=== PATIENT | female | born 1980 | race Caucasian/White ===

== ENCOUNTER 2016-08-24 23:37 | Emergency (ER) | payer MEDICAID ==
[~2016-08-24] VITALS: Ht 157.5 cm; Wt 86.2 kg
[~2016-08-24 23:37] MED LIST: BENZ-13 PO; CODE118S2 PO; DOXY-227 PO; DOXY100T2 PO; FENO54TA4 PO; FLUC150T2 PO; GABA-488 PO; HYDR-3730 PO; HYDR-3812 PO; HYDR-3820 PO; HYDR-3874 PO; HYDR-757 PO; METF500T4 PO; METR500T PO; METR500T21 PO; NAPR-832 PO; SULF1TAB35 PO; TRAM50TA2 PO
--- OUTSIDE RECORDS SUMMARY | 2016-08-24 23:44 | XMS REPORT | Continuity of Care Document ---
Author Author [facility] Organization [facility] Address Unknown Phone Unavailable Care Team Providers Care Programmer Or Analyst Name Role Phone Heron Weeks PCP [phone] Source Comments Some departments are not documenting in the electronic medical record. If you do not see the information that you expected, contact Release of Information in the Health Information Management department at [phone] for further assistance in locating additional records.[facility] Active Allergies and Adverse Reactions Allergen Noted Date Severity Reactions Comments Oxycodone-Acetaminophen 03/23/2016 Low ITCHING tolerates hydrocodone Pcn 12/29/2015 High SHORTNESS OF BREATH, EDEMA Prednisone 05/25/2016 Medium EDEMA Tramadol 03/23/2016 Low PALPITATIONS Current Medications Prescription Sig. Disp. Refills Start End Date Status Date senna/docusate Take 1 Tab by mouth twice 30 Tab 1 01/07/20 Active (SENOKOT-S) 8.6/50 mg daily as needed. Please 16 tablet take while taking pain medications. Hold for loose stools. solifenacin(+) (VESICARE) Take 5 mg by mouth daily. Active 5 mg tablet metFORMIN (GLUCOPHAGE) Take 500 mg by mouth Active 500 mg tablet twice daily with meals. fenofibrate (LIPOFEN) 50 Take by mouth daily. Active mg capsule Take with food. HYDROcodone/acetaminophen Take 1-2 Tabs by mouth 60 Tab 0 05/25/20 Active (NORCO) 5-325 mg tablet every 4 hours as needed 16 for Pain imiquimod(+) (ALDARA) 5 % Apply topically to 12 Packet 3 07/01/20 Active topical cream affected area three times 16 weekly. 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 Most Recent Encounters Date Type Specialty Providers Description 08/12/2016 Office Visit General Surgery Elvin Hauser MD AIN ( anal intraepithelial neoplasia) anal canal (Primary Dx) 08/12/2016 Telephone Oncology Elvin Hauser MD Appointment 08/05/2016 Telephone General Surgery Angie Tapia Appointment 07/29/2016 Orders Only General Surgery Elvin Hauser MD Post- operative pain (Primary Dx) 07/11/2016 Orders Only Oncology Elvin Hauser MD Post- operative pain (Primary Dx) 07/01/2016 Office Visit General Surgery Elvin Hauser MD Post- operative pain (Primary Dx) 06/16/2016 Ancillary Radiology Outpatient, Radiologist Unknown cause of injury, Orders initial encounter (Primary Dx) 06/14/2016 Orders Only Elvin Alvarenga MD Post- operative pain (Primary Dx) 06/03/2016 Hospital Radiology Encounter 06/03/2016 Office Visit General Surgery Elvin Hauser MD Expiratory wheezing (Primary Dx) 05/27/2016 Orders Only General Surgery Elvin Hauser MD Post- operative pain (Primary Dx) 05/25/2016 Anesthesia Aaron Hernandez MD Event 05/25/2016 Surgery Elvin Hauser MD ANOSCOPY, Exam under anesthesia, high resolution anoscopy, targeted destruction of anal condyloma Additional details Social History Tobacco Use Types Packs/Day Years Used Date Current Every Day Smoker Cigarettes 1 21 Smokeless Tobacco: Never Used Tobacco Cessation: Ready to Quit: No Comments: Alcohol Use Drinks/Week oz/Week Comments No 0 Standard 0.0 drinks or equivalent Last Filed Vital Signs Vital Sign Reading Time Taken Blood Pressure 145/85 08/12/2016 1:39 PM CIGAR BRANDER Pulse 95 08/12/2016 1:39 PM CIGAR BRANDER Temperature 36.7 C (98 F) 08/12/2016 1:39 PM CIGAR BRANDER Respiratory Rate 22 08/12/2016 1:39 PM CIGAR BRANDER Height 1.575 m (5' 2") 08/12/2016 1:39 PM CIGAR BRANDER Weight 88.451 kg (195 lb) 08/12/2016 1:39 PM CIGAR BRANDER Body Mass Index 35.66 08/12/2016 1:39 PM CIGAR BRANDER Oxygen Saturation 98% 08/12/2016 1:39 PM CIGAR BRANDER Plan of Care Date Type Specialty Providers Description 09/03/2016 Appointment Radiology Elvin Hauser MD [address] [facility] [address] [place] [address] [phone] (Fax) Health Maintenance Due Date Last Done Comments Physical (Comprehensive) 12/11/1986 Exam Pertussis Vaccine 12/11/1990 Tetanus Vaccine 12/11/1996 Cervical Cancer Screening 12/11/2000 Influenza Vaccine 04/21/2016 Procedures from Last 3 Months Procedure Name Priority Date/Time Associated Diagnosis Comments PROCEDURES-SCAN 05/27/2016 Results for this 10:35 AM CDT procedure are in the results section. ANOSCOPY, Exam under 05/25/2016 AIN (anal intraepithelial anesthesia, high 10:10 AM CDT neoplasia) anal canal resolution anoscopy, targeted destruction of anal condyloma Additional details Special Needs Results from Last 3 Months GENERAL RAD CHEST EXTERNAL IMAGING (06/03/2016 11:10 PM) Narrative This order has been auto finalized and does not contain a result. PROCEDURES-SCAN (05/27/2016 10:35 AM) Narrative Ordered by an unspecified provider. SURGICAL PATHOLOGY (05/25/2016 1:01 PM) Component Value Range PATHOLOGY REPORT [facility] [email or web address] Della Espinosa MD, PhD, Director of Anatomic Pathology Department of Pathology and Laboratory Medicine [address] [facility], [place] [address] Surgical Pathology Office: [phone] SURGICAL PATHOLOGY REPORT NAME: EBONY FERNANDES SURG PATH #: [id number] MR #: [id number] SPECIMEN CLASS: SR BILLING #: [id number] ALT ID #: LOCATION: [facility] DATE OF PROCEDURE: 05/25/2016 AGE: 35 SEX: F DATE RECEIVED: 05/25/2016 : 1980 TIME RECEIVED: 13:01 PHYSICIAN: ELVIN HAUSER MD DATE OF REPORT: 05/26/2016 COPY TO: DATE OF PRINTIN05/26/2016 ################################################## ###################### Final Diagnosis: A. Squamous and colonic mucosa, "anal canal biopsy proximal to dentate line", biopsy: High-grade squamous intraepithelial lesion (HGSIL, AIN-2) B. Colonic mucosa, "anterior distal rectum", biopsy: No diagnostic abnormalities. C. Squamous mucosa, "anterior perianal skin", biopsy: High-grade squamous intraepithelial lesion (HGSIL, AIN 2-3) D. Colonic mucosa, "right lateral anal canal biopsy proximal to dentate line", biopsy: No diagnostic abnormalities. E. Squamous mucosa, "right lateral anal canal biopsy proximal to dentate line", biopsy: Low-grade squamous intraepithelial lesion (HGSIL, AIN-1) F. Squamous mucosa, "right lateral perianal skin", biopsy: Low-grade squamous intraepithelial lesion (LGSIL, AIN-1) G. Squamous mucosa, "posterior anal canal biopsy- proximal to dentate line", biopsy: Low-grade squamous intraepithelial lesion (HGSIL, AIN-1) H. Squamous mucosa, "posterior perianal skin", biopsy: High-grade squamous intraepithelial lesion (HGSIL, AIN-3) I. Squamous mucosa, "left posterior perianal skin", biopsy: High-grade squamous intraepithelial lesion (HGSIL, AIN 2-3) J. Squamous mucosa, "left posterior lateral proximal to dentate line", biopsy: High-grade squamous intraepithelial lesion (HGSIL, AIN-2) K. Squamous and colonic mucosa, "left lateral proximal to dentate line", biopsy: Low-grade squamous intraepithelial lesion (LGSIL, AIN-1) L. Colonic mucosa, "left lateral perianal skin", biopsy: High-grade squamous intraepithelial lesion (HGSIL, AIN-2) M. Colonic mucosa, "left lateral anterior lateral at dentate line", biopsy: High-grade squamous intraepithelial lesion (HGSIL, AIN 2-3) Attestation: By this signature, I attest that I have personally formulated the final interpretation expressed in this report and that the above diagnosis is based upon my examination of the slides and/or other material indicated in this report. +++Electronically Signed Out By+++ ksw/05/25/2016 Interpreted by: Nirmala Dukes M.D. Resident 05/26/2016 ################################################## ###################### Material Received: A: anal canal biopsy proximal to dentate line B: anterior distal rectum biopsy C: anterior jarad-anal skin D: right lateral anal canal biopsy proximal to dentate line E: right lateral anal canal biopsy proximal to dentate line F: right lateral jarad-anal skin G: posterior anal canal biopsy- proximal to dentate line H: posterior jarad-anal skin I: left posterior jarad-anal skin J: left posterior lateral proximal to dentate line biopsy K: left lateral proximal to dentate line biopsy L: left lateral jarad-anal skin biopsy M: left lateral anterior lateral at dentate line History: 35-year-old female with a history of anal intraepithelial neoplasm, anal canal. Gross Description: A. Received in formalin labeled "anal canal biopsy proximal dentate line" is a 0.4 x 0.2 x 0.2 cm aggregate of brunner-brown soft tissue fragments. The specimen is entirely submitted in cassette A1. (ads) B. Received in formalin labeled "anterior distal rectum biopsy" is a 0.8 x 0.2 x 0.2 cm aggregate of brunner-brown soft tissue fragments. The specimen is entirely submitted in cassette B1. (ads) C. Received in formalin labeled "anterior perianal skin" is a 0.9 x 0.3 x 0.3 cm brunner-white portion of pigmented skin and underlying soft tissue. The soft tissue is inked black. The specimen is bisected and entirely submitted in cassette C1. (ads) D. Received in formalin labeled "right lateral anal canal biopsy proximal dentate line" is a 0.2 x 0.2 x 0.2 cm aggregate of brunner-brown soft tissue fragments. The specimen is entirely submitted in cassette D1. (ads) E. Received in formalin labeled "right lateral anal canal biopsy at dentate line" is a 0.6 x 0.2 x 0.2 cm aggregate of brunner-brown soft tissue fragments. The specimen is entirely submitted in cassette E1. (ads) F. Received in formalin labeled "right lateral perianal skin" is a 0.4 x 0.3 x 0.2 cm aggregate of brunner-brown soft tissue fragments. The specimen is entirely submitted in cassette F1. (ads) G. Received in formalin labeled "posterior anal canal biopsy-proximal dentate line" is a 0.6 x 0.3 x 0.2 cm aggregate of brunner-brown soft tissue fragments. The specimen is entirely submitted in cassette G1. (ads) H. Received in formalin labeled "posterior perianal skin" is a 0.7 x 0.4 x 0.2 cm brunner-white portion of pigmented skin and underlying soft tissue. The soft tissue is inked black. The specimen is bisected and entirely submitted in cassette H1. (ads) I. Received in formalin labeled "left posterior perianal skin" is a 0.4 x 0.4 x 0.2 cm brunner-brown soft tissue fragment. The specimen is entirely submitted in cassette I1. (ads) J. Received in formalin labeled "left posterior lateral proximal to the dentate line biopsy" is a 0.3 x 0.1 x 0.1 cm aggregate of brunner-brown soft tissue fragments. The specimen is entirely submitted in cassette J1. (ads) K. Received in formalin labeled "left lateral proximal dentate line biopsy" is a 0.4 x 0.2 x 0.2 cm aggregate of brunner-brown soft tissue fragments. The specimen is entirely submitted in cassette K1. (ads) L. Received in formalin labeled "left lateral perianal skin biopsy" is a 0.2 x 0.1 x 0.1 cm aggregate of brunner-brown soft tissue fragments. The specimen is entirely submitted in cassette L1. (ads) M. Received in formalin labeled "left anterior lateral at dentate line" is a 0.6 x 0.4 x 0.2 cm aggregate of brunner-brown soft tissue fragments. The specimen is entirely submitted in cassette M1. (ads) as/05/25/2016 Parker Mark M.D. Resident POC GLUCOSE (05/25/2016 9:51 AM)Only the most recent of 2 results within the time period is included. Component Value Range Glucose, POC 107 (H) 70-100 MG/DL
[2016-08-24] MEDS ORDERED: HYDR-3820 PO (23:51)
[2016-08-24] MEDS ORDERED: IMIQ1CRE TOP (23:51)
[2016-08-25] MEDS ORDERED: fentaNYL INJECTION 100 MCG/2 ML AMP IVP ONE
[2016-08-25] MEDS ORDERED: KETOROLAC 30 MG/ML VIAL IVP ONE
[2016-08-25 00:15] LABS: BASOPHILS # (AUTO) 0.1 10^3/uL (0.0-0.1); BASOPHILS % (AUTO) 1 % (0-10); EOSINOPHILS # (AUTO) 0.2 10^3/uL (0.0-0.3); EOSINOPHILS % (AUTO) 2 % (0-10); LYMPHOCYTES # (AUTO) 5.3 X 10^3 (1.0-4.0); LYMPHOCYTES % (AUTO) 45 % (12-44); MEAN CORPUSCULAR HEMOGLOBIN 31 PG (25-34); MEAN CORPUSCULAR HGB CONC 34 G/DL (32-36); MEAN CORPUSCULAR VOLUME 89 FL (80-99); MEAN PLATELET VOLUME 9.5 FL (7.4-10.4); MONOCYTES # (AUTO) 1.2 X 10^3 (0.0-1.0); MONOCYTES % (AUTO) 10 % (0-12); NEUTROPHILS # (AUTO) 5.2 X 10^3 (1.8-7.8); NEUTROPHILS % (AUTO) 44 % (42-75); PLATELET COUNT 329 10^3/uL (130-400); RED BLOOD COUNT 4.58 10^6/uL (4.35-5.85); RED CELL DISTRIBUTION WIDTH 14.1 % (10.0-14.5); WHITE BLOOD COUNT 11.9 10^3/uL (4.3-11.0)
[2016-08-25] MEDS ORDERED: LIDOCAINE/EPI 1%-1:100,000 (XYLOCAINE) 20ML INJ ONE (00:30)
[2016-08-25] MEDS ORDERED: LIDOCAINE 2% VISCOUS 15 ML UDC MM ONE (00:30)
[2016-08-25] MEDS ORDERED: HYDROcodone/APAP 5 MG/325 MG (LORTAB) TAB PO ONE (01:30)
[2016-08-25] MEDS ORDERED: TRIM/SULFAMETH 160/800 (SEPTRA DS) TAB PO ONE (01:30)
[2016-08-25] MEDS ORDERED: metroNIDAZOLE 500 MG (FLAGYL) TAB PO ONE (01:30)
[2016-08-25] MEDS ORDERED: METR500T PO (01:33)
[2016-08-25] MEDS ORDERED: SULF1TAB35 PO (01:33)
--- NOTE | 2016-08-25 01:34 | ED General ---
General Chief Complaint: Skin/Wound Problems Stated Complaint: ABSCESS NEEDS LANCED Nursing Triage Note: PT REPORTS ABSCESS TO ANAL AREA THAT HAS BEEN LANCED BEFORE HAS RETURNED. Nursing Sepsis Screen: Possible Sepsis Risk Source of Information: Patient, Old Records Exam Limitations: No Limitations History of Present Illness Time Seen by Provider: 23:43 Initial Comments Patient presents with a recurrent perianal abscess. She has had an abscess in this area in the past requiring incision and drainage. She has been treated in the past for rectal dysplasia. She reports fever at home of 101.3 but she is afebrile at present. Allergies and Home Medications Allergies Coded Allergies: oxycodone (Verified Allergy, Mild, 06/08/16) Penicillins (Verified Allergy, Unknown, 06/08/16) prednisone (Verified Allergy, Unknown, 06/08/16) tramadol (Verified Allergy, Unknown, itching, 06/08/16) Home Medications Fenofibrate 54 Mg Tablet 54 MG PO DAILY (Reported) Hydrocodone/Acetaminophen 1 Each Tablet #60 1 TAB PO Q6H PRN PRN PAIN (Reported ) Hydrocodone/Acetaminophen 1 Each Tablet #10 1 EACH PO Q4H PRN PRN PAIN Prescribed by: TESSA HERNANDEZ on 08/25/16136 Imiquimod 1 Each Cream.pack #12 1 APPFUL TOP 3 TIMES/WEEK (Reported) Metronidazole 500 Mg Tablet #20 500 MG PO BID Prescribed by: TESSA HERNANDEZ on 08/25/16132 Sulfamethoxazole/Trimethoprim 1 Each Tablet #20 1 EACH PO BID Prescribed by: TESSA HERNANDEZ on 08/25/16132 Constitutional: see HPI EENTM: no symptoms reported Respiratory: no symptoms reported Cardiovascular: no symptoms reported Gastrointestinal: see HPI Genitourinary: no symptoms reported Musculoskeletal: no symptoms reported Skin: no symptoms reported Psychiatric/Neurological: No Symptoms Reported Hematologic/Lymphatic: No Symptoms Reported Past Jqbwcpy-Eyidqa-Jferzl Hx Patient Social History Alcohol Use: Denies Use Recreational Drug Use: No Smoking Status: Current Everyday Smoker Type Used: Cigarettes Recent Foreign Travel: No Contact w/Someone Who Travel: No Recent Infectious Disease Expo: No Recent Hopitalizations: Yes (May 5- rectal surgery) Physical Abuse Screen: No Sexual Abuse: No Immunizations Up To Date Tetanus Booster (TDap): More than 5yrs Surgeries HX Surgeries: Yes (brain aneurysm/rectal surgery/colon ca, carpal tunnel) Surgeries: Bowel Surgery, Rectal, Tubal Ligation Respiratory Hx Respiratory Disorders: Yes Respiratory Disorders: Asthma Cardiovascular Hx Cardiac Disorders: Yes Cardiac Disorders: High Cholesterol Neurological Hx Neurological Disorders: Yes (brain surgery for avm) Neurological Disorders: Headaches /Migraines 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 System Hx 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 Disorders: No Sexually Transmitted Disease: No HIV/AIDS: No (3 leaps on pap smears) [employer]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 Genitourinary Hx Genitourinary Disorders: No Gastrointestinal Hx Gastrointestinal Disorders: Yes (pre cancerous cells in the rectum) Musculoskeletal Hx Musculoskeletal Disorders: No Endocrine Hx Endocrine Disorders: Yes Endocrine Disorders: Diabetes, Non-Insulin dep HEENT HX ENT Disorders: No Loss of Vision: Denies Hearing Impairment: Denies Cancer Hx Cancer: Yes Cancer: Colon (Rectal dysplasia) Psychosocial Hx Psychiatric Problems: No Integumentary HX Skin/Integumentary Disorder: No Blood Transfusions Hx Blood Disorders: No Family Medical History Significant Family History: No Pertinent Family Hx Family Medial History: Arthritis 19 FATHER 19 MOTHER Asthma 19 FATHER G8 BROTHER Cataracts 19 MOTHER Diabetes mellitus 19 FATHER Headache disorder 19 MOTHER Hypercholesterolemia 19 MOTHER Seizure disorder 19 FATHER G8 BROTHER Physical Exam Vital Signs Capillary Refill : Less Than 3 Seconds General Appearance: WD/WN Mild Distress HEENT: PERRL/EOMI Normal ENT Inspection Respiratory: Lungs Clear Normal Breath Sounds No Accessory Muscle Use No Respiratory Distress Cardiovascular: Regular Rate, Rhythm No Edema No Murmur Gastrointestinal: Normal Bowel Sounds Non Tender Soft Genital/Rectal: Other (Fluctuant abscess at the 11 o'clock position near the anus) Extremity: Normal Inspection Neurologic/Psychiatric: Alert Oriented x3 No Motor/Sensory Deficits Normal Mood/Affect paranormal investigator II-XII Norm as Tested Skin: Normal Color Warm/Dry I&D : Blade Size: 11 I & D Procedure: betadine prep Progress Skin was cleansed with alcohol and anesthetized with lidocaine with epinephrine. Betadine prep was used. Small incision was made directly over the area of greatest fluctuance. A small amount of purulent pus was expressed. Cultures were collected. Progress/Results/Core Measures Results/Orders Lab Results My Orders Medications Given in ED Vital Signs/I&O Blood Pressure Mean: 110 Progress Note : Progress Note Because of report of fever, labs were obtained. Patient was treated with fentanyl and Toradol prior to incision and drainage. Incision and drainage was performed with collection of cultures. Patient was treated with Bactrim and Flagyl. Departure Impression Impression: Primary Impression: Perianal abscess Additional Impression: Encounter for incision and drainage procedure Disposition: HOME, SELF-CARE Condition: Improved Departure-Patient Inst. Decision time for Depature: 01:15 Referrals: [facility] (PCP/Family) Primary Care Physician Patient Instructions: Abscess Incision and Drainage, Skin Abscess Add. Discharge Instructions: Complete your antibiotics as prescribed. Follow-up with your primary care provider and/or your surgeon in about 48 hours to review the wound cultures. This will ensure you are on an antibiotic regimen appropriate for the bacteria that grows in the culture. Return to the emergency room if symptoms worsen. You may take ibuprofen up to 800 mg every 8 hours as needed for pain. Use hydrocodone for pain not controlled by ibuprofen. Do sitz baths for 15-30 minutes 3 times a day until wound stops draining. All discharge instructions reviewed with patient and/or family. Voiced understanding. Scripts Hydrocodone/Acetaminophen (Hydrocodon -Acetaminophen 5-325)1 Each Tablet1 Each PO Q4H PRN PAIN #10 TAB Prov:TESSA WALTON MD 08/25/16 Metronidazole (Flagyl)500 Mg [id number] Mg PO BID #20 TAB Prov:TESSA WALTON MD 08/25/16 Sulfamethoxazole/Trimethoprim (Bactrim Ds Tablet)1 Each Tablet1 Each PO BID #20 TAB Prov:TESSA WALTON MD 08/25/16 TESSA WALTON MD Aug 25, 2016 01:34 Fentanyl Injection (Sublimaze Injection (08/25/16 00:00) Wound Culture (08/24/16 23:54) Lidocaine 2% Viscous 15 Ml (Xylocaine Vi (08/25/16 00:30) Lidocaine/Epi 1% 1:100,000 (Xylocaine /E (08/25/16 00:30) Hydrocodone/Apap 5/325 Tablet (Lortab 5 (08/25/16 01:30) Sulfamethoxazole/Trimet Ds Tab (Bactrim (08/25/16 01:30) Metronidazole Tablet (Flagyl Tablet) (08/25/16 01:30) Medications Given in ED Current Medications Medications Dose Ordered Sig/Maryse Route Start Time Stop Time Status Last Admin Dose Admin Fentanyl Citrate 75 mcg ONCE ONCE IVP 08/25/16 00:00 08/25/16 00:01 DC 08/25/16 00:04 75 MCG Ketorolac Tromethamine 30 mg ONCE ONCE IVP 08/25/16 00:00 08/25/16 00:01 DC 08/25/16 00:04 30 MG Lidocaine HCl 5 ml ONCE ONCE MM 08/25/16 00:30 08/25/16 00:31 DC 08/25/16 00:50 5 ML Vital Signs/I&O Vital Sign - Last 12Hours 08/24/16 23:44 Temp 98.6 Pulse 98 Resp 18 B/P 147/92 Pulse Ox 98 O2 Delivery Room Air Blood Pressure Mean: 110 Departure Impression Impression: Primary Impression: Perianal abscess Additional Impression: Encounter for incision and drainage procedure Disposition: HOME, SELF-CARE Condition: Improved Departure-Patient Inst. Decision time for Depature: 01:15 Referrals: [facility] (PCP/Family) Primary Care Physician Patient Instructions: Abscess Incision and Drainage, Skin Abscess Add. Discharge Instructions: Complete your antibiotics as prescribed. Follow-up with your primary care provider and/or your surgeon in about 48 hours to review the wound cultures. This will ensure you are on an antibiotic regimen appropriate for the bacteria that grows in the culture. Return to the emergency room if symptoms worsen. You may take ibuprofen up to 800 mg every 8 hours as needed for pain. Use hydrocodone for pain not controlled by ibuprofen. Do sitz baths for 15-30 minutes 3 times a day until wound stops draining. All discharge instructions reviewed with patient and/or family. Voiced understanding. Scripts Hydrocodone/Acetaminophen (Hydrocodon -Acetaminophen 5-325)1 Each Tablet1 Each PO Q4H PRN PAIN #10 TAB Prov:TESSA WALTON MD 08/25/16 Metronidazole (Flagyl)500 Mg [id number] Mg PO BID #20 TAB Prov:TESSA WALTON MD 08/25/16 Sulfamethoxazole/Trimethoprim (Bactrim Ds Tablet)1 Each Tablet1 Each PO BID #20 TAB Prov:TESSA WALTON MD 08/25/16 TESSA WALTON MD Aug 25, 2016 01:34
[2016-08-25] MEDS ORDERED: HYDR-3812 PO (01:37)
[2016-08-25 01:45] VITALS: BP 138/84
== END 2016-08-25 01:45 | disposition home or self-care (01) ==
LOC: EDUNIT# 23:37 → ER 23:40
DX: K61.0 Anal abscess (principal)
CPT/HCPCS: 36415; 85025; 86141; 87070; 87186; 87205; 96374; 96375

== ENCOUNTER 2016-09-17 20:12 | Emergency (ER) | payer MEDICAID ==
[~2016-09-17] VITALS: Ht 157.5 cm; Wt 88.5 kg
[~2016-09-17 20:12] MED LIST changes: +IMIQ1CRE TOP
--- OUTSIDE RECORDS SUMMARY | 2016-09-17 20:18 | XMS REPORT | Continuity of Care Document ---
Author Author [facility] Organization [facility] Address Unknown Phone Unavailable Care Team Providers Care Sales Activity Manager Name Role Phone Heron Weeks PCP [phone] Source Comments Some departments are not documenting in the electronic medical record. If you do not see the information that you expected, contact Release of Information in the Health Information Management department at [phone] for further assistance in locating additional records.[facility] Active Allergies and Adverse Reactions Allergen Noted [...] daily. Active mg capsule Take with food. imiquimod(+) (ALDARA) 5 % Apply topically to 12 Packet 3 07/01/20 Active topical cream affected area three times 16 weekly. nifedipine 0.3%/lidocaine Apply cream 4 times a day 1 Container 2 07/10 Active 1.5%/white petrolatum(#) 16 albuterol (VENTOLIN HFA, Inhale 2 Puffs by mouth Active PROAIR HFA, PROVENTIL into the lungs every 6 HFA) 90 mcg/actuation hours as needed for inhaler Wheezing or Shortness of Breath. Shake well before use. 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 Most Recent Encounters Date Type Specialty Providers Description 09/28/2016 [facility] Elvin Hauser MD AIN (anal intraepithelial Encounter neoplasia) anal canal 09/02/2016 Orders Only General Surgery Elvin Hauser MD Post- operative pain (Primary Dx) 09/02/2016 Telephone Oncology Elvin Hauser MD Appointment - reschedule MRI 09/01/2016 Screening Form 08/26/2016 Prep for Case General Surgery Elvin Hauser MD 08/12/2016 Office Visit General Surgery Elvin Hauser [...] Hauser MD Post- operative pain (Primary Dx) Social History Tobacco Use Types Packs/Day Years Used Date Current Every Day Smoker Cigarettes 1 21 Smokeless Tobacco: Never Used Tobacco Cessation: Ready to Quit: No Comments: Alcohol Use Drinks/Week oz/Week Comments No 0 Standard 0.0 drinks or equivalent Last Filed Vital Signs Vital Sign Reading Time Taken Blood Pressure 145/85 08/12/2016 1:39 PM VERIFICATION ENGINEER Pulse 95 08/12/2016 1:39 PM VERIFICATION ENGINEER Temperature 36.7 C (98 F) 08/12/2016 1:39 PM VERIFICATION ENGINEER Respiratory Rate 22 08/12/2016 1:39 PM VERIFICATION ENGINEER Height 1.575 m (5' 2") 08/31/2016 8:58 AM VERIFICATION ENGINEER Weight 90.719 kg (200 lb) 08/31/2016 8:58 AM VERIFICATION ENGINEER Body Mass Index 36.57 08/31/2016 8:58 AM VERIFICATION ENGINEER Oxygen Saturation 98% 08/12/2016 1:39 PM VERIFICATION ENGINEER Plan of Care Date Type Specialty Providers Description 09/21/2016 Appointment Radiology Elvin Hauser MD [address] [place] [address] [phone] (Fax) 09/28/2016 Surgery Elvin Hauser MD POSSIBLE INCISION AND [address] DRAINAGE OF ABSC[address], [address], [place] [address] POSSIBLE BOTOX INJECTION [phone] (Fax) Health Maintenance Due Date Last Done Comments Physical (Comprehensive) 12/11/1986 Exam Pertussis Vaccine 12/11/1990 Tetanus Vaccine 12/11/1996 Cervical Cancer Screening 12/11/2000 Influenza Vaccine 04/21/2016 Results from Last 3 Months Not on file
[2016-09-17] MEDS ORDERED: LIDOCAINE/EPI 1%-1:100,000 (XYLOCAINE) 20ML INJ ONE (20:45)
[2016-09-17] MEDS ORDERED: HYDROcodone/APAP 5 MG/325 MG (LORTAB) TAB PO ONE (20:45)
[2016-09-17] MEDS ORDERED: DOCU-143 PO (20:49)
[2016-09-17] MEDS ORDERED: HYDR-757 PO (20:49)
--- NOTE | 2016-09-17 20:49 | ED Integumentary General ---
General Chief Complaint: Skin/Wound Problems Stated Complaint: ANAL ABCESS Nursing Triage Note: patient reports a recurring rectal abscess, states was here recently to have it drained and needs it done again Source: patient Exam Limitations: no limitations History of Present Illness Time seen by provider: 20:46 Initial Comments To ER with an anal abscess. She states she was here earlier this month to have it drained. This with the fourth or fifth time that she's had it drained. She does follow with a colorectal surgeon at the [facility] and is scheduled to have surgery for this on September 28. Severity: mild Location: scalp Associated Symptoms: denies symptoms Allergies and Home Medications Allergies Coded Allergies: oxycodone (Verified Allergy, Mild, 06/08/16) Penicillins (Verified Allergy, Unknown, 06/08/16) prednisone (Verified Allergy, Unknown, 06/08/16) tramadol (Verified Allergy, Unknown, itching, 06/08/16) Home Medications Fenofibrate 54 Mg Tablet 54 MG PO DAILY (Reported) Hydrocodone/Acetaminophen 1 Each Tablet #60 1 TAB PO Q6H PRN PRN PAIN (Reported ) Hydrocodone/Acetaminophen 1 Each Tablet #10 1 EACH PO Q4H PRN PRN PAIN Prescribed by: TESSA HERNANDEZ on 08/25/16136 Imiquimod 1 Each Cream.pack #12 1 APPFUL TOP 3 TIMES/WEEK (Reported) Metronidazole 500 Mg Tablet #20 500 MG PO BID Prescribed by: TESSA HERNANDEZ on 08/25/16132 Sulfamethoxazole/Trimethoprim 1 Each Tablet #20 1 EACH PO BID Prescribed by: TESSA HERNANDEZ on 08/25/16132 Constitutional: see HPI EENTM: see HPI Respiratory: no symptoms reported Cardiovascular: no symptoms reported Genitourinary: no symptoms reported Musculoskeletal: no symptoms reported Skin: no symptoms reported Past Nrbuhpf-Skulla-Zsjoij Hx Patient Social History Alcohol Use: Denies Use Recreational Drug Use: No Smoking Status: Current Everyday Smoker Type Used: Cigarettes Recent Foreign Travel: No Contact w/Someone Who Travel: No Recent Infectious Disease Expo: No Recent Hopitalizations: Yes (May 5- rectal surgery) Physical Abuse Screen: No Sexual Abuse: No Immunizations Up To Date Tetanus Booster (TDap): More than 5yrs Surgeries HX Surgeries: Yes (brain aneurysm/rectal surgery/colon ca, carpal tunnel) Surgeries: Bowel Surgery, Rectal, Tubal Ligation Respiratory Hx Respiratory Disorders: Yes Respiratory Disorders: Asthma Cardiovascular Hx Cardiac Disorders: Yes Cardiac Disorders: High Cholesterol Neurological Hx Neurological Disorders: Yes (brain surgery for avm) Neurological Disorders: Headaches /Migraines 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 System Hx 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 Disorders: No Sexually Transmitted Disease: No HIV/AIDS: No (3 leaps on pap smears) 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 Genitourinary Hx Genitourinary Disorders: No Gastrointestinal Hx Gastrointestinal Disorders: Yes (pre cancerous cells in the rectum) Musculoskeletal Hx Musculoskeletal Disorders: No Endocrine Hx Endocrine Disorders: Yes Endocrine Disorders: Diabetes, Non-Insulin dep HEENT HX ENT Disorders: No Loss of Vision: Denies Hearing Impairment: Denies Cancer Hx Cancer: Yes Cancer: Colon Psychosocial Hx Psychiatric Problems: No Integumentary HX Skin/Integumentary Disorder: No Blood Transfusions Hx Blood Disorders: No Family Medical History Significant Family History: No Pertinent Family Hx Family Medial History: Arthritis 19 FATHER 19 MOTHER Asthma 19 FATHER G8 BROTHER Cataracts 19 MOTHER Diabetes mellitus 19 FATHER Headache disorder 19 MOTHER Hypercholesterolemia 19 MOTHER Seizure disorder 19 FATHER G8 BROTHER Physical Exam Vital Signs Vital Sign - Last 12Hours 09/17/16 20:22 Temp 99.1 Pulse 106 Resp 18 B/P 120/69 Pulse Ox 98 Capillary Refill : Less Than 3 Seconds General Appearance: WD/WN no apparent distress HEENT: PERRL/EOMI normal ENT inspection Neck: non-tender full range of motion Respiratory: no respiratory distress no accessory muscle use Neurologic/Psychiatric: alert normal mood/affect oriented x 3 Skin: normal color warm/dry Skin Problem Character: other (there is a small fluctuant abscess approximately 4 mm in width and 10 mm in length to the left posterior side of the anus. This was anesthetized with lidocaine with epinephrine totaling 0.5 mL and then a small incision was made with an 11 blade scalpel being careful not to go toO deep and costs injury to the sphincter. Small amount of bloody material was expressed.) Progress/Results/Core Measures Results/Orders My Orders Orders-EDGARDO ROBBINS APRN Cbc With Automated Diff (09/17/16 20:32) Lidocaine/Epi 1% 1:100,000 (Xylocaine /E (09/17/16 20:45) Hydrocodone/Apap 5/325 Tablet (Lortab 5 (09/17/16 20:45) Medications Given in ED Current Medications Medications Dose Ordered Sig/Maryse Route Start Time Stop Time Status Last Admin Dose Admin Acetaminophen/ Hydrocodone Bitart 1 tab ONCE ONCE PO 09/17/16 20:45 09/17/16 20:46 09/17/16 20:40 1 TAB Lidocaine/ Epinephrine 2 ml ONCE ONCE INJ 09/17/16 20:45 09/17/16 20:46 09/17/16 20:40 2 ML Vital Signs/I&O Vital Sign - Last 12Hours 09/17/16 20:22 Temp 99.1 Pulse 106 Resp 18 B/P 120/69 Pulse Ox 98 Blood Pressure Mean: 86 Departure Communication Progress Notes Patient states that she has Bactrim and Flagyl left over at home Impression Impression: Primary Impression: Perianal abscess Disposition: HOME, SELF-CARE Condition: Stable Departure-Patient Inst. Decision time for Depature: 20:48 Referrals: [facility] (PCP/Family) Primary Care Physician Patient Instructions: Skin Abscess Add. Discharge Instructions: 1. Medication as directed 2. Return to ER for any concerns 3. Restart the Bactrim and Flagyl All discharge instructions reviewed with patient and/or family. Voiced understanding. Scripts Docusate Sodium (Colace)100 Mg [id number] Mg PO DAILY #14 CAP Prov:EDGARDO ROBBINS FACILITIES SUPERVISOR 09/17/16 Hydrocodone/Acetaminophen ([place] 5-325 Tablet)1 Each Tablet1 Each PO Q4H PRN PAIN #10 TAB Prov:EDGARDO ROBBINS FACILITIES SUPERVISOR 09/17/16 EDGARDO ROBBINS FACILITIES SUPERVISOR Sep 17, 2016 20:49
[2016-09-17 20:59] LABS: BASOPHILS # (AUTO) 0.1 10^3/uL (0.0-0.1); BASOPHILS % (AUTO) 1 % (0-10); EOSINOPHILS # (AUTO) 0.3 10^3/uL (0.0-0.3); EOSINOPHILS % (AUTO) 2 % (0-10); LYMPHOCYTES # (AUTO) 5.2 X 10^3 (1.0-4.0); LYMPHOCYTES % (AUTO) 46 % (12-44); MEAN CORPUSCULAR HEMOGLOBIN 31 PG (25-34); MEAN CORPUSCULAR HGB CONC 35 G/DL (32-36); MEAN CORPUSCULAR VOLUME 89 FL (80-99); MEAN PLATELET VOLUME 9.8 FL (7.4-10.4); MONOCYTES % (AUTO) 9 % (0-12); NEUTROPHILS # (AUTO) 4.8 X 10^3 (1.8-7.8); NEUTROPHILS % (AUTO) 42 % (42-75); PLATELET COUNT 321 10^3/uL (130-400); RED CELL DISTRIBUTION WIDTH 13.8 % (10.0-14.5); WHITE BLOOD COUNT 11.3 10^3/uL (4.3-11.0)
[2016-09-17 21:12] VITALS: BP 114/62
== END 2016-09-17 21:11 | disposition home or self-care (01) ==
LOC: EDUNIT# 20:12 → ER 20:13
DX: K61.0 Anal abscess (principal); E11.9 Type 2 diabetes mellitus without complications; F17.210 Nicotine dependence, cigarettes, uncomplicated
CPT/HCPCS: 36415; 45020; 85025

== ENCOUNTER 2016-09-26 22:21 | Emergency (ER) | payer MEDICAID ==
[~2016-09-26] VITALS: Ht 160 cm; Wt 88.5 kg
[~2016-09-26 22:21] MED LIST changes: +DOCU-143 PO
--- OUTSIDE RECORDS SUMMARY | 2016-09-26 22:27 | XMS REPORT | Continuity of Care Document ---
Author Author [facility] Organization [facility] Address Unknown Phone Unavailable Care Team Providers Care Clinical Training Coordinator Name Role Phone Heron Weeks PCP [phone] Source Comments Some departments are not documenting in the electronic medical record. If you do not see the information that you expected, contact Release of Information in the Health Information Management department at [phone] for further assistance in locating additional records.[facility] Active Allergies and Adverse Reactions Allergen Noted [...] 1-2 Tabs by mouth 60 Tab 0 09/21/19 Active (+) (NORCO) 10/325 mg every 6 [...] 17 ued tablet for Pain Indications: PAIN HYDROcodone/acetaminophen Take 1-2 Tabs by mouth 60 Tab 0 09/02/19 09/21/19 Discontin (+) (NORCO) 10/325 mg every 6 hours as needed 17 17 ued tablet for Pain Indications: PAIN Active Problems Problem Noted Date 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 Elvin Hauser MD AIN (anal intraepithelial Encounter neoplasia) anal canal 09/21/2016 Hospital Radiology Elvin Hauser MD Arrived Encounter 09/21/2016 Orders Only Oncology Elvin Hauser MD Post- operative pain (Primary Dx) 09/02/2016 Orders Only General Surgery Elvin Hauser MD Post- operative pain (Primary Dx) 09/02/2016 Telephone Elvin Alvarenga MD Appointment - reschedule MRI 09/01/2016 Screening Form 08/26/2016 Prep for Case General Surgery Elvin Hauser MD 08/12/2016 Office Visit General Surgery Elvin Hauser MD AIN ( anal intraepithelial neoplasia) anal canal (Primary Dx) 08/12/2016 Telephone Elvin Alvarenga MD Appointment 08/05/2016 Telephone General Surgery Angie [...] Taken Blood Pressure 145/85 08/12/2016 1:39 PM INJURY/SAFETY HAZARD ASSESSMENT Pulse 95 08/12/2016 1:39 PM INJURY/SAFETY HAZARD ASSESSMENT Temperature 36.7 C (98 F) 08/12/2016 1:39 PM INJURY/SAFETY HAZARD ASSESSMENT Respiratory Rate 22 08/12/2016 1:39 PM INJURY/SAFETY HAZARD ASSESSMENT Height 1.575 m (5' 2") 08/31/2016 8:58 AM INJURY/SAFETY HAZARD ASSESSMENT Weight 90.719 kg (200 lb) 08/31/2016 8:58 AM INJURY/SAFETY HAZARD ASSESSMENT Body Mass Index 36.57 08/31/2016 8:58 AM INJURY/SAFETY HAZARD ASSESSMENT Oxygen Saturation 98% 08/12/2016 1:39 PM INJURY/SAFETY HAZARD ASSESSMENT Plan of Care Date Type Specialty Providers Description 10/05/2016 Surgery Elvin Hauser MD POSSIBLE INCISION AND [address] [place]AGE OF [place] [place] [address], [place] [address] POSSIBLE BOTOX INJECTION [phone] (Fax) Health Maintenance Due Date Last Done Comments Physical (Comprehensive) 12/11/1986 Exam Pertussis Vaccine 12/11/1990 Tetanus Vaccine 12/11/1996 Cervical Cancer Screening 12/11/2000 Influenza Vaccine 04/21/2016 Results from Last 3 Months MRI PELVIS WO/W CONTRAST (09/21/2016 4:20 PM) Impressions Thin linear, enhancing soft tissue tract extending posterior from the anus to the left gluteal cleft. This likely represents postoperative granulation tissue versus healing or healed fistulous tract. No abnormal T2 signal abnormality is seen to suggest a patent fistula or perianal abscess. Approved by Enrique Isbell M.D. on 09/22/2016 10:48 AM By my electronic signature, I attest that I have personally reviewed the images for this examination and formulated the interpretations and opinions expressed in this report Finalized by Sybil Laurent M.D. on 09/22/2016 3:14 PM. Dictated by Enrique Isbell M.D. on 09/22/2016 9:26 AM. Narrative MRI PELVIS Clinical Indication:Female, 35 years old. 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 Technique: Multisequence and multiplanar MR imaging was obtained through the pelvis without IV contrast material. IV Contrast: None. Bowel contrast: None Magnet:3 Cindy Siemens Comparison: CT abdomen and pelvis May 18, 2016 FINDINGS: Small bone island in the right femoral head. No suspicious geographic marrow lesion is identified. Mild lower lumbar spondylosis. Minute fat-containing right inguinal hernia. Mild distal colonic diverticulosis. Urinary bladder incompletely distended and otherwise unremarkable. Ovaries appear normal for age and contains several small follicular type cysts. Trace physiologic normal volume ascites is seen in the rectouterine pouch. Uterus is normal in size. No pelvic adenopathy. The internal and external anal sphincters appear intact. There is a linear enhancing soft tissue extending from the left posterior lateral aspect of the anus (5:00 position; series 10 image 23) to the skin surface in the left gluteal cleft. No associated T2 signal abnormality is seen to suggest a patent fistula. No adjacent fluid collection is seen to suggest abscess. No skin thickening is also demonstrated in the perianal region bilaterally. Procedure Note Interface, Radiant Results - Saranya Sep 22, 2016 3:17 PM INJURY/SAFETY HAZARD ASSESSMENT MRI PELVIS Clinical Indication: Female, 35 years old. Rectal fistula protocol. Anal intraepithelial neoplasm, renal canal. Anal condyloma status post resection. Technique: Multisequence and multiplanar MR imaging was obtained through the pelvis without IV contrast material. IV Contrast: None. Bowel contrast: None Magnet:3 Cindy Siemens Comparison: CT abdomen and pelvis May 18, 2016 FINDINGS: Small bone island in the right femoral head. No suspicious geographic marrow lesion is identified. Mild lower lumbar spondylosis. Minute fat-containing right inguinal hernia. Mild distal colonic diverticulosis. Urinary bladder incompletely distended and otherwise unremarkable. Ovaries appear normal for age and contains several small follicular type cysts. Trace physiologic normal volume ascites is seen in the rectouterine pouch. Uterus is normal in size. No pelvic adenopathy. The internal and external anal sphincters appear intact. There is a linear enhancing soft tissue extending from the left posterior lateral aspect of the anus (5:00 position; series 10 image 23) to the skin surface in the left gluteal cleft. No associated T2 signal abnormality is seen to suggest a patent fistula. No adjacent fluid collection is seen to suggest abscess. No skin thickening is also demonstrated in the perianal region bilaterally. IMPRESSION Thin linear, enhancing soft tissue tract extending posterior from the anus to the left gluteal cleft. This likely represents postoperative granulation tissue versus healing or healed fistulous tract. No abnormal T2 signal abnormality is seen to suggest a patent fistula or perianal abscess. Approved by Enrique Isbell M.D. on 09/22/2016 10:48 AM By my electronic signature, I attest that I have personally reviewed the images for this examination and formulated the interpretations and opinions expressed in this report Finalized by Sybil Laurent M.D. on 09/22/2016 3:14 PM. Dictated by Enrique Isbell M.D. on 09/22/2016 9:26 AM.
[2016-09-26] MEDS ORDERED: LACTATED RINGERS 1,000 ML IV ONE (23:02)
[2016-09-26 23:11] LABS: BASOPHILS # (AUTO) 0.1 10^3/uL (0.0-0.1); BASOPHILS % (AUTO) 1 % (0-10); EOSINOPHILS # (AUTO) 0.2 10^3/uL (0.0-0.3); EOSINOPHILS % (AUTO) 2 % (0-10); LYMPHOCYTES # (AUTO) 3.8 X 10^3 (1.0-4.0); LYMPHOCYTES % (AUTO) 42 % (12-44); MEAN CORPUSCULAR HEMOGLOBIN 31 PG (25-34); MEAN CORPUSCULAR HGB CONC 35 G/DL (32-36); MEAN CORPUSCULAR VOLUME 89 FL (80-99); MEAN PLATELET VOLUME 9.6 FL (7.4-10.4); MONOCYTES # (AUTO) 0.8 X 10^3 (0.0-1.0); MONOCYTES % (AUTO) 9 % (0-12); NEUTROPHILS # (AUTO) 4.1 X 10^3 (1.8-7.8); NEUTROPHILS % (AUTO) 45 % (42-75); PLATELET COUNT 290 10^3/uL (130-400); RED BLOOD COUNT 4.53 10^6/uL (4.35-5.85); RED CELL DISTRIBUTION WIDTH 13.8 % (10.0-14.5)
[2016-09-26] MEDS ORDERED: ONDANSETRON 4 MG/2 ML (SDV) Z0FRAN IVP ONE (23:15)
[2016-09-26 23:23] LABS: ALANINE AMINOTRANSFERASE 23 U/L (0-55); ALBUMIN 3.9 G/DL (3.2-4.5); AMYLASE 45 U/L (25-125); ANION GAP 9 MMOL/L (5-14); ASPARTATE AMINO TRANSFERASE 19 U/L (5-34); BILIRUBIN,TOTAL 0.2 MG/DL (0.1-1.0); BLOOD UREA NITROGEN 8 MG/DL (7-18); BUN/CREATININE RATIO 9; CALCIUM 8.3 MG/DL (8.5-10.1); CARBON DIOXIDE 21 MMOL/L (21-32); CHLORIDE 108 MMOL/L (98-107); CREATININE SERUM 0.91 MG/DL (0.60-1.30); GFR ESTIMATED > 60; GLUCOSE 122 MG/DL (70-105); LIPASE 48 U/L (8-78); POTASSIUM 3.8 MMOL/L (3.6-5.0); SODIUM 138 MMOL/L (135-145); TOTAL PROTEIN 6.4 G/DL (6.4-8.2)
[2016-09-26 23:47] LABS: BILIRUBIN,URINE NEGATIVE (NEGATIVE); KETONES,URINE NEGATIVE (NEGATIVE); LEUKOCYTE ESTERASE ,URINE NEGATIVE (NEGATIVE); NITRITE,URINE NEGATIVE (NEGATIVE); PH,URINE 8 (5-9); PROTEIN,URINE NEGATIVE (NEGATIVE); UROBILINOGEN,URINE NORMAL (NORMAL)
--- NOTE | 2016-09-27 00:14 | ED General ---
General Chief Complaint: Cough/Cold/Flu Symptoms Stated Complaint: HEADACHE/VOMITING Nursing Triage Note: PT TO ED 6 W/ C/O COUGH, CONGESTION ET MANCERA ONSET THIS AM. PT REPORTS HER HUSBANDS KIDS WERE AROUND HER THIS WEEKEND ET THEY WERE ALL DX W/ "RHINOVIRUS". ALSO C/O N/V Nursing Sepsis Screen: No Definite Risk Source of Information: Patient History of Present Illness Time Seen by Provider: 22:50 Initial Comments PT ARRIVES VIA POV C/O FEELING ILL SINCE THIS AM C/O NON-PRODUCTIVE COUGH C/O NASAL CONGESTION, CLEAR DRAINAGE C/O HEADACHE--TOP OF HEAD. HAS CHRONIC HEADACHES C/O BODY ACHES C/O NAUSEA AND VOMITED X 2 TODAY. NO DIARRHEA. NO ABDOMINAL PAIN C/O GENERALIZED WEAKNESS NO VISION CHANGES NO DIZZINESS NO CHEST PAIN NO SHORTNESS OF BREATH NO URINARY SYMPTOMS PT DID GO TO CLASS ALL DAY, AND GOT OUT AT 1900 TONIGHT TOOK HYDROCODONE AT 1500 TODAY ( TAKES DAILY FOR CHRONIC RECTAL PAIN) TOOK TYLENOL AT 1900 TONIGHT OTHERWISE HAS NOT TAKEN ANYTHING FOR SYMPTOMS 'S CHILDREN ILL WITH "RHINOVIRUS" SINCE YESTERDAY AND WERE TAKEN TO DR. FELDMAN Allergies and Home Medications Allergies Coded Allergies: oxycodone (Verified Allergy, Mild, 06/08/16) Penicillins (Verified Allergy, Unknown, 06/08/16) prednisone (Verified Allergy, Unknown, 06/08/16) tramadol (Verified Allergy, Unknown, itching, 06/08/16) Home Medications Butalb/Acetaminophen/Caffeine 1 Each Capsule #10 1-2 EACH PO Q6H PRN PRN HEADACHE Prescribed by: SAVANNAH TY on 09/27/16 0015 Docusate Sodium 100 Mg Capsule #14 100 MG PO DAILY Prescribed by: EDGARDO ROBBINS on 09/17/162048 Fenofibrate 54 Mg Tablet 54 MG PO DAILY (Reported) Hydrocodone/Acetaminophen 1 Each Tablet #60 1 TAB PO Q6H PRN PRN PAIN (Reported ) Hydrocodone/Acetaminophen 1 Each Tablet #10 1 EACH PO Q4H PRN PRN PAIN Prescribed by: TESSA HERNANDEZ on 08/25/16 0137 Hydrocodone/Acetaminophen 1 Each Tablet #10 1 EACH PO Q4H PRN PRN PAIN Prescribed by: EDGARDO ROBBINS on 09/17/162048 Imiquimod 1 Each Cream.pack #12 1 APPFUL TOP 3 TIMES/WEEK (Reported) Ketorolac Tromethamine 10 Mg Tablet #15 10 MG PO Q6H Prescribed by: SAVANNAH TY on 09/27/1614 Metronidazole 500 Mg Tablet #20 500 MG PO BID Prescribed by: TESSA HERNANDEZ on 08/25/16132 Ondansetron 4 Mg Tab.rapdis #10 4 MG PO Q4H Prescribed by: SAVANNAH TY on 09/27/1614 Sulfamethoxazole/Trimethoprim 1 Each Tablet #20 1 EACH PO BID Prescribed by: TESSA HERNANDEZ on 08/25/16132 Constitutional: see HPINo chills, No diaphoresis, No dizziness, No fever, malaise weakness EENTM: nose congestion see HPINo blurred vision, No double vision, No ear pain , No eye pain, No throat pain Respiratory: see HPI coughNo dyspnea on exertion, No hemoptysis, No phlegm, No short of breath, No wheezing Cardiovascular: no symptoms reportedNo chest pain, No edema, No palpitations, No syncope, No vascular heart diseas Gastrointestinal: see HPINo abdominal pain, No diarrhea, loss of appetite nausea vomiting other (STATES 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[employer] SPECIALIST 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 TO HAVE "PRECANCEROUS TUMORS" REMOVED FROM ANUS/RECTUM--HAS ANAL CONDYLOMA) Genitourinary: no symptoms reported : No LMP: Sep 13, 2016 Musculoskeletal: see HPI (BODY ACHES) Skin: no symptoms reported Psychiatric/Neurological: See HPI HeadacheDenies Numbness, Denies Paresthesia , Denies Seizure, Denies Tingling, Denies Tremors, Denies Weakness Hematologic/Lymphatic: No Symptoms Reported Past Vilmofs-Ziaigm-Lndoaz Hx Patient Social History Alcohol Use: Denies Use Recreational Drug Use: No Smoking Status: Current Everyday Smoker (1/2 PPD) Type Used: Cigarettes Recent Foreign Travel: No Contact w/Someone Who Travel: No Recent Infectious Disease Expo: No Recent Hopitalizations: No Immunizations Up To Date Tetanus Booster (TDap): More than 5yrs Surgeries HX Surgeries: Yes (REPAIR OF BRAIN AV MALFORMATION; BILATERAL CARPAL TUNNEL; MULTIPLE RECTAL SURGERIES TO REMOVE " PRECANCEROUS TUMORS" FROM RECTUM AND ANUS- -LARGE ANAL CONDYLOMA ; HAS ALSO HAD PERIRECTAL ABSCESSES) Surgeries: Bowel Surgery, Rectal, Tubal Ligation Respiratory Hx Respiratory Disorders: Yes Respiratory Disorders: Asthma Cardiovascular Hx Cardiac Disorders: Yes Cardiac Disorders: High Cholesterol Neurological Hx Neurological Disorders: Yes (SURGICAL REPAIR OF BRAIN AV MALFORMATION) Neurological Disorders: Headaches /Migraines 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 System Hx 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 (CERVICAL DYSPLASIA--S/P LEEP X 3) Sexually Transmitted Disease: Yes (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) 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 Genitourinary Hx Genitourinary Disorders: No Gastrointestinal Hx Gastrointestinal Disorders: Yes (ANAL CONDYLOMA--"PRECANCEROUS TUMORS" ; PERIRECTAL ABSCESSES) Musculoskeletal Hx Musculoskeletal Disorders: No Endocrine Hx Endocrine Disorders: Yes (STATES SHE TAKES ORAL MEDICATIONS,BUT DOES NOT KNOW NAMES AND NO MEDS NOTED ON MED RECONCILIATION) Endocrine Disorders: Diabetes, Non-Insulin dep HEENT HX ENT Disorders: No Loss of Vision: Denies Hearing Impairment: Denies Cancer Hx Cancer: No Psychosocial Hx Psychiatric Problems: No Integumentary HX Skin/Integumentary Disorder: Yes (CONDYLOMA--ANO/GENITAL) Blood Transfusions Hx Blood Disorders: No Family Medical History Family Medial History: Arthritis 19 FATHER 19 MOTHER Asthma 19 FATHER G8 BROTHER Cataracts 19 MOTHER Diabetes mellitus 19 FATHER Headache disorder 19 MOTHER Hypercholesterolemia 19 MOTHER Seizure disorder 19 FATHER G8 BROTHER Physical Exam Vital Signs Vital Sign - Last 12Hours Capillary Refill : Less Than 3 Seconds General Appearance: No Apparent Distress WD/WN HEENT: PERRL/EOMI TMs Normal Pharynx Normal Other (NASAL CONGESTION, CLEAR RHINORRHEA. NO SINUS TENDERNESS) Neck: Full Range of Motion Normal Inspection Non Tender SuppleNo Lymphadenopathy (L), No Lymphadenopathy (R) Respiratory: Normal Breath Sounds No Accessory Muscle Use No Respiratory Distress Cardiovascular: Regular Rate, Rhythm No Edema No JVD No Murmur Normal Peripheral Pulses Gastrointestinal: Normal Bowel Sounds No Organomegaly No Pulsatile Mass Non Tender Soft Back: Normal Inspection No CVA Tenderness No Vertebral Tenderness Extremity: Normal Capillary Refill Normal Inspection Normal Range of Motion Non Tender No Calf Tenderness Neurologic/Psychiatric: Alert Oriented x3 No Motor/Sensory Deficits Normal 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/Affect utility specialist II-XII Norm as Tested Skin: Normal Color Warm/DryNo Rash Progress/Results/Core Measures Results/Orders Lab Results Laboratory Tests Test 09/26/16 22:51 09/26/16 23:40 Range/Units Alanine Aminotransferase (ALT/SGPT) 23 0-55 U/L Albumin 3.9 3.2-4.5 G/DL Alkaline Phosphatase 54 40-136 U/L Amylase Level 45 25-125 U/L Anion Gap 9 5-14 MMOL/L Aspartate Amino Transf (AST/SGOT) 19 5-34 U/L BUN/Creatinine Ratio 9 Basophils # (Auto) 0.1 0.0-0.1 10^3/uL Basophils (%) (Auto) 1 0-10 % Blood Urea Nitrogen 8 7-18 MG/DL Calcium Level 8.3 L 8.5-10.1 MG/DL Carbon Dioxide Level 21 21-32 MMOL/L Chloride Level 108 H 98-107 MMOL/L Creatinine 0.91 0.60-1.30 MG/DL Eosinophils # (Auto) 0.2 0.0-0.3 10^3/uL Eosinophils (%) (Auto) 2 0-10 % Estimat Glomerular Filtration Rate > 60 Glucose Level 122 H 70-105 MG/DL Hematocrit 40 35-52 % Hemoglobin 13.9 11.5-16.0 G/DL Lipase 48 8-78 U/L Lymphocytes # (Auto) 3.8 1.0-4.0 X 10^3 Lymphocytes (%) (Auto) 42 12-44 % Mean Corpuscular Hemoglobin 31 25-34 PG Mean Corpuscular Hemoglobin Concent 35 32-36 G/DL Mean Corpuscular Volume 89 80-99 FL Mean Platelet Volume 9.6 7.4-10.4 FL Monocytes # (Auto) 0.8 0.0-1.0 X 10^3 Monocytes (%) (Auto) 9 0-12 % Neutrophils # (Auto) 4.1 1.8-7.8 X 10^3 Neutrophils (%) (Auto) 45 42-75 % Platelet Count 290 130-400 10^3/uL Potassium Level 3.8 3.6-5.0 MMOL/L Red Blood Count 4.53 4.35-5.85 10^6/uL Red Cell Distribution Width 13.8 10.0-14.5 % Serum Test, Qualitative NEGATIVE NEGATIVE Sodium Level 138 135-145 MMOL/L Total Bilirubin 0.2 0.1-1.0 MG/DL Total Protein 6.4 6.4-8.2 G/DL White Blood Count 9.0 4.3-11.0 10^3/uL Urine Bacteria TRACE /HPF Urine Bilirubin NEGATIVE NEGATIVE Urine Casts NONE /LPF Urine Clarity CLEAR Urine Color YELLOW Urine Crystals NONE /LPF Urine Culture Indicated NO Urine Glucose (UA) NEGATIVE NEGATIVE Urine Ketones NEGATIVE NEGATIVE Urine Leukocyte Esterase NEGATIVE NEGATIVE Urine Mucus NEGATIVE /LPF Urine Nitrite NEGATIVE NEGATIVE Urine Protein NEGATIVE NEGATIVE Urine RBC NONE /HPF Urine RBC (Auto) NEGATIVE NEGATIVE Urine Specific [place] 1.010 L 1.016-1.022 Urine Squamous Epithelial Cells 2-5 /HPF Urine Urobilinogen NORMAL NORMAL MG/DL Urine WBC NONE /HPF Urine pH 8 5-9 Micro Results Microbiology 09/26/16 Influenza Types A,B Antigen ([facility]) - Final, Complete My Orders Orders-SAVANNAH TY DO Influenza A And B Antigens (09/26/16 22:51) Saline Lock/Iv-Start (09/26/16 23:02) Amylase (09/26/16 23:02) Cbc With Automated Diff (09/26/16 23:02) Comprehensive Metabolic Panel (09/26/16 23:02) Hcg,Qualitative Serum (09/26/16 23:02) Lipase (09/26/16 23:02) Ua Culture If Indicated (09/26/16 23:02) Saline Lock/Iv-Start (09/26/16 23:02) Lactated Ringers (Lr 1000 Ml Iv Solution (09/26/16 23:02) Ondansetron Injection (Zofran Injectio (09/26/16 23:15) Ct Head Wo (09/26/16 23:39) Oseltamivir 75 Mg (10's) Caps (Tamiflu 7 (09/27/16 09:00) Rx-Oseltamivir Caps (Rx-Tamiflu Caps) (09/27/16 00:21) Medications Given in ED Current Medications Medications Dose Ordered Sig/Maryse Route Start Time Stop Time Status Last Admin Dose Admin Lactated Ringer's 1,000 ml @ 0 mls/hr Q0M ONCE IV 09/26/16 23:02 09/26/16 23:07 DC 09/26/16 23:21 1,000 MLS/HR Ondansetron HCl 4 mg ONCE ONCE IVP 09/26/16 23:15 09/26/16 23:16 DC 09/26/16 23:21 4 MG Vital Signs/I&O Vital Sign - Last 12Hours 09/26/16 09/26/16 09/27/16 22:35 22:35 00:28 Temp 98.8 98.9 Pulse 92 88 Resp 20 20 B/P 124/79 Pulse Ox 99 97 O2 Delivery Room Air Room Air Blood Pressure Mean: 94 Progress Note : Progress Note SYMPTOMS EASING AT DISMISSAL Departure Impression Impression: Primary Impression: Influenza-like symptoms Additional Impression: Chronic headaches Disposition: HOME, SELF-CARE Condition: Improved Departure-Patient Inst. Referrals: [facility] (PCP/Family) Primary Care Physician Patient Instructions: Flu, Adult (DC), Headache, Adult (DC), Viral Upper Respiratory Infection, Adult (DC) Add. Discharge Instructions: LOTS OF CLEAR LIQUIDS--WATER, BROTH, JELLO, GATORADE TAKE YOUR HYDROCODONE NEEDED FOR PAIN OVER THE COUNTER MEDICATIONS FOR COUGH AND CONGESTION FOLLOW UP WITH YOUR DR IN 3 DAYS IF NO BETTER All discharge instructions reviewed with patient and/or family. Voiced understanding. Scripts Butalb/Acetaminophen/Caffeine (Esgic Capsule)1 Each Capsule1-2 Each PO Q6H PRN HEADACHE #10 CAP Prov:SAVANNAH TY DO 09/27/16 Ondansetron (Zofran Odt)4 Mg Tab.rapdis4 Mg PO Q4H Nausea/Vomiting #10 TAB Prov:SAVANNAH TY DO 09/27/16 Ketorolac Tromethamine 10 Mg [id number] Mg PO Q6H Pain #15 TAB Prov:SAVANNAH TY DO 09/27/16 SAVANNAH TY DO Sep 27, 2016 00:14
[2016-09-27] MEDS ORDERED: BUTA1CAP45 PO (00:15)
[2016-09-27] MEDS ORDERED: KETO10TA PO (00:15)
[2016-09-27] MEDS ORDERED: ONDA4TAB8 PO (00:15)
[2016-09-27] MEDS ORDERED: RX-OSELTAMIVIR 75 MG (TAMIFLU) BOX OF 10 PO ONE (00:21)
[2016-09-27 00:28] VITALS: BP 106/52
--- NOTE | 2016-09-27 07:35 | Diagnostic Imaging Report ---
PROCEDURE: CT head without contrast. TECHNIQUE: Multiple contiguous axial images were obtained through the brain without the use of intravenous contrast. INDICATION: Headache. COMPARISON: CT head without contrast 05/17/2015. FINDINGS: Right suboccipital craniotomy and stable underlying encephalomalacia in the right cerebellar hemisphere. No intracranial hemorrhage, mass effect, extra-axial fluid collection or hydrocephalus. No CT evidence of acute infarction. The orbits and visualized paranasal sinuses are unremarkable. IMPRESSION: No acute intracranial CT findings. Dictated by: Dictated on workstation # [id number]
[2016-09-27] MEDS ORDERED: OSELTAMIVIR 75 MG (TAMIFLU) BOX OF 10 PO SCH (09:00)
== END 2016-09-27 00:28 | disposition home or self-care (01) ==
LOC: EDUNIT# 22:21 → ER 22:22
DX: J11.1 Influenza due to unidentified influenza virus with other respiratory manifestations (principal); E11.9 Type 2 diabetes mellitus without complications; F17.210 Nicotine dependence, cigarettes, uncomplicated
CPT/HCPCS: 36415; 70450; 80053; 81000; 82150; 83690; 84703; 85025; 87804; 96361; 96374

== ENCOUNTER 2016-11-01 17:10 | Emergency (ER) | payer MEDICAID ==
[~2016-11-01] VITALS: Ht 160 cm; Wt 79.4 kg
[~2016-11-01 17:10] MED LIST changes: +BUTA1CAP45 PO; +KETO10TA PO; +ONDA4TAB8 PO
--- OUTSIDE RECORDS SUMMARY | 2016-11-01 17:14 | XMS REPORT | Continuity of Care Document ---
Author Author [facility] Organization [facility] Address Unknown Phone Unavailable Care Team Providers Care Preventive Medicine Officer Name Role Phone Heron Weeks PCP [phone] Source Comments Some departments are not documenting in the electronic medical record. If you do not see the information that you expected, contact Release of Information in the Health Information Management department at [phone] for further assistance in locating additional records.[facility] Active Allergies and Adverse Reactions Allergen [...] daily with meals. fenofibrate (LIPOFEN) 50 Take 50 mg by mouth Active mg capsule daily. Take with food. nifedipine 0.3%/lidocaine Apply cream 4 times a day 1 Container 2 07/10 Active 1.5%/white petrolatum(#) 16 albuterol (VENTOLIN HFA, Inhale 2 Puffs by mouth Active PROAIR HFA, PROVENTIL into the lungs every 6 HFA) 90 mcg/actuation hours as needed for inhaler Wheezing or Shortness of Breath. Shake well before use. Indications: ACUTE ASTHMA ATTACK HYDROcodone/acetaminophen Take 1-2 Tabs by mouth 60 Tab 0 10/05/19 Active (+) (NORCO) 10/325 mg every 6 hours as needed 17 tablet for Pain Indications: PAIN HYDROcodone/acetaminophen Take 1 Tab by mouth every 60 Tab 0 10/26/19 Active (NORCO) 5/325 mg tablet 4 hours as needed for 17 Pain imiquimod(+) (ALDARA) 5 % Apply topically to 12 Packet 3 07/01/20 10/05/19 Discontin topical cream affected area three times 16 17 ued weekly. 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 Most Recent Encounters Date Type Specialty Providers Description 10/25/2016 Orders Only Oncology Elvin Hauser MD 10/05/2016 [facility] Elvin Hauser MD AIN (anal intraepithelial Encounter neoplasia) anal canal 10/05/2016 Anesthesia Howard Coyne CRNA Event 10/05/2016 Surgery Elvin Hauser MD EXAM UNDER ANESTHESIA 09/21/2016 Hospital Radiology Elvin Hauser MD Encounter 09/21/2016 Orders Only Oncology Elvin Hauser [...] 08/05/2016 Telephone General Surgery Angie Tapia Appointment Social History Tobacco Use Types Packs/Day Years Used Date Current Every Day Smoker Cigarettes 1 21 Smokeless Tobacco: Never Used Tobacco Cessation: Ready to Quit: No Comments: Alcohol Use Drinks/Week oz/Week Comments No 0 Standard 0.0 drinks or equivalent Last Filed Vital Signs Vital Sign Reading Time Taken Blood Pressure 115/78 10/05/2016 12:45 PM [employer]ING WE[employer] GAU[employer] Pulse 84 10/05/2016 12:45 PM [employer] Temperature 37.1 C (98.8 F) 10/05/2016 12:45 PM [employer]ING WE[employer] Respiratory Rate 22 08/12/2016 1:39 PM [employer]ING WE[employer] G[employer] Height 1.575 m (5' 2") 10/05/2016 10:18 AM [employer]ING WE[employer] GAU[employer] Weight 91.6 kg (201 lb 15.1 oz) 10/05/2016 10:18 AM [employer] Body Mass Index 36.93 10/05/2016 10:18 AM [employer] WE[employer] Oxygen Saturation 96% 10/05/2016 12:45 PM [employer]ING WE[employer] G[employer] Plan of Care Date Type Specialty Providers Description 11/25/2016 Appointment General Surgery Elvin Hauser MD [address] [facility] [address] [place] [address] [phone] (Fax) Health Maintenance Due Date Last Done Comments Physical (Comprehensive) 12/11/1986 Exam Pertussis Vaccine 12/11/1990 Tetanus Vaccine 12/11/1996 Cervical Cancer Screening 12/11/2000 Influenza Vaccine 04/21/2017 Procedures from Last 3 Months Procedure Name Priority Date/Time Associated Diagnosis Comments ECG-SCAN 10/06/2016 Results for this 12:06 PM [employer] procedure are in the results section. EXAM UNDER ANESTHESIA 10/05/2016 AIN (anal intraepithelial 11:30 AM [employer]OVING WE[employer] GAUGER neoplasia) anal canal Special Needs PER CHANGE FORM, RESCHEDULE D FROM 09-28-16 TO 10-05-16 AND NEEDS TO BE THE LAST CASE OF THE DAY. 2--17 1335 Results from Last 3 Months ECG-SCAN (10/06/2016 12:06 PM) Narrative Ordered by an unspecified provider. POC GLUCOSE (10/05/2016 12:36 PM)Only the most recent of 2 results within the time period is included. Component Value Range Glucose, POC 99 70-100 MG/DL MRI PELVIS WO/W CONTRAST (09/21/2016 4:20 PM) [...] bilaterally. Procedure Note Interface, Radiant Results - [facility] Sep 22, 2016 3:17 PM [employer]OVING WE[employer] GAUGER MRI PELVIS Clinical Indication: Female, 35 years [...]
[2016-11-01 17:56] LABS: BASOPHILS # (AUTO) 0.1 10^3/uL (0.0-0.1); BASOPHILS % (AUTO) 1 % (0-10); BILIRUBIN,URINE NEGATIVE (NEGATIVE); EOSINOPHILS # (AUTO) 0.3 10^3/uL (0.0-0.3); EOSINOPHILS % (AUTO) 3 % (0-10); KETONES,URINE NEGATIVE (NEGATIVE); LEUKOCYTE ESTERASE ,URINE 1+ (NEGATIVE); LYMPHOCYTES % (AUTO) 40 % (12-44); MEAN CORPUSCULAR HEMOGLOBIN 31 PG (25-34); MEAN CORPUSCULAR HGB CONC 35 G/DL (32-36); MEAN CORPUSCULAR VOLUME 89 FL (80-99); MEAN PLATELET VOLUME 9.5 FL (7.4-10.4); MONOCYTES # (AUTO) 0.8 X 10^3 (0.0-1.0); MONOCYTES % (AUTO) 8 % (0-12); NEUTROPHILS # (AUTO) 4.7 X 10^3 (1.8-7.8); NEUTROPHILS % (AUTO) 48 % (42-75); NITRITE,URINE NEGATIVE (NEGATIVE); PH,URINE 7 (5-9); PLATELET COUNT 334 10^3/uL (130-400); PROTEIN,URINE NEGATIVE (NEGATIVE); RED BLOOD COUNT 4.88 10^6/uL (4.35-5.85); RED CELL DISTRIBUTION WIDTH 13.7 % (10.0-14.5); UROBILINOGEN,URINE NORMAL (NORMAL); WHITE BLOOD COUNT 9.8 10^3/uL (4.3-11.0)
--- NOTE | 2016-11-01 17:57 | ED GI ---
General Chief Complaint: Abdominal/GI Problems Stated Complaint: ABD PAIN Nursing Triage Note: AMBULATED TO BATHROOM THEN ROOM WITH COMPLAINTS OF LOWER ABD PAIN WITH RECTAL BLEEDING WITH BMS. PT HAD A RECTAL SURGERY IN SEP REMOVING A CYST ET HAS AN SCHEDULED APPT ON THE . Sepsis Screen: No Definite Risk Source of Information: Patient Exam Limitations: No Limitations History of Present Illness Time Seen By Provider: 17:55 Initial Comments To ER with reports of rectal bleeding and rectal pain as well as lower abdominal cramping and pain. She has a history of perianal abscesses that have been drained here in the emergency room on multiple occasions. She has also seen a colorectal surgeon in [place] in the month of September for this who also lanced one of the abscesses. She has been on several rounds of antibiotics over the preceding few months for this as well. She has not had a colonoscopy for the past 7 years but at that time she was told she had a multitude of polyps in the colon she states. She does not have fevers but she does have chills. No nausea or vomiting. Stools are loose he states she would not qualify them as diarrhea. Timing/Duration: Intermittent Severity/Quality: Cramping Radiation: No Radiation Activities at Onset: None (A) Allergies and Home Medications Allergies Coded Allergies: oxycodone (Verified Allergy, Mild, 06/08/16) Penicillins (Verified Allergy, Unknown, 06/08/16) prednisone (Verified Allergy, Unknown, 06/08/16) tramadol (Verified Allergy, Unknown, itching, 06/08/16) Home Medications Butalb/Acetaminophen/Caffeine 1 Each Capsule #10 1-2 EACH PO Q6H PRN PRN HEADACHE Prescribed by: SAVANNAH TY on 09/27/16 0015 Docusate Sodium 100 Mg Capsule #14 100 MG PO DAILY Prescribed by: EDGARDO ROBBINS on 09/17/162048 Fenofibrate 54 Mg Tablet 54 MG PO DAILY (Reported) Hydrocodone/Acetaminophen 1 Each Tablet #60 1 TAB PO Q6H PRN PRN PAIN (Reported ) Hydrocodone/Acetaminophen 1 Each Tablet #10 1 EACH PO Q4H PRN PRN PAIN Prescribed by: TESSA HERNANDEZ on 08/25/16 0137 Hydrocodone/Acetaminophen 1 Each Tablet #10 1 EACH PO Q4H PRN PRN PAIN Prescribed by: EDGARDO ROBBINS on 09/17/162048 Imiquimod 1 Each Cream.pack #12 1 APPFUL TOP 3 TIMES/WEEK (Reported) Ketorolac Tromethamine 10 Mg Tablet #15 10 MG PO Q6H Prescribed by: SAVANNAH TY on 09/27/1614 Metronidazole 500 Mg Tablet #20 500 MG PO BID Prescribed by: TESSA HERNANDEZ on 08/25/16132 Ondansetron 4 Mg Tab.rapdis #10 4 MG PO Q4H Prescribed by: SAVANNAH TY on 09/27/1614 Sulfamethoxazole/Trimethoprim 1 Each Tablet #20 1 EACH PO BID Prescribed by: TESSA HERNADNEZ on 08/25/16132 Review of Systems Constitutional: see HPI chillsNo fever EENTM: No Symptoms Reported Respiratory: No Symptoms Reported Gastrointestinal: See HPI Rectal Bleeding Genitourinary: No Symptoms Reported Musculoskeletal: no symptoms reported Skin: no symptoms reported Psychiatric/Neurological: No Symptoms Reported Past Tlotzos-Ecsqen-Kmfzyw Hx Patient Social History Type Used: Cigarettes Recent Foreign Travel: No Contact w/Someone Who Travel: No Recent Infectious Disease Expo: No Recent Hopitalizations: No Immunizations Up To Date Tetanus Booster (TDap): More than 5yrs Surgeries HX Surgeries: Yes (RECTAL) Surgeries: Bowel Surgery, Rectal, Tubal Ligation Respiratory Hx Respiratory Disorders: Yes Respiratory Disorders: Asthma Cardiovascular Hx Cardiac Disorders: Yes Cardiac Disorders: High Cholesterol Neurological Hx Neurological Disorders: Yes (SURGICAL REPAIR OF BRAIN AV MALFORMATION) Neurological Disorders: Headaches /Migraines 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 System Hx 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 (CERVICAL DYSPLASIA--S/P LEEP X 3) Sexually Transmitted Disease: Yes (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) HIV/AIDS: No PHYSICAL MEDICINE PHYSICIAN History: Tubal Ligation Genitourinary Hx Genitourinary Disorders: No Gastrointestinal Hx Gastrointestinal Disorders: Yes (ANAL CONDYLOMA--"PRECANCEROUS TUMORS" ; PERIRECTAL ABSCESSES) Musculoskeletal Hx Musculoskeletal Disorders: No Endocrine Hx Endocrine Disorders: Yes Endocrine Disorders: Diabetes, Non-Insulin dep HEENT HX ENT Disorders: No Loss of Vision: Denies Hearing Impairment: Denies Cancer Hx Cancer: No Cancer: Colon Psychosocial Hx Psychiatric Problems: No Integumentary HX Skin/Integumentary Disorder: Yes (CONDYLOMA--ANO/GENITAL) Blood Transfusions Hx Blood Disorders: No Family Medical History Family Medial History: Arthritis 19 FATHER 19 MOTHER Asthma 19 FATHER G8 BROTHER Cataracts 19 MOTHER Diabetes mellitus 19 FATHER Headache disorder 19 MOTHER Hypercholesterolemia 19 MOTHER Seizure disorder 19 FATHER G8 BROTHER Physical Exam Vital Signs VS - Last 72 Hours, by Label 11/01/16 17:44 B/P Capillary Refill : Less Than 3 Seconds General Appearance: WD/WN no apparent distress HEENT: PERRL/EOMI normal ENT inspection Neck: non-tender full range of motion Respiratory: lungs clear normal breath sounds no respiratory distress no accessory muscle use Gastrointestinal: normal bowel sounds non tender soft Skin: normal color warm/dry Exam Comments Rectal exam done with Janessa NAVARRETE at the bedside. No active bleeding, no obvious anal fissure, no fluctuant abscess. Focused Exam Lactic Acid Level Laboratory Tests Test 11/01/16 17:46 Alanine Aminotransferase (ALT/SGPT) 18U/L (0-55) Albumin 4.1G/DL (3.2-4.5) Alkaline Phosphatase 81U/L (40-136) Anion Gap 9MMOL/L (5-14) Aspartate Amino Transf (AST/SGOT) 17U/L (5-34) BUN/Creatinine Ratio 8 Blood Urea Nitrogen 6MG/DL (7-18) L Calcium Level 8.7MG/DL (8.5-10.1) Carbon Dioxide Level 22MMOL/L (21-32) Chloride Level 107MMOL/L (98-107) Creatinine 0.79MG/DL (0.60-1.30) Estimat Glomerular Filtration Rate > 60 Glucose Level 113MG/DL (70-105) H Potassium Level 3.9MMOL/L (3.6-5.0) Sodium Level 138MMOL/L (135-145) Total Bilirubin 0.4MG/DL (0.1-1.0) Total Protein 7.0G/DL (6.4-8.2) Progress/Results/Core Measures Results/Orders Lab Results Laboratory Tests Test 11/01/16 17:46 Range/Units Alanine Aminotransferase (ALT/SGPT) 18 0-55 U/L Albumin 4.1 3.2-4.5 G/DL Alkaline Phosphatase 81 40-136 U/L Anion Gap 9 5-14 MMOL/L Aspartate Amino Transf (AST/SGOT) 17 5-34 U/L BUN/Creatinine Ratio 8 Basophils # (Auto) 0.1 0.0-0.1 10^3/uL Basophils (%) (Auto) 1 0-10 % Blood Urea Nitrogen 6 L 7-18 MG/DL Calcium Level 8.7 8.5-10.1 MG/DL Carbon Dioxide Level 22 21-32 MMOL/L Chloride Level 107 98-107 MMOL/L Creatinine 0.79 0.60-1.30 MG/DL Eosinophils # (Auto) 0.3 0.0-0.3 10^3/uL Eosinophils (%) (Auto) 3 0-10 % Erythrocyte Sedimentation Rate 8 0-20 MM/HR Estimat Glomerular Filtration Rate > 60 Glucose Level 113 H 70-105 MG/DL Hematocrit 43 35-52 % Hemoglobin 15.1 11.5-16.0 G/DL Lymphocytes # (Auto) 4.0 1.0-4.0 X 10^3 Lymphocytes (%) (Auto) 40 12-44 % Mean Corpuscular Hemoglobin 31 25-34 PG Mean Corpuscular Hemoglobin Concent 35 32-36 G/DL Mean Corpuscular Volume 89 80-99 FL Mean Platelet Volume 9.5 7.4-10.4 FL Monocytes # (Auto) 0.8 0.0-1.0 X 10^3 Monocytes (%) (Auto) 8 0-12 % Neutrophils # (Auto) 4.7 1.8-7.8 X 10^3 Neutrophils (%) (Auto) 48 42-75 % Platelet Count 334 130-400 10^3/uL Potassium Level 3.9 3.6-5.0 MMOL/L Red Blood Count 4.88 4.35-5.85 10^6/uL Red Cell Distribution Width 13.7 10.0-14.5 % Sodium Level 138 135-145 MMOL/L Total Bilirubin 0.4 0.1-1.0 MG/DL Total Protein 7.0 6.4-8.2 G/DL Urine Bacteria NEGATIVE /HPF Urine Bilirubin NEGATIVE NEGATIVE Urine Casts NONE /LPF Urine Clarity SLIGHTLY CLOUDY Urine Color YELLOW Urine Crystals NONE /LPF Urine Culture Indicated NO Urine Glucose (UA) NEGATIVE NEGATIVE Urine Ketones NEGATIVE NEGATIVE Urine Leukocyte Esterase 1+ H NEGATIVE Urine Mucus NEGATIVE /LPF Urine Nitrite NEGATIVE NEGATIVE Urine Other FEW SPERM H /HPF Urine Test NEGATIVE NEGATIVE Urine Protein NEGATIVE NEGATIVE Urine RBC 5-10 H /HPF Urine RBC (Auto) 5+ H NEGATIVE Urine Specific [place] 1.010 L 1.016-1.022 Urine Squamous Epithelial Cells 5-10 /HPF Urine Urobilinogen NORMAL NORMAL MG/DL Urine WBC RARE /HPF Urine pH 7 5-9 White Blood Count 9.8 4.3-11.0 10^3/uL My Orders Orders-EDGARDO ROBBINS APRN Cbc With Automated Diff (11/01/16 17:51) Erythrocyte Sedimentation Rate (11/01/16 17:51) Comprehensive Metabolic Panel (11/01/16 17:51) Ua Culture If Indicated (11/01/16 17:51) Saline Lock/Iv-Start (11/01/16 17:51) Fentanyl Injection (Sublimaze Injection (11/01/16 18:00) Ct Abdomen/Pelvis W (11/01/16 17:51) Hcg,Qualitative Urine (11/01/16 17:54) Iohexol Injection (Omnipaque 350 Mg/Ml 1 (11/01/16 18:15) Ns (Ivpb) (Sodium Chloride 0.9% Ivpb Bag (11/01/16 18:15) C Difficile Ag + Toxin A/B. (11/01/16 18:38) Medications Given in ED Current Medications Medications Dose Ordered Sig/Maryse Route Start Time Stop Time Status Last Admin Dose Admin Fentanyl Citrate 50 mcg ONCE ONCE IVP 11/01/16 18:00 11/01/16 18:01 DC 11/01/16 18:16 50 MCG Iohexol 100 ml ONCE ONCE IV 11/01/16 18:15 11/01/16 18:16 DC 11/01/16 18:25 100 ML Sodium Chloride 100 ml ONCE ONCE IV 11/01/16 18:15 11/01/16 18:16 DC 11/01/16 18:25 100 ML Vital Signs/I&O Vital Sign - Last 12Hours 11/01/16 17:44 B/P Diagnostic Imaging Diagonstic Imaging: CT Comments NAME: GEORGE FERNANDES Susan MED REC#: [id number] PT STATUS: REG ER : 1980 PHYSICIAN: EDGARDO ROBBINS DIRECTOR CLINICAL INFORMATION SERVICES ADMIT DATE: 11/01/16/ER Draft Date of Exam:11/01/16 CT ABDOMEN/PELVIS W PROCEDURE: CT abdomen and pelvis with contrast. TECHNIQUE: Multiple contiguous axial images were obtained through the abdomen and pelvis after administration of intravenous contrast. INDICATION: Lower abdominal pain and cramping for 1 day, nausea. COMPARISON: 03/07/2016. DISCUSSION: The visualized lung bases are well-aerated. Normal heart size. No pleural or pericardial fluid. The gallbladder, liver, pancreas, stomach, spleen, adrenal glands, kidneys, uterus, and urinary bladder are unremarkable. Follicular activity is noted within the left ovary which is incidental though could account for patient's pain. The appendix is normal. The large and small bowel loops appear within normal limits. No obstruction, pneumatosis or pneumoperitoneum. Trace free fluid within the pelvis is likely physiologic. Abdominal aorta is normal in caliber. No acute osseous abnormality identified. Impression: 1. Follicular activity is incidentally noted within the left ovary which is benign though could account for lower abdominal pain. No other acute abnormality identified. Dictated on workstation # [id number] Dict: 11/01/16 1839 Trans: 11/01/16 1845 [facility] [id number] Interpreted by: JOSSELIN RILEY MD Electronically signed by: Departure Communication Progress Notes [id number] shows 17 opiate prescribers with 9 pharmacies used in the last year. Most recently, a 10 day supply of [place] 5/325 filled on 10/29/16. Impression Impression: Primary Impression: Rectal bleeding Disposition: 01 HOME, SELF-CARE Condition: Stable Departure-Patient Inst. Decision time for Depature: 19:03 Referrals: [facility] (PCP/Family) Primary Care Physician Patient Instructions: Bloody Stools, Adult (DC) Add. Discharge Instructions: 1. Follow-up with your doctor to schedule a colonoscopy 2. Return to ER for any concerns 3. Medication as directed All discharge instructions reviewed with patient and/or family. Voiced understanding. Scripts Hyoscyamine Sulfate (Levsin-Sl)0.125 Mg Tab.subl0.125 Mg SL Q6H PRN PAIN #14 TAB Prov:EDGARDO ROBBINS APRN 11/01/16 EDGARDO ROBBINS APRN Nov 01, 2016 17:57
[2016-11-01] MEDS ORDERED: fentaNYL INJECTION 100 MCG/2 ML AMP IVP ONE (18:00)
[2016-11-01 18:05] LABS: WBC,URINE RARE /HPF
[2016-11-01 18:15] LABS: ALANINE AMINOTRANSFERASE 18 U/L (0-55); ALBUMIN 4.1 G/DL (3.2-4.5); ANION GAP 9 MMOL/L (5-14); ASPARTATE AMINO TRANSFERASE 17 U/L (5-34); BILIRUBIN,TOTAL 0.4 MG/DL (0.1-1.0); BLOOD UREA NITROGEN 6 MG/DL (7-18); BUN/CREATININE RATIO 8; CALCIUM 8.7 MG/DL (8.5-10.1); CARBON DIOXIDE 22 MMOL/L (21-32); CHLORIDE 107 MMOL/L (98-107); CREATININE SERUM 0.79 MG/DL (0.60-1.30); GFR ESTIMATED > 60; GLUCOSE 113 MG/DL (70-105); POTASSIUM 3.9 MMOL/L (3.6-5.0); SODIUM 138 MMOL/L (135-145)
[2016-11-01] MEDS ORDERED: NS 100 ML (IVPB) BAG IV ONE (18:15)
[2016-11-01] MEDS ORDERED: IOHEXOL 350 MG/ML 100 ML (OMNIPAQUE 350) VIAL IV ONE (18:15)
[2016-11-01 18:20] LABS: ERYTHROCYTE SEDIMENTATION RATE 8 MM/HR (0-20)
--- NOTE | 2016-11-01 18:45 | Diagnostic Imaging Report ---
PROCEDURE: CT abdomen and pelvis with contrast. TECHNIQUE: Multiple contiguous axial images were obtained through the abdomen and pelvis after administration of intravenous contrast. INDICATION: Lower abdominal pain and cramping for 1 day, nausea. COMPARISON: 03/07/2016. DISCUSSION: The visualized lung bases are well-aerated. Normal heart size. No pleural or pericardial fluid. The gallbladder, liver, pancreas, stomach, spleen, adrenal glands, kidneys, uterus, and urinary bladder are unremarkable. Follicular activity is noted within the left ovary which is incidental though could account for patient's pain. The appendix is normal. The large and small bowel loops appear within normal limits. No obstruction, pneumatosis or pneumoperitoneum. Trace free fluid within the pelvis is likely physiologic. Abdominal aorta is normal in caliber. No acute osseous abnormality identified. Impression: 1. Follicular activity is incidentally noted within the left ovary which is benign though could account for lower abdominal pain. No other acute abnormality identified. Dictated by: Dictated on workstation # [id number]
[2016-11-01] MEDS ORDERED: HYOS0.1283 SL (19:04)
[2016-11-01 19:11] VITALS: BP 108/61
== END 2016-11-01 19:11 | disposition home or self-care (01) ==
LOC: EDUNIT# 17:10 → ER 17:11
DX: K62.5 Hemorrhage of anus and rectum (principal); M54.5 Low back pain
CPT/HCPCS: 36415; 74177; 80053; 81000; 84703; 85025; 85652; 96374

== ENCOUNTER 2016-12-02 22:31 | Inpatient (IN) | payer MEDICAID ==
[~2016-12-02] VITALS: Ht 157.5 cm; Wt 95.3 kg
[~2016-12-02 22:31] MED LIST changes: +HYOS0.1283 SL
--- NOTE | 2016-12-02 23:05 | ED General ---
General Chief Complaint: Fever-Adult/Adol Stated Complaint: RECTAL SURGURY INFECTION Source of Information: Patient Exam Limitations: No Limitations History of Present Illness Time Seen by Provider: 22:50 Initial Comments Here with report of recent rectal surgery on 11/30/16. Is doing better until today she had markedly increasing pain on the right buttock (surgery was on left buttock near midline). Has history of perirectal abscesses. Complains of significant pain, fever of 104F, body aches and overall not feeling well. She took 2 of her pain pills at 830 p.m. Denies nausea or vomiting. Does complain of some right ear pain. Timing/Duration: 12 Hours Severity: Moderate, Severe Associated Systoms: No Chest Pain, No Cough, Fever/Chills, No Nausea/Vomiting, No Shortness of Air, Weakness Allergies and Home Medications Allergies Coded Allergies: oxycodone (Verified Allergy, Mild, 06/08/16) Penicillins (Verified Allergy, Unknown, 06/08/16) prednisone (Verified Allergy, Unknown, 06/08/16) tramadol (Verified Allergy, Unknown, itching, 06/08/16) Home Medications Butalb/Acetaminophen/Caffeine 1 Each Capsule, 1-2 EACH PO Q6H PRN for HEADACHE, #10 Prescribed by: SAVANNAH TY on 09/27/16 001 Docusate Sodium 100 Mg Capsule, 100 MG PO DAILY, #14 Prescribed by: EDGARDO ROBBINS on 09/17/169 Fenofibrate 54 Mg Tablet, 54 MG PO DAILY, (Reported) Hydrocodone/Acetaminophen 1 Each Tablet, 1 EACH PO Q4H PRN for PAIN, #10 Prescribed by: TESSA HERNANDEZ on 08/25/16 0137 Hyoscyamine Sulfate 0.125 Mg Tab.subl, 0.125 MG SL Q6H PRN for PAIN, #14 Prescribed by: EDGARDO ROBBINS on 11/01/16 1904 Imiquimod 1 Each Cream.pack, 1 APPFUL TOP 3 TIMES/WEEK, #12 (Reported) Ketorolac Tromethamine 10 Mg Tablet, 10 MG PO Q6H, #15 Prescribed by: SAVANNAH TY on 09/27/16 001 Metronidazole 500 Mg Tablet, 500 MG PO BID, #20 Prescribed by: TESSA HERNANDEZ on 08/25/16 0133 Ondansetron 4 Mg Tab.rapdis, 4 MG PO Q4H, #10 Prescribed by: SAVANNAH TY on 09/27/16 0015 Sulfamethoxazole/Trimethoprim 1 Each Tablet, 1 EACH PO BID, #20 Prescribed by: TESSA HERNANDEZ on 08/25/16 0133 Constitutional: see HPI, chills, fever, weakness EENTM: ear pain, nose congestion, No throat pain Respiratory: no symptoms reported Cardiovascular: No chest pain, No edema Gastrointestinal: see HPI, No abdominal pain, No nausea, No vomiting Genitourinary: no symptoms reported : No Musculoskeletal: muscle pain, No muscle weakness Skin: see HPI, lesions, No rash Psychiatric/Neurological: See HPI, Denies Headache, Weakness All Other Systems Reviewed Negative Unless Noted: Yes Past Wncfyxu-Zxacgq-Elmdes Hx Patient Social History Alcohol Use: Denies Use Recreational Drug Use: No Smoking Status: Current Everyday Smoker Type Used: Cigarettes Recent Foreign Travel: No Contact w/Someone Who Travel: No Recent Hopitalizations: No Immunizations Up To Date Tetanus Booster (TDap): More than 5yrs Surgeries HX Surgeries: Yes (RECTAL) Surgeries: Bowel Surgery, Rectal, Tubal Ligation Respiratory Hx Respiratory Disorders: Yes Respiratory Disorders: Asthma Cardiovascular Hx Cardiac Disorders: Yes Cardiac Disorders: High Cholesterol Neurological Hx Neurological Disorders: Yes (SURGICAL REPAIR OF BRAIN AV MALFORMATION) Neurological Disorders: Headaches /Migraines 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 System Hx 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 (CERVICAL DYSPLASIA--S/P LEEP X 3) Sexually Transmitted Disease: Yes (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) 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 Genitourinary Hx Genitourinary Disorders: No Gastrointestinal Hx Gastrointestinal Disorders: Yes (ANAL CONDYLOMA--"PRECANCEROUS TUMORS" ; PERIRECTAL ABSCESSES) Musculoskeletal Hx Musculoskeletal Disorders: No Endocrine Hx Endocrine Disorders: Yes Endocrine Disorders: Diabetes, Non-Insulin dep HEENT HX ENT Disorders: No Loss of Vision: Denies Hearing Impairment: Denies Cancer Hx Cancer: No Cancer: Colon Psychosocial Hx Psychiatric Problems: No Integumentary HX Skin/Integumentary Disorder: Yes (CONDYLOMA--ANO/GENITAL) Blood Transfusions Hx Blood Disorders: No Reviewed Nursing Assessment Reviewed/Agree w Nursing PMH: Yes Family Medical History Significant Family History: No Pertinent Family Hx Family Medial History: Arthritis 19 FATHER 19 MOTHER Asthma 19 FATHER G8 BROTHER Cataracts 19 MOTHER Diabetes mellitus 19 FATHER Headache disorder 19 MOTHER Hypercholesterolemia 19 MOTHER Seizure disorder 19 FATHER G8 BROTHER Physical Exam-Suspected Sepsis Physical Exam Vital Signs Vital Sign - Last 12Hours 12/02/16 22:42 Temp 102.6 Pulse 160 Resp 20 B/P (MAP) 133/77 Pulse Ox 95 O2 Delivery Room Air Capillary Refill : General Appearance: No Apparent Distress, WD/WN HEENT: PERRL/EOMI, Pharynx Normal Neck: Non Tender, Supple Respiratory: Lungs Clear, Normal Breath Sounds Cardiovascular: Regular Rate, Rhythm, No Murmur Gastrointestinal: Non Tender, Soft Back: Normal Inspection, No CVA Tenderness, No Vertebral Tenderness Extremity: Normal Range of Motion, Non Tender Neurologic/Psychiatric: Alert, Oriented x3 Skin: normal color, warm/dry Focused Exam Lactic Acid Level Laboratory Tests Test 12/02/16 23:10 Lactic Acid Level 1.96 MMOL/L (0.50-2.00) Progress/Results/Core Measures Suspected Sepsis SIRS Temperature: Pulse: Respiratory Rate: Laboratory Tests 12/02/16 23:10: White Blood Count 21.1H Blood Pressure / Mean: Laboratory Tests 12/02/16 23:10: Creatinine 0.88, INR Comment 1.1, Platelet Count 311, Total Bilirubin 0.5 Results/Orders Lab Results Laboratory Tests Test 12/02/16 23:10 Range/Units White Blood Count 21.1 H 4.3-11.0 10^3/uL Red Blood Count 4.48 4.35-5.85 10^6/uL Hemoglobin 13.7 11.5-16.0 G/DL Hematocrit 40 35-52 % Mean Corpuscular Volume 89 80-99 FL Mean Corpuscular Hemoglobin 31 25-34 PG Mean Corpuscular Hemoglobin Concent 35 32-36 G/DL Red Cell Distribution Width 13.2 10.0-14.5 % Platelet Count 311 130-400 10^3/uL Mean Platelet Volume 9.5 7.4-10.4 FL Neutrophils (%) (Auto) 80 H 42-75 % Lymphocytes (%) (Auto) 10 L 12-44 % Monocytes (%) (Auto) 10 0-12 % Eosinophils (%) (Auto) 0 0-10 % Basophils (%) (Auto) 0 0-10 % Neutrophils # (Auto) 17.0 H 1.8-7.8 X 10^3 Lymphocytes # (Auto) 2.1 1.0-4.0 X 10^3 Monocytes # (Auto) 2.0 H 0.0-1.0 X 10^3 Eosinophils # (Auto) 0.0 0.0-0.3 10^3/uL Basophils # (Auto) 0.1 0.0-0.1 10^3/uL Neutrophils % (Manual) 70 % Lymphocytes % (Manual) 13 % Monocytes % (Manual) 4 % Eosinophils % (Manual) 0 % Basophils % (Manual) 0 % Band Neutrophils 9 % Reactive Lymphocytes 4 % Toxic Granulation 1+ Prothrombin Time 13.4 12.2-14.7 SEC INR Comment 1.1 0.8-1.4 Activated Partial Thromboplast Time 35 24-35 SEC Urine Color YELLOW Urine Clarity CLEAR Urine pH 6 5-9 Urine Specific [place] 1.010 L 1.016-1.022 Urine Protein 1+ H NEGATIVE Urine Glucose (UA) NEGATIVE NEGATIVE Urine Ketones NEGATIVE NEGATIVE Urine Nitrite NEGATIVE NEGATIVE Urine Bilirubin NEGATIVE NEGATIVE Urine Urobilinogen NORMAL NORMAL MG/DL Urine Leukocyte Esterase 1+ H NEGATIVE Urine RBC (Auto) 3+ H NEGATIVE Urine RBC 0-2 /HPF Urine WBC 0-2 /HPF Urine Squamous Epithelial Cells 10-25 H /HPF Urine Crystals NONE /LPF Urine Bacteria TRACE /HPF Urine Casts NONE /LPF Urine Mucus SMALL H /LPF Urine Culture Indicated NO Sodium Level 134 L 135-145 MMOL/L Potassium Level 3.3 L 3.6-5.0 MMOL/L Chloride Level 103 98-107 MMOL/L Carbon Dioxide Level 18 L 21-32 MMOL/L Anion Gap 13 5-14 MMOL/L Blood Urea Nitrogen 7 7-18 MG/DL Creatinine 0.88 0.60-1.30 MG/DL Estimat Glomerular Filtration Rate > 60 BUN/Creatinine Ratio 8 Glucose Level 154 H 70-105 MG/DL Lactic Acid Level 1.96 0.50-2.00 MMOL/L Calcium Level 8.5 8.5-10.1 MG/DL Total Bilirubin 0.5 0.1-1.0 MG/DL Aspartate Amino Transf (AST/SGOT) 15 5-34 U/L Alanine Aminotransferase (ALT/SGPT) 16 0-55 U/L Alkaline Phosphatase 73 40-136 U/L Total Protein 6.8 6.4-8.2 G/DL Albumin 4.0 3.2-4.5 G/DL Micro Results Microbiology 12/02/16 Influenza Types A,B Antigen ([facility]) - Final, Complete My Orders Orders - LEOPOLDO TORO MD Cbc With Automated Diff (12/02/16 22:55) Comprehensive Metabolic Panel (12/02/16 22:55) Lactic Acid Analyzer (12/02/16 22:55) Blood Culture (12/02/16 22:55) Sputum Culture (12/02/16 22:55) Ua Culture If Indicated (12/02/16 22:55) Protime With Inr (12/02/16 22:55) Partial Thromboplastin Time (12/02/16 22:55) Chest 1 View, Ap/Pa Only (12/02/16 22:55) O2 (12/02/16 22:55) Saline Lock/Iv-Start (12/02/16 22:55) Saline Lock/Iv-Start (12/02/16 22:55) Vital Signs Adult Sepsis Patie Q1HR (12/02/16 22:55) Remove Rings In Anticipation O (12/02/16 22:55) Influenza A And B Antigens (12/02/16 22:55) Ns Iv 1000 Ml (Sodium Chloride 0.9%) (12/02/16 23:06) Fentanyl Injection (Sublimaze Injection (12/02/16 23:06) Ketorolac Injection (Toradol Injection) (12/02/16 23:06) Manual Differential (12/02/16 23:10) Ct Pelvis W (12/03/16 ) Iohexol Injection (Omnipaque 350 Mg/Ml 1 (12/03/16 01:15) Ns (Ivpb) (Sodium Chloride 0.9% Ivpb Bag (12/03/16 01:15) Saline Lock/Iv-Start (12/03/16 01:37) Lactated Ringers (Lr 1000 Ml Iv Solution (12/03/16 01:45) Ceftriaxone Injection (Rocephin Injectio (12/03/16 01:45) Medications Given in ED Current Medications Medications Dose Ordered Sig/Maryse Route Start Time Stop Time Status Last Admin Dose Admin Ceftriaxone Sodium 1000 mg/ Sodium Chloride 50 ml @ 100 mls/hr ONCE ONCE IV 12/03/16 01:45 12/03/16 02:14 12/03/16 01:46 100 MLS/HR Iohexol 100 ml ONCE ONCE IV 12/03/16 01:15 12/03/16 01:16 DC 12/03/16 01:21 100 ML Lactated Ringer's 3,000 ml @ 1,500 mls/hr ONCE ONCE IV 12/03/16 01:45 12/03/16 03:44 12/03/16 01:46 1,500 MLS/HR Sodium Chloride 100 ml ONCE ONCE IV 12/03/16 01:15 12/03/16 01:16 DC 12/03/16 01:21 80 ML Sodium Chloride 1,000 ml @ 0 mls/hr Q0M ONCE IV 12/02/16 23:06 12/02/16 23:07 DC 12/02/16 23:22 999 MLS/HR Vital Signs/I&O Vital Sign - Last 12Hours 12/02/16 12/02/16 22:42 23:22 Temp 102.6 102.6 Pulse 160 Resp 20 B/P (MAP) 133/77 Pulse Ox 95 O2 Delivery Room Air Capillary Refill : Progress Note : Progress Note Seen and evaluated. IV, labs, UA, blood cultures, lactic acid, influenza swab and normal saline 1 L bolus. Toradol 30 mg IV and fentanyl 75 g IV ordered. Monitor patient. CT pelvis ordered as well as x-ray. Patient noted to have lower blood pressure. We will initiate high-volume fluid resuscitation and Rocephin IV. Case discussed with Dr. Norman at 0112. He will see patient in consult. Discussed case with Dr. Melgar at 0135. He accepts patient for admission, inpatient status. We will initiate Rocephin and vancomycin. 0152: Blood pressure 117/62 and patient is responding to fluids well. I attest a focused exam. Currently no requirements for pressors. Patient's heart rate has improved to the 120s to 130s. Admit, inpatient status. Patient to go to cardiac step down unit currently. Diagnostic Imaging Diagonstic Imaging: Xray Plain Films/CT/US/NM/MRI: chest Comments No acute findings Reviewed: Reviewed by Me Diagonstic Imaging: CT Plain Films/CT/US/NM/MRI: pelvis Comments There is subcutaneous gas in the medial bilateral gluteal region with surrounding stranding, extending to the perirectal area, with subcutaneous gas overlying the pubic symphysis. There is suture/surgical change posterior to the areas. Question infection, post procedural change. Per statrad read. Reviewed: Reviewed Night Iam Study, Reviewed by Me Departure Communication Time/Spoke to Admitting Phy: 01:35 Time/Spoke to Consulting Physi: 01:12 Impression Impression: Primary Impression: Septic shock Additional Impression: Perirectal abscess Disposition: ADMITTED INPATIENT Condition: Stable Decision to Admit Reason: Admit from ER (General) Decision to Admit/Date: Dec 03, 2016 Time/Decision to Admit Time: 01:12 Departure-Patient Inst. Referrals: [facility] (PCP/Family) Primary Care Physician LEOPOLDO TORO MD Dec 02, 2016 23:05
[2016-12-02] MEDS ORDERED: KETOROLAC 30 MG/ML VIAL IVP STA (23:06)
[2016-12-02] MEDS ORDERED: NS IV 1000 ML 1,000 ML IV ONE (23:06)
[2016-12-02] MEDS ORDERED: fentaNYL INJECTION 100 MCG/2 ML AMP IVP STA (23:06)
[2016-12-02 23:24] LABS: BASOPHILS # (AUTO) 0.1 10^3/uL (0.0-0.1); BASOPHILS % (AUTO) 0 % (0-10); BILIRUBIN,URINE NEGATIVE (NEGATIVE); EOSINOPHILS % (AUTO) 0 % (0-10); KETONES,URINE NEGATIVE (NEGATIVE); LEUKOCYTE ESTERASE ,URINE 1+ (NEGATIVE); LYMPHOCYTES # (AUTO) 2.1 X 10^3 (1.0-4.0); LYMPHOCYTES % (AUTO) 10 % (12-44); MEAN CORPUSCULAR HEMOGLOBIN 31 PG (25-34); MEAN CORPUSCULAR HGB CONC 35 G/DL (32-36); MEAN CORPUSCULAR VOLUME 89 FL (80-99); MEAN PLATELET VOLUME 9.5 FL (7.4-10.4); MONOCYTES % (AUTO) 10 % (0-12); NEUTROPHILS % (AUTO) 80 % (42-75); NITRITE,URINE NEGATIVE (NEGATIVE); PH,URINE 6 (5-9); PLATELET COUNT 311 10^3/uL (130-400); PROTEIN,URINE 1+ (NEGATIVE); RED BLOOD COUNT 4.48 10^6/uL (4.35-5.85); RED CELL DISTRIBUTION WIDTH 13.2 % (10.0-14.5); UROBILINOGEN,URINE NORMAL (NORMAL); WHITE BLOOD COUNT 21.1 10^3/uL (4.3-11.0)
[2016-12-02 23:35] LABS: WBC,URINE 0-2 /HPF
[2016-12-02 23:36] LABS: INR 1.1 (0.8-1.4); PROTHROMBIN TIME PATIENT 13.4 SEC (12.2-14.7)
[2016-12-02 23:43] LABS: ALANINE AMINOTRANSFERASE 16 U/L (0-55); ANION GAP 13 MMOL/L (5-14); ASPARTATE AMINO TRANSFERASE 15 U/L (5-34); BILIRUBIN,TOTAL 0.5 MG/DL (0.1-1.0); BLOOD UREA NITROGEN 7 MG/DL (7-18); BUN/CREATININE RATIO 8; CALCIUM 8.5 MG/DL (8.5-10.1); CARBON DIOXIDE 18 MMOL/L (21-32); CHLORIDE 103 MMOL/L (98-107); CREATININE SERUM 0.88 MG/DL (0.60-1.30); GFR ESTIMATED > 60; GLUCOSE 154 MG/DL (70-105); POTASSIUM 3.3 MMOL/L (3.6-5.0); SODIUM 134 MMOL/L (135-145); TOTAL PROTEIN 6.8 G/DL (6.4-8.2)
[2016-12-02 23:46] LABS: BAND NEUTROPHILS 9 %; BASOPHILS % (MANUAL) 0 %; EOSINOPHILS % (MANUAL) 0 %; LYMPHOCYTES % (MANUAL) 13 %; NEUTROPHILS % (MANUAL) 70 %; REACTIVE LYMPHOCYTES 4 %
[2016-12-03] VITALS (17 sets, daily range): BP systolic 88–106; BP diastolic 50–75
[2016-12-03] MEDS ORDERED: IOHEXOL 350 MG/ML 100 ML (OMNIPAQUE 350) VIAL IV ONE (01:15)
[2016-12-03] MEDS ORDERED: NS 100 ML (IVPB) BAG IV ONE (01:15)
[2016-12-03] MEDS ORDERED: LACTATED RINGERS 3,000 ML IV ONE (01:45)
[2016-12-03] MEDS ORDERED: cefTRIAXone INJECTION 1,000 MG in NS (IVPB) 50 ML IV ONE (01:45)
[2016-12-03] MEDS ORDERED: metroNIDAZOLE 500MG/100ML IVPB 100 ML ONE (03:24)
[2016-12-03] MEDS ORDERED: NS (IVPB) 250 ML ONE (03:25)
[2016-12-03] MEDS ORDERED: VANCOMYCIN 1000 MG/VIAL ONE (03:25)
[2016-12-03] MEDS ORDERED: ACETAMINOPHEN 500 MG TAB (TYLENOL) ONE (03:31)
[2016-12-03] MEDS ORDERED: fentaNYL INJECTION 100 MCG/2 ML AMP ONE ×3 (03:31→13:36)
[2016-12-03] MEDS ORDERED: ONDANSETRON 4 MG/2 ML (SDV) Z0FRAN ONE (03:31)
[2016-12-03] MEDS: ACETAMINOPHEN 500 MG TAB (TYLENOL) PO PRN ×3 (03:43→23:54)
[2016-12-03] MEDS ORDERED: ONDANSETRON 4 MG/2 ML (SDV) Z0FRAN IVP PRN (03:45)
[2016-12-03] MEDS: fentaNYL INJECTION 100 MCG/2 ML AMP IVP PRN ×5 (03:47→22:27)
[2016-12-03] MEDS ORDERED: VANCOMYCIN INJECTION 1,000 MG in NS (IVPB) 250 ML IV SCH (04:00)
[2016-12-03] MEDS: metroNIDAZOLE 500MG/100ML IVPB 100 ML IV SCH ×4 (04:36→23:06)
[2016-12-03 04:49] LABS: BASOPHILS % (AUTO) 0 % (0-10); EOSINOPHILS % (AUTO) 0 % (0-10); LYMPHOCYTES # (AUTO) 2.2 X 10^3 (1.0-4.0); LYMPHOCYTES % (AUTO) 9 % (12-44); MEAN CORPUSCULAR HEMOGLOBIN 31 PG (25-34); MEAN CORPUSCULAR HGB CONC 34 G/DL (32-36); MEAN CORPUSCULAR VOLUME 90 FL (80-99); MEAN PLATELET VOLUME 9.7 FL (7.4-10.4); MONOCYTES # (AUTO) 2.9 X 10^3 (0.0-1.0); MONOCYTES % (AUTO) 12 % (0-12); NEUTROPHILS # (AUTO) 18.4 X 10^3 (1.8-7.8); NEUTROPHILS % (AUTO) 78 % (42-75); PLATELET COUNT 269 10^3/uL (130-400); RED BLOOD COUNT 4.43 10^6/uL (4.35-5.85); RED CELL DISTRIBUTION WIDTH 13.3 % (10.0-14.5); WHITE BLOOD COUNT 23.5 10^3/uL (4.3-11.0)
[2016-12-03] MEDS: NS IV 1000 ML 1,000 ML IV SCH ×4 (05:02→22:27)
[2016-12-03 05:08] LABS: ANION GAP 12 MMOL/L (5-14); BLOOD UREA NITROGEN 7 MG/DL (7-18); BUN/CREATININE RATIO 8; CARBON DIOXIDE 18 MMOL/L (21-32); CHLORIDE 107 MMOL/L (98-107); CREATININE SERUM 0.85 MG/DL (0.60-1.30); POTASSIUM 3.6 MMOL/L (3.6-5.0); SODIUM 137 MMOL/L (135-145)
[2016-12-03 05:09] LABS: ALANINE AMINOTRANSFERASE 15 U/L (0-55); ALBUMIN 3.6 G/DL (3.2-4.5); ASPARTATE AMINO TRANSFERASE 17 U/L (5-34); BILIRUBIN,TOTAL 0.6 MG/DL (0.1-1.0); CALCIUM 8.2 MG/DL (8.5-10.1); GFR ESTIMATED > 60; GLUCOSE 132 MG/DL (70-105); TOTAL PROTEIN 6.2 G/DL (6.4-8.2)
--- NOTE | 2016-12-03 07:10 | Diagnostic Imaging Report ---
EXAM: CHEST 1 VIEW, AP/PA ONLY INDICATION: Fever. COMPARISON: Chest radiographs 06/03/2016. FINDINGS: Normal heart size and pulmonary vascularity. No focal pulmonary opacity, pleural effusion or pneumothorax. No acute osseous findings. IMPRESSION: No acute cardiopulmonary findings. Dictated by: Dictated on workstation # [id number]
[2016-12-03] MEDS ORDERED: DOCUSATE SODIUM 100 MG (COLACE) CAP PO PRN (08:15)
--- NOTE | 2016-12-03 08:33 | History & Physicial (CHS) ---
HPI History of Present Illness: 35-year-old female presents to emergency room on December 02, 2016 with significant fever of 104 and overall not feeling well. She reports 2 days prior to presenting to the emergency department she had rectal surgery in [place]. Apparently just to the right of her buttocks she had a band placed to keep drainage occurring. Her and patient both report there was not much pus removed on November 30 in [place]. The band was left in place to allow drainage. The procedure was performed at the [facility]. She reports he's had issues with abscesses near the anus in the past due to previous history of polyps and removals. Source: patient, family Exam Limitations: no limitations Date seen by provider: Dec 03, 2016 Attending Physician Bee Velazquez [place] [facility] [place] Consult Date of Admission Dec 03, 2016 at 01:45 Home Medications Home Medications Reviewed patient Home Medication Reconciliation Form Allergies Coded Allergies: oxycodone (Verified Allergy, Mild, 06/08/16) Penicillins (Verified Allergy, Unknown, 06/08/16) prednisone (Verified Allergy, Unknown, 06/08/16) tramadol (Verified Allergy, Unknown, itching, 06/08/16) PBU-Ptyqsx-Vynajr Hx Patient Social History Marrital Status: Alcohol Use: Denies Use Recreational Drug Use: No Smoking Status: Current Everyday Smoker Type Used: Cigarettes 2nd Hand Smoke Exposure: Yes Recent Foreign Travel: No Contact w/other who traveled: No Recent Hopitalizations: No Recent Infectious Disease Expo: No Physical Abuse Screen: No Sexual Abuse: No Immunizations Up To Date Tetanus Booster (TDap): More than 5yrs Family Medical History Significant Family History: No Pertinent Family Hx Family History: Arthritis 19 FATHER 19 MOTHER Asthma 19 FATHER G8 BROTHER Cataracts 19 MOTHER Diabetes mellitus 19 FATHER Headache disorder 19 MOTHER Hypercholesterolemia 19 MOTHER Seizure disorder 19 FATHER G8 BROTHER Review of Systems (CHC) Constitutional: see HPI Reviewed Test Results Reviewed Test Results Lab Laboratory Tests Test 12/02/16 23:10 12/03/16 03:44 Range/Units White Blood Count 21.1 H 23.5 H 4.3-11.0 10^3/uL Red Blood Count 4.48 4.43 4.35-5.85 10^6/uL Hemoglobin 13.7 13.6 11.5-16.0 G/DL Hematocrit 40 40 35-52 % Mean Corpuscular Volume 89 90 80-99 FL Mean Corpuscular Hemoglobin 31 31 25-34 PG Mean Corpuscular Hemoglobin Concent 35 34 32-36 G/DL Red Cell Distribution Width 13.2 13.3 10.0-14.5 % Platelet Count 311 269 130-400 10^3/uL Mean Platelet Volume 9.5 9.7 7.4-10.4 FL Neutrophils (%) (Auto) 80 H 78 H 42-75 % Lymphocytes (%) (Auto) 10 L 9 L 12-44 % Monocytes (%) (Auto) 10 12 0-12 % Eosinophils (%) (Auto) 0 0 0-10 % Basophils (%) (Auto) 0 0 0-10 % Neutrophils # (Auto) 17.0 H 18.4 H 1.8-7.8 X 10^3 Lymphocytes # (Auto) 2.1 2.2 1.0-4.0 X 10^3 Monocytes # (Auto) 2.0 H 2.9 H 0.0-1.0 X 10^3 Eosinophils # (Auto) 0.0 0.0 0.0-0.3 10^3/uL Basophils # (Auto) 0.1 0.0 0.0-0.1 10^3/uL Neutrophils % (Manual) 70 % Lymphocytes % (Manual) 13 % Monocytes % (Manual) 4 % Eosinophils % (Manual) 0 % Basophils % (Manual) 0 % Band Neutrophils 9 % Reactive Lymphocytes 4 % Toxic Granulation 1+ Prothrombin Time 13.4 12.2-14.7 SEC INR Comment 1.1 0.8-1.4 Activated Partial Thromboplast Time 35 24-35 SEC Urine Color YELLOW Urine Clarity CLEAR Urine pH 6 5-9 Urine Specific [place] 1.010 L 1.016-1.022 Urine Protein 1+ H NEGATIVE Urine Glucose (UA) NEGATIVE NEGATIVE Urine Ketones NEGATIVE NEGATIVE Urine Nitrite NEGATIVE NEGATIVE Urine Bilirubin NEGATIVE NEGATIVE Urine Urobilinogen NORMAL NORMAL MG/DL Urine Leukocyte Esterase 1+ H NEGATIVE Urine RBC (Auto) 3+ H NEGATIVE Urine RBC 0-2 /HPF Urine WBC 0-2 /HPF Urine Squamous Epithelial Cells 10-25 H /HPF Urine Crystals NONE /LPF Urine Bacteria TRACE /HPF Urine Casts NONE /LPF Urine Mucus SMALL H /LPF Urine Culture Indicated NO Sodium Level 134 L 137 135-145 MMOL/L Potassium Level 3.3 L 3.6 3.6-5.0 MMOL/L Chloride Level 103 107 98-107 MMOL/L Carbon Dioxide Level 18 L 18 L 21-32 MMOL/L Anion Gap 13 12 5-14 MMOL/L Blood Urea Nitrogen 7 7 7-18 MG/DL Creatinine 0.88 0.85 0.60-1.30 MG/DL Estimat Glomerular Filtration Rate > 60 > 60 BUN/Creatinine Ratio 8 8 Glucose Level 154 H 132 H 70-105 MG/DL Lactic Acid Level 1.96 1.49 0.50-2.00 MMOL/L Calcium Level 8.5 8.2 L 8.5-10.1 MG/DL Total Bilirubin 0.5 0.6 0.1-1.0 MG/DL Aspartate Amino Transf (AST/SGOT) 15 17 5-34 U/L Alanine Aminotransferase (ALT/SGPT) 16 15 0-55 U/L Alkaline Phosphatase 73 65 40-136 U/L Total Protein 6.8 6.2 L 6.4-8.2 G/DL Albumin 4.0 3.6 3.2-4.5 G/DL Physical Exam-(CHC) Physical Exam Vital Signs VS - Last 72 Hours, by Label 12/02/16 12/02/16 12/02/16 12/03/16 22:42 22:42 23:22 00:15 Temp 102.6 102.6 102.6 102.6 Pulse 160 160 113 Resp 20 20 30 B/P (MAP) 133/77 133/77 88/43 Pulse Ox 95 95 95 O2 Delivery Room Air Room Air Room Air 12/03/16 12/03/16 12/03/16 12/03/16 00:45 01:15 01:45 02:15 Temp 102.6 102.6 102.6 102.6 Pulse 114 120 127 130 Resp 16 25 24 30 B/P (MAP) 83/38 104/56 117/62 116/59 Pulse Ox 97 96 95 97 O2 Delivery Room Air Room Air Room Air 12/03/16 12/03/16 12/03/16 12/03/16 02:45 03:09 03:43 04:00 Temp 102.7 102.7 102.3 Pulse 131 131 Resp 19 19 B/P (MAP) 103/46 Pulse Ox 97 97 95 O2 Delivery Room Air 12/03/16 12/03/16 12/03/16 12/03/16 04:00 04:00 04:36 04:52 Temp 102.0 102.0 99.0 Pulse 124 Resp 20 B/P (MAP) 91/55 Pulse Ox 94 95 O2 Delivery Room Air 12/03/16 12/03/16 12/03/16 12/03/16 05:00 06:30 07:00 07:57 Temp 100.9 Pulse 121 122 116 115 Resp 39 22 B/P (MAP) 97/51 93/50 96/55 Pulse Ox 95 93 93 O2 Delivery Room Air Room Air Room Air Capillary Refill : Less Than 3 Seconds General Appearance: mild distress HEENT: pharynx normal Neck: full range of motion Respiratory: lungs clear Cardiovascular: regular rate, rhythm Gastrointestinal: soft Rectal: other (Evaluation does reveal swelling of the right buttocks cheek with evidence for opening and a band present within the opening. She is exquisitely tender to touch and there is heat apparent.) Assessment/Plan Assessment/Plan Admission Dx 1. Perianal abscess 2. Septic shock as evident by the hypotension, tachycardia and elevated white blood cell count. Plan 1. Perianal abscess -The band will be kept in place. -Surgery has been notified of patient from the emergency department Dr. Norman. 2. Septic shock as evident by the hypotension, tachycardia and elevated white blood cell count. -At this time she is placed on Rocephin 1 g every 24 hours as well as vancomycin 500 mg every 8 hours. -She will have fluid rehydration and her status of lactic acid as well as CBC and chemistries followed. Diagnosis/Problems: Clinical Quality Measures DVT/VTE Risk/Contraindication: RFS Level Per Nursing on Admit: 0=No Risk/No VTE PPX BEE VELAZQUEZ MD Dec 03, 2016 08:33
--- NOTE | 2016-12-03 08:59 | Diagnostic Imaging Report ---
PROCEDURE: CT pelvis with contrast. TECHNIQUE: Oral and intravenous contrast were administered with pelvic CT performed. INDICATION: Rectal pain status post recent surgery. COMPARISON: CT abdomen and pelvis from 11/01/2016. FINDINGS: There is small amount of subcutaneous gas in the pararectal soft tissues. There is a hyperdense suture line along the posterior aspect of the anus in the gluteal crease. No peripheral enhancing fluid collection to indicate abscess. No intraperitoneal free fluid or fluid collections. No regional lymphadenopathy. No abnormal stranding or soft tissue lesions within the mesorectal fat. No bowel obstruction. Urinary bladder is distended without wall thickening. The uterus and ovaries are normal in appearance for patient's age. No concerning focal osseous lesions. There is a small amount of soft tissue gas in the pre-pubic region as well. IMPRESSION: 1. Small volume of soft tissue gas in the perianal soft tissues, which is within the expected volume for recent surgery. There is also a surgical staple line or suture posterior to the anus in the gluteal fold. No evidence of drainable fluid collection. 2. There are a few additional foci of soft tissue gas in the pre-pubic subcutaneous fat, which is also likely postoperative in nature. 3. No intraperitoneal fluid collection or free fluid. Dictated by: Dictated on workstation # [id number]
--- NOTE | 2016-12-03 12:25 | Progress Note-Pre Operative ---
Pre-Operative Progress Note H&P Reviewed The H&P was reviewed, patient examined and no changes noted. Date H&P Reviewed: Dec 03, 2016 Time H&P Reviewed: 12:25 Pre-Operative Diagnosis: right gluteal abscess MARILEE CALDERON MD Dec 03, 2016 12:25
--- NOTE | 2016-12-03 12:25 | History & Physicial ---
History of Present Illness History of Present Illness Reason for visit/HPI PAIN OVER THE RIGHT GLUTEAL REGION FOR 2 DAYS AND INCREASING FEVER. Patient underwent seton placement 3 days ago at a facility in [place], for what sounds to be an anal fistula Date of Admission Dec 03, 2016 at 01:45 I consulted on this patient on 12/03/16 12:20 Attending Physician Vincent Melgar MD Admitting Physician Ashlee,[facility] Consult Allergies and Home Medications Allergies Coded Allergies: oxycodone (Verified Allergy, Mild, 06/08/16) Penicillins (Verified Allergy, Unknown, 06/08/16) prednisone (Verified Allergy, Unknown, 06/08/16) tramadol (Verified Allergy, Unknown, itching, 06/08/16) Home Medications Butalb/Acetaminophen/Caffeine 1 Each Capsule, 1-2 EACH PO Q6H PRN for HEADACHE, #10 Prescribed by: SAVANNAH TY on 09/27/16 001 Docusate Sodium 100 Mg Capsule, 100 MG PO DAILY, #14 Prescribed by: EDGARDO ROBBINS on 09/17/169 Fenofibrate 54 Mg Tablet, 54 MG PO DAILY, (Reported) Hydrocodone/Acetaminophen 1 Each Tablet, 1 EACH PO Q4H PRN for PAIN, #10 Prescribed by: TESSA HERNANDEZ on 08/25/16 013 Hyoscyamine Sulfate 0.125 Mg Tab.subl, 0.125 MG SL Q6H PRN for PAIN, #14 Prescribed by: EDGARDO ROBBINS on 11/01/16 1904 Imiquimod 1 Each Cream.pack, 1 APPFUL TOP 3 TIMES/WEEK, #12 (Reported) Ketorolac Tromethamine 10 Mg Tablet, 10 MG PO Q6H, #15 Prescribed by: SAVANNAH TY on 09/27/16 001 Metronidazole 500 Mg Tablet, 500 MG PO BID, #20 Prescribed by: TESSA HERNANDEZ on 08/25/16 013 Ondansetron 4 Mg Tab.rapdis, 4 MG PO Q4H, #10 Prescribed by: SAVANNAH TY on 09/27/16 001 Sulfamethoxazole/Trimethoprim 1 Each Tablet, 1 EACH PO BID, #20 Prescribed by: TESSA HERNANDEZ on 08/25/16 013 Past Afrkohj-Wpqwga-Iyfpxy Hx Patient Social History Marrital Status: Alcohol Use: Denies Use Recreational Drug Use: No Smoking Status: Current Everyday Smoker Type Used: Cigarettes 2nd Hand Smoke Exposure: Yes Physical Abuse Screen: No Sexual Abuse: No Recent Foreign Travel: No Contact w/other who traveled: No Recent Hopitalizations: No Recent Infectious Disease Expo: No Immunizations Up To Date Tetanus Booster (TDap): More than 5yrs Seasonal Allergies Seasonal Allergies: No Surgeries HX Surgeries: Yes (RECTAL PROCEDURE FOR FISTULA) Surgeries: Bowel Surgery, Rectal, Tubal Ligation Respiratory Hx Respiratory Disorders: Yes Cardiovascular Hx Cardiovascular Disorders: Yes Cardiac Disorders: High Cholesterol Neurological Hx Neurological Disorders: Yes (SURGICAL REPAIR OF BRAIN AV MALFORMATION) Neurological Disorders: Headaches /Migraines 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 System : No Hx 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 (CERVICAL DYSPLASIA--S/P LEEP X 3) Sexually Transmitted Disease: Yes (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) HIV/AIDS: No Genitourinary Hx Genitourinary Disorders: No Gastrointestinal Hx Gastrointestinal Disorders: Yes (ANAL CONDYLOMA--"PRECANCEROUS TUMORS" ; PERIRECTAL ABSCESSES) Musculoskeletal Hx Musculoskeletal Disorders: No Endocrine Hx Endocrine Disorders: Yes Endocrine Disorders: Diabetes, Non-Insulin dep HEENT HX ENT Disorders: No Loss of Vision: Denies Hearing Impairment: Denies Cancer Hx Cancer: No Cancer: Colon Psychosocial Hx Psychiatric Problems: No Integumentary HX Skin/Integumentary Disorder: Yes (CONDYLOMA--ANO/GENITAL) Blood Transfusions Hx Blood Disorders: No Reviewed Nursing Assessment Reviewed/Agree w Nursing PMH: Yes Family Medical History Significant Family History: No Pertinent Family Hx Family Hx: Arthritis 19 FATHER 19 MOTHER Asthma 19 FATHER G8 BROTHER Cataracts 19 MOTHER Diabetes mellitus 19 FATHER Headache disorder 19 MOTHER Hypercholesterolemia 19 MOTHER Seizure disorder 19 FATHER G8 BROTHER Constitutional: chills, fever, malaise EENTM: see HPI Respiratory: no symptoms reported Cardiovascular: no symptoms reported Gastrointestinal: constipation, other Genitourinary: no symptoms reported Musculoskeletal: no symptoms reported Skin: no symptoms reported Psychiatric/Neurological: Anxiety Physical Exam Vital Signs Vital Sign - Last 12Hours Capillary Refill : Less Than 3 Seconds General Appearance: Severe Distress HEENT: TMs Normal Neck: Normal Inspection Respiratory: Lungs Clear Cardiovascular: Regular Rate, Rhythm Gastrointestinal: Non Tender, Soft Rectal: Tenderness Back: Normal Inspection Extremity: Normal Capillary Refill Neurologic/Psychiatric: Alert, Oriented x3 Skin: Warm/Dry Comments right gluteal region erythematous with pitting edema and severe tenderness, suspicious for a deep-seated abscess. Seton suture over the left perianal region Assessment/Plan Assessment and Plan lady with a possible right gluteal abscess. Recent seton suture placement for enteral fistula. Essential to achieve adequate drainage and therefore procedure under general anesthetic will be performed emergently Problems: Admission Diagnosis right gluteal abscess Clinical Quality Measures DVT/VTE Risk/Contraindication: RFS Level Per Nursing on Admit: 0=No Risk/No VTE PPX MARILEE CALDERON MD Dec 03, 2016 12:25
[2016-12-03] MEDS: VANCOMYCIN INJECTION 1,000 MG in NS (IVPB) 250 ML IV SCH ×2 (12:58→20:06)
[2016-12-03] MEDS ORDERED: LIDOCAINE PF 2% 10 ML (XYLOCAINE) AMP ONE (13:03)
[2016-12-03] MEDS ORDERED: proPOfol 200 MG/20 ML (DIPRIVAN) VIAL IV ONE (13:03)
[2016-12-03] MEDS ORDERED: SEVOFLURANE (ULTANE) 15 ML INHAL SOLN ONE ×2 (13:03→14:00)
[2016-12-03] MEDS ORDERED: ROCURONIUM 50 MG/5 ML (ZEMURON) VIAL IV ONE (13:03)
[2016-12-03] MEDS ORDERED: LACTATED RINGERS 1,000 ML IV ONE ×2 (13:03→13:49)
[2016-12-03] MEDS ORDERED: MIDAZOLAM 2 MG/2 ML (VERSED) VIAL ONE (13:04)
[2016-12-03] MEDS ORDERED: morphine INJ 10 MG/ML 1ML (SYR OR VIAL) ONE (13:30)
[2016-12-03] MEDS ORDERED: PHENYLEPHRINE 100 MCG/ML 10 ML (ANESTHESIA) SYR ONE (13:35)
--- NOTE | 2016-12-03 13:37 | Progress Note-Post Operative ---
Post-Operative Progess Note Surgeon (s)/Dress Draper (s) Surgeon MARILEE CALDERON MD Dress Draper: Edith Tabares Pre-Operative Diagnosis right gluteal abscess Post-Operative Diagnosis Same Post-Op Procedure Note Date of Procedure: Dec 03, 2016 Name of Procedure Performed: Incision and drainage Description of the Procedure: See operative report Findings of the Procedure Right gluteal abscess Anesthesia Type Gen. Estimated blood loss (mL): Minimal Specimen(s) collected/removed Pus for culture MARILEE CALDERON MD Dec 03, 2016 1:37 pm
[2016-12-03] MEDS ORDERED: HYDROmorphone (DILAUDID) 2 MG/ML VIAL IVP PRN (14:15)
[2016-12-03] MEDS ORDERED: morphine INJ 10 MG/ML 1ML (SYR OR VIAL) IVP PRN (14:15)
[2016-12-04] VITALS (12 sets, daily range): BP systolic 93–128; BP diastolic 55–80
[2016-12-04] MEDS: IBUPROFEN 600 MG (MOTRIN) TAB PO PRN ×3 (00:44→21:18)
[2016-12-04] MEDS: cefTRIAXone 1 GM/NS 50 ML IVPB IV SCH ×2 (01:37)
[2016-12-04] MEDS: fentaNYL INJECTION 100 MCG/2 ML AMP IVP PRN ×4 (02:21→10:23)
[2016-12-04] MEDS: VANCOMYCIN INJECTION 1,000 MG in NS (IVPB) 250 ML IV SCH (03:25)
[2016-12-04 04:38] LABS: BASOPHILS % (AUTO) 0 % (0-10); EOSINOPHILS # (AUTO) 0.1 10^3/uL (0.0-0.3); EOSINOPHILS % (AUTO) 1 % (0-10); LYMPHOCYTES # (AUTO) 3.2 X 10^3 (1.0-4.0); LYMPHOCYTES % (AUTO) 20 % (12-44); MEAN CORPUSCULAR HEMOGLOBIN 30 PG (25-34); MEAN CORPUSCULAR HGB CONC 33 G/DL (32-36); MEAN CORPUSCULAR VOLUME 92 FL (80-99); MEAN PLATELET VOLUME 9.8 FL (7.4-10.4); MONOCYTES # (AUTO) 1.5 X 10^3 (0.0-1.0); MONOCYTES % (AUTO) 10 % (0-12); NEUTROPHILS # (AUTO) 10.9 X 10^3 (1.8-7.8); NEUTROPHILS % (AUTO) 69 % (42-75); PLATELET COUNT 244 10^3/uL (130-400); RED BLOOD COUNT 3.52 10^6/uL (4.35-5.85); RED CELL DISTRIBUTION WIDTH 13.8 % (10.0-14.5); WHITE BLOOD COUNT 15.9 10^3/uL (4.3-11.0)
[2016-12-04 05:20] LABS: ALANINE AMINOTRANSFERASE 11 U/L (0-55); ALBUMIN 2.8 G/DL (3.2-4.5); ANION GAP 9 MMOL/L (5-14); ASPARTATE AMINO TRANSFERASE 20 U/L (5-34); BILIRUBIN,TOTAL 0.3 MG/DL (0.1-1.0); BLOOD UREA NITROGEN 6 MG/DL (7-18); BUN/CREATININE RATIO 8; CALCIUM 7.4 MG/DL (8.5-10.1); CARBON DIOXIDE 19 MMOL/L (21-32); CHLORIDE 112 MMOL/L (98-107); CREATININE SERUM 0.71 MG/DL (0.60-1.30); GFR ESTIMATED > 60; GLUCOSE 89 MG/DL (70-105); POTASSIUM 3.2 MMOL/L (3.6-5.0); SODIUM 140 MMOL/L (135-145)
[2016-12-04] MEDS: metroNIDAZOLE 500MG/100ML IVPB 100 ML IV SCH ×4 (05:39→23:26)
[2016-12-04] MEDS: NS IV 1000 ML 1,000 ML IV SCH (10:30)
[2016-12-04] MEDS ORDERED: TROUGH ORDER-PHARMACY XX NR (11:00)
--- NOTE | 2016-12-04 11:26 | Progress Note-Standard ---
Standard Progress Note Progress Notes/Assess & Plan Progress/Assessment & Plan 12/04/16:afebrile. White cell count decreased to 15,000. Erythema and induration around the right gluteal region much improved. Encouraged to shower. Simple wound care measures. Continue IV antibiotics for 24 more hours and discharged tomorrow. Final Diagnosis right ischiorectal abscess MARILEE CALDERON MD Dec 04, 2016 11:26 am
--- NOTE | 2016-12-04 11:29 | Discharge Inst-Simple/Standard ---
Discharge Inst-Standard Discharge Medications New, Converted or Re-Newed RX: Other Patient Instructions/Follow Up Plan of Care/Instructions/FU: May shower. Change dressing with an ABD pad once a day. Follow-up with me in a week Activity as Tolerated: Yes Discharge Diet: No Restrictions MARILEE CALDERON MD Dec 04, 2016 11:29 am
[2016-12-04] MEDS ORDERED: KCL 20 MEQ TAB (K-DUR) PO ONE (11:30)
[2016-12-04] MEDS: HYDROcodone/APAP 5 MG/325 MG (LORTAB) TAB PO PRN ×3 (12:02→20:28)
[2016-12-05] VITALS: BP 103/55
[2016-12-05 00:20] VITALS: BP 103/55
[2016-12-05] MEDS: HYDROcodone/APAP 5 MG/325 MG (LORTAB) TAB PO PRN ×2 (00:27→05:27)
[2016-12-05] MEDS: cefTRIAXone 1 GM/NS 50 ML IVPB IV SCH ×2 (02:35)
[2016-12-05 04:00] VITALS: BP 134/68
[2016-12-05 04:14] VITALS: BP 134/68
[2016-12-05] MEDS: metroNIDAZOLE 500MG/100ML IVPB 100 ML IV SCH ×2 (05:22→12:37)
--- NOTE | 2016-12-05 06:51 | Discharge Inst-Simple/Standard ---
Discharge Inst-Standard Discharge Medications New, Converted or Re-Newed RX: Call to Patients Pharmacy Patient Instructions/Follow Up Plan of Care/Instructions/FU: flagyl 500 mg tid for 7 days with no refill to he rpharmacy Activity as Tolerated: Yes Discharge Diet: No Restrictions MARILEE CALDERON MD Dec 05, 2016 06:51
[2016-12-05 07:30] VITALS: BP 119/64
--- NOTE | 2016-12-05 08:05 | OPERATIVE REPORT ---
PROCEDURE PHYSICIAN: MARILEE CALDERON DATE OF PROCEDURE: 12/03/2016 PREOPERATIVE DIAGNOSIS: Right gluteal abscess. POSTOPERATIVE DIAGNOSIS: Rectal ischiorectal abscess. OPERATION: Incision and drainage. SURGEON: Dr. Calderon. ANESTHESIA: General anesthesia. BLOOD LOSS: Minimal. FLUIDS: 1 liter of crystalloids. TYPE OF WOUND: Type 4 (dirty wound) INDICATION FOR THE PROCEDURE: This lady had undergone surgical management of an anal fistula with Seton suture placement 2 days ago, at an outside facility, [facility]. She presented with high fever, swelling and erythema over the right gluteal region, concerning for an abscess. Therefore, formal drainage under general anesthetic was offered. Informed consent was obtained after reviewing the procedure and complications of postoperative bleeding and recurrence of the abscess. DESCRIPTION OF PROCEDURE: She was initially placed supine on the operative table and general anesthesia induced using an endotracheal tube. She had received intravenous antibiotics prior to her arrival in the operating room. Subsequently, she was placed in right lateral decubitus position, to achieve optimal exposure of the involved region. After adequate antiseptic preparation, a 3 cm incision was made and a large abscess extending into the ischiorectal fossa was encountered. It was drained and pus sent for culture and sensitivity. Hemostasis was achieved using cautery. Job ID: [id number] Dictated Date: 12/03/2016 13:50:24 Certified Nursing Assistant Date: 12/05/2016 08:02:03 / miguelito BRISCOE
--- NOTE | 2016-12-05 08:19 | OPERATIVE REPORT ---
PROCEDURE PHYSICIAN: MARILEE CALDERON DATE OF PROCEDURE: 12/03/2016 PREOPERATIVE DIAGNOSIS: Right gluteal abscess. POSTOPERATIVE DIAGNOSIS: Right ischiorectal abscess. OPERATION: Incision and drainage. SURGEON: Dr. Calderon. ANESTHESIA: General anesthesia. BLOOD LOSS: Minimal. FLUIDS: 1 liter of crystalloids. TYPE OF WOUND: Type IV (dirty wound) INDICATION FOR THE PROCEDURE: This lady had undergone surgical management of an anal fistula with a Seton procedure placement at an outside facility outside [place] 2 days prior to her presentation at our emergency room. She developed erythema and swelling and severe pain over the right gluteal region, along with fever and chills. Examination concerning for abscess requiring formal drainage. Informed consent was obtained after reviewing the procedure in detail and highlighting the possibility of further recurrence and postoperative bleeding. DESCRIPTION OF PROCEDURE: She was initially placed supine on the operating table and general anesthesia induced using an endotracheal tube. He had received intravenous antibiotics prior to her arrival in the operating room. Subsequently, she was placed and placed in right lateral decubitus position to achieve reasonable exposure of the involved region. After adequate antiseptic preparation, a 3 cm elliptical incision was made and a large abscess extending into the ischiorectal fossa encountered. It was drained adequately and hemostasis achieved using cautery. The abscess cavity was irrigated with saline and a Sima drain left to promote postoperative drainage. It was secured using a 2-0 Prolene suture. A nonadherent dressing was then applied. She tolerated the procedure well, was turned supine before being extubated and taken to the recovery room in a stable condition. Job ID: [id number] Dictated Date: 12/03/2016 13:52:55 Coding File Clerk Date: 12/05/2016 08:15:44 / miguelito
[2016-12-05 12:00] VITALS: BP 99/55
[2016-12-05] MEDS ORDERED: METR500T PO (13:59)
--- NOTE | 2016-12-06 15:20 | Anesthesia-General Post-Op ---
General Patient Condition Mental Status/LOC: Same as Preop Cardiovascular: Satisfactory Nausea/Vomiting: Absent Respiratory: Satisfactory Pain: Controlled Complications: Absent Post Op Complications Complications None Follow Up Care/Instructions Patient Instructions None needed. Anesthesia/Patient Condition Patient Condition Patient is doing well, no complaints, stable vital signs, no apparent adverse anesthesia problems. No complications reported per nursing. D/C home per [facility] Criteria: Yes FABIO BRADY CRNA Dec 06, 2016 15:20
== END 2016-12-05 12:30 | disposition home or self-care (01) | DRG 853 ==
LOC: EDUNIT# 22:31 → ER 22:32 → ICU 12-03 01:45 → 4TH 12-04 12:15 → ENPENDDIS 12-05 10:00
PROVIDERS: ADMIT Family Medicine; ATTEND Family Medicine
PROC: 0D9P00Z Drainage of Rectum with Drainage Device, Open Approach (ICD-10-PCS; principal; 2016-12-03 13:17)
DX: A41.9 Sepsis, unspecified organism (principal); R65.21 Severe sepsis with septic shock; K61.3 Ischiorectal abscess; F17.210 Nicotine dependence, cigarettes, uncomplicated; E78.00 Pure hypercholesterolemia, unspecified; E11.9 Type 2 diabetes mellitus without complications
CPT/HCPCS: 36415; 71010; 72193; 80053; 81000; 83605; 84703; 85007; 85025; 85027; 85610; 85730; 87040; 87070; 87075; 87205; 87804; 94664; 96361; 96365; 96375

== ENCOUNTER → 2017-03-29 | Outpatient (CLI) | payer MEDICAID | LOC: PREOP 05:40 | PROVIDERS: ATTEND Surgery | DX: Z01.818 Encounter for other preprocedural examination (principal); R13.10 Dysphagia, unspecified ==

== ENCOUNTER → 2017-04-06 | Outpatient (CLI) | payer MEDICAID | LOC: PREOP 05:42 | PROVIDERS: ATTEND Surgery | DX: Z01.818 Encounter for other preprocedural examination (principal); R13.10 Dysphagia, unspecified ==

== ENCOUNTER 2017-04-10 12:31 | Day surgery (SDC) | payer MEDICAID ==
[~2017-04-10] VITALS: Ht 157.5 cm; Wt 85.4 kg
[2017-04-10] MEDS ORDERED: NS IV 500 ML 500 ML IV ONE (12:45)
[2017-04-10 13:00] VITALS: BP 112/68
[2017-04-10] MEDS ORDERED: NS IV 500 ML 500 ML ONE (13:41)
[2017-04-10] MEDS ORDERED: HYDR-3812 PO (14:00)
[2017-04-10] MEDS ORDERED: HURRICAINE EXT TUBE (BENZOCAINE) ONE (16:06)
[2017-04-10] MEDS ORDERED: fentaNYL INJECTION 100 MCG/2 ML AMP ONE (16:06)
[2017-04-10] MEDS ORDERED: MIDAZOLAM 2 MG/2 ML (VERSED) VIAL ONE ×4 (16:06)
[2017-04-10] MEDS: MIDAZOLAM 2 MG/2 ML (VERSED) VIAL IVP PRN ×4 (16:10→16:19)
[2017-04-10] MEDS: fentaNYL INJECTION 100 MCG/2 ML AMP IVP PRN ×2 (16:11→16:15)
[2017-04-10] MEDS ORDERED: HURRICAINE EXT TUBE (BENZOCAINE) XX ONE (16:45)
[2017-04-10 16:50] VITALS: BP 102/65
[2017-04-10 17:15] VITALS: BP 102/65
--- NOTE | 2017-04-10 20:05 | Conscious Sedation/ASA ---
Conscious Sedation Pre-Proced Time Reviewed: 13:05 ASA Class: 2 Airway Mallampati Classification: (sen[place] appropriate class) I. II. III, IV Lungs Heart ASA score ASA 1: a normal healthy patient ASA 2: a patient with a mild systemic disease (mid diabetes, controlled hypertension, obesity ASA 3: a patient with a severe systemic disease that limits activity (angina , COPD, prior Myocardial infarction) ASA 4: a patient with an incapacitating disease that is a constant threat to life (CHF, renal failure) ASA 5: a moribund patient not expected to survive 24 hrs. (ruptured aneurysm) ASA 6: a declared brain patient whose organs are being harvested. For emergent operations, add the letter E after the classification Grade 2 Sedation Plan: Discussed options with patient/fam Note The patient is an appropriate candidate to undergo the planned procedure, sedation, and anesthesia. The patient immediately re-assessed prior to indication. MARILEE CALDERON MD Apr 10, 2017 8:05 pm
--- NOTE | 2017-04-10 20:05 | History & Physicial ---
History of Present Illness History of Present Illness Reason for visit/HPI To undergo an upper endoscopy with possible balloon dilatation regarding dysphagia. Date of Admission Date Seen by Provider: Apr 10, 2017 Time Seen by Provider: 12:40 I consulted on this patient on 04/10/17 20:02 Attending Physician Marilee Calderon MD Admitting Physician Ashlee,[facility] Consult Allergies and Home Medications Allergies Coded Allergies: oxycodone (Verified Allergy, Mild, 06/08/16) Penicillins (Verified Allergy, Unknown, 06/08/16) prednisone (Verified Allergy, Unknown, 06/08/16) tramadol (Verified Allergy, Unknown, itching, 06/08/16) Home Medications No Active Prescriptions or Reported Meds Past Bgkjaim-Gfihpr-Quvslu Hx Patient Social History Marrital Status: Employed/Student: employed Alcohol Use: Occasionally Uses Recreational Drug Use: No Smoking Status: Current Everyday Smoker Type Used: Cigarettes 2nd Hand Smoke Exposure: Yes Recent Foreign Travel: No Contact w/other who traveled: No Recent Hopitalizations: No Recent Infectious Disease Expo: No Immunizations Up To Date Tetanus Booster (TDap): More than 5yrs Seasonal Allergies Seasonal Allergies: No Surgeries Yes (RECTAL PROCEDURE FOR FISTULA) Bowel Surgery, Rectal, Tubal Ligation Respiratory Yes Currently Using CPAP: No Currently Using BIPAP: No Cardiovascular Yes High Cholesterol Neurological Yes (SURGICAL REPAIR OF BRAIN AV MALFORMATION) Headaches /Migraines 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 System Hx 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 (CERVICAL DYSPLASIA--S/P LEEP X 3) Sexually Transmitted Disease: Yes (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) HIV/AIDS: No 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 Gastrointestinal Yes (ANAL CONDYLOMA--"PRECANCEROUS TUMORS" ; PERIRECTAL ABSCESSES) Gastroesophageal Reflux Musculoskeletal No Endocrine History of Endocrine Disorders: Yes Endocrine Disorders: Diabetes, Non-Insulin dep HEENT Loss of Vision: Denies Hearing Impairment: Denies Cancer No Colon Psychosocial History of Psychiatric Problem: No Integumentary History of Skin or Integumenta: Yes (CONDYLOMA--ANO/GENITAL) Blood Transfusions History of Blood Disorders: No Family Medical History Significant Family History: No Pertinent Family Hx Family Hx: Arthritis 19 FATHER 19 MOTHER Asthma 19 FATHER G8 BROTHER Cataracts 19 MOTHER Diabetes mellitus 19 FATHER Headache disorder 19 MOTHER Hypercholesterolemia 19 MOTHER Seizure disorder 19 FATHER G8 BROTHER Constitutional: no symptoms reported EENTM: no symptoms reported Respiratory: no symptoms reported Cardiovascular: no symptoms reported Gastrointestinal: dysphagia Genitourinary: no symptoms reported Musculoskeletal: no symptoms reported Skin: no symptoms reported Psychiatric/Neurological: No Symptoms Reported Physical Exam Vital Signs Vital Sign - Last 12Hours 04/10/17 13:00 Temp 98.1 Pulse 80 Resp 18 B/P (MAP) 112/68 Pulse Ox 95 O2 Delivery Room Air Capillary Refill : General Appearance: No Apparent Distress HEENT: Normal ENT Inspection Neck: Normal Inspection Respiratory: Lungs Clear Cardiovascular: Regular Rate, Rhythm Gastrointestinal: Non Tender, Soft Neurologic/Psychiatric: Alert, Oriented x3 Skin: Warm/Dry Assessment/Plan Assessment and Plan Lady with dysphagia. For upper endoscopy with possible balloon dilatation. Problems: MARILEE CALDERON MD Apr 10, 2017 8:05 pm
--- NOTE | 2017-04-10 20:27 | Endo Procedure Record ---
Endo Procedure Report Date of Procedure Apr 10, 2017 Surgeon (s) MARILEE CALDERON MD Post Procedure/Op Diagnosis Esophageal stricture Procedure Performed EGD with balloon dilatation Description of Procedure Anesthesia Type: Conscious Sedation Specimen(s) collected/removed None Description of the Procedure Indication for procedure: This lady came in for an upper endoscopy with possible balloon dilatation to manage dysphagia. Informed consent was obtained after reviewing the procedure in detail. Description of procedure: She was placed in left lateral position and her vital signs were monitored. Conscious sedation was achieved using Versed and fentanyl. The flexible gastroscope was introduced down the esophagus, past the stomach, into the proximal duodenum. Findings: Esophagus: Smooth, concentric stricture at the distal end with an associated hiatal hernia. The stricture was dilated to 20 mm with the balloon Stomach and duodenum were normal She tolerated the procedure well and was taken back to the nursing area in a stable condition. Impression: Dysphagia due to distal esophageal stricture, possibly peptic in nature. Balloon dilatation completed. MARILEE CALDERON MD Apr 10, 2017 8:27 pm
== END 2017-04-10 17:10 | disposition home or self-care (01) ==
LOC: ENDO 12:31
PROVIDERS: ATTEND Surgery
DX: K22.2 Esophageal obstruction (principal); K44.9 Diaphragmatic hernia without obstruction or gangrene; F17.210 Nicotine dependence, cigarettes, uncomplicated; E11.9 Type 2 diabetes mellitus without complications
CPT/HCPCS: 84703

== ENCOUNTER 2017-04-26 20:25 | Emergency (ER) | payer MEDICAID ==
[~2017-04-26] VITALS: Ht 157.5 cm; Wt 85.4 kg
[2017-04-26 21:13] LABS: BILIRUBIN,URINE NEGATIVE (NEGATIVE); KETONES,URINE NEGATIVE (NEGATIVE); LEUKOCYTE ESTERASE ,URINE 2+ (NEGATIVE); NITRITE,URINE NEGATIVE (NEGATIVE); PH,URINE 6.5 (5-9); PROTEIN,URINE NEGATIVE (NEGATIVE); UROBILINOGEN,URINE NORMAL (NORMAL)
[2017-04-26 21:25] LABS: WBC,URINE 25-50 /HPF
[2017-04-26 21:26] LABS: SQUAMOUS EPITHELIAL CELL,UR 0-2 /HPF
[2017-04-26] MEDS ORDERED: PHENAZOPYRIDINE 100 MG (PYRIDIUM) TABLET PO STA (22:26)
[2017-04-26] MEDS ORDERED: RX-NITROFURANTOIN 100 MG (MACROBID) CAP PPK#2 PO STA (22:26)
[2017-04-26] MEDS ORDERED: morphine INJ 10 MG/ML 1ML (SYR OR VIAL) IVP STA (22:26)
[2017-04-26] MEDS ORDERED: PHEN-640 PO (22:34)
[2017-04-26] MEDS ORDERED: NITR-65 PO (22:34)
[2017-04-26] MEDS ORDERED: ONDA8TAB13 PO (22:34)
--- NOTE | 2017-04-26 22:35 | ED GU-Female ---
General Chief Complaint: Abdominal/GI Problems Stated Complaint: ABDOMINAL PAIN,BURNING WHILE URINATING Nursing Triage Note: PT AMBULATED TO ROOM. PT STATES "IT FEELS LIKE RAZOR BLADES EVERYTIME I PEE". PT COMPLAINS OF THIS ISSUE FOR A COUPLE DAYS BUT PAIN GOT WORSE THIS MORNING. PT COMPLAINS OF NAUSEA AND RIGHT LOWER ABD PAIN. Nursing Sepsis Screen: No Definite Risk Source: patient Exam Limitations: no limitations History of Present Illness Time seen by provider: 22:12 Allergies and Home Medications Allergies Coded Allergies: oxycodone (Verified Allergy, Mild, 06/08/16) Penicillins (Verified Allergy, Unknown, 06/08/16) prednisone (Verified Allergy, Unknown, 06/08/16) tramadol (Verified Allergy, Unknown, itching, 06/08/16) Home Medications No Active Prescriptions or Reported Meds Past Htjhria-Mxtgsi-Otznod Hx Patient Social History Alcohol Use: Denies Use Recreational Drug Use: No Smoking Status: Current Everyday Smoker Type Used: Cigarettes 2nd Hand Smoke Exposure: Yes Recent Foreign Travel: No Contact w/Someone Who Travel: No Recent Infectious Disease Expo: No Recent Hopitalizations: No Physical Abuse: No Sexual Abuse: No Immunizations Up To Date Tetanus Booster (TDap): More than 5yrs Seasonal Allergies Seasonal Allergies: No Surgeries History of Surgeries: No (RECTAL PROCEDURE FOR FISTULA, AVM in brain sx) Surgeries: Bowel Surgery, Rectal, Tubal Ligation Respiratory History of Respiratory Disorde: Yes Respiratory Disorders: Asthma Currently Using CPAP: No Currently Using BIPAP: No Cardiovascular History of Cardiac Disorders: Yes Cardiac Disorders: High Cholesterol Neurological History of Neurological Disord: Yes (SURGICAL REPAIR OF BRAIN AV MALFORMATION) Neurological Disorders: Headaches /Migraines 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 System Hx 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 (CERVICAL DYSPLASIA--S/P LEEP X 3) Sexually Transmitted Disease: Yes (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) HIV/AIDS: No 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 Genitourinary History of Genitourinary Disor: No Gastrointestinal History of Gastrointestinal Di: Yes (ANAL CONDYLOMA--"PRECANCEROUS TUMORS" ; PERIRECTAL ABSCESSES) Gastrointestinal Disorders: Gastroesophageal Reflux Musculoskeletal History of Musculoskeletal Dis: No Endocrine History of Endocrine Disorders: Yes Endocrine Disorders: Diabetes, Non-Insulin dep HEENT History of HEENT Disorders: No Loss of Vision: Denies Hearing Impairment: Denies Cancer History of Cancer: Yes Cancer: Colon Psychosocial History of Psychiatric Problem: No Suicide Risk Score: 0 Integumentary History of Skin or Integumenta: Yes (CONDYLOMA--ANO/GENITAL) Blood Transfusions History of Blood Disorders: No Family Medical History Significant Family History: No Pertinent Family Hx Family Medial History: Arthritis 19 FATHER 19 MOTHER Asthma 19 FATHER G8 BROTHER Cataracts 19 MOTHER Diabetes mellitus 19 FATHER Headache disorder 19 MOTHER Hypercholesterolemia 19 MOTHER Seizure disorder 19 FATHER G8 BROTHER Physical Exam Vital Signs Vital Sign - Last 12Hours 04/26/17 20:42 Temp 98.1 Pulse 84 Resp 20 B/P (MAP) 137/71 Pulse Ox 96 O2 Delivery Room Air Capillary Refill : Less Than 3 Seconds Progress/Results/Core Measures Results/Orders Lab Results Laboratory Tests Test 04/26/17 20:40 Range/Units Urine Color YELLOW Urine Clarity CLEAR Urine pH 6.5 5-9 Urine Specific Percival 1.005 L 1.016-1.022 Urine Protein NEGATIVE NEGATIVE Urine Glucose (UA) NEGATIVE NEGATIVE Urine Ketones NEGATIVE NEGATIVE Urine Nitrite NEGATIVE NEGATIVE Urine Bilirubin NEGATIVE NEGATIVE Urine Urobilinogen NORMAL NORMAL MG/DL Urine Leukocyte Esterase 2+ H NEGATIVE Urine RBC (Auto) 2+ H NEGATIVE Urine RBC 0-2 /HPF Urine WBC 25-50 H /HPF Urine Squamous Epithelial Cells 0-2 /HPF Urine Crystals NONE /LPF Urine Bacteria FEW H /HPF Urine Casts NONE /LPF Urine Mucus NEGATIVE /LPF Urine Culture Indicated YES My Orders Orders - FRANCISCO HARRY Morphine Injection (Morphine Injection (04/26/17 22:26) Phenazopyridine Tablet (Pyridium Tablet) (04/26/17 22:26) Rx-Nitrofurantoin [place] (Rx-Macrobid) (04/26/17 22:26) Vital Signs/I&O Vital Sign - Last 12Hours 04/26/17 20:42 Temp 98.1 Pulse 84 Resp 20 B/P (MAP) 137/71 Pulse Ox 96 O2 Delivery Room Air Blood Pressure Mean: 93 Departure Impression Impression: Primary Impression: Urinary tract infection Disposition: 01 HOME, SELF-CARE Condition: Improved Departure-Patient Inst. Decision time for Depature: 22:31 [address]errals: [facility] (PCP/Family) Primary Care Physician Patient Instructions: Urinary Tract Infection, Adult (DC) Add. Discharge Instructions: All discharge instructions reviewed with patient and/or family. Voiced understanding. Medications as instructed. Continue usual home medications. Drink plenty of fluids. Follow-up with a family practitioner for recheck if no improvement in symptoms. Return to the emergency department for worsened pain, fever, inability to urinate, blood in the urine, or any other concerns. Scripts Ondansetron (Ondansetron Odt) 8 Mg Tab.rapdis 8 MG PO Q6H Y for NAUSEA/VOMITING-1ST LINE, #10 TAB 0 Refills Prov: FRANCISCO HARRY 04/26/17 Phenazopyridine HCl (Pyridium) 200 Mg Tablet 1 TAB PO Q8H Y for PAIN-MILD TO MODERATE, #30 TAB 0 Refills Prov: FRANCISCO HARRY 04/26/17 Nitrofurantoin Monohyd/M-Cryst (Macrobid 100 mg Capsule) 100 Mg Capsule 1 TAB PO BID, #14 CAP 0 Refills Prov: FRANCISCO HARRY 04/26/17 FRANCISCO HARRY Apr 26, 2017 22:35
[2017-04-26 22:51] VITALS: BP 137/71
== END 2017-04-26 22:51 | disposition home or self-care (01) ==
LOC: EDUNIT# 20:25 → ER 20:28
DX: Z04.3 Encounter for examination and observation following other accident (principal)
CPT/HCPCS: 81000; 87088; 96374

== ENCOUNTER 2017-05-14 01:18 | Emergency (ER) | payer MEDICAID ==
[~2017-05-14] VITALS: Ht 157.5 cm; Wt 82.6 kg
[~2017-05-14 01:18] MED LIST changes: +NITR-65 PO; +ONDA8TAB13 PO; +PHEN-640 PO
[2017-05-14] MEDS ORDERED: CLINDAMYCIN (01:35)
[2017-05-14] MEDS ORDERED: RX-NAPROXEN (NAPROSYN) 250 MG TAB PPK#4 PO STA (01:43)
[2017-05-14] MEDS ORDERED: LIDOCAINE 2% VISCOUS 15 ML UDC MM ONE (01:45)
[2017-05-14] MEDS ORDERED: HYDROcodone/APAP 5 MG/325 MG (LORTAB) TAB PO ONE (01:45)
[2017-05-14] MEDS ORDERED: LIDO15SO2 MM (01:48)
[2017-05-14] MEDS ORDERED: NAPR500T3 PO (01:48)
--- NOTE | 2017-05-14 01:48 | ED EENT ---
History of Present Illness General Chief Complaint: Dental Problems/Pain Stated Complaint: TOOTH PAIN FACIAL SWELLING Nursing Triage Note: PT STATES SHE HAD 6 TEETH REMOVED LAST MONDAY, CC OF PAIN ON THE LOWER RT SIDE FROM WHERE ONE WAS REMOVED. Source: patient History of Present Illness Time seen by provider: 01:35 Initial Comments STATES SHE HAD 6 TEETH PULLED ON MONDAY BY DR. DING AT [facility] WAS ON CLINDAMYCIN X 1 WEEK PRIOR TO EXTRACTION AND HAS CONTINUED THE CLINDAMYCIN WAS GIVEN RX FOR HYDROCODONE AND THOSE HAVE RUN OUT--STATES SHE WAS ONLY GIVEN 5 PILLS HAD BEEN DOING FINE UNTIL YESTERDAY MORNING AND BEGAN HAVING PAIN TO ONE EXTRACTION SITE TO RIGHT LOWER JAW, PAIN HAS GOTTEN MUCH WORSE NO BLEEDING NO SWELLING NO FEVER HAS TAKEN TYLENOL WITHOUT RELIEF NO FOLLOW UP APPOINTMENT HAS BEEN MADE PCP: MIKE ARTEAGA Allergies and Home Medications Allergies Coded Allergies: oxycodone (Verified Allergy, Mild, 06/08/16) Penicillins (Verified Allergy, Unknown, 06/08/16) prednisone (Verified Allergy, Unknown, 06/08/16) tramadol (Verified Allergy, Unknown, itching, 06/08/16) Home Medications Lidocaine HCl 15 Ml Solution, 1-2 ML MM Q 1-2 HOURS, #100 Prescribed by: SAVANNAH TY on 05/14/17147 Naproxen 500 Mg Tablet, 500 MG PO BID, #20 Prescribed by: SAVANNAH TY on 05/14/17147 [Clindamycin] , (Reported) Review of Systems Constitutional: no symptoms reported Eyes: No Symptoms Reported Ears: No Symptoms Reported Nose: no symptoms reported Mouth: see HPI Throat: no symptoms reported Respiratory: no symptoms reported Cardiovascular: no symptoms reported Musculoskeletal: no symptoms reported Skin: no symptoms reported Neurological: No Symptoms Reported Past Cxrouiz-Xnvtmt-Fipvrs Hx Patient Social History Alcohol Use: Denies Use Recreational Drug Use: No Smoking Status: Current Everyday Smoker Type Used: Cigarettes 2nd Hand Smoke Exposure: Yes Recent Foreign Travel: No Contact w/Someone Who Travel: No Recent Infectious Disease Expo: No Recent Hopitalizations: Yes (11/2016 SEPTIC SHOCK) Immunizations Up To Date Tetanus Booster (TDap): More than 5yrs Seasonal Allergies Seasonal Allergies: No Surgeries History of Surgeries: Yes (RECTAL PROCEDURE FOR FISTULA, AVM in brain sx) Surgeries: Bowel Surgery, Neurological, Rectal, Tubal Ligation Respiratory History of Respiratory Disorde: Yes Respiratory Disorders: Asthma Currently Using CPAP: No Currently Using BIPAP: No Cardiovascular History of Cardiac Disorders: Yes Cardiac Disorders: High Cholesterol Neurological History of Neurological Disord: Yes (SURGICAL REPAIR OF BRAIN AV MALFORMATION) Neurological Disorders: Headaches /Migraines 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 System : No Hx 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 (CERVICAL DYSPLASIA--S/P LEEP X 3) Sexually Transmitted Disease: Yes (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) HIV/AIDS: No 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 History: Tubal Ligation Genitourinary History of Genitourinary Disor: No Gastrointestinal History of Gastrointestinal Di: Yes (ANAL CONDYLOMA--"PRECANCEROUS TUMORS" ; PERIRECTAL ABSCESSES) Gastrointestinal Disorders: Gastroesophageal Reflux Musculoskeletal History of Musculoskeletal Dis: No Endocrine History of Endocrine Disorders: Yes (WAS ON METFORMIN BUT TAKEN OFF OF IT; OBESITY) Endocrine Disorders: Diabetes, Non-Insulin dep HEENT History of HEENT Disorders: No Loss of Vision: Denies Hearing Impairment: Denies Cancer History of Cancer: Yes Cancer: Colon, Ovarian Did You Recieve Any Treatments: Yes Type of Tx Receive: Chemotherapy Cancer Comment: "CHEMO CREAM" Psychosocial History of Psychiatric Problem: No Integumentary History of Skin or Integumenta: Yes (CONDYLOMA--ANO/GENITAL) Blood Transfusions History of Blood Disorders: No Family Medical History Significant Family History: No Pertinent Family Hx Family Medial History: Arthritis 19 FATHER 19 MOTHER Asthma 19 FATHER G8 BROTHER Cataracts 19 MOTHER Diabetes mellitus 19 FATHER Headache disorder 19 MOTHER Hypercholesterolemia 19 MOTHER Seizure disorder 19 FATHER G8 BROTHER Physical Exam Vital Signs Vital Sign - Last 12Hours 05/14/17 01:27 Temp 97.6 Pulse 97 Resp 22 B/P (MAP) 123/83 Pulse Ox 97 O2 Delivery Room Air General Appearance: obese (SOBBING, NO TEARS), other (REEKS OF CIGARETTES) Eyes: bilateral eye normal inspection, bilateral eye PERRL, bilateral eye EOMI Ears: bilateral ear TM normal Nose: normal inspection Mouth/Throat: No mandibular swelling, No maxillary swelling, other (EXTRACTION SITES X 6--RIGH UPPER X 2 ( SUTURED), RIGHT LOWER X 2, LEFT UPPER X 1, LEFT LOWER X 1--ALL WITH MINIMAL GUM INFLAMMATION, NO OVERT ABSCESS, NO BLEEDING OR PURULENT DRAINAGE. EXTRACTION SITE TO RIGHT LOWER PREMOLAR AREA IS AREA OF PAIN --POSSIBLE DRY SOCKET IN THIS AREA. NO JAW SWELLING OR ERYTHEMA) Neck: non-tender, full range of motion, supple, normal inspection Cardiovascular: regular rate, rhythm Respiratory: normal breath sounds Neurologic/Psychiatric: as400 programmer II-XII nml as tested, no motor/sensory deficits, alert, oriented x 3 Skin: normal color, warm/dry Progress/Results/Core Measures Results/Orders My Orders Orders - SAVANNAH TY DO Lidocaine 2% Viscous 15 Ml (Xylocaine Vi (05/14/17 01:45) Rx-Naproxen (Rx-Naprosyn) (05/14/17 01:43) Hydrocodone/Apap 5/325 Tablet (Lortab 5 (05/14/17 01:45) Ibuprofen Tablet (Motrin Tablet) (05/14/17 02:00) Vital Signs/I&O Vital Sign - Last 12Hours 05/14/17 01:27 Temp 97.6 Pulse 97 Resp 22 B/P (MAP) 123/83 Pulse Ox 97 O2 Delivery Room Air Blood Pressure Mean: 96 Departure Impression Impression: Primary Impression: POST EXRACTION DENTAL PAIN Additional Impression: POSSIBLE DRY SOCKET Disposition: HOME, SELF-CARE Condition: Stable Departure-Patient Inst. Referrals: [facility] (PCP/Family) Primary Care Physician Patient Instructions: Dental Pain (DC) Add. Discharge Instructions: FOLLOW ALL OF YOUR POST-EXTRACTION INSTRUCTIONS FROM YOUR DENTIST FOLLOW UP WITH YOUR DENTIST ON MONDAY CONTINUE YOUR CLINDAMYCIN All discharge instructions reviewed with patient and/or family. Voiced understanding. Scripts Naproxen (Naproxen) 500 Mg Tablet 500 MG PO BID, #20 TAB Prov: SAVANNAH TY DO 05/14/17 Lidocaine HCl (Lidocaine HCl Viscous) 15 Ml Solution 1-2 ML MM Q 1-2 HOURS for Pain, #100 ML Prov: SAVANNAH TY DO 05/14/17 SAVANNAH TY DO May 14, 2017 01:48
[2017-05-14] MEDS ORDERED: IBUPROFEN 800 MG (MOTRIN) TAB PO ONE (02:00)
[2017-05-14 02:21] VITALS: BP 123/83
== END 2017-05-14 02:19 | disposition home or self-care (01) ==
LOC: EDUNIT# 01:18 → ER 01:20
DX: G89.18 Other acute postprocedural pain (principal); K08.89 Other specified disorders of teeth and supporting structures; J45.909 Unspecified asthma, uncomplicated; E78.00 Pure hypercholesterolemia, unspecified; G43.909 Migraine, unspecified, not intractable, without status migrainosus; K21.9 Gastro-esophageal reflux disease without esophagitis; E66.9 Obesity, unspecified; E11.9 Type 2 diabetes mellitus without complications; F17.210 Nicotine dependence, cigarettes, uncomplicated; Z98.51 Tubal ligation status; Z85.038 Personal history of other malignant neoplasm of large intestine; Z85.43 Personal history of malignant neoplasm of ovary; Z98.890 Other specified postprocedural states
CPT/HCPCS: 99283

== ENCOUNTER 2017-07-07 21:41 | Emergency (ER) | payer MEDICAID ==
[~2017-07-07] VITALS: Ht 160 cm; Wt 79.4 kg
[~2017-07-07 21:41] MED LIST changes: +CIPR500T4 PO; +CLINDAMYCIN; +LIDO15CR6 TP; +LIDO15SO2 MM; +NAPR500T4 PO
[2017-07-07] MEDS ORDERED: HYDR-3812 (21:53)
[2017-07-07 22:20] LABS: BASOPHILS # (AUTO) 0.1 10^3/uL (0.0-0.1); BASOPHILS % (AUTO) 1 % (0-10); EOSINOPHILS # (AUTO) 0.4 10^3/uL (0.0-0.3); EOSINOPHILS % (AUTO) 4 % (0-10); LYMPHOCYTES # (AUTO) 4.9 X 10^3 (1.0-4.0); LYMPHOCYTES % (AUTO) 45 % (12-44); MEAN CORPUSCULAR HEMOGLOBIN 32 PG (25-34); MEAN CORPUSCULAR HGB CONC 35 G/DL (32-36); MEAN CORPUSCULAR VOLUME 90 FL (80-99); MEAN PLATELET VOLUME 9.7 FL (7.4-10.4); MONOCYTES % (AUTO) 9 % (0-12); NEUTROPHILS # (AUTO) 4.6 X 10^3 (1.8-7.8); NEUTROPHILS % (AUTO) 42 % (42-75); PLATELET COUNT 300 10^3/uL (130-400); RED BLOOD COUNT 4.32 10^6/uL (4.35-5.85); RED CELL DISTRIBUTION WIDTH 13.4 % (10.0-14.5); WHITE BLOOD COUNT 10.9 10^3/uL (4.3-11.0)
[2017-07-07 22:38] LABS: ERYTHROCYTE SEDIMENTATION RATE 22 MM/HR (0-20)
[2017-07-07 22:39] LABS: ALANINE AMINOTRANSFERASE 16 U/L (0-55); ALBUMIN 3.8 GM/DL (3.2-4.5); ANION GAP 12 MMOL/L (5-14); ASPARTATE AMINO TRANSFERASE 15 U/L (5-34); BILIRUBIN,TOTAL 0.2 MG/DL (0.1-1.0); BLOOD UREA NITROGEN 10 MG/DL (7-18); BUN/CREATININE RATIO 11; CALCIUM 8.7 MG/DL (8.5-10.1); CARBON DIOXIDE 21 MMOL/L (21-32); CHLORIDE 104 MMOL/L (98-107); CREATININE SERUM 0.91 MG/DL (0.60-1.30); GFR ESTIMATED > 60; GLUCOSE 116 MG/DL (70-105); POTASSIUM 3.4 MMOL/L (3.6-5.0); SODIUM 137 MMOL/L (135-145); TOTAL PROTEIN 6.9 GM/DL (6.4-8.2); hs C REACTIVE PROTEIN 1.01 MG/DL (0.00-0.50)
[2017-07-07] MEDS ORDERED: NS 100 ML (IVPB) BAG IV ONE (22:45)
[2017-07-07] MEDS ORDERED: IOHEXOL 350 MG/ML 100 ML (OMNIPAQUE 350) VIAL IV ONE (22:45)
[2017-07-07] MEDS ORDERED: KETOROLAC 30 MG/ML VIAL IVP ONE (23:30)
[2017-07-07] MEDS ORDERED: CLINDAMYCIN INJECTION 900 MG in NS (IVPB) 50 ML IV ONE (23:30)
--- NOTE | 2017-07-08 00:01 | ED General ---
General Chief Complaint: Rect Problems Stated Complaint: POST OP/FEVER/PAIN Nursing Triage Note: RECTAL PAIN S/P RECTAL SURGERY 07/05/17. 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 ONEAL AT [facility] ON Monday07/05/17, AND HAD A SETON BAND PLACED IN PERIANAL FISTULA--THIS IS THE SECOND TIME SHE HAS HAD THIS PROCEDURE DONE THIS YEAR PT STATES SHE HAD A LOT OF DRAINAGE THE FIRST 24 HOURS, AND NOW IS NO LONGER DRAINING BEGAN RUNNING FEVER TONIGHT OF 100.8 STATES SHE WAS NOT DISMISSED ON ANTIBIOTICS PT WAS SEEN HERE 06/25/17 FOR THIS PROBLEM AND HAD CELLULITIS OF THE AREA AT THAT TIME AND WAS DISMISSED WITH RX'S FOR CIPRO, FLAGYL AND LIDOCAINE RECTAL CREAM PT C/O SEVERE RECTAL PAIN PER [facility], PT HAS RECEIVED A TOTAL OF #130 HYDROCODONE PILLS IN THE LAST 30 DAYS, FROM 3 DIFFERENT PROVIDERS, WITH THE MOST RECENT ONE FILLED 07/05/17 FOR # 30, AND FILLED RX FOR #20 ON 06/30. HAS FILLED 2 PRESCRIPTIONS FOR HYDROCODONE, 1 PRESCRIPTION FOR TYLENOL#3 FILLED IN THE LAST YEAR IN THE STATE OF [place], BY 9 DIFFERENT PROVIDERS AT 4 DIFFERENT PHARMACIES IN 3 DIFFERENT TOWNS. PT HAS BEEN SEEN HERE 9 TIMES IN 2017 PT IS KNOWN TO FREQUENT OTHER LOCAL ER'S WELL. PCP: JENNI Allergies and Home Medications Allergies Coded Allergies: oxycodone (Verified Allergy, Mild, 06/08/16) Penicillins (Verified Allergy, Unknown, 06/08/16) prednisone (Verified Allergy, Unknown, 06/08/16) tramadol (Verified Allergy, Unknown, itching, 06/08/16) Home Medications Ciprofloxacin HCl 500 Mg Tablet, 500 MG PO BID, #20 Prescribed by: SAVANNAH TY on 07/08/17 0013 Hydrocodone/Acetaminophen 1 Each Tablet, (Reported) Ketorolac Tromethamine 10 Mg Tablet, 10 MG PO Q6H, #15 Prescribed by: SAVANNAH TY on 07/08/17 0013 Metronidazole 500 Mg Tablet, 500 MG PO QID, #40 Prescribed by: SAVANNAH TY on 07/08/1712 Constitutional: see HPI, fever Respiratory: no symptoms reported Cardiovascular: no symptoms reported Gastrointestinal: see HPI, constipation, other (RECTAL PAIN ) Genitourinary: no symptoms reported Musculoskeletal: no symptoms reported Skin: see HPI Psychiatric/Neurological: No Symptoms Reported Hematologic/Lymphatic: No Symptoms Reported Past Vvbohcf-Rmrikl-Dccbjq Hx Patient Social History Alcohol Use: Denies Use Recreational Drug Use: No Smoking Status: Current Everyday Smoker Type Used: Cigarettes 2nd Hand Smoke Exposure: Yes Recent Foreign Travel: No Contact w/Someone Who Travel: No Recent Infectious Disease Expo: No Recent Hopitalizations: No Immunizations Up To Date Tetanus Booster (TDap): More than 5yrs Seasonal Allergies Seasonal Allergies: No Surgeries History of Surgeries: Yes (MULTIPLE PERIANAL/PERIRECTAL ABSCESSES AND FISTULAS I&D'S, SETON BANDINGS; MULTIPLE "PRECANCEROUS TUMORS" REMOVED FROM PERIANAL AREA DUE TO LARGE ANAL CONDYLOMA; REPAIR OF BRAIN AV MALFORMATION; BILATERAL CARPAL TUNNEL; LEEP X 3 FOR CERVICAL DYSPLASIA) Surgeries: Bowel Surgery, Neurological, Rectal, Tubal Ligation Respiratory History of Respiratory Disorde: Yes Respiratory Disorders: Asthma Currently Using CPAP: No Currently Using BIPAP: No Cardiovascular History of Cardiac Disorders: Yes Cardiac Disorders: High Cholesterol Neurological History of Neurological Disord: Yes (SURGICAL REPAIR OF BRAIN AV MALFORMATION) Neurological Disorders: Headaches /Migraines 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 System : No Hx 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 (CERVICAL DYSPLASIA--S/P LEEP X 3) Sexually Transmitted Disease: Yes (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) 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 Genitourinary History of Genitourinary Disor: No Gastrointestinal History of Gastrointestinal Di: Yes (ANAL CONDYLOMA--"PRECANCEROUS TUMORS" ; PERIRECTAL ABSCESSES/FISTULAS) Gastrointestinal Disorders: Gastroesophageal Reflux Musculoskeletal History of Musculoskeletal Dis: No Endocrine History of Endocrine Disorders: Yes Endocrine Disorders: Diabetes, Non-Insulin dep HEENT History of HEENT Disorders: No Loss of Vision: Denies Hearing Impairment: Denies Cancer History of Cancer: No (PRECANCEROUS PERIANAL TUMORS-DUE TO CONDYLOMA; CERVICAL DYSPLASIA-TREATED WITH LEEP X 3) Did You Recieve Any Treatments: Yes Type of Tx Receive: Surgical Intervention Psychosocial History of Psychiatric Problem: No Integumentary History of Skin or Integumenta: Yes (ANAL CONDYLOMA; PERIANAL/PERIRECTAL ABSCESSES AND FISTULAS) Blood Transfusions History of Blood Disorders: No Family Medical History Family Medial History: Arthritis 19 FATHER 19 MOTHER Asthma 19 FATHER G8 BROTHER Cataracts 19 MOTHER Diabetes mellitus 19 FATHER Headache disorder 19 MOTHER Hypercholesterolemia 19 MOTHER Seizure disorder 19 FATHER G8 BROTHER Physical Exam Vital Signs Vital Sign - Last 12Hours 07/07/17 21:53 Temp 98.7 Pulse 117 Resp 22 B/P (MAP) 134/74 Pulse Ox 95 O2 Delivery Room Air Capillary Refill : Less Than 3 Seconds General Appearance: No Apparent Distress, Obese Respiratory: Normal Breath Sounds Cardiovascular: Regular Rate, Rhythm Gastrointestinal: Non Tender, Soft Rectal: Other (SETON BAND/SUTURE IN PLACE AT MIDLINE TO POSTERIOR PERIANAL AREA. NO DRAINAGE. MILD BILATERAL ERYTHEMA AND INDURATION TO BOTH BUTTOCKS ADJACENT TO THE BAND/SUTURE. NO AREAS OF FLUCTUANCE. MARKED TENDERNESS TO ENTIRE AREA. ) Extremity: Normal Inspection Neurologic/Psychiatric: Alert, Oriented x3, No Motor/Sensory Deficits Skin: Normal Color, Warm/Dry, Other ( ABOVE) Focused Exam Evaluation Lactate Level Laboratory Tests 07/07/17 21:10: Lactic Acid Level 1.26 Lactic Acid Level Progress/Results/Core Measures Suspected Sepsis Recent Fever Within 48 Hours: No Infection Criteria Present: None New/Unexplained Altered Menta: No Sepsis Screen: No Definite Risk Sepsis Diagnosis: SIRS Temperature:98.7 Pulse: 117 Respiratory Rate: 22 Laboratory Tests 07/07/17 21:10: White Blood Count 10.9 Blood Pressure 134 /74 Mean: 94 Laboratory Tests 07/07/17 21:10: Lactic Acid Level 1.26 Laboratory Tests 07/07/17 21:10: Creatinine 0.91, Platelet Count 300, Total Bilirubin 0.2 Results/Orders Lab Results Laboratory Tests Test 07/07/17 21:10 Range/Units White Blood Count 10.9 4.3-11.0 10^3/uL Red Blood Count 4.32 L 4.35-5.85 10^6/uL Hemoglobin 13.6 11.5-16.0 G/DL Hematocrit 39 35-52 % Mean Corpuscular Volume 90 80-99 FL Mean Corpuscular Hemoglobin 32 25-34 PG Mean Corpuscular Hemoglobin Concent 35 32-36 G/DL Red Cell Distribution Width 13.4 10.0-14.5 % Platelet Count 300 130-400 10^3/uL Mean Platelet Volume 9.7 7.4-10.4 FL Neutrophils (%) (Auto) 42 42-75 % Lymphocytes (%) (Auto) 45 H 12-44 % Monocytes (%) (Auto) 9 0-12 % Eosinophils (%) (Auto) 4 0-10 % Basophils (%) (Auto) 1 0-10 % Neutrophils # (Auto) 4.6 1.8-7.8 X 10^3 Lymphocytes # (Auto) 4.9 H 1.0-4.0 X 10^3 Monocytes # (Auto) 1.0 0.0-1.0 X 10^3 Eosinophils # (Auto) 0.4 H 0.0-0.3 10^3/uL Basophils # (Auto) 0.1 0.0-0.1 10^3/uL Erythrocyte Sedimentation Rate 22 H 0-20 MM/HR Sodium Level 137 135-145 MMOL/L Potassium Level 3.4 L 3.6-5.0 MMOL/L Chloride Level 104 98-107 MMOL/L Carbon Dioxide Level 21 21-32 MMOL/L Anion Gap 12 5-14 MMOL/L Blood Urea Nitrogen 10 7-18 MG/DL Creatinine 0.91 0.60-1.30 MG/DL Estimat Glomerular Filtration Rate > 60 BUN/Creatinine Ratio 11 Glucose Level 116 H 70-105 MG/DL Lactic Acid Level 1.26 0.50-2.00 MMOL/L Calcium Level 8.7 8.5-10.1 MG/DL Total Bilirubin 0.2 0.1-1.0 MG/DL Aspartate Amino Transf (AST/SGOT) 15 5-34 U/L Alanine Aminotransferase (ALT/SGPT) 16 0-55 U/L Alkaline Phosphatase 74 40-136 U/L C-Reactive Protein High Sensitivity 1.01 H 0.00-0.50 MG/DL Total Protein 6.9 6.4-8.2 GM/DL Albumin 3.8 3.2-4.5 GM/DL My Orders Orders - KARSONSAVANNAH K DO Saline Lock/Iv-Start (07/07/17 21:47) Cbc With Automated Diff (07/07/17 21:47) Comprehensive Metabolic Panel (07/07/17 21:47) Hs C Reactive Protein (07/07/17 21:47) Erythrocyte Sedimentation Rate (07/07/17 21:47) Lactic Acid Analyzer (07/07/17 21:47) Blood Culture (07/07/17 21:47) Ct Abdomen/Pelvis W (07/07/17 21:47) Iohexol Injection (Omnipaque 350 Mg/Ml 1 (07/07/17 22:45) Ns (Ivpb) (Sodium Chloride 0.9% Ivpb Bag (07/07/17 22:45) Ketorolac Injection (Toradol Injection) (07/07/17 23:30) Clindamycin Injection (Cleocin Injection (07/07/17 23:30) Medications Given in ED Current Medications Medications Dose Ordered Sig/Maryse Route Start Time Stop Time Status Last Admin Dose Admin Clindamycin Phosphate 900 mg/ Sodium Chloride 56 ml @ 100 mls/hr ONCE ONCE IV 07/07/17 23:30 07/08/17 00:03 DC 07/07/17 23:37 100 MLS/HR Iohexol 100 ml ONCE ONCE IV 07/07/17 22:45 07/07/17 23:31 DC 07/07/17 22:44 100 ML Ketorolac Tromethamine 30 mg ONCE ONCE IVP 07/07/17 23:30 07/07/17 23:31 DC 07/07/17 23:37 30 MG Sodium Chloride 80 ml ONCE ONCE IV 07/07/17 22:45 07/07/17 23:31 DC 07/07/17 22:44 80 ML Vital Signs/I&O Vital Sign - Last 12Hours 07/07/17 07/08/17 21:53 00:23 Temp 98.7 97.1 Pulse 117 78 Resp 22 18 B/P (MAP) 134/74 Pulse Ox 95 100 O2 Delivery Room Air Room Air Capillary Refill : Less Than 3 Seconds Blood Pressure Mean: 94 Progress Note : Progress Note NO DETERIORATION IN PT'S CONDITION DURING ER STAY Diagnostic Imaging Comments CT ABDOMEN/PELVIS--CATHETER/SUTURE IN PLACE IN AREA OF ANUS, SMALL LINEAR GAS IN SUB Q FAT ON POSTERIOR LEFT PERIANAL FAT, NO DRAINABLE FLUID COLLECTION. PER [facility] VIA FAX @ [phone] Reviewed: Reviewed by Me Departure Communication (Admissions) Progress Notes 2078--ATTEMPTING TO CONTACT DR. CALDERON, MESSAGE LEFT ON CELL PHONE [phone]--SPOKE WITH DR. CALDERON. HE ADVISES TO SEND PT HOME ON CIPRO AND FLAGYL AND HE WILL SEE IN OFFICE ON MONDAY Impression Impression: Primary Impression: PERIANAL CELLULITIS, POST OP Additional Impression: S/P SETON BAND/SUTURE PLACEMENT FOR PERIRECTAL FISTULA Disposition: HOME, SELF-CARE Condition: Stable Departure-Patient Inst. Referrals: [facility] (PCP/Family) Primary Care Physician MARILEE CALDERON MD Patient Instructions: Anal Abscess and Fistula (DC), Cellulitis and Erysipelas (Skin Infections) Add. Discharge Instructions: CONTINUE YOUR CURRENT MEDICATIONS PRESCRIBED FOLLOW UP WITH DR. CALDERON IN OFFICE ON MONDAY All discharge instructions reviewed with patient and/or family. Voiced understanding. Scripts Ketorolac Tromethamine (Ketorolac Tromethamine) 10 Mg Tablet 10 MG PO Q6H for Pain, #15 TAB Prov: SAVANNAH TY DO 07/08/17 Metronidazole (Flagyl) 500 Mg Tablet 500 MG PO QID for FOR INFECTION, #40 TAB Prov: HONORIO TYA K DO 07/08/17 Ciprofloxacin HCl (Cipro) 500 Mg Tablet 500 MG PO BID, #20 TAB Prov: HONORIO TYA K DO 07/08/17 SAVANNAH TY DO Jul 08, 2017 00:01
[2017-07-08] MEDS ORDERED: CIPR-225 PO (00:13)
[2017-07-08] MEDS ORDERED: METR500T PO (00:13)
[2017-07-08] MEDS ORDERED: KETO10TA PO (00:13)
[2017-07-08 00:23] VITALS: BP 107/52
--- NOTE | 2017-07-08 06:22 | Diagnostic Imaging Report ---
PROCEDURE: CT abdomen and pelvis with contrast. TECHNIQUE: Multiple contiguous axial images were obtained through the abdomen and pelvis after administration of intravenous contrast. INDICATION: Post rectal surgery with rectal pain. COMPARISON: 06/25/2017. FINDINGS: There has been development of a small amount of subcutaneous air noted in the vulva on the left as well as along the left perivaginal area and posteriorly in the perirectal region. There does appear to be a drainage catheter or tube running along the midline of the gluteal fold. There are no fluid collections present to suggest a drainable abscess. There is no free intraperitoneal air. No fluid collections or free fluid in the peritoneal space. Bowel pattern appears normal. Appendix is visualized and normal. Uterus is normal. No adnexal masses. Bladder normal. Liver appears normal. Gallbladder and bile ducts are normal. Pancreas and spleen are normal. The adrenal glands and kidneys are normal. There is normal enhancement of the abdominal organs and vessels. IMPRESSION: Subcutaneous air noted to the left of midline in the vulva and perivaginal region and perianal region with a catheter present along the gluteal fold. No drainable abscesses are seen. These findings are concordant with the preliminary report. Dictated by: Dictated on workstation # [id number]
== END 2017-07-08 00:23 | disposition home or self-care (01) ==
LOC: EDUNIT# 21:41 → ER 21:42
DX: T81.4XXA Infection following a procedure, initial encounter (principal); K61.0 Anal abscess; E11.9 Type 2 diabetes mellitus without complications; K21.9 Gastro-esophageal reflux disease without esophagitis; E78.00 Pure hypercholesterolemia, unspecified; J45.909 Unspecified asthma, uncomplicated; F17.210 Nicotine dependence, cigarettes, uncomplicated; Z98.51 Tubal ligation status
CPT/HCPCS: 36415; 74177; 80053; 83605; 85025; 85652; 86141; 87040

== ENCOUNTER 2017-09-23 12:21 | Emergency (ER) | payer MEDICAID ==
[~2017-09-23] VITALS: Ht 157.5 cm; Wt 82.6 kg
[~2017-09-23 12:21] MED LIST changes: +ACHD5005; +ACHD5005 PO; +CIPR-225 PO; -HYDR-3812 PO
--- NOTE | 2017-09-23 12:43 | ED General ---
General Stated Complaint: PAIN, FEVER Source of Information: Patient Exam Limitations: No Limitations History of Present Illness Date Seen by Provider: Sep 23, 2017 Time Seen by Provider: 12:37 Initial Comments To ER with reports of diffuse bodyaches, cough, general malaise, nausea, vomiting and anal pain. 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 Hauser, colorectal surgeon at [facility]. This is scheduled to be removed on the of this month. He is on hydrocodone, Cymbalta, viscous lidocaine but she is out of the viscous lidocaine. Timing/Duration: 1-2 Days Severity: Moderate Associated Systoms: Nausea/Vomiting Allergies and Home Medications Allergies Coded Allergies: oxycodone (Verified Allergy, Mild, 06/08/16) Penicillins (Verified Allergy, Unknown, 06/08/16) prednisone (Verified Allergy, Unknown, 06/08/16) tramadol (Verified Allergy, Unknown, itching, 06/08/16) Home Medications Ciprofloxacin HCl 500 Mg Tablet, 500 MG PO BID, #20 Prescribed by: SAVANNAH TY on 07/08/17 0013 Hydrocodone Bit/Acetaminophen 1 Each Tablet, (Reported) Ketorolac Tromethamine 10 Mg Tablet, 10 MG PO Q6H, #15 Prescribed by: SAVANNAH TY on 07/08/17 0013 Lidocaine HCl 35 Gm Oint, 1 GM TP TID PRN for PAIN-SEVERE, #1 . Prescribed by: EDGARDO ROBBINS on 09/23/17 1309 Metronidazole 500 Mg Tablet, 500 MG PO QID, #40 Prescribed by: SAVANNAH TY on 07/08/17 0013 Ondansetron 8 Mg Tab.rapdis, 8 MG PO Q6H PRN for NAUSEA/VOMITING-1ST LINE, #10 . Prescribed by: EDGARDO ROBBINS on 09/23/17 1309 Oseltamivir Phosphate 75 Mg Cap, 75 MG PO BID, #10 . Prescribed by: EDGARDO ROBBINS on 09/23/17 1309 Constitutional: see HPI EENTM: see HPI Respiratory: no symptoms reported Cardiovascular: no symptoms reported Genitourinary: no symptoms reported Musculoskeletal: no symptoms reported Skin: no symptoms reported Psychiatric/Neurological: No Symptoms Reported Hematologic/Lymphatic: No Symptoms Reported Past Cncvwqt-Vbcges-Fcqefs Hx Patient Social History Type Used: Cigarettes 2nd Hand Smoke Exposure: Yes Recent Foreign Travel: No Contact w/Someone Who Travel: No Recent Hopitalizations: No Immunizations Up To Date Tetanus Booster (TDap): More than 5yrs Seasonal Allergies Seasonal Allergies: No Surgeries History of Surgeries: Yes Surgeries: Bowel Surgery, Neurological, Rectal, Tubal Ligation Respiratory History of Respiratory Disorde: Yes Respiratory Disorders: Asthma Currently Using CPAP: No Currently Using BIPAP: No Cardiovascular History of Cardiac Disorders: Yes Cardiac Disorders: High Cholesterol Neurological History of Neurological Disord: Yes (SURGICAL REPAIR OF BRAIN AV MALFORMATION) Neurological Disorders: Headaches /Migraines 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 System Hx 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 (CERVICAL DYSPLASIA--S/P LEEP X 3) Sexually Transmitted Disease: Yes (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) HIV/AIDS: No 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 Genitourinary History of Genitourinary Disor: No Gastrointestinal History of Gastrointestinal Di: Yes (ANAL CONDYLOMA--"PRECANCEROUS TUMORS" ; PERIRECTAL ABSCESSES/FISTULAS) Gastrointestinal Disorders: Gastroesophageal Reflux Musculoskeletal History of Musculoskeletal Dis: No Endocrine History of Endocrine Disorders: Yes Endocrine Disorders: Diabetes, Non-Insulin dep HEENT History of HEENT Disorders: No Loss of Vision: Denies Hearing Impairment: Denies Cancer History of Cancer: No Did You Recieve Any Treatments: Yes Type of Tx Receive: Surgical Intervention Psychosocial History of Psychiatric Problem: No Integumentary History of Skin or Integumenta: Yes (ANAL CONDYLOMA; PERIANAL/PERIRECTAL ABSCESSES AND FISTULAS) Blood Transfusions History of Blood Disorders: No Family Medical History Family Medial History: Arthritis 19 FATHER 19 MOTHER Asthma 19 FATHER G8 BROTHER Cataracts 19 MOTHER Diabetes mellitus 19 FATHER Headache disorder 19 MOTHER Hypercholesterolemia 19 MOTHER Seizure disorder 19 FATHER G8 BROTHER Physical Exam Vital Signs Vital Sign - Last 12Hours 09/23/17 12:39 Temp 97.7 Pulse 90 Resp 18 B/P (MAP) 149/88 (108) Pulse Ox 98 O2 Delivery Room Air Capillary Refill : General Appearance: No Apparent Distress, WD/WN Eyes: Bilateral Eye Normal Inspection, Bilateral Eye PERRL, Bilateral Eye EOMI HEENT: PERRL/EOMI, TMs Normal Neck: Full Range of Motion, Normal Inspection Respiratory: No Accessory Muscle Use, No Respiratory Distress Cardiovascular: Regular Rate, Rhythm, Normal Peripheral Pulses Gastrointestinal: Normal Bowel Sounds, Non Tender, Soft Genital/Rectal: Other (there is a red seton in place the posterior aspect of the anus without erythema to suggest cellulitis or induration/fluctuance to suggest abscess.) Neurologic/Psychiatric: Alert, Oriented x3 Skin: Normal Color, Warm/Dry Progress/Results/Core Measures Suspected Sepsis SIRS Temperature: Pulse: Respiratory Rate: Laboratory Tests 09/23/17 12:44: White Blood Count 7.7 Blood Pressure / Mean: Laboratory Tests 09/23/17 12:44: Creatinine 0.71, Platelet Count 291, Total Bilirubin 0.2 Results/Orders Lab Results Laboratory Tests Test 09/23/17 12:44 Range/Units White Blood Count 7.7 4.3-11.0 10^3/uL Red Blood Count 4.67 4.35-5.85 10^6/uL Hemoglobin 14.8 11.5-16.0 G/DL Hematocrit 41 35-52 % Mean Corpuscular Volume 89 80-99 FL Mean Corpuscular Hemoglobin 32 25-34 PG Mean Corpuscular Hemoglobin Concent 36 32-36 G/DL Red Cell Distribution Width 13.5 10.0-14.5 % Platelet Count 291 130-400 10^3/uL Mean Platelet Volume 9.7 7.4-10.4 FL Neutrophils (%) (Auto) 39 L 42-75 % Lymphocytes (%) (Auto) 47 H 12-44 % Monocytes (%) (Auto) 11 0-12 % Eosinophils (%) (Auto) 3 0-10 % Basophils (%) (Auto) 1 0-10 % Neutrophils # (Auto) 3.0 1.8-7.8 X 10^3 Lymphocytes # (Auto) 3.6 1.0-4.0 X 10^3 Monocytes # (Auto) 0.9 0.0-1.0 X 10^3 Eosinophils # (Auto) 0.2 0.0-0.3 10^3/uL Basophils # (Auto) 0.1 0.0-0.1 10^3/uL Sodium Level 136 135-145 MMOL/L Potassium Level 3.7 3.6-5.0 MMOL/L Chloride Level 104 98-107 MMOL/L Carbon Dioxide Level 20 L 21-32 MMOL/L Anion Gap 12 5-14 MMOL/L Blood Urea Nitrogen 4 L 7-18 MG/DL Creatinine 0.71 0.60-1.30 MG/DL Estimat Glomerular Filtration Rate > 60 BUN/Creatinine Ratio 6 Glucose Level 116 H 70-105 MG/DL Calcium Level 8.6 8.5-10.1 MG/DL Total Bilirubin 0.2 0.1-1.0 MG/DL Aspartate Amino Transf (AST/SGOT) 22 5-34 U/L Alanine Aminotransferase (ALT/SGPT) 23 0-55 U/L Alkaline Phosphatase 68 40-136 U/L C-Reactive Protein High Sensitivity 4.68 H 0.00-0.50 MG/DL Total Protein 7.1 6.4-8.2 GM/DL Albumin 3.9 3.2-4.5 GM/DL Micro Results Microbiology 09/23/17 Influenza Types A,B Antigen ([facility]) - Final, Complete My Orders Orders - EDGARDO ROBBINS APRN Influenza A And B Antigens (09/23/17 12:35) Cbc With Automated Diff (09/23/17 12:35) Hs C Reactive Protein (09/23/17 12:35) Comprehensive Metabolic Panel (09/23/17 12:35) Lidocaine 2% Viscous 15 Ml (Xylocaine Vi (09/23/17 12:45) Vital Signs/I&O Vital Sign - Last 12Hours 09/23/17 12:39 Temp 97.7 Pulse 90 Resp 18 B/P (MAP) 149/88 (108) Pulse Ox 98 O2 Delivery Room Air Capillary Refill : Departure Communication (Admissions) Progress Notes 1241- despite no use of antipyretics at home she is afebrile here. She has had a multitude of hydrocodone prescriptions, 26 prescriptions over the past year from 8 different providers. Most recently, quantity of 60 hydrocodone, a 10 day supply filled 8 days ago Impression Impression: Primary Impression: Anal pain Additional Impressions: Anal fistula Influenza-like illness Disposition: 01 HOME, SELF-CARE Condition: Stable Departure-Patient Inst. Decision time for Depature: 13:03 Referrals: [facility] (PCP/Family) Primary Care Physician Patient Instructions: Flu, Adult (DC) Add. Discharge Instructions: 1. Nausea medication and Tamiflu as directed. The Tamiflu can contribute to nauseous with a mixture nausea worse, then stop taking it. 2. Follow-up with your regular doctor next week and return to ER for any shortness of breath, high measured fever, redness or sign of abscess around the anus or any other concerns. Scripts Lidocaine HCl (Lidocaine) 35 Gm Oint 1 GM TP TID Y for PAIN-SEVERE, #1 TUBE . Prov: EDGARDO ROBBINS APRN 09/23/17 Ondansetron (Zofran Odt) 8 Mg Tab.rapdis 8 MG PO Q6H Y for NAUSEA/VOMITING-1ST LINE, #10 TAB . Prov: EDGARDO ROBBINS APRN 09/23/17 Oseltamivir Phosphate (Tamiflu) 75 Mg Cap 75 MG PO BID, #10 CAP . Prov: EDGARDO ROBBINS APRN 09/23/17 EDGARDO ROBBINS APRN Sep 23, 2017 12:43
[2017-09-23] MEDS ORDERED: LIDOCAINE 2% VISCOUS 15 ML UDC MM ONE (12:45)
[2017-09-23 12:53] LABS: BASOPHILS # (AUTO) 0.1 10^3/uL (0.0-0.1); BASOPHILS % (AUTO) 1 % (0-10); EOSINOPHILS # (AUTO) 0.2 10^3/uL (0.0-0.3); EOSINOPHILS % (AUTO) 3 % (0-10); HEMATOCRIT 41 % (35-52); HEMOGLOBIN 14.8 G/DL (11.5-16.0); LYMPHOCYTES # (AUTO) 3.6 X 10^3 (1.0-4.0); LYMPHOCYTES % (AUTO) 47 % (12-44); MEAN CORPUSCULAR HEMOGLOBIN 32 PG (25-34); MEAN CORPUSCULAR HGB CONC 36 G/DL (32-36); MEAN CORPUSCULAR VOLUME 89 FL (80-99); MEAN PLATELET VOLUME 9.7 FL (7.4-10.4); MONOCYTES # (AUTO) 0.9 X 10^3 (0.0-1.0); MONOCYTES % (AUTO) 11 % (0-12); NEUTROPHILS % (AUTO) 39 % (42-75); PLATELET COUNT 291 10^3/uL (130-400); RED BLOOD COUNT 4.67 10^6/uL (4.35-5.85); RED CELL DISTRIBUTION WIDTH 13.5 % (10.0-14.5); WHITE BLOOD COUNT 7.7 10^3/uL (4.3-11.0)
[2017-09-23] MEDS ORDERED: OSLT75C PO ×2 (13:08→13:09)
[2017-09-23] MEDS ORDERED: ONDA8TAB9 PO ×2 (13:08→13:09)
[2017-09-23] MEDS ORDERED: LD5O35 TP ×2 (13:08→13:09)
[2017-09-23 13:11] LABS: ALANINE AMINOTRANSFERASE 23 U/L (0-55); ALBUMIN 3.9 GM/DL (3.2-4.5); ALKALINE PHOSPHATASE 68 U/L (40-136); BILIRUBIN,TOTAL 0.2 MG/DL (0.1-1.0); BUN/CREATININE RATIO 6; CALCIUM 8.6 MG/DL (8.5-10.1); CARBON DIOXIDE 20 MMOL/L (21-32); CHLORIDE 104 MMOL/L (98-107); CREATININE SERUM 0.71 MG/DL (0.60-1.30); GFR ESTIMATED > 60; GLUCOSE 116 MG/DL (70-105); POTASSIUM 3.7 MMOL/L (3.6-5.0); SODIUM 136 MMOL/L (135-145); TOTAL PROTEIN 7.1 GM/DL (6.4-8.2)
[2017-09-23 13:21] VITALS: BP 142/86
== END 2017-09-23 13:21 | disposition home or self-care (01) ==
LOC: EDUNIT# 12:21 → ER 12:22
DX: K60.3 Anal fistula (principal); J11.1 Influenza due to unidentified influenza virus with other respiratory manifestations; J45.909 Unspecified asthma, uncomplicated; G43.909 Migraine, unspecified, not intractable, without status migrainosus; E78.00 Pure hypercholesterolemia, unspecified; K21.9 Gastro-esophageal reflux disease without esophagitis; E11.9 Type 2 diabetes mellitus without complications; Z88.5 Allergy status to narcotic agent; Z88.0 Allergy status to penicillin; Z88.8 Allergy status to other drugs, medicaments and biological substances; Z77.22 Contact with and (suspected) exposure to environmental tobacco smoke (acute) (chronic); Z98.51 Tubal ligation status; Z87.448 Personal history of other diseases of urinary system
CPT/HCPCS: 36415; 80053; 85025; 86141; 87804; 99283

== ENCOUNTER 2018-04-06 11:36 | Emergency (ER) | payer MEDICAID ==
[~2018-04-06] VITALS: Ht 160 cm; Wt 88.5 kg
[~2018-04-06 11:36] MED LIST changes: -CODE118S2 PO; +CODE118S4 PO; +HYDR-3870 PO; -HYDR-3874 PO; +LD5O35 TP; -METF500T4 PO; +METF500T5 PO; +NAPR-915 PO; -NAPR500T4 PO; +ONDA8TAB9 PO; +OSLT75C PO
--- NOTE | 2018-04-06 12:36 | ED Abdominal Pain ---
General Chief Complaint: Rect Problems Stated Complaint: DIARRHEA, POSS POST OP COMPLICATIONS Nursing Triage Note: PT STATES HX OF COLON CA, HAD SURGERY ABOUT 3 WKS AGO ON COLON, CC OF MANCERA AND RECTUM PAIN AND NVD FOR THE LAST FEW DAYS. BLEEDING WITH THE DIARRHEA. Sepsis Screen: Possible Sepsis Risk Source of Information: Patient Exam Limitations: No Limitations History of Present Illness Date Seen by Provider: Apr 06, 2018 Time Seen by Provider: 12:30 Initial Comments Patient is a 37-year-old female who presents to the emergency room with complaints of headache, nausea, vomiting, diarrhea for the past 3 days. She states that she had a procedure on her colon to remove a polyp that was concern for cancer and has had a surgical rubber band device in place for the past 3 weeks. She states with the increased amount of diarrhea she has had increased rectal pain. Timing/Duration: 3-4 Days Severity/Quality: Mild, Cramping Location: Generalized Abdomen Radiation: No Radiation Associated Symptoms: Nausea/Vomiting Allergies and Home Medications Allergies Coded Allergies: oxycodone (Verified Allergy, Mild, 06/08/16) Penicillins (Verified Allergy, Unknown, 06/08/16) prednisone (Verified Allergy, Unknown, 06/08/16) tramadol (Verified Allergy, Unknown, itching, 06/08/16) Home Medications Diphenoxylate HCl/Atropine 1 Each Tablet, 1 EACH PO Q6H PRN for DIARRHEA Prescribed by: HERNANDEZ MEDLEY on 04/07/182121 Ondansetron 4 Mg Tab.rapdis, 4 MG SL Q4H PRN for NAUSEA/VOMITING-1ST LINE Prescribed by: JEREMIAH FELIZ on 04/06/18 1338 Patient Home Medication List Home Medication List Reviewed: Yes Review of Systems Constitutional: see HPI; No chills, No fever Gastrointestinal: See HPI, Diarrhea, Nausea, Vomiting, Other (rectal pain) Psychiatric/Neurological: See HPI, Headache All Other Systems Reviewed Negative Unless Noted: Yes Past Cqleaxp-Kipcqo-Yriacy Hx Past Med/Social Hx: Reviewed Nursing Past Med/Soc Hx Patient Social History Alcohol Use: Denies Use Recreational Drug Use: No Smoking Status: Current Everyday Smoker Type Used: Cigarettes 2nd Hand Smoke Exposure: Yes Recent Foreign Travel: No Contact w/Someone Who Travel: No Recent Infectious Disease Expo: No Recent Hopitalizations: No Immunizations Up To Date Tetanus Booster (TDap): More than 5yrs Seasonal Allergies Seasonal Allergies: No Past Medical History Surgeries: Yes Bowel Surgery, Neurological, Rectal, Tubal Ligation Respiratory: Yes Asthma Currently Using CPAP: No Currently Using BIPAP: No Cardiac: Yes High Cholesterol Neurological: Yes (SURGICAL REPAIR OF BRAIN AV MALFORMATION) Headaches /Migraines : No 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 (CERVICAL DYSPLASIA--S/P LEEP X 3) [employer]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 Sexually Transmitted Disease: Yes (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) HIV/AIDS: No Genitourinary: No Gastrointestinal: Yes (ANAL CONDYLOMA--"PRECANCEROUS TUMORS" ; PERIRECTAL ABSCESSES/FISTULAS) Gastroesophageal Reflux Musculoskeletal: No Endocrine: Yes Diabetes, Non-Insulin dep HEENT: No Loss of Vision: Denies Hearing Impairment: Denies Cancer: Yes Colon, Ovarian Did You Recieve Any Treatments: Yes What Type of Treatment Did You: Surgical Intervention Psychosocial: No Integumentary: Yes (ANAL CONDYLOMA; PERIANAL/PERIRECTAL ABSCESSES AND FISTULAS) Blood Disorders: No Family Medical History Reviewed Nursing Family Hx Arthritis 19 FATHER 19 MOTHER Asthma 19 FATHER G8 BROTHER Cataracts 19 MOTHER Diabetes mellitus 19 FATHER Headache disorder 19 MOTHER Hypercholesterolemia 19 MOTHER Seizure disorder 19 FATHER G8 BROTHER Physical Exam Vital Signs Vital Signs - First Documented 04/06/18 11:56 Temp 98.5 Pulse 92 Resp 22 B/P (MAP) 129/78 (95) Pulse Ox 96 O2 Delivery Room Air Capillary Refill : Less Than 3 Seconds Height/Weight/BMI Height: 5'3.00" Weight: 195lbs. 0oz. 88.686335ij; 34.4 BMI Method:Stated General Appearance: WD/WN, no apparent distress Respiratory: chest non-tender, lungs clear, normal breath sounds, no respiratory distress, no accessory muscle use Cardiovascular: regular rate, rhythm, no edema, no gallop, no JVD, no murmur Gastrointestinal: normal bowel sounds, non tender, soft, no organomegaly, no pulsatile mass Rectal: normal exam, normal rectal tone, heme negative stool, tenderness ( patient is tender on rectal exam. She does have a rubber band surgically in place around her rectum.) Neurologic/Psychiatric: alert, normal mood/affect, oriented x 3 Skin: normal color, warm/dry Progress/Results/Core Measures Results/Orders Lab Results Laboratory Tests Test 04/06/18 12:40 Range/Units White Blood Count 12.5 H 4.3-11.0 10^3/uL Red Blood Count 4.46 4.35-5.85 10^6/uL Hemoglobin 13.8 11.5-16.0 G/DL Hematocrit 40 35-52 % Mean Corpuscular Volume 89 80-99 FL Mean Corpuscular Hemoglobin 31 25-34 PG Mean Corpuscular Hemoglobin Concent 35 32-36 G/DL Red Cell Distribution Width 14.0 10.0-14.5 % Platelet Count 377 130-400 10^3/uL Mean Platelet Volume 9.7 7.4-10.4 FL Neutrophils (%) (Auto) 58 42-75 % Lymphocytes (%) (Auto) 32 12-44 % Monocytes (%) (Auto) 8 0-12 % Eosinophils (%) (Auto) 2 0-10 % Basophils (%) (Auto) 1 0-10 % Neutrophils # (Auto) 7.3 1.8-7.8 X 10^3 Lymphocytes # (Auto) 4.0 1.0-4.0 X 10^3 Monocytes # (Auto) 1.0 0.0-1.0 X 10^3 Eosinophils # (Auto) 0.2 0.0-0.3 10^3/uL Basophils # (Auto) 0.1 0.0-0.1 10^3/uL Urine Color YELLOW Urine Clarity CLEAR Urine pH 6.5 5-9 Urine Specific [place] 1.010 L 1.016-1.022 Urine Protein NEGATIVE NEGATIVE Urine Glucose (UA) NEGATIVE NEGATIVE Urine Ketones NEGATIVE NEGATIVE Urine Nitrite NEGATIVE NEGATIVE Urine Bilirubin NEGATIVE NEGATIVE Urine Urobilinogen NORMAL NORMAL MG/DL Urine Leukocyte Esterase NEGATIVE NEGATIVE Urine RBC (Auto) NEGATIVE NEGATIVE Urine RBC NONE /HPF Urine WBC NONE /HPF Urine Squamous Epithelial Cells 0-2 /HPF Urine Crystals NONE /LPF Urine Bacteria NEGATIVE /HPF Urine Casts NONE /LPF Urine Mucus NEGATIVE /LPF Urine Culture Indicated NO Sodium Level 138 135-145 MMOL/L Potassium Level 3.5 L 3.6-5.0 MMOL/L Chloride Level 105 98-107 MMOL/L Carbon Dioxide Level 23 21-32 MMOL/L Anion Gap 10 5-14 MMOL/L Blood Urea Nitrogen 5 L 7-18 MG/DL Creatinine 0.74 0.60-1.30 MG/DL Estimat Glomerular Filtration Rate > 60 BUN/Creatinine Ratio 7 Glucose Level 99 70-105 MG/DL Calcium Level 8.7 8.5-10.1 MG/DL Corrected Calcium 8.6 8.5-10.1 MG/DL Total Bilirubin 0.2 0.1-1.0 MG/DL Aspartate Amino Transf (AST/SGOT) 15 5-34 U/L Alanine Aminotransferase (ALT/SGPT) 15 0-55 U/L Alkaline Phosphatase 69 40-136 U/L Total Protein 6.8 6.4-8.2 GM/DL Albumin 4.1 3.2-4.5 GM/DL Amylase Level 49 25-125 U/L Lipase 61 8-78 U/L My Orders Orders - JEREMIAH FELIZ Comprehensive Metabolic Panel (04/06/18 12:31) Lipase (04/06/18 12:31) Amylase (04/06/18 12:31) Ua Culture If Indicated (04/06/18 12:31) Saline Lock/Iv-Start (04/06/18 12:31) Cbc With Automated Diff (04/06/18 12:31) Ns Iv 1000 Ml (Sodium Chloride 0.9%) (04/06/18 12:45) Ondansetron Injection (Zofran Injectio (04/06/18 12:45) Ketorolac Injection (Toradol Injection) (04/06/18 12:45) Medications Given in ED Vital Signs/I&O 04/06/18 04/06/18 04/06/18 11:56 12:48 14:24 Temp 98.5 98.5 98.5 Pulse 92 73 Resp 22 20 B/P (MAP) 129/78 (95) 104/63 (95) Pulse Ox 96 96 O2 Delivery Room Air Room Air Blood Pressure Mean: 95 Progress Progress Note : Time: 13:25 Progress Note I have seen and evaluated the patient. Patient is feeling much better after medication administration. On exam surgical band is still in place, there is no bleeding or swelling to the area. I believe that with the increased diarrhea she has irritated her rectum. I informed patient of her laboratory findings. She agrees with plan of care and discharge, return precautions were given. Departure Impression Primary Impression: Headache Additional Impression: Nausea vomiting and diarrhea Disposition: 01 HOME, SELF-CARE Condition: Stable/Unchanged Departure-Patient Inst. Decision time for Depature: 13:33 Referrals: [facility] (PCP/Family) Primary Care Physician Patient Instructions: Diarrhea in Adolescents and Adults, Headache, Adult (DC) , Nausea and Vomiting, Adult (DC) Add. Discharge Instructions: Drink plenty of clear liquids like water f. You may use Tylenol and ibuprofen as directed for pain. You may use [id number]-[id number] diet antidiarrheals as directed by bottle. Follow-up with your doctor within 1 week for a recheck. Return back to the emergency room for any worsening symptoms or any other concerns as needed. All discharge instructions reviewed with patient and/or family. Voiced understanding. Scripts Ondansetron (Zofran Odt) 4 Mg Tab.rapdis 4 MG SL Q4H PRN for NAUSEA/VOMITING-1ST LINE, #14 TAB Prov: JEREMIAH FELIZ 04/06/18 JEREMIAH FELIZ Apr 06, 2018 12:36
[2018-04-06] MEDS ORDERED: NS IV 1000 ML 1,000 ML IV SCH (12:45)
[2018-04-06] MEDS ORDERED: KETOROLAC 30 MG/ML VIAL IVP ONE (12:45)
[2018-04-06] MEDS ORDERED: ONDANSETRON 4 MG/2 ML (SDV) Z0FRAN IVP ONE (12:45)
[2018-04-06 13:01] LABS: BASOPHILS # (AUTO) 0.1 10^3/uL (0.0-0.1); BASOPHILS % (AUTO) 1 % (0-10); BILIRUBIN,URINE NEGATIVE (NEGATIVE); CLARITY,URINE CLEAR; COLOR,URINE YELLOW; EOSINOPHILS # (AUTO) 0.2 10^3/uL (0.0-0.3); EOSINOPHILS % (AUTO) 2 % (0-10); GLUCOSE, URINE (UA) NEGATIVE (NEGATIVE); HEMATOCRIT 40 % (35-52); HEMOGLOBIN 13.8 G/DL (11.5-16.0); KETONES,URINE NEGATIVE (NEGATIVE); LEUKOCYTE ESTERASE ,URINE NEGATIVE (NEGATIVE); LYMPHOCYTES % (AUTO) 32 % (12-44); MEAN CORPUSCULAR HEMOGLOBIN 31 PG (25-34); MEAN CORPUSCULAR HGB CONC 35 G/DL (32-36); MEAN CORPUSCULAR VOLUME 89 FL (80-99); MEAN PLATELET VOLUME 9.7 FL (7.4-10.4); MONOCYTES % (AUTO) 8 % (0-12); NEUTROPHILS # (AUTO) 7.3 X 10^3 (1.8-7.8); NEUTROPHILS % (AUTO) 58 % (42-75); NITRITE,URINE NEGATIVE (NEGATIVE); PH,URINE 6.5 (5-9); PLATELET COUNT 377 10^3/uL (130-400); PROTEIN,URINE NEGATIVE (NEGATIVE); RED BLOOD COUNT 4.46 10^6/uL (4.35-5.85); UROBILINOGEN,URINE NORMAL (NORMAL); WHITE BLOOD COUNT 12.5 10^3/uL (4.3-11.0)
[2018-04-06 13:18] LABS: BACTERIA,URINE NEGATIVE /HPF; SQUAMOUS EPITHELIAL CELL,UR 0-2 /HPF
[2018-04-06 13:19] LABS: ALANINE AMINOTRANSFERASE 15 U/L (0-55); ALBUMIN 4.1 GM/DL (3.2-4.5); ALKALINE PHOSPHATASE 69 U/L (40-136); AMYLASE 49 U/L (25-125); BILIRUBIN,TOTAL 0.2 MG/DL (0.1-1.0); BUN/CREATININE RATIO 7; CALCIUM 8.7 MG/DL (8.5-10.1); CARBON DIOXIDE 23 MMOL/L (21-32); CHLORIDE 105 MMOL/L (98-107); CREATININE SERUM 0.74 MG/DL (0.60-1.30); GFR ESTIMATED > 60; GLUCOSE 99 MG/DL (70-105); LIPASE 61 U/L (8-78); POTASSIUM 3.5 MMOL/L (3.6-5.0); SODIUM 138 MMOL/L (135-145); TOTAL PROTEIN 6.8 GM/DL (6.4-8.2)
[2018-04-06] MEDS ORDERED: ONDA4TAB8 SL (13:38)
[2018-04-06 14:24] VITALS: BP 104/63
[2018-04-07] MEDS ORDERED: DIPH1TAB PO (21:22)
== END 2018-04-06 14:24 | disposition home or self-care (01) ==
LOC: EDUNIT# 11:36 → ER 11:38
DX: R51 Headache (principal); R11.2 Nausea with vomiting, unspecified; R19.7 Diarrhea, unspecified; J45.909 Unspecified asthma, uncomplicated; G43.909 Migraine, unspecified, not intractable, without status migrainosus; K21.9 Gastro-esophageal reflux disease without esophagitis; E11.9 Type 2 diabetes mellitus without complications; F17.210 Nicotine dependence, cigarettes, uncomplicated; Z85.038 Personal history of other malignant neoplasm of large intestine; Z88.0 Allergy status to penicillin; Z85.43 Personal history of malignant neoplasm of ovary; Z82.49 Family history of ischemic heart disease and other diseases of the circulatory system; Z98.51 Tubal ligation status; Z88.5 Allergy status to narcotic agent; Z88.8 Allergy status to other drugs, medicaments and biological substances; Z88.6 Allergy status to analgesic agent
CPT/HCPCS: 36415; 80053; 81000; 82150; 83690; 85025

== ENCOUNTER 2018-04-07 19:57 | Emergency (ER) | payer MEDICAID ==
[~2018-04-07] VITALS: Ht 160 cm; Wt 88.5 kg
[~2018-04-07 19:57] MED LIST changes: +ONDA4TAB8 SL
[2018-04-07] MEDS ORDERED: DIPHENOXYLATE/ATROPINE 2.5MG/0.025MG (LOMOTIL) TAB PO STA (21:06)
[2018-04-07] MEDS ORDERED: SILVER SULFADIAZINE 50 GM CREAM ONE (21:11)
--- NOTE | 2018-04-07 21:15 | ED GI ---
General Chief Complaint: Rect Problems Stated Complaint: SYMPTOMS NOT IMPROVING FROM YESTERDAY/RECTAL PAIN Nursing Triage Note: Pt reports she was seen in this ED yesterday for MANCERA, vomiting, and diarrhea. Pt now c/o rectal burning. Sepsis Screen: No Definite Risk History of Present Illness Date Seen by Provider: Apr 07, 2018 Time Seen by Provider: 20:55 Initial Comments 37-year-old female returns for reevaluation of rectal pain. She was seen for headache and similar symptoms yesterday. She states the over-the- counter antidiarrheal has helped some she's had approximately 4-5 episodes of diarrhea today. She is continuing to have significant rectal pain despite sitz baths, lidocaine cream, and Tylenol. No longer taking opiates for pain. She denies any nausea or vomiting at this time. Timing/Duration: Intermittent Severity/Quality: Mild Location: Other (rectal) Radiation: No Radiation Associated Symptoms: Denies Symptoms Allergies and Home Medications Allergies Coded Allergies: oxycodone (Verified Allergy, Mild, 06/08/16) Penicillins (Verified Allergy, Unknown, 06/08/16) prednisone (Verified Allergy, Unknown, 06/08/16) tramadol (Verified Allergy, Unknown, itching, 06/08/16) Home Medications Diphenoxylate HCl/Atropine 1 Each Tablet, 1 EACH PO Q6H PRN for DIARRHEA Prescribed by: HERNANDEZ MEDLEY on 04/07/182121 Ondansetron 4 Mg Tab.rapdis, 4 MG SL Q4H PRN for NAUSEA/VOMITING-1ST LINE Prescribed by: JEREMIAH FELIZ on 04/06/18 1338 Patient Home Medication List Home Medication List Reviewed: Yes Review of Systems Constitutional: no symptoms reported, see HPI Gastrointestinal: See HPI, Diarrhea, Other (rectal pain) All Other Systems Reviewed Negative Unless Noted: Yes Past Xexktgd-Ismbhx-Xrknba Hx Past Med/Social Hx: Reviewed Nursing Past Med/Soc Hx Patient Social History Alcohol Use: Denies Use Recreational Drug Use: No Type Used: Cigarettes 2nd Hand Smoke Exposure: Yes Recent Foreign Travel: No Contact w/Someone Who Travel: No Recent Infectious Disease Expo: No Recent Hopitalizations: No Immunizations Up To Date Tetanus Booster (TDap): More than 5yrs Seasonal Allergies Seasonal Allergies: No Past Medical History Surgeries: Yes Bowel Surgery, Neurological, Rectal, Tubal Ligation Respiratory: Yes Asthma Currently Using CPAP: No Currently Using BIPAP: No Cardiac: Yes High Cholesterol Neurological: Yes (SURGICAL REPAIR OF BRAIN AV MALFORMATION) Headaches /Migraines 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 (CERVICAL DYSPLASIA--S/P LEEP X 3) 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 Sexually Transmitted Disease: Yes (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) HIV/AIDS: No Genitourinary: No Gastrointestinal: Yes (ANAL CONDYLOMA--"PRECANCEROUS TUMORS" ; PERIRECTAL ABSCESSES/FISTULAS) Gastroesophageal Reflux Musculoskeletal: No Endocrine: Yes Diabetes, Non-Insulin dep HEENT: No Loss of Vision: Denies Hearing Impairment: Denies Cancer: Yes Colon, Ovarian Did You Recieve Any Treatments: Yes What Type of Treatment Did You: Surgical Intervention Psychosocial: No Integumentary: Yes (ANAL CONDYLOMA; PERIANAL/PERIRECTAL ABSCESSES AND FISTULAS) Blood Disorders: No Family Medical History Arthritis 19 FATHER 19 MOTHER Asthma 19 FATHER G8 BROTHER Cataracts 19 MOTHER Diabetes mellitus 19 FATHER Headache disorder 19 MOTHER Hypercholesterolemia 19 MOTHER Seizure disorder 19 FATHER G8 BROTHER Physical Exam Vital Signs Vital Signs - First Documented 04/07/18 20:24 Temp 99.2 Pulse 84 Resp 18 B/P (MAP) 123/67 (85) Pulse Ox 98 O2 Delivery Room Air Capillary Refill : Less Than 3 Seconds Height/Weight/BMI Height: 5'3.00" Weight: 195lbs. 0oz. 88.548297bm; 34.4 BMI Method:Stated General Appearance: WD/WN, no apparent distress Respiratory: chest non-tender, lungs clear, normal breath sounds Cardiovascular: normal peripheral pulses, regular rate, rhythm Gastrointestinal: normal bowel sounds, non tender, soft Rectal: normal exam; No hemorrhoids, No mass; tenderness, other (rectal band in place, mild excoriation perirectally. Tenderness to palpation. No bleeding noted. No erythema, warmth, induration or fluctuance to think abscess present. ) Neurologic/Psychiatric: no motor/sensory deficits, alert, normal mood/affect, oriented x 3 Progress/Results/Core Measures Results/Orders My Orders Orders - HERNANDEZ MEDLEY Silver Sulfadiazine 50 Gm (Ssd 1% 50 Gm) (04/08/18 09:00) Diphenoxylate/Atropine Tablet (Lomotil T (8/18/18 21:06) Silver Sulfadiazine 50 Gm (Ssd 1% 50 Gm) (04/07/18 21:11) Medications Given in ED Current Medications Medications Dose Ordered Sig/Maryse Route Start Time Stop Time Status Last Admin Dose Admin Silver Sulfadiazine 50 gm STK-MED ONCE .ROUTE 04/07/18 21:11 04/07/18 21:15 DC 04/07/18 21:20 50 GM Vital Signs/I&O 04/07/18 20:24 Temp 99.2 Pulse 84 Resp 18 B/P (MAP) 123/67 (85) Pulse Ox 98 O2 Delivery Room Air Blood Pressure Mean: 85 Progress Progress Note : Time: 20:55 Progress Note Initial evaluation completed, recommended increasing her antidiarrheal to Lomotil. Discussed the risks versus benefits and they don't become constipated or hard stools. She will use this until the diarrhea seems to have improved and then stopped taking it. Encouraged her to continue using the lidocaine locally for pain. There is no indication to believe she has an infection or new fistula formation however I encouraged she follow-up with her surgeon at in the very near future. We will apply Silvadene to the area of excoriation perirectally. She will be sent home for her to continue to apply as needed. Reviewed assessment and treatment plan with Dr. Stuart he concurred with this. 2114 discharge instructions and return precautions reviewed with her. Departure Impression Primary Impression: Rectal pain Additional Impression: Diarrhea Qualified Codes: R19.7 - Diarrhea, unspecified Disposition: 01 HOME, SELF-CARE Condition: Improved Departure-Patient Inst. Decision time for Depature: 21:15 Referrals: [facility] [place] (PCP/Family) Primary Care Physician Patient Instructions: Hemorrhoids (DC) Add. Discharge Instructions: Continue to use sitz bath 2-3 times daily. Alternate between applying the lidocaine and Silvadene, external rectal area. Take the Lomotil to assist with diarrhea, discontinue when diarrhea ceases to prevent constipation. Increase water intake, one bottle every 2 hours while awake. Continue to use Tylenol 650 mg every 6 hours for pain. Call your surgeon on Monday for follow-up appointment. If continued rectal symptoms, it may necessitate evaluation at . Return to emergency department for new, acute health care problems. All discharge instructions reviewed with patient and/or family. Voiced understanding. Scripts Diphenoxylate HCl/Atropine (Lomotil 2.5-0.025 mg Tablet) 1 Each Tablet 1 EACH PO Q6H PRN for DIARRHEA, #8 TAB 0 Refills Prov: HERNANDEZ MEDLEY 04/07/18 HERNANDEZ MEDLEY Apr 07, 2018 21:15
[2018-04-07] MEDS ORDERED: DIPH1TAB PO (21:22)
[2018-04-07 21:48] VITALS: BP 120/65
[2018-04-08] MEDS ORDERED: SILVER SULFADIAZINE 50 GM CREAM TOP SCH (09:00)
== END 2018-04-07 21:48 | disposition home or self-care (01) ==
LOC: EDUNIT# 19:57 → ER 19:59
DX: K62.89 Other specified diseases of anus and rectum (principal); R19.7 Diarrhea, unspecified; J45.909 Unspecified asthma, uncomplicated; E78.00 Pure hypercholesterolemia, unspecified; G43.909 Migraine, unspecified, not intractable, without status migrainosus; K21.9 Gastro-esophageal reflux disease without esophagitis; E11.9 Type 2 diabetes mellitus without complications; Z82.49 Family history of ischemic heart disease and other diseases of the circulatory system; Z85.038 Personal history of other malignant neoplasm of large intestine; Z85.43 Personal history of malignant neoplasm of ovary; Z88.5 Allergy status to narcotic agent; Z88.0 Allergy status to penicillin; Z88.8 Allergy status to other drugs, medicaments and biological substances; Z88.6 Allergy status to analgesic agent; Z77.22 Contact with and (suspected) exposure to environmental tobacco smoke (acute) (chronic); Z98.51 Tubal ligation status
CPT/HCPCS: 99283

== ENCOUNTER 2018-04-24 18:11 | Emergency (ER) | payer MEDICAID ==
[~2018-04-24] VITALS: Ht 157.5 cm; Wt 86.2 kg
[~2018-04-24 18:11] MED LIST changes: -BENZ-13 PO; +BENZ100C18 PO; +DIPH1TAB PO; +HYDR-4226 PO; -HYDR-757 PO; +METF-397 PO; -METF500T5 PO
[2018-04-24] MEDS ORDERED: fentaNYL INJECTION 100 MCG/2 ML AMP IVP ONE (19:30)
--- NOTE | 2018-04-24 19:33 | ED Integumentary General ---
General Stated Complaint: SPIDER BITE L ARM Source: patient Exam Limitations: no limitations History of Present Illness Date Seen by Provider: Apr 24, 2018 Time Seen by Provider: 19:00 Initial Comments Patient is a 37-year-old female who presents to the emergency room with complaints of spider bite/infection to her left arm. She reports being seen at [facility] emergency room today and was given a prescription for clindamycin and they also gave her a shot of Rocephin. She reports that the infection has spread today going up her left arm and has increasing pain. Timing/Duration: this morning Severity: mild Location: extremities Possible Cause: insect bite Allergies and Home Medications Allergies Coded Allergies: oxycodone (Verified Allergy, Mild, 06/08/16) Penicillins (Verified Allergy, Unknown, 06/08/16) prednisone (Verified Allergy, Unknown, 06/08/16) tramadol (Verified Allergy, Unknown, itching, 06/08/16) Home Medications Diphenoxylate HCl/Atropine 1 Each Tablet, 1 EACH PO Q6H PRN for DIARRHEA Prescribed by: HERNANDEZ MEDLEY on 04/07/182121 Hydrocodone Bit/Acetaminophen 1 Tab Tab, 1 EACH PO Q4H PRN for PAIN Prescribed by: JEREMIAH FELIZ on 04/24/182036 Ondansetron 4 Mg Tab.rapdis, 4 MG SL Q4H PRN for NAUSEA/VOMITING-1ST LINE Prescribed by: JEREMIAH FELIZ on 04/06/18 1338 Patient Home Medication List Home Medication List Reviewed: Yes Review of Systems Review of Systems Constitutional: see HPI; No chills, No fever Skin: see HPI, other (spider bite skin infection to the left arm and pain) All Other Systems Reviewed Negative Unless Noted: Yes Past Vfsjpya-Xnefct-Anmsjc Hx Past Med/Social Hx: Reviewed Nursing Past Med/Soc Hx Patient Social History Type Used: Cigarettes 2nd Hand Smoke Exposure: Yes Recent Foreign Travel: No Contact w/Someone Who Travel: No Recent Hopitalizations: No Immunizations Up To Date Tetanus Booster (TDap): More than 5yrs Seasonal Allergies Seasonal Allergies: No Past Medical History Surgeries: Yes Bowel Surgery, Neurological, Rectal, Tubal Ligation Respiratory: Yes Asthma Currently Using CPAP: No Currently Using BIPAP: No Cardiac: Yes High Cholesterol Neurological: Yes (SURGICAL REPAIR OF BRAIN AV MALFORMATION) Headaches /Migraines 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 (CERVICAL DYSPLASIA--S/P LEEP X 3) 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 Sexually Transmitted Disease: Yes (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) HIV/AIDS: No Genitourinary: No Gastrointestinal: Yes (ANAL CONDYLOMA--"PRECANCEROUS TUMORS" ; PERIRECTAL ABSCESSES/FISTULAS) Gastroesophageal Reflux Musculoskeletal: No Endocrine: Yes Diabetes, Non-Insulin dep HEENT: No Loss of Vision: Denies Hearing Impairment: Denies Cancer: Yes Colon, Ovarian Did You Recieve Any Treatments: Yes What Type of Treatment Did You: Surgical Intervention Psychosocial: No Integumentary: Yes (ANAL CONDYLOMA; PERIANAL/PERIRECTAL ABSCESSES AND FISTULAS) Blood Disorders: No Family Medical History Reviewed Nursing Family Hx Arthritis 19 FATHER 19 MOTHER Asthma 19 FATHER G8 BROTHER Cataracts 19 MOTHER Diabetes mellitus 19 FATHER Headache disorder 19 MOTHER Hypercholesterolemia 19 MOTHER Seizure disorder 19 FATHER G8 BROTHER Physical Exam Vital Signs Vital Signs - First Documented 04/24/18 19:02 Temp 97.3 Pulse 86 Resp 17 B/P (MAP) 127/79 (95) Pulse Ox 99 O2 Delivery Room Air Capillary Refill : General Appearance: WD/WN, no apparent distress Respiratory: chest non-tender, lungs clear, normal breath sounds, no respiratory distress, no accessory muscle use Gastrointestinal: normal bowel sounds, non tender, soft, no organomegaly, no pulsatile mass Neurologic/Psychiatric: alert, normal mood/affect, oriented x 3 Skin: normal color, warm/dry Skin Problem Location: upper extremities Skin Problem Character: erythema, tenderness, other (see images. There is no fluctuation. There is a center puncture. To the left inner forearm with erythema that streaks up the left arm.) Progress/Results/Core Measures Results/Orders Lab Results Laboratory Tests Test 04/24/18 19:26 Range/Units White Blood Count 9.4 4.3-11.0 10^3/uL Red Blood Count 4.76 4.35-5.85 10^6/uL Hemoglobin 15.0 11.5-16.0 G/DL Hematocrit 42 35-52 % Mean Corpuscular Volume 88 80-99 FL Mean Corpuscular Hemoglobin 32 25-34 PG Mean Corpuscular Hemoglobin Concent 36 32-36 G/DL Red Cell Distribution Width 14.2 10.0-14.5 % Platelet Count 366 130-400 10^3/uL Mean Platelet Volume 9.5 7.4-10.4 FL Neutrophils (%) (Auto) 42 42-75 % Lymphocytes (%) (Auto) 46 H 12-44 % Monocytes (%) (Auto) 9 0-12 % Eosinophils (%) (Auto) 3 0-10 % Basophils (%) (Auto) 1 0-10 % Neutrophils # (Auto) 3.9 1.8-7.8 X 10^3 Lymphocytes # (Auto) 4.3 H 1.0-4.0 X 10^3 Monocytes # (Auto) 0.8 0.0-1.0 X 10^3 Eosinophils # (Auto) 0.3 0.0-0.3 10^3/uL Basophils # (Auto) 0.1 0.0-0.1 10^3/uL Prothrombin Time 12.6 12.2-14.7 SEC INR Comment 1.0 0.8-1.4 Activated Partial Thromboplast Time 32 24-35 SEC Sodium Level 137 135-145 MMOL/L Potassium Level 3.6 3.6-5.0 MMOL/L Chloride Level 106 98-107 MMOL/L Carbon Dioxide Level 22 21-32 MMOL/L Anion Gap 9 5-14 MMOL/L Blood Urea Nitrogen 6 L 7-18 MG/DL Creatinine 0.76 0.60-1.30 MG/DL Estimat Glomerular Filtration Rate > 60 BUN/Creatinine Ratio 8 Glucose Level 91 70-105 MG/DL Lactic Acid Level 1.23 0.50-2.00 MMOL/L Calcium Level 9.1 8.5-10.1 MG/DL Corrected Calcium 8.9 8.5-10.1 MG/DL Total Bilirubin 0.3 0.1-1.0 MG/DL Aspartate Amino Transf (AST/SGOT) 17 5-34 U/L Alanine Aminotransferase (ALT/SGPT) 16 0-55 U/L Alkaline Phosphatase 84 40-136 U/L Total Protein 7.4 6.4-8.2 GM/DL Albumin 4.3 3.2-4.5 GM/DL Micro Results Microbiology 04/24/18 Blood Culture - Preliminary, Resulted No growth 04/24/18 Blood Culture - Preliminary, Resulted No growth My Orders Orders - JEREMIAH FELIZ Cbc With Automated Diff (04/24/18 19:21) Comprehensive Metabolic Panel (04/24/18 19:21) Blood Culture (04/24/18 19:21) Protime With Inr (04/24/18 19:21) Partial Thromboplastin Time (04/24/18 19:21) Saline Lock/Iv-Start (04/24/18 19:21) Lactic Acid Analyzer (04/24/18 19:21) Fentanyl Injection (Sublimaze Injection (04/24/18 19:30) Rx-Hydrocodone/Apap 5-325 Mg (Rx-Vicodin (04/24/18 21:00) Medications Given in ED Vital Signs/I&O 04/24/18 04/24/18 19:02 21:03 Temp 97.3 97.3 Pulse 86 74 Resp 17 17 B/P (MAP) 127/79 (95) 105/71 (95) Pulse Ox 99 97 O2 Delivery Room Air Room Air Progress Progress Note : Time: 20:30 Progress Note I have seen and evaluated the patient. I have informed her of normal laboratory studies. She has relief of pain with medication. I have referred her to Dr. Jones at [facility]. She is already on clindamycin from [facility]. She agrees with plan of care, plans for discharge, return precautions were given. Departure Impression Primary Impression: Cellulitis Qualified Codes: L03.114 - Cellulitis of left upper limb Disposition: 01 HOME, SELF-CARE Condition: Stable/Unchanged Departure-Patient Inst. Decision time for Depature: 20:33 Referrals: [facility] (PCP/Family) Primary Care Physician Patient Instructions: Cellulitis (Skin Infection), Adult (DC) Add. Discharge Instructions: Take medication as previously prescribed. You may use the hydrocodone for pain unrelieved by Tylenol and Motrin. Do not exceed your daily limit of 4000 mg of Tylenol. Follow-up with wound care within 1 week for recheck. Follow-up through primary care provider for recheck in one week. Return back to the emergency room for any worsening symptoms or concerns as needed. Scripts Hydrocodone Bit/Acetaminophen (Hydrocodone/Acetaminophen 5/325mg Tablet) 1 Tab Tab 1 EACH PO Q4H PRN for PAIN, #20 TAB Prov: JEREMIAH FELIZ 04/24/18 Images Extremities-Upper 1 - Cellulitis, Tenderness 2 - Other-See Progress Note Progress 2: Puncture JEREMIAH FELIZ Apr 24, 2018 19:33
[2018-04-24 19:37] LABS: BASOPHILS # (AUTO) 0.1 10^3/uL (0.0-0.1); BASOPHILS % (AUTO) 1 % (0-10); EOSINOPHILS # (AUTO) 0.3 10^3/uL (0.0-0.3); EOSINOPHILS % (AUTO) 3 % (0-10); HEMATOCRIT 42 % (35-52); LYMPHOCYTES # (AUTO) 4.3 X 10^3 (1.0-4.0); LYMPHOCYTES % (AUTO) 46 % (12-44); MEAN CORPUSCULAR HEMOGLOBIN 32 PG (25-34); MEAN CORPUSCULAR HGB CONC 36 G/DL (32-36); MEAN CORPUSCULAR VOLUME 88 FL (80-99); MEAN PLATELET VOLUME 9.5 FL (7.4-10.4); MONOCYTES # (AUTO) 0.8 X 10^3 (0.0-1.0); MONOCYTES % (AUTO) 9 % (0-12); NEUTROPHILS # (AUTO) 3.9 X 10^3 (1.8-7.8); NEUTROPHILS % (AUTO) 42 % (42-75); PLATELET COUNT 366 10^3/uL (130-400); RED BLOOD COUNT 4.76 10^6/uL (4.35-5.85); RED CELL DISTRIBUTION WIDTH 14.2 % (10.0-14.5); WHITE BLOOD COUNT 9.4 10^3/uL (4.3-11.0)
[2018-04-24 19:51] LABS: PROTHROMBIN TIME PATIENT 12.6 SEC (12.2-14.7)
[2018-04-24 19:59] LABS: ALANINE AMINOTRANSFERASE 16 U/L (0-55); ALBUMIN 4.3 GM/DL (3.2-4.5); ALKALINE PHOSPHATASE 84 U/L (40-136); BILIRUBIN,TOTAL 0.3 MG/DL (0.1-1.0); CALCIUM 9.1 MG/DL (8.5-10.1); CARBON DIOXIDE 22 MMOL/L (21-32); GLUCOSE 91 MG/DL (70-105); TOTAL PROTEIN 7.4 GM/DL (6.4-8.2)
[2018-04-24 20:24] LABS: BUN/CREATININE RATIO 8; CHLORIDE 106 MMOL/L (98-107); CREATININE SERUM 0.76 MG/DL (0.60-1.30); GFR ESTIMATED > 60; POTASSIUM 3.6 MMOL/L (3.6-5.0); SODIUM 137 MMOL/L (135-145)
[2018-04-24] MEDS ORDERED: ACHD5005 PO (20:37)
[2018-04-24] MEDS ORDERED: RX-HYDROCODONE/APAP 5/325 MG #4 TAB PK PO PRN (21:00)
[2018-04-24 21:03] VITALS: BP 105/71
== END 2018-04-24 21:05 | disposition home or self-care (01) ==
LOC: EDUNIT# 18:11 → ER 18:12
DX: L03.114 Cellulitis of left upper limb (principal); S40.862A Insect bite (nonvenomous) of left upper arm, initial encounter; J45.909 Unspecified asthma, uncomplicated; E78.00 Pure hypercholesterolemia, unspecified; G43.909 Migraine, unspecified, not intractable, without status migrainosus; E11.9 Type 2 diabetes mellitus without complications; K21.9 Gastro-esophageal reflux disease without esophagitis; Z85.038 Personal history of other malignant neoplasm of large intestine; Z85.43 Personal history of malignant neoplasm of ovary; Z82.49 Family history of ischemic heart disease and other diseases of the circulatory system; Z88.0 Allergy status to penicillin; Z88.6 Allergy status to analgesic agent; Z88.8 Allergy status to other drugs, medicaments and biological substances; Z98.51 Tubal ligation status; W57.XXXA Bitten or stung by nonvenomous insect and other nonvenomous arthropods, initial encounter
CPT/HCPCS: 36415; 80053; 83605; 85025; 85610; 85730; 87040; 96374

== ENCOUNTER → 2018-07-04 | Emergency (ER) | payer MEDICAID ==
[~2018-07-04] VITALS: Ht 160 cm; Wt 90.5 kg
[~2018-07-04] MED LIST changes: +IOHEXOL 350 MG/ML 100 ML (OMNIPAQUE 350) VIAL IV ONE; +KETOROLAC 30 MG/ML VIAL IVP ONE; +METR-197 PO; -METR500T21 PO; +NS 250 ML (IVPB) BAG IV ONE; +RECEIVED CONTRAST (Hold Metformin) IV SCH; +RX-HYDROCODONE/APAP 5/325 MG #4 TAB PK PO PRN; +RX-ONDANSETRON 4 MG ODT (ZOFRAN) PPK #4 SL STA; +fentaNYL INJECTION 100 MCG/2 ML AMP IVP ONE
[2018-07-04 21:24] LABS: BILIRUBIN,URINE NEGATIVE (NEGATIVE); CLARITY,URINE CLEAR; COLOR,URINE YELLOW; GLUCOSE, URINE (UA) NEGATIVE (NEGATIVE); KETONES,URINE NEGATIVE (NEGATIVE); LEUKOCYTE ESTERASE ,URINE NEGATIVE (NEGATIVE); NITRITE,URINE NEGATIVE (NEGATIVE); PH,URINE 8 (5-9); PROTEIN,URINE NEGATIVE (NEGATIVE); UROBILINOGEN,URINE NORMAL (NORMAL)
[2018-07-04 21:30] LABS: BASOPHILS # (AUTO) 0.1 10^3/uL (0.0-0.1); BASOPHILS % (AUTO) 1 % (0-10); EOSINOPHILS # (AUTO) 0.2 10^3/uL (0.0-0.3); EOSINOPHILS % (AUTO) 2 % (0-10); HEMATOCRIT 39 % (35-52); HEMOGLOBIN 13.5 G/DL (11.5-16.0); LYMPHOCYTES # (AUTO) 3.6 X 10^3 (1.0-4.0); LYMPHOCYTES % (AUTO) 41 % (12-44); MEAN CORPUSCULAR HEMOGLOBIN 31 PG (25-34); MEAN CORPUSCULAR HGB CONC 35 G/DL (32-36); MEAN CORPUSCULAR VOLUME 90 FL (80-99); MEAN PLATELET VOLUME 9.2 FL (7.4-10.4); MONOCYTES # (AUTO) 0.9 X 10^3 (0.0-1.0); MONOCYTES % (AUTO) 10 % (0-12); NEUTROPHILS # (AUTO) 4.2 X 10^3 (1.8-7.8); NEUTROPHILS % (AUTO) 47 % (42-75); PLATELET COUNT 363 10^3/uL (130-400); RED BLOOD COUNT 4.33 10^6/uL (4.35-5.85); RED CELL DISTRIBUTION WIDTH 13.7 % (10.0-14.5); WHITE BLOOD COUNT 8.9 10^3/uL (4.3-11.0)
[2018-07-04 21:33] LABS: BACTERIA,URINE NEGATIVE /HPF; WBC,URINE RARE /HPF
[2018-07-04 21:44] LABS: ALANINE AMINOTRANSFERASE 19 U/L (0-55); ALBUMIN 4.1 GM/DL (3.2-4.5); ALKALINE PHOSPHATASE 80 U/L (40-136); BILIRUBIN,TOTAL 0.4 MG/DL (0.1-1.0); BUN/CREATININE RATIO 9; CALCIUM 8.7 MG/DL (8.5-10.1); CARBON DIOXIDE 22 MMOL/L (21-32); CHLORIDE 107 MMOL/L (98-107); CREATININE SERUM 0.79 MG/DL (0.60-1.30); GFR ESTIMATED > 60; GLUCOSE 104 MG/DL (70-105); SODIUM 139 MMOL/L (135-145)
--- NOTE | 2018-07-04 23:28 | ED Abdominal Pain ---
General Chief Complaint: -Female Stated Complaint: ABD PAIN Nursing Triage Note: PATIENT STATES THAT SHE "THREW UP TWICE LAST NIGHT" AND WOKE UP THIS AM WITH HEAVY VAG BLEEDING AND "A LOT OF PRESSURE DOWN THERE". SHE STATES THAT SHE HAD A TUBAL NINE YEARS AGO. SHE ALSO STATES THAT SHE HAD A FEVER TODAY OF 101.2 AND THEN TOOK TYLENOL. Sepsis Screen: No Definite Risk Source of Information: Patient Exam Limitations: No Limitations History of Present Illness Date Seen by Provider: Jul 05, 2018 Time Seen by Provider: 20:00 Initial Comments This 37-year-old woman presents to the emergency room with symptoms of pelvic pain and vomiting. The vomiting started suddenly last night but stopped today. The pelvic pain has persisted and has worsened. She also developed some abnormal vaginal bleeding last night that worsened today. Her LMP was 2 weeks ago so she was not expecting any vaginal bleeding yet. Patient reports using 3 tampons in the past 2 hours. She denies as she has had a prior tubal ligation. She is sexually active but has been in a monogamous relationship with her for about 7 years. She denies any risk factors for sexually transmitted infections. She reports having numerous abnormal Pap smears in the past which have been treated with LEEP procedures 4. Her last procedure was done about 4 years ago and she has not had any monitoring or screening with Pap smear or vaginal exam since then. She has also had an endometrial biopsy in the past. She denies any other vaginal symptoms prior to the bleeding. 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 She had a fistulectomy in May. Patient reports having a temperature up to 101.2 at work within the last 24 hours. Patient reports her women's health provider is Dr. Narayan and her surgeon in [place] is Dr. Hauser. Allergies and Home Medications Allergies Coded Allergies: oxycodone (Verified Allergy, Mild, 06/08/16) Penicillins (Verified Allergy, Unknown, 06/08/16) prednisone (Verified Allergy, Unknown, 06/08/16) tramadol (Verified Allergy, Unknown, itching, 06/08/16) Home Medications Diphenoxylate HCl/Atropine 1 Each Tablet, 1 EACH PO Q6H PRN for DIARRHEA Prescribed by: HERNANDEZ MEDLEY on 04/07/182121 Hydrocodone Bit/Acetaminophen 1 Tab Tab, 1 EACH PO Q4H PRN for PAIN Prescribed by: JEREMIAH FELIZ on 04/24/182036 Ondansetron 4 Mg Tab.rapdis, 4 MG SL Q4H PRN for NAUSEA/VOMITING-1ST LINE Prescribed by: JEREMIAH FELIZ on 04/06/18 1338 Patient Home Medication List Home Medication List Reviewed: Yes Review of Systems Review of Systems Constitutional: no symptoms reported EENTM: No Symptoms Reported Respiratory: No Symptoms Reported Cardiovascular: No Symptoms Reported Gastrointestinal: See HPI Genitourinary: See HPI Musculoskeletal: no symptoms reported Skin: no symptoms reported Psychiatric/Neurological: No Symptoms Reported Endocrine: No Symptoms Reported Hematologic/Lymphatic: No Symptoms Reported Past Knnrils-Skknwo-Marvuj Hx Past Med/Social Hx: Reviewed and Corrections made Patient Social History Alcohol Use: Denies Use Recreational Drug Use: No Smoking Status: Current Everyday Smoker Type Used: Cigarettes 2nd Hand Smoke Exposure: Yes Recent Foreign Travel: No Contact w/Someone Who Travel: No Recent Infectious Disease Expo: No Recent Hopitalizations: No Immunizations Up To Date Tetanus Booster (TDap): More than 5yrs Date of Pneumonia Vaccine: Jun 21, 2017 Seasonal Allergies Seasonal Allergies: No Past Medical History Surgeries: Yes (LEEP procedure 4 and endometrial biopsy, anal fistulectomy, seton procedure) Bowel Surgery, Neurological, Rectal, Tubal Ligation Respiratory: Yes (CHILDHOOD ASTHMA) Asthma Currently Using CPAP: No Currently Using BIPAP: No Cardiac: Yes High Cholesterol Neurological: Yes (SURGICAL REPAIR OF BRAIN AV MALFORMATION) Headaches /Migraines : No Last Menstrual Period: Jun 21, 2018 Hx : 2 Hx Para: 2 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 (CERVICAL DYSPLASIA--S/P LEEP X 3) 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 Sexually Transmitted Disease: Yes (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) HIV/AIDS: No Genitourinary: No Gastrointestinal: Yes (ANAL CONDYLOMA--"PRECANCEROUS TUMORS" ; PERIRECTAL ABSCESSES/FISTULAS) Gastroesophageal Reflux Musculoskeletal: No Endocrine: No Diabetes, Non-Insulin dep HEENT: No Loss of Vision: Denies Hearing Impairment: Denies Cancer: Yes (cervical dysplasia) Colon, Ovarian Did You Recieve Any Treatments: Yes What Type of Treatment Did You: Surgical Intervention Psychosocial: No Integumentary: Yes (ANAL CONDYLOMA; PERIANAL/PERIRECTAL ABSCESSES AND FISTULAS) Blood Disorders: No Family Medical History Arthritis 19 FATHER 19 MOTHER Asthma 19 FATHER G8 BROTHER Cataracts 19 MOTHER Diabetes mellitus 19 FATHER Headache disorder 19 MOTHER Hypercholesterolemia 19 MOTHER Seizure disorder 19 FATHER G8 BROTHER Physical Exam Vital Signs Vital Signs - First Documented 07/04/18 19:42 Temp 98.0 Pulse 89 Resp 18 B/P (MAP) 116/59 (78) Pulse Ox 97 O2 Delivery Room Air Capillary Refill : Less Than 3 Seconds Height/Weight/BMI Height: 5'3.00" Weight: 199lbs. 9.0oz. [id number]; 34.4 BMI Method:Actual General Appearance: WD/WN, mild distress HEENT: PERRL/EOMI, normal ENT inspection Neck: normal inspection Respiratory: lungs clear, normal breath sounds, no respiratory distress, no accessory muscle use Cardiovascular: regular rate, rhythm, no edema, no murmur Gastrointestinal: normal bowel sounds, soft, tenderness (suprapubic region) Extremities: normal inspection, no pedal edema Neurologic/Psychiatric: retort cooler II-XII nml as tested, no motor/sensory deficits, alert, normal mood/affect, oriented x 3 Skin: normal color, warm/dry Progress/Results/Core Measures Results/Orders Lab Results Laboratory Tests Test 07/04/18 21:15 Range/Units White Blood Count 8.9 4.3-11.0 10^3/uL Red Blood Count 4.33 L 4.35-5.85 10^6/uL Hemoglobin 13.5 11.5-16.0 G/DL Hematocrit 39 35-52 % Mean Corpuscular Volume 90 80-99 FL Mean Corpuscular Hemoglobin 31 25-34 PG Mean Corpuscular Hemoglobin Concent 35 32-36 G/DL Red Cell Distribution Width 13.7 10.0-14.5 % Platelet Count 363 130-400 10^3/uL Mean Platelet Volume 9.2 7.4-10.4 FL Neutrophils (%) (Auto) 47 42-75 % Lymphocytes (%) (Auto) 41 12-44 % Monocytes (%) (Auto) 10 0-12 % Eosinophils (%) (Auto) 2 0-10 % Basophils (%) (Auto) 1 0-10 % Neutrophils # (Auto) 4.2 1.8-7.8 X 10^3 Lymphocytes # (Auto) 3.6 1.0-4.0 X 10^3 Monocytes # (Auto) 0.9 0.0-1.0 X 10^3 Eosinophils # (Auto) 0.2 0.0-0.3 10^3/uL Basophils # (Auto) 0.1 0.0-0.1 10^3/uL Urine Color YELLOW Urine Clarity CLEAR Urine pH 8 5-9 Urine Specific [place] 1.015 L 1.016-1.022 Urine Protein NEGATIVE NEGATIVE Urine Glucose (UA) NEGATIVE NEGATIVE Urine Ketones NEGATIVE NEGATIVE Urine Nitrite NEGATIVE NEGATIVE Urine Bilirubin NEGATIVE NEGATIVE Urine Urobilinogen NORMAL NORMAL MG/DL Urine Leukocyte Esterase NEGATIVE NEGATIVE Urine RBC (Auto) 4+ H NEGATIVE Urine RBC 5-10 H /HPF Urine WBC RARE /HPF Urine Squamous Epithelial Cells 2-5 /HPF Urine Crystals NONE /LPF Urine Bacteria NEGATIVE /HPF Urine Casts NONE /LPF Urine Mucus NEGATIVE /LPF Urine Culture Indicated NO Sodium Level 139 135-145 MMOL/L Potassium Level 4.0 3.6-5.0 MMOL/L Chloride Level 107 98-107 MMOL/L Carbon Dioxide Level 22 21-32 MMOL/L Anion Gap 10 5-14 MMOL/L Blood Urea Nitrogen 7 7-18 MG/DL Creatinine 0.79 0.60-1.30 MG/DL Estimat Glomerular Filtration Rate > 60 BUN/Creatinine Ratio 9 Glucose Level 104 70-105 MG/DL Calcium Level 8.7 8.5-10.1 MG/DL Corrected Calcium 8.6 8.5-10.1 MG/DL Total Bilirubin 0.4 0.1-1.0 MG/DL Aspartate Amino Transf (AST/SGOT) 18 5-34 U/L Alanine Aminotransferase (ALT/SGPT) 19 0-55 U/L Alkaline Phosphatase 80 40-136 U/L Total Protein 7.0 6.4-8.2 GM/DL Albumin 4.1 3.2-4.5 GM/DL Serum Test, Qualitative NEGATIVE NEGATIVE My Orders Orders - TESSA WALTON MD Cbc With Automated Diff (07/04/18 20:00) Comprehensive Metabolic Panel (07/04/18 20:00) Hcg,Qualitative Serum (07/04/18 20:00) Ua Culture If Indicated (07/04/18 20:00) Saline Lock/Iv-Start (07/04/18 20:00) Fentanyl Injection (Sublimaze Injection (07/04/18 21:45) Ct Abdomen/Pelvis W (07/04/18 21:45) Iohexol Injection (Omnipaque 350 Mg/Ml 1 (07/04/18 22:15) Contrast Received (Contrast Received) (07/04/18 22:15) Ns (Ivpb) (Sodium Chloride 0.9%) (07/04/18 22:15) Ketorolac Injection (Toradol Injection) (07/04/18 23:15) Rx-Hydrocodone/Apap 5-325 Mg (Rx-Vicodin (07/04/18 23:30) Rx-Ondansetron Po (Rx-Zofran Po) (07/04/18 23:28) Medications Given in ED Vital Signs/I&O 07/04/18 07/04/18 19:42 23:43 Temp 98.0 98.0 Pulse 89 73 Resp 18 18 B/P (MAP) 116/59 (78) 96/57 (70) Pulse Ox 97 96 O2 Delivery Room Air Room Air Blood Pressure Mean: 78 Progress Progress Note : Progress Note This was afebrile on assessment. Workup was unremarkable. CT showed no pathology that would explain her pelvic pain and abnormal vaginal bleeding. I discussed options with the patient included pelvic exam versus follow-up with a women's health provider in the outpatient setting. Patient elects to treat her pain and follow-up in the outpatient setting since a Pap smear and other pathology cannot be performed from the ER. She is at low risk for STDs as she has been in a monogamous relationship for 7 years. Patient's pain was treated with Toradol and fentanyl. She was dispensed with a take-home pack of hydrocodone and Zofran. Departure Impression Primary Impression: Pelvic pain Additional Impressions: Abnormal vaginal bleeding Nausea and vomiting Qualified Codes: R11.2 - Nausea with vomiting, unspecified Disposition: 01 HOME, SELF-CARE Condition: Improved Departure-Patient Inst. Decision time for Depature: 23:26 Referrals: [facility] [place] (PCP/Family) Primary Care Physician Patient Instructions: Acute Pelvic Pain Add. Discharge Instructions: You may take hydrocodone as prescribed for pain. Follow-up with Dr. Narayan as soon as possible. Call tomorrow morning for an appointment time. Return to care if symptoms worsen or if you develop fever greater than 100, uncontrolled vomiting, or other concerning symptoms. Use Zofran (ondansetron) as directed for nausea and vomiting. All discharge instructions reviewed with patient and/or family. Voiced understanding. Copy Copies To 1: SANDY NARAYAN JOSHUA T MD Jul 04, 2018 23:28
[2018-07-04 23:43] VITALS: BP 96/57
--- NOTE | 2018-07-05 07:08 | Diagnostic Imaging Report ---
PROCEDURE: CT abdomen and pelvis with contrast. TECHNIQUE: Multiple contiguous axial images were obtained through the abdomen and pelvis after administration of intravenous contrast. INDICATION: Vaginal bleeding, nausea, vomiting. Lung bases are clear. Liver appears normal. Gallbladder is decompressed. Pancreas is normal. Spleen is not enlarged. Adrenals are normal. Kidneys are normal. Appendix is normal. Small bowel is not dilated. There is large amount of stool in the colon. Uterus is present. Urinary bladder is normal. Adnexa are unremarkable. There is no intraperitoneal free air or free fluid. There is a tampon in the vaginal canal. IMPRESSION: No acute abnormality seen in the abdomen or pelvis. Dictated by: Dictated on workstation # [id number]
== END | disposition home or self-care (01) ==
LOC: EDUNIT# 18:56 → ER 18:57
DX: N93.9 Abnormal uterine and vaginal bleeding, unspecified (principal); R11.2 Nausea with vomiting, unspecified; J45.909 Unspecified asthma, uncomplicated; K21.9 Gastro-esophageal reflux disease without esophagitis; E11.40 Type 2 diabetes mellitus with diabetic neuropathy, unspecified; E78.00 Pure hypercholesterolemia, unspecified; G43.909 Migraine, unspecified, not intractable, without status migrainosus; F17.210 Nicotine dependence, cigarettes, uncomplicated; Z85.038 Personal history of other malignant neoplasm of large intestine; Z85.43 Personal history of malignant neoplasm of ovary; Z98.51 Tubal ligation status; Z98.890 Other specified postprocedural states; Z82.49 Family history of ischemic heart disease and other diseases of the circulatory system; Z88.5 Allergy status to narcotic agent; Z88.8 Allergy status to other drugs, medicaments and biological substances; Z88.6 Allergy status to analgesic agent
CPT/HCPCS: 36415; 74177; 80053; 81000; 84703; 85025

== ENCOUNTER 2018-07-25 18:01 | Emergency (ER) | payer MEDICAID ==
[~2018-07-25] VITALS: Ht 160 cm; Wt 89.4 kg
[~2018-07-25 18:01] MED LIST changes: -IOHEXOL 350 MG/ML 100 ML (OMNIPAQUE 350) VIAL IV ONE; -KETOROLAC 30 MG/ML VIAL IVP ONE; -NS 250 ML (IVPB) BAG IV ONE; -RECEIVED CONTRAST (Hold Metformin) IV SCH; -RX-HYDROCODONE/APAP 5/325 MG #4 TAB PK PO PRN; -RX-ONDANSETRON 4 MG ODT (ZOFRAN) PPK #4 SL STA; -fentaNYL INJECTION 100 MCG/2 ML AMP IVP ONE
[2018-07-25 20:43] LABS: BILIRUBIN,URINE NEGATIVE (NEGATIVE); CLARITY,URINE VERY CLOUDY; COLOR,URINE YELLOW; GLUCOSE, URINE (UA) NEGATIVE (NEGATIVE); KETONES,URINE NEGATIVE (NEGATIVE); LEUKOCYTE ESTERASE ,URINE 2+ (NEGATIVE); NITRITE,URINE NEGATIVE (NEGATIVE); PH,URINE 7 (5-9); PROTEIN,URINE 2+ (NEGATIVE); UROBILINOGEN,URINE NORMAL (NORMAL)
[2018-07-25 20:56] LABS: BACTERIA,URINE MODERATE /HPF; SQUAMOUS EPITHELIAL CELL,UR >50 /HPF; WBC,URINE 25-50 /HPF
[2018-07-25 21:31] LABS: BASOPHILS # (AUTO) 0.1 10^3/uL (0.0-0.1); BASOPHILS % (AUTO) 1 % (0-10); EOSINOPHILS # (AUTO) 0.2 10^3/uL (0.0-0.3); EOSINOPHILS % (AUTO) 2 % (0-10); HEMATOCRIT 41 % (35-52); LYMPHOCYTES # (AUTO) 4.3 X 10^3 (1.0-4.0); LYMPHOCYTES % (AUTO) 41 % (12-44); MEAN CORPUSCULAR HEMOGLOBIN 31 PG (25-34); MEAN CORPUSCULAR HGB CONC 34 G/DL (32-36); MEAN CORPUSCULAR VOLUME 89 FL (80-99); MEAN PLATELET VOLUME 9.3 FL (7.4-10.4); MONOCYTES # (AUTO) 0.9 X 10^3 (0.0-1.0); MONOCYTES % (AUTO) 9 % (0-12); NEUTROPHILS # (AUTO) 4.9 X 10^3 (1.8-7.8); NEUTROPHILS % (AUTO) 47 % (42-75); PLATELET COUNT 321 10^3/uL (130-400); RED BLOOD COUNT 4.57 10^6/uL (4.35-5.85); RED CELL DISTRIBUTION WIDTH 13.6 % (10.0-14.5); WHITE BLOOD COUNT 10.3 10^3/uL (4.3-11.0)
[2018-07-25 21:51] LABS: ALANINE AMINOTRANSFERASE 14 U/L (0-55); ALBUMIN 4.1 GM/DL (3.2-4.5); ALKALINE PHOSPHATASE 72 U/L (40-136); BILIRUBIN,TOTAL 0.4 MG/DL (0.1-1.0); BUN/CREATININE RATIO 7; CALCIUM 8.9 MG/DL (8.5-10.1); CARBON DIOXIDE 21 MMOL/L (21-32); CHLORIDE 106 MMOL/L (98-107); CREATININE SERUM 0.75 MG/DL (0.60-1.30); GFR ESTIMATED > 60; GLUCOSE 89 MG/DL (70-105); POTASSIUM 3.5 MMOL/L (3.6-5.0); SODIUM 139 MMOL/L (135-145)
[2018-07-25] MEDS ORDERED: SULF1TAB35 PO (22:01)
--- NOTE | 2018-07-25 22:01 | ED GU-Female ---
General Chief Complaint: Abdominal/GI Problems Stated Complaint: PAIN IN ABD Nursing Triage Note: states pap smear yesterday, abdominal pain started yesterday at 1300, states cramping with dark discharge from vagina. n/v since Nursing Sepsis Screen: No Definite Risk Source: patient Exam Limitations: no limitations History of Present Illness Date Seen by Provider: Jul 25, 2018 Time Seen by Provider: 20:22 Allergies and Home Medications Allergies Coded Allergies: oxycodone (Verified Allergy, Mild, 06/08/16) Penicillins (Verified Allergy, Unknown, 06/08/16) prednisone (Verified Allergy, Unknown, 06/08/16) tramadol (Verified Allergy, Unknown, itching, 06/08/16) Home Medications Diphenoxylate HCl/Atropine 1 Each Tablet, 1 EACH PO Q6H PRN for DIARRHEA Prescribed by: HERNANDEZ MEDLEY on 04/07/182121 Hydrocodone Bit/Acetaminophen 1 Tab Tab, 1 EACH PO Q4H PRN for PAIN Prescribed by: JEREMIAH FELIZ on 04/24/182036 Ondansetron 4 Mg Tab.rapdis, 4 MG SL Q4H PRN for NAUSEA/VOMITING-1ST LINE Prescribed by: JEREMIAH FELIZ on 04/06/18 1338 Sulfamethoxazole/Trimethoprim 1 Each Tablet, 1 EACH PO BID Prescribed by: JEREMIAH FELIZ on 07/25/181 Past Azitvzt-Scdnit-Xwbikw Hx Patient Social History Type Used: Cigarettes 2nd Hand Smoke Exposure: Yes Recent Foreign Travel: No Contact w/Someone Who Travel: No Recent Infectious Disease Expo: No Recent Hopitalizations: No Immunizations Up To Date Tetanus Booster (TDap): More than 5yrs Date of Pneumonia Vaccine: Jun 21, 2017 Seasonal Allergies Seasonal Allergies: No Past Medical History Surgeries: Yes Bowel Surgery, Neurological, Rectal, Tubal Ligation Respiratory: Yes (CHILDHOOD ASTHMA) Asthma Currently Using CPAP: No Currently Using BIPAP: No Cardiac: Yes High Cholesterol Neurological: Yes (SURGICAL REPAIR OF BRAIN AV MALFORMATION) Headaches /Migraines 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 (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--S/P LEEP X 3) 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 Sexually Transmitted Disease: Yes (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) HIV/AIDS: No Genitourinary: No Gastrointestinal: Yes (ANAL CONDYLOMA--"PRECANCEROUS TUMORS" ; PERIRECTAL ABSCESSES/FISTULAS) Gastroesophageal Reflux Musculoskeletal: No Endocrine: No Diabetes, Non-Insulin dep HEENT: No Loss of Vision: Denies Hearing Impairment: Denies Cancer: Yes (cervical dysplasia) Colon, Ovarian Did You Recieve Any Treatments: Yes What Type of Treatment Did You: Surgical Intervention Psychosocial: No Integumentary: Yes (ANAL CONDYLOMA; PERIANAL/PERIRECTAL ABSCESSES AND FISTULAS) Blood Disorders: No Family Medical History Arthritis 19 FATHER 19 MOTHER Asthma 19 FATHER G8 BROTHER Cataracts 19 MOTHER Diabetes mellitus 19 FATHER Headache disorder 19 MOTHER Hypercholesterolemia 19 MOTHER Seizure disorder 19 FATHER G8 BROTHER Physical Exam Vital Signs Vital Signs - First Documented 07/25/18 18:15 Temp 98.8 Pulse 108 Resp 18 B/P (MAP) 128/81 (97) Pulse Ox 98 O2 Delivery Room Air Capillary Refill : Less Than 3 Seconds Height, Weight, BMI Height: 5'3.00" Weight: 197lbs. 9.0oz. 89.130815eu; 34.4 BMI Method:Estimated Progress/Results/Core Measures Suspected Sepsis Recent Fever Within 48 Hours: No Infection Criteria Present: None New/Unexplained Altered Menta: No Sepsis Screen: No Definite Risk SIRS Temperature:98.8 Pulse: 108 Respiratory Rate: 18 Laboratory Tests 07/25/18 21:24: White Blood Count 10.3 Blood Pressure 128 /81 Mean: 97 Laboratory Tests 07/25/18 21:24: Creatinine 0.75, Platelet Count 321, Total Bilirubin 0.4 Results/Orders Lab Results Laboratory Tests Test 07/25/18 19:51 07/25/18 21:24 Range/Units Urine Color YELLOW Urine Clarity VERY CLOUDY H Urine pH 7 5-9 Urine Specific [place] 1.010 L 1.016-1.022 Urine Protein 2+ H NEGATIVE Urine Glucose (UA) NEGATIVE NEGATIVE Urine Ketones NEGATIVE NEGATIVE Urine Nitrite NEGATIVE NEGATIVE Urine Bilirubin NEGATIVE NEGATIVE Urine Urobilinogen NORMAL NORMAL MG/DL Urine Leukocyte Esterase 2+ H NEGATIVE Urine RBC (Auto) 5+ H NEGATIVE Urine RBC 5-10 H /HPF Urine WBC 25-50 H /HPF Urine Squamous Epithelial Cells >50 H /HPF Urine Crystals NONE /LPF Urine Bacteria MODERATE H /HPF Urine Casts NONE /LPF Urine Mucus NEGATIVE /LPF Urine Culture Indicated YES White Blood Count 10.3 4.3-11.0 10^3/uL Red Blood Count 4.57 4.35-5.85 10^6/uL Hemoglobin 14.0 11.5-16.0 G/DL Hematocrit 41 35-52 % Mean Corpuscular Volume 89 80-99 FL Mean Corpuscular Hemoglobin 31 25-34 PG Mean Corpuscular Hemoglobin Concent 34 32-36 G/DL Red Cell Distribution Width 13.6 10.0-14.5 % Platelet Count 321 130-400 10^3/uL Mean Platelet Volume 9.3 7.4-10.4 FL Neutrophils (%) (Auto) 47 42-75 % Lymphocytes (%) (Auto) 41 12-44 % Monocytes (%) (Auto) 9 0-12 % Eosinophils (%) (Auto) 2 0-10 % Basophils (%) (Auto) 1 0-10 % Neutrophils # (Auto) 4.9 1.8-7.8 X 10^3 Lymphocytes # (Auto) 4.3 H 1.0-4.0 X 10^3 Monocytes # (Auto) 0.9 0.0-1.0 X 10^3 Eosinophils # (Auto) 0.2 0.0-0.3 10^3/uL Basophils # (Auto) 0.1 0.0-0.1 10^3/uL Sodium Level 139 135-145 MMOL/L Potassium Level 3.5 L 3.6-5.0 MMOL/L Chloride Level 106 98-107 MMOL/L Carbon Dioxide Level 21 21-32 MMOL/L Anion Gap 12 5-14 MMOL/L Blood Urea Nitrogen 5 L 7-18 MG/DL Creatinine 0.75 0.60-1.30 MG/DL Estimat Glomerular Filtration Rate > 60 BUN/Creatinine Ratio 7 Glucose Level 89 70-105 MG/DL Calcium Level 8.9 8.5-10.1 MG/DL Corrected Calcium 8.8 8.5-10.1 MG/DL Total Bilirubin 0.4 0.1-1.0 MG/DL Aspartate Amino Transf (AST/SGOT) 17 5-34 U/L Alanine Aminotransferase (ALT/SGPT) 14 0-55 U/L Alkaline Phosphatase 72 40-136 U/L Total Protein 7.0 6.4-8.2 GM/DL Albumin 4.1 3.2-4.5 GM/DL My Orders Orders - JEREMIAH FELIZ Cbc With Automated Diff (07/25/18 20:22) Comprehensive Metabolic Panel (07/25/18 20:22) Rx-Hydrocodone/Apap 5-325 Mg (Rx-Vicodin (07/25/18 22:15) Vital Signs/I&O 07/25/18 18:15 Temp 98.8 Pulse 108 Resp 18 B/P (MAP) 128/81 (97) Pulse Ox 98 O2 Delivery Room Air Capillary Refill : Less Than 3 Seconds Blood Pressure Mean: 97 Departure Impression Primary Impression: Urinary tract infection Disposition: HOME, SELF-CARE Condition: Stable/Unchanged Departure-Patient Inst. Decision time for Depature: 22:00 Referrals: [facility] (PCP/Family) Primary Care Physician Patient Instructions: Urinary Tract Infection, Adult (DC) Add. Discharge Instructions: Take medication as directed. Follow-up with your primary care provider within 1 week for recheck. Return back to the emergency room for any worsening symptoms or concerns as needed. All discharge instructions reviewed with patient and/or family. Voiced understanding. Scripts Hydrocodone Bit/Acetaminophen (Hydrocodone/Acetaminophen 5/325mg Tablet) 1 Tab Tab 1 EACH PO Q4-6HR PRN for PAIN-MODERATE MDD 10, #14 TAB Prov: JEREMIAH FELIZ 07/25/18 Sulfamethoxazole/Trimethoprim (Bactrim Ds Tablet) 1 Each Tablet 1 EACH PO BID for 7 Days, #14 TAB Prov: JEREMIAH FELIZ 07/25/18 JEREMIAH FELIZ Jul 25, 2018 22:01
[2018-07-25] MEDS ORDERED: ACHD5005 PO (22:14)
[2018-07-25] MEDS ORDERED: RX-HYDROCODONE/APAP 5/325 MG #4 TAB PK PO PRN (22:15)
[2018-07-25] MEDS ORDERED: TRIM/SULFAMETH 160/800 (SEPTRA DS) TAB PO ONE ×2 (22:30→22:31)
[2018-07-25 22:36] VITALS: BP 123/83
== END 2018-07-25 22:36 | disposition home or self-care (01) ==
LOC: EDUNIT# 18:01 → ER 18:02
DX: N39.0 Urinary tract infection, site not specified (principal); E78.00 Pure hypercholesterolemia, unspecified; G43.909 Migraine, unspecified, not intractable, without status migrainosus; K21.9 Gastro-esophageal reflux disease without esophagitis; E11.9 Type 2 diabetes mellitus without complications; J45.909 Unspecified asthma, uncomplicated; Z88.5 Allergy status to narcotic agent; Z88.0 Allergy status to penicillin; Z85.038 Personal history of other malignant neoplasm of large intestine; Z85.43 Personal history of malignant neoplasm of ovary; Z87.19 Personal history of other diseases of the digestive system; Z82.49 Family history of ischemic heart disease and other diseases of the circulatory system; Z88.8 Allergy status to other drugs, medicaments and biological substances; Z88.6 Allergy status to analgesic agent; Z77.22 Contact with and (suspected) exposure to environmental tobacco smoke (acute) (chronic); Z98.51 Tubal ligation status; Z98.890 Other specified postprocedural states
CPT/HCPCS: 36415; 80053; 81000; 85025; 87088; 99283

== ENCOUNTER → 2018-07-30 | Outpatient (CLI) | payer MEDICAID ==
--- NOTE | 2018-07-30 20:24 | Diagnostic Imaging Report ---
EXAMINATION: Pelvic ultrasound. INDICATION: Continuous bleeding for a month. FINDINGS: The pelvic ultrasound exam performed on 12/03/2015 failed to show any sign of an acute abnormality although the left ovary was not visualized. The CT abdomen/pelvis exam of 07/04/2018 was also unremarkable for an acute abnormality of the abdomen or pelvis. On this exam, the uterus is nongravid and not enlarged measuring 6.8 x 4.3 x 3.7 cm. There is no focal mass involving the uterus to suggest a fibroid. The endometrial lining is not thickened measuring 3 mm. The right ovary is identified and is generally unremarkable. There is no sign of torsion. As noted on the prior exam, the left ovary could not be visualized. IMPRESSION: There is no acute pelvic abnormality noted. As on the prior exam, the left ovary could not be identified. Dictated by: Dictated on workstation # [id number]
== END ==
LOC: RAD 15:24
PROVIDERS: ATTEND Obstetrics & Gynecology
DX: N93.8 Other specified abnormal uterine and vaginal bleeding (principal); N94.19 Other specified dyspareunia; A63.0 Anogenital (venereal) warts; N85.2 Hypertrophy of uterus; Z68.36 Body mass index [BMI] 36.0-36.9, adult; Z87.410 Personal history of cervical dysplasia
CPT/HCPCS: 76830; 76856

== ENCOUNTER 2018-08-12 20:02 | Emergency (ER) | payer MEDICAID ==
[~2018-08-12] VITALS: Ht 160 cm; Wt 88.5 kg
--- NOTE | 2018-08-12 20:22 | ED Lower Extremity ---
General Stated Complaint: L FOOT PAIN Source: patient Exam Limitations: no limitations History of Present Illness Date Seen by Provider: Aug 12, 2018 Time Seen by Provider: 20:14 Initial Comments Patient is a 37-year-old female who presents to emergency room with complaints of left great toe and foot pain after dropping a can of dog food on the toe yesterday. She reports that she's had increasing pain over the course of the day. She him related to the room without difficulty. Onset: yesterday Pain/Injury Location: left 1st toe Method of Injury: direct blow Modifying Factors: Worse With Movement Allergies and Home Medications Allergies Coded Allergies: oxycodone (Verified Allergy, Mild, 06/08/16) Penicillins (Verified Allergy, Unknown, 06/08/16) prednisone (Verified Allergy, Unknown, 06/08/16) tramadol (Verified Allergy, Unknown, itching, 06/08/16) Home Medications Diphenoxylate HCl/Atropine 1 Each Tablet, 1 EACH PO Q6H PRN for DIARRHEA Prescribed by: HERNANDEZ MEDLEY on 04/07/182121 Hydrocodone Bit/Acetaminophen 1 Tab Tab, 1 EACH PO Q4H PRN for PAIN Prescribed by: JEREMIAH FELIZ on 04/24/18 203 Hydrocodone Bit/Acetaminophen 1 Tab Tab, 1 EACH PO Q4-6HR PRN for PAIN-MODERATE Prescribed by: JEREMIAH FELIZ on 07/25/18 221 Ondansetron 4 Mg Tab.rapdis, 4 MG SL Q4H PRN for NAUSEA/VOMITING-1ST LINE Prescribed by: JEREMIAH FELIZ on 04/06/18 1338 Sulfamethoxazole/Trimethoprim 1 Each Tablet, 1 EACH PO BID Prescribed by: JEREMIAH FELIZ on 07/25/18 2201 Patient Home Medication List Home Medication List Reviewed: Yes Review of Systems Constitutional: no symptoms reported, see HPI Musculoskeletal: see HPI, joint pain (left toe) All Other Systems Reviewed Negative Unless Noted: Yes Past Taogcbm-Wfrxey-Pzvuqp Hx Past Med/Social Hx: Reviewed Nursing Past Med/Soc Hx Patient Social History Type Used: Cigarettes 2nd Hand Smoke Exposure: Yes Recent Foreign Travel: No Contact w/Someone Who Travel: No Recent Hopitalizations: No Immunizations Up To Date Tetanus Booster (TDap): More than 5yrs Date of Pneumonia Vaccine: Jun 21, 2017 Seasonal Allergies Seasonal Allergies: No Past Medical History Surgeries: Yes Bowel Surgery, Neurological, Rectal, Tubal Ligation Respiratory: Yes (CHILDHOOD ASTHMA) Asthma Currently Using CPAP: No Currently Using BIPAP: No Cardiac: Yes High Cholesterol Neurological: Yes (SURGICAL REPAIR OF BRAIN AV MALFORMATION) Headaches /Migraines 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 (CERVICAL DYSPLASIA--S/P LEEP X 3) [employer]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 Sexually Transmitted Disease: Yes (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) HIV/AIDS: No Genitourinary: No Gastrointestinal: Yes (ANAL CONDYLOMA--"PRECANCEROUS TUMORS" ; PERIRECTAL ABSCESSES/FISTULAS) Gastroesophageal Reflux Musculoskeletal: No Endocrine: No Diabetes, Non-Insulin dep HEENT: No Loss of Vision: Denies Hearing Impairment: Denies Cancer: Yes (cervical dysplasia) Colon, Ovarian Did You Recieve Any Treatments: Yes What Type of Treatment Did You: Surgical Intervention Psychosocial: No Integumentary: Yes (ANAL CONDYLOMA; PERIANAL/PERIRECTAL ABSCESSES AND FISTULAS) Blood Disorders: No Family Medical History Reviewed Nursing Family Hx Arthritis 19 FATHER 19 MOTHER Asthma 19 FATHER G8 BROTHER Cataracts 19 MOTHER Diabetes mellitus 19 FATHER Headache disorder 19 MOTHER Hypercholesterolemia 19 MOTHER Seizure disorder 19 FATHER G8 BROTHER Physical Exam Vital Signs Vital Signs - First Documented 08/12/18 20:10 Temp 97.8 Pulse 105 Resp 12 B/P (MAP) 106/89 (95) Pulse Ox 98 Capillary Refill : Height, Weight, BMI Height: 5'3.00" Weight: 197lbs. 9.0oz. 89.068390vd; 34.4 BMI Method:Estimated General Appearance: WD/WN, no apparent distress Neck: non-tender, full range of motion, supple, normal inspection Cardiovascular: normal peripheral pulses, regular rate, rhythm, no edema, no gallop, no JVD, no murmur Respiratory: chest non-tender, lungs clear, normal breath sounds, no respiratory distress, no accessory muscle use Feet: left foot pain Neurologic/Tendon: normal sensation, normal motor functions, normal tendon functions, responds to pain, no evidence tendon injury Neurologic/Psychiatric: alert, normal mood/affect, oriented x 3 Skin: normal color, warm/dry Progress/Results/Core Measures Results/Orders My Orders Orders - JREEMIAH FELIZ Toe(S) (08/12/18 20:13) Vital Signs/I&O 08/12/18 20:10 Temp 97.8 Pulse 105 Resp 12 B/P (MAP) 106/89 (95) Pulse Ox 98 Diagnostic Imaging Diagonstic Imaging: Xray Plain Films/CT/US/NM/MRI: other (foot) Comments [facility] [place], [place] NAME: [facility] REC#: [id number] PT STATUS: REG ER : 1980 PHYSICIAN: JEREMIAH FELIZ ADMIT DATE: 08/12/18/ER Draft Date of Exam:08/12/18 TOE(S) INDICATION: Pain COMPARISON: None available TECHNIQUE: 3 radiographs of the left forefoot dated 08/12/2018. FINDINGS: No acute fracture or dislocation. No destructive osseous process. No suspicious radiopaque foreign body. IMPRESSION: No acute osseous abnormality. Dictated on workstation # [id number] Dict: 08/12/182029 Trans: 08/12/182032 [facility] [id number] Interpreted by: MALOU VERONICA MD Electronically signed by: Departure Impression Primary Impression: Toe pain Disposition: 01 HOME, SELF-CARE Condition: Stable/Unchanged Departure-Patient Inst. Decision time for Depature: 20:50 Referrals: [facility] (PCP/Family) Primary Care Physician Patient Instructions: Contusion (DC) Add. Discharge Instructions: You may use Tylenol and ibuprofen as directed by the bottle for pain relief. Follow-up with [facility] within 1 week for recheck. Return back to the emergency room for any worsening symptoms or concerns as needed. JEREMIAH FELIZ Aug 12, 2018 20:22
--- NOTE | 2018-08-12 20:33 | Diagnostic Imaging Report ---
INDICATION: Pain COMPARISON: None available TECHNIQUE: 3 radiographs of the left forefoot dated 08/12/2018. FINDINGS: No acute fracture or dislocation. No destructive osseous process. No suspicious radiopaque foreign body. IMPRESSION: No acute osseous abnormality. Dictated by: Dictated on workstation # [id number]
[2018-08-12 21:02] VITALS: BP 106/89
== END 2018-08-12 21:02 | disposition home or self-care (01) ==
LOC: EDUNIT# 20:02 → ER 20:03
DX: M79.675 Pain in left toe(s) (principal); J45.909 Unspecified asthma, uncomplicated; E78.00 Pure hypercholesterolemia, unspecified; G43.909 Migraine, unspecified, not intractable, without status migrainosus; E11.9 Type 2 diabetes mellitus without complications; Z85.038 Personal history of other malignant neoplasm of large intestine; Z85.43 Personal history of malignant neoplasm of ovary; Z82.49 Family history of ischemic heart disease and other diseases of the circulatory system; Z87.19 Personal history of other diseases of the digestive system; Z88.0 Allergy status to penicillin; Z88.8 Allergy status to other drugs, medicaments and biological substances; Z88.5 Allergy status to narcotic agent; Z88.6 Allergy status to analgesic agent; Z77.22 Contact with and (suspected) exposure to environmental tobacco smoke (acute) (chronic); Z98.51 Tubal ligation status; Z98.890 Other specified postprocedural states; W20.8XXA Other cause of strike by thrown, projected or falling object, initial encounter
CPT/HCPCS: 73660

== ENCOUNTER 2018-09-03 05:57 | Outpatient (CLI) | payer MEDICAID ==
[~2018-09-03] VITALS: Ht 160 cm; Wt 88.7 kg
== END 2018-09-03 12:51 | disposition home or self-care (01) ==
LOC: PREOP 05:57
PROVIDERS: ATTEND Obstetrics & Gynecology
DX: Z01.818 Encounter for other preprocedural examination (principal)

== ENCOUNTER 2018-09-06 09:26 | Day surgery (SDC) | payer MEDICAID ==
[~2018-09-06] VITALS: Ht 160 cm; Wt 88.7 kg
[~2018-09-06 09:26] MED LIST changes: +METR-145 PO; -METR-197 PO
[2018-09-06] MEDS ORDERED: VASOPRESSIN INJECTION 20 UNIT/ML VIAL ONE (09:48)
[2018-09-06] MEDS ORDERED: BUPIVACAINE 0.25% 30 ML (SENSORCAINE) VIAL ONE (09:48)
[2018-09-06] MEDS ORDERED: NS (IVPB) 100 ML ONE (09:48)
[2018-09-06 09:52] LABS: BASOPHILS # (AUTO) 0.1 10^3/uL (0.0-0.1); BASOPHILS % (AUTO) 1 % (0-10); EOSINOPHILS # (AUTO) 0.2 10^3/uL (0.0-0.3); EOSINOPHILS % (AUTO) 3 % (0-10); HEMATOCRIT 44 % (35-52); HEMOGLOBIN 14.7 G/DL (11.5-16.0); LYMPHOCYTES # (AUTO) 3.3 X 10^3 (1.0-4.0); LYMPHOCYTES % (AUTO) 34 % (12-44); MEAN CORPUSCULAR HEMOGLOBIN 30 PG (25-34); MEAN CORPUSCULAR HGB CONC 34 G/DL (32-36); MEAN CORPUSCULAR VOLUME 91 FL (80-99); MEAN PLATELET VOLUME 9.6 FL (7.4-10.4); MONOCYTES # (AUTO) 0.8 X 10^3 (0.0-1.0); MONOCYTES % (AUTO) 8 % (0-12); NEUTROPHILS # (AUTO) 5.3 X 10^3 (1.8-7.8); NEUTROPHILS % (AUTO) 55 % (42-75); PLATELET COUNT 360 10^3/uL (130-400); RED BLOOD COUNT 4.83 10^6/uL (4.35-5.85); WHITE BLOOD COUNT 9.7 10^3/uL (4.3-11.0)
[2018-09-06] MEDS ORDERED: LACTATED RINGERS 1,000 ML IV PRN (10:07)
[2018-09-06] MEDS ORDERED: LACTATED RINGERS 1,000 ML IV ONE (10:07)
[2018-09-06] MEDS ORDERED: metroNIDAZOLE 500MG/100ML IVPB 100 ML IV ONE (10:15)
[2018-09-06] MEDS ORDERED: ceFAZolin 2 GM IV Premixed 50 ML IV ONE (10:15)
[2018-09-06 10:30] VITALS: BP 110/69
[2018-09-06] MEDS ORDERED: ROCURONIUM 10 MG/ML 5 ML SYRINGE IV ONE (10:46)
[2018-09-06] MEDS ORDERED: DEXAMETHASONE 10 MG/ML (DECADRON) 1 ML VIAL ONE (10:46)
[2018-09-06] MEDS ORDERED: proPOfol 200 MG/20 ML (DIPRIVAN) VIAL IV ONE (10:46)
[2018-09-06] MEDS ORDERED: ONDANSETRON 4 MG/2 ML (SDV) Z0FRAN ONE (10:46)
[2018-09-06] MEDS ORDERED: LIDOCAINE PF 2% 5 ML (XYLOCAINE) VIAL ONE (10:47)
[2018-09-06] MEDS ORDERED: fentaNYL INJECTION 100 MCG/2 ML AMP ONE ×4 (10:47→13:17)
[2018-09-06] MEDS ORDERED: SEVOFLURANE (ULTANE) 15 ML INHAL SOLN ONE ×6 (10:47→12:56)
[2018-09-06] MEDS ORDERED: MIDAZOLAM 2 MG/2 ML (VERSED) VIAL ONE (10:47)
[2018-09-06] MEDS ORDERED: NEOSTIGMINE 1 MG/ML 5 ML SYRINGE ONE (10:52)
[2018-09-06] MEDS ORDERED: KETOROLAC 30 MG/ML VIAL ONE (10:52)
[2018-09-06] MEDS ORDERED: GLYCOPYRROLATE 0.2 MG/ML (ROBINUL) 2 ML VIAL ONE (10:52)
--- NOTE | 2018-09-06 11:25 | Progress Note-Pre Operative ---
Pre-Operative Progress Note H&P Reviewed The H&P was reviewed, patient examined and no changes noted. Date Seen by Provider: Sep 06, 2018 Time Seen by Provider: 11:25 Date H&P Reviewed: Sep 06, 2018 Time H&P Reviewed: 11:20 Pre-Operative Diagnosis: CPP, JOSE E LOCKE DO Sep 06, 2018 11:25
[2018-09-06] MEDS ORDERED: DOCUSATE SODIUM 100 MG (COLACE) CAP PO PRN (11:30)
[2018-09-06] MEDS ORDERED: ANTACID SUSP 30 ML UDC (MYLANTA) PO PRN (11:30)
[2018-09-06] MEDS ORDERED: CHLORASEPTIC LOZENGE MM PRN (11:30)
[2018-09-06] MEDS ORDERED: ONDANSETRON 4 MG/2 ML (SDV) Z0FRAN IV PRN (11:30)
[2018-09-06] MEDS ORDERED: ZOLPIDEM 5 MG (AMBIEN) TAB PO PRN (11:30)
[2018-09-06] MEDS ORDERED: SIMETHICONE 80 MG (MYLICON) CHEW PO PRN (11:30)
[2018-09-06] MEDS ORDERED: HYDR-34 PO (11:45)
[2018-09-06] MEDS ORDERED: SIME80TA16 PO (11:45)
[2018-09-06] MEDS ORDERED: IBUP-844 PO (11:45)
[2018-09-06] MEDS ORDERED: DOCU100C37 PO (11:45)
--- NOTE | 2018-09-06 11:45 | Discharge Inst-Women's Service ---
Discharge Inst-Women's Serv Depart Medication/Instructions New, Converted or Re-Newed RX: RX on Chart Final Diagnosis PO RATLH Consults/Follow Up Additional Follow Up: Yes Orders/Referrals Dr. Anguiano in 7-10 days and in 8 weeks Activity Activity: Activity as Tolerated Driving Instructions: No Driving for 1 Week NO SMOKING: NO SMOKING Nothing Inside Vagina: No Douching, No [place], No Tampons Diet Discharge Diet: No Restrictions Symptoms to Report to : Bleeding Excessive, Pain Increased, Fever Over 101 Degrees F, Vaginal Bleeding Increase, Questions/Concerns For Any Problems or Questions: Contact Your Physician Skin/Wound Care Infection Signs and Symptoms: Increased Redness, Foul Odor of Wound, Increased Drainage, Skin Itchy or Has a Rash, Increased Swelling, Temperature Above 101 F Stitches/[place]/Dermabond: Dermabond, Care of Stitches Bathing Instructions: JOSE E Kinsey DO Sep 06, 2018 11:45
[2018-09-06] MEDS ORDERED: RT-ALBUTEROL HFA (VENTOLIN) PER PUFF IH ONE ×3 (11:46→12:50)
[2018-09-06] MEDS ORDERED: ONDANSETRON 4 MG/2 ML (SDV) Z0FRAN IVP PRN (13:15)
[2018-09-06] MEDS ORDERED: MEPERIDINE (DEMEROL) INJ 50 MG/ML IVP ONE (13:15)
[2018-09-06] MEDS ORDERED: fentaNYL INJECTION 100 MCG/2 ML AMP IVP ONE (13:15)
[2018-09-06] MEDS ORDERED: MEPERIDINE (DEMEROL) INJ 50 MG/ML ONE (13:16)
[2018-09-06] MEDS: LACTATED RINGERS 1,000 ML IV SCH ×2 (13:45→15:27)
[2018-09-06] MEDS: KETOROLAC 30 MG/ML VIAL IV PRN ×2 (13:50→20:41)
[2018-09-06 14:10] VITALS: BP 118/67
--- NOTE | 2018-09-06 14:10 | NUR ---
Pt transferred to room 302 via bed from PACU. staff @ side. report received from ROSALBA Conde. care assumed of pt.
--- NOTE | 2018-09-06 14:40 | NUR ---
initial assessment completed, see interventions for further. pt resting, awakens when called by name. rawls to DD with clear, yellow urine noted in chamber. lapsites x3 D/I with band-aids intact.
--- NOTE | 2018-09-06 15:36 | NUR ---
THIS RN CALLED DR GILMORE. UPDATE PT REPORT. PT WAKING UP, COMPLAINING OF PAIN 03/30. ONLY ORAL PAIN MEDICATION ORDERED. MAY PT HAVE ANYTHING FOR PAIN VIA IV AT THIS TIME? 1MG DILAUDID ORDERED FOR ONE TIME ONLY UNTIL DR GILMORE CAN SEE PT. ORDER READ BACK. THIS RN WILL PLACE ORDER. REPORT GIVEN TO ROSALBA COOPER WHO IS CARING FOR PT AT THIS TIME.
[2018-09-06] MEDS ORDERED: HYDROmorphone 2 MG/ML VIAL (DILAUDID) ONE (15:43)
[2018-09-06] MEDS ORDERED: HYDROmorphone 2 MG/ML VIAL (DILAUDID) IV ONE (15:45)
--- NOTE | 2018-09-06 15:59 | NUR ---
Pt sleeping with unlabored respirations. awakens when called by name. SpO2 89% RA. 02 @ 2L/NC applied. SpO2 immediately increased to 94%. will cont to monitor.
[2018-09-06 17:37] VITALS: BP 102/60
--- NOTE | 2018-09-06 17:47 | NUR ---
rawls catheter dc'd per Dr's orders. 500cc urine noted. jarad-care offered. v-pad in place. pt moaning, grunting with pain. encouraged slow, deep breaths. pt taking shallow breaths.
--- NOTE | 2018-09-06 17:50 | NUR ---
deep breathing and coughing done. IS treatment completed.
--- NOTE | 2018-09-06 17:53 | NUR ---
was called to verify pain medication order. will offer Lortab 7.5mg p.o.. will call MD if pain not resolved. iglesia perkins given. Addendum: 09/06/18 at 1817 by ALLISON SEYMOUR RN family picking up food to bring to pt.
--- NOTE | 2018-09-06 18:02 | OPERATIVE REPORT ---
DATE OF SERVICE: 09/06/2018 PREOPERATIVE DIAGNOSES: 1. A 37-year-old female with worsening chronic pelvic pain. 2. Abnormal uterine bleeding. POSTOPERATIVE DIAGNOSES: 1. A 37-year-old female with worsening chronic pelvic pain. 2. Abnormal uterine bleeding. PROCEDURE PERFORMED: Robotic-assisted total laparoscopic hysterectomy with bilateral salpingectomy. SURGEON: Oswald Gilmore DO. SUPERVISOR MAIL CARRIERS: MOSES Roth. ANESTHESIA: General endotracheal. ESTIMATED BLOOD LOSS: Minimal. URINE OUTPUT: 150 mL, clear at the end of the procedure. FLUIDS: 1300 mL lactated Ringer's solution. FINDINGS: A hyperemic appearing uterus with multiple serosal adhesions of the fallopian tubes to surrounding pelvic structures, including the ovary, multiple dilations on the fallopian tubes suspicious for hydrosalpinx and chronic scar tissue formation from previous tubal ligation, grossly normal-appearing bilateral ovaries. SPECIMEN SENT: Uterus, bilateral fallopian tubes. INDICATIONS FOR PROCEDURE: This 37-year-old female comes in to my office for ongoing worsening pelvic pain inhibiting from work as well as having intercourse. This is affecting her marital life as well as her work life. She has also noted significant bleeding more recently in the past two to three months that has gotten so bad that she has bled through her clothes at work. Initial testing for infection and anatomic causes for her bleeding were inconclusive; however, due to the significant amount of pain she was having and inability to treat this with a more conservative management, we discussed proceeding with hysterectomy. We did briefly discussed alternatives; however, due to the patient's significant symptoms, she is wanting to proceed with more aggressive measures. Risks of the procedure were discussed with the patient in detail, including risks of bleeding, infection, damage to surrounding structures including but not limited to bowel, bladder, ureter and kidneys, possible postoperative complications, including reoperation, need for blood transfusion and even were discussed. After everything was discussed, the patient's consent was obtained in the preoperative area and the patient was taken to the operating room. OPERATIVE REPORT IN DETAIL: Once in the operating room, general anesthesia was found to be adequate, placed in dorsal lithotomy position, prepped and draped in normal sterile fashion. A timeout was performed. A Martinez catheter was then placed. A weighted speculum was inserted into the patient's vagina. A right angle retractor was used to visualize the cervix, which was grasped at 12 o'clock position using long Allis clamp and #0 Vicryl suture was placed in the anterior lip of the cervix and the Allis clamp was then removed. I then used my suture as my retraction point. I then gently sounded the uterine cavity, depth was found to be 6 cm. I selected a 6 cm Cindy uterine manipulator tip and a 4 cm colpotomy ring. I advanced the manipulator tip into the uterus deploying the balloon and advancing the colpotomy ring around the vaginal fornix. I then removed all of the other instruments from the patient's vagina and performed a change of gloves. I took my attention to the abdomen where infraumbilically I infiltrated this area using 0.25% Marcaine to make an 8 mm incision and directed a Veress needle through the incision until intraperitoneal placement was confirmed using saline drop test. I proceeded with insufflation using CO2 gas, opening pressure of 4 mmHg was noted. I proceeded to maximum pressure of 15 mmHg, at which point we removed the Veress needle and introduced an 8 mm blunt da Germaine camera trocar. Once this was in place, I am able to confirm intraperitoneal placement using the da Germaine laparoscope. A brief scan of the lower abdominal anatomy is in my findings as described above. There is no evidence of damage upon entry. I placed two lateral trocars approximately 8-10 cm lateral to my infraumbilical trocar under direct visualization of the laparoscope. The incisions were made with a knife and the skin was infiltrated using 0.25% Marcaine. Once these trocars were in place, I bring in the da Germaine robot and docked it in appropriate fashion. Placing the da Germaine vessel sealer in the left hand and monopolar judd in the right hand, I then took my place at the operative console and took the following dissection bilaterally. Starting at the uteroovarian ligament, bipolar cauterized and transected using the vessel sealer, I then got down the mesosalpinx starting distally and moving proximally using the vessel sealer amputating the fallopian tube from the surrounding blood supply. I then grasped the round ligament, bipolar cauterized this and transected using the vessel sealer. I then am able to grasp the entire broad ligament, bipolar cauterized and transected using the vessel sealer down to the level of the lower uterine segment, at which point I the anterior and posterior leaflets of the broad ligament. The anterior leaflet was taken around to the anterior vaginal fornix, posterior leaflet was taken around to the posterior vaginal fornix. This allowed me to skeletonize the uterine vessels laterally keeping them clear of the ureters which I am able to identify during my dissection process. I then bipolar cauterized the uterine vessels and transected them using the vessel sealer. I then created a colpotomy at 12 o'clock position using monopolar judd and took this circumferentially around the vaginal fornix amputating the cervix away from the vagina. I then removed the entire specimen through the vagina and proceeded with closing the vaginal cuff. The lateral vaginal apices are closed using 2-0 Vicryl suture in a [id number] fashion colposuspending up to the uterosacral ligaments. I then closed the remainder of the vaginal cuff using 2-0 V-Loc in a running fashion, after which there was no active bleeding noted from any of my dissection planes. I then undocked the da Germaine robot and proceeded with the remainder of the case laparoscopically. After I scrubbed back into the case, I copiously irrigated the pelvis using normal saline and there was no active bleeding noted from any of my dissection planes as I placed FloSeal hemostatic agent over all my planes of dissection and then have the patient taken out of steep Trendelenburg. I removed the lateral trocars under direct visualization of laparoscope. The infraumbilical trocar was left in place to release insufflation and to introduce 10 mL of 0.25% Marcaine. Once this was done, I removed this trocar as well. The skin was reapproximated using 4-0 Monocryl in interrupted subcuticular stitches. Dermabond was applied to the incision and sterile Band-Aids were placed over these. The patient tolerated the procedure well and sent to recovery in stable condition with Martinez catheter still in place. Lap and sponge counts were correct at the end of the procedure. Instrument count was correct as well. Two grams of Ancef, 500 mg of Flagyl were given preoperatively for infection prophylaxis. Job ID: [id number] DocumentID: [id number] Dictated Date: 09/06/2018 13:35:15 Night Stocker Date: 09/06/2018 18:01:44 Dictated By: OSWALD GILMORE DO
[2018-09-06] MEDS: HYDROcodone/APAP 7.5 MG/325 MG (LORTAB, LORCET PLUS) TABLET PO PRN ×2 (18:12→22:02)
--- NOTE | 2018-09-06 19:21 | NUR ---
Report given to Gary Rn
[2018-09-06 20:41] VITALS: BP 103/61
--- NOTE | 2018-09-06 21:25 | NUR ---
Pt. put call light on, up in room, reports voiding, did not use hat. Requesting to go home now, states pain is better. Called Dr. Anguiano, update given & informed pt. would like to go home, new orders rc'd to D/C home if pt. insists, but would like pt. to stay the night. POC discussed w/pt, pt. adamant she wants to go home. Voided again, 150 ml cl yellow urine noted. IV S.L.ed, pt. getting dressed & ready to go home. Again informed Dr. Anguiano @ 0760 that pt. wants to go, will proceed w/D/C orders.
[2018-09-06] MEDS ORDERED: FLU QUADRIvalent (5+ YOA) 2018-2019 (AFLURIA) 0.5 ML IM ONE (21:45)
--- NOTE | 2018-09-06 22:05 | NUR ---
D/C instructions given & explained, RX given, instructed pt. to call office tomorrow for F/U appts, pt. verbalized understanding. Pt. left [facility] via W/C escorted by this RN, to home via private vehicle per SO. Pt's belongings & D/C packet w/pt.
[2018-09-07] MEDS ORDERED: IBUPROFEN 600 MG (MOTRIN) TAB PO PRN (04:15)
--- NOTE | 2018-09-07 07:41 | Anesthesia-General Post-Op ---
General Patient Condition Mental Status/LOC: Same as Preop Cardiovascular: Satisfactory Nausea/Vomiting: Absent Respiratory: Satisfactory Pain: Controlled Complications: Absent Post Op Complications Complications None Follow Up Care/Instructions Patient Instructions None needed. Anesthesia/Patient Condition Patient Condition Patient is doing well, no complaints, stable vital signs, no apparent adverse anesthesia problems. No complications reported per nursing. DONALDO QUINTANA CRNA Sep 07, 2018 07:41
== END 2018-09-06 22:05 | disposition home or self-care (01) ==
LOC: SDC 09:26 → LDRP 14:10 → SDC 22:05
PROVIDERS: ATTEND Obstetrics & Gynecology
DX: N71.1 Chronic inflammatory disease of uterus (principal); N70.11 Chronic salpingitis; N93.9 Abnormal uterine and vaginal bleeding, unspecified; K21.9 Gastro-esophageal reflux disease without esophagitis; F17.210 Nicotine dependence, cigarettes, uncomplicated; E66.9 Obesity, unspecified; Z68.34 Body mass index [BMI] 34.0-34.9, adult
CPT/HCPCS: 36415; 84703; 85025; 86850; 86900; 86901; 87081; 88307; 88312; 94640

== ENCOUNTER 2018-09-24 00:17 | Observation (INO) | payer MEDICAID ==
[~2018-09-24] VITALS: Ht 160 cm; Wt 88.7 kg
[~2018-09-24 00:17] MED LIST changes: +DOCU100C37 PO; +HYDR-34 PO; +IBUP-844 PO; +SIME80TA16 PO
[2018-09-24 01:13] LABS: BILIRUBIN,URINE NEGATIVE (NEGATIVE); CLARITY,URINE CLEAR; COLOR,URINE YELLOW; GLUCOSE, URINE (UA) NEGATIVE (NEGATIVE); KETONES,URINE NEGATIVE (NEGATIVE); LEUKOCYTE ESTERASE ,URINE 1+ (NEGATIVE); NITRITE,URINE NEGATIVE (NEGATIVE); PH,URINE 7 (5-9); PROTEIN,URINE NEGATIVE (NEGATIVE); UROBILINOGEN,URINE NORMAL (NORMAL)
[2018-09-24] MEDS ORDERED: KETOROLAC 30 MG/ML VIAL IVP ONE (01:45)
[2018-09-24 01:50] LABS: BACTERIA,URINE FEW /HPF; SQUAMOUS EPITHELIAL CELL,UR RARE /HPF; WBC,URINE RARE /HPF
--- NOTE | 2018-09-24 01:51 | ED Abdominal Pain ---
General Chief Complaint: General Problems/Pain Stated Complaint: LEFT LOWER SIDE OF ABDOMIN, UPPER ABD PAIN, Source of Information: Patient Exam Limitations: No Limitations History of Present Illness Date Seen by Provider: Sep 24, 2018 Time Seen by Provider: 01:37 Initial Comments Patient presents to ER by private conveyance with chief complaint on September 06 approximate 2 weeks ago she had a hysterectomy done by Dr. GILMORE. About 5 or 6 days later she had a mishap where she was laying in bed in her great Kyler jumped on her abdomen causing some discomfort. She followed up with the surgeon but she was not having any bleeding or any concerns so she was allowed to follow up outpatient. No for the past couple days she's been having some urinary hesitancy and discomfort on urination. She also started having some increasing abdominal pain in her left lower quadrant. She says she's had some cysts on her fallopian tubes. She has also had multiple surgeries on her rectum and colon she's had a tubal ligation in the past. She says that when Dr. GILMORE date or surgery he remarked that there was a lot of scar tissue he had to work through. Tmax home 101. She took some Tylenol around 10:30. Allergies and Home Medications Allergies Coded Allergies: tramadol (Verified Allergy, Severe, TACHYCARDIA, 09/03/18) Penicillins (Verified Allergy, Mild, SWELLING, 09/03/18) oxycodone (Verified Allergy, Mild, ITCHING, 09/03/18) prednisone (Verified Allergy, Mild, REDNESS/SWELLING, 09/03/18) Home Medications Docusate Sodium 100 Mg Capsule, 100 MG PO BID PRN for CONSTIPATION-1ST LINE Prescribed by: JOSE E GILMORE on 09/06/18 1145 Hydrocodone Bit/Acetaminophen 1 Ea Tablet, 2 EA PO Q6H PRN for Pain-See Instructions Prescribed by: JOSE E GILMORE on 09/06/18 1145 Ibuprofen 600 Mg Tablet, 600 MG PO Q6H PRN for PAIN-MODERATE Prescribed by: JOSE E GILMORE on 09/06/18 1145 Simethicone 80 Mg Tab.chew, 40 MG PO TID PRN for INDIGESTION 2ND LINE Prescribed by: JOSE E GILMORE on 09/06/18 1145 Patient Home Medication List Home Medication List Reviewed: Yes Review of Systems Review of Systems Constitutional: chills, fever, malaise EENTM: No Blurred Vision, No Double Vision Respiratory: Denies Cough, Denies Orthopnea Cardiovascular: Denies Chest Pain, Denies Lightheadedness Gastrointestinal: See HPI, Abdominal Pain; Denies Constipated, Denies Diarrhea ; Nausea; Denies Vomiting Genitourinary: Burning; Denies Discharge; Other (urinary hesitancy) Musculoskeletal: No back pain, No gout, No joint pain Skin: No pruritus, No rash Past Qrkvays-Zlcjyt-Pkzdov Hx Patient Social History Alcohol Use: Denies Use Recreational Drug Use: No Type Used: Cigarettes 2nd Hand Smoke Exposure: Yes Recent Foreign Travel: No Contact w/Someone Who Travel: No Recent Hopitalizations: Yes Immunizations Up To Date Tetanus Booster (TDap): More than 5yrs Date of Pneumonia Vaccine: Jun 21, 2017 Date of Influenza Vaccine: May 28, 2018 Seasonal Allergies Seasonal Allergies: No Past Medical History Surgeries: Yes (BILAT CTR, BRAIN SURGERY-AVM) Bowel Surgery, Hysterectomy, Neurological, Rectal, Tubal Ligation Respiratory: Yes (CHILDHOOD ASTHMA) Asthma Currently Using CPAP: No Currently Using BIPAP: No Cardiac: Yes High Cholesterol Neurological: Yes (SURGICAL REPAIR OF BRAIN AV MALFORMATION) Headaches /Migraines 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 (CERVICAL DYSPLASIA--S/P LEEP X 3) Female 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 Disorders: Menstrual Problems E TAILER History: Tubal Ligation Sexually Transmitted Disease: No HIV/AIDS: No Genitourinary: No Gastrointestinal: Yes (ANAL CONDYLOMA--"PRECANCEROUS TUMORS" ; PERIRECTAL ABSCESSES/FISTULAS) Gastroesophageal Reflux Musculoskeletal: No Endocrine: No Diabetes, Non-Insulin dep HEENT: Yes (GLASSES) Loss of Vision: Bilateral Hearing Impairment: Denies Cancer: Yes (cervical dysplasia) Colon, Ovarian Did You Recieve Any Treatments: Yes What Type of Treatment Did You: Surgical Intervention Psychosocial: No Integumentary: No Blood Disorders: No Adverse Reaction/Blood Tranf: No (N/A) Family Medical History Arthritis 19 FATHER 19 MOTHER Asthma 19 FATHER G8 BROTHER Cataracts 19 MOTHER Diabetes mellitus 19 FATHER Headache disorder 19 MOTHER Hypercholesterolemia 19 MOTHER Seizure disorder 19 FATHER G8 BROTHER Physical Exam Vital Signs Vital Signs - First Documented 09/24/18 01:07 Temp 97.1 Pulse 96 Resp 17 B/P (MAP) 128/69 (88) Capillary Refill : Height/Weight/BMI Height: 5'3.00" Weight: 195lbs. 9.0oz. [id number]; 34.6 BMI Method:Stated General Appearance: WD/WN, mild distress HEENT: PERRL/EOMI, normal ENT inspection, pharynx normal Respiratory: no respiratory distress, no accessory muscle use Cardiovascular: normal peripheral pulses, regular rate, rhythm, no edema Gastrointestinal: normal bowel sounds, guarding; No rebound; tenderness (left lower quadrant and periumbilical) Extremities: normal range of motion, normal capillary refill Neurologic/Psychiatric: alert, normal mood/affect, oriented x 3 Focused Exam Lactate Level 09/24/18 03:25: Lactic Acid Level Laboratory Tests Test 09/24/18 03:25 Progress/Results/Core Measures Results/Orders Lab Results Laboratory Tests Test 09/24/18 01:05 09/24/18 01:55 09/24/18 03:25 Range/Units Urine Color YELLOW Urine Clarity CLEAR Urine pH 7 5-9 Urine Specific [place] 1.015 L 1.016-1.022 Urine Protein NEGATIVE NEGATIVE Urine Glucose (UA) NEGATIVE NEGATIVE Urine Ketones NEGATIVE NEGATIVE Urine Nitrite NEGATIVE NEGATIVE Urine Bilirubin NEGATIVE NEGATIVE Urine Urobilinogen NORMAL NORMAL MG/DL Urine Leukocyte Esterase 1+ H NEGATIVE Urine RBC (Auto) NEGATIVE NEGATIVE Urine RBC NONE /HPF Urine WBC RARE /HPF Urine Squamous Epithelial Cells RARE /HPF Urine Crystals NONE /LPF Urine Bacteria FEW H /HPF Urine Casts NONE /LPF Urine Mucus NEGATIVE /LPF Urine Culture Indicated NO White Blood Count 9.9 4.3-11.0 10^3/uL Red Blood Count 4.36 4.35-5.85 10^6/uL Hemoglobin 13.2 11.5-16.0 G/DL Hematocrit 39 35-52 % Mean Corpuscular Volume 89 80-99 FL Mean Corpuscular Hemoglobin 30 25-34 PG Mean Corpuscular Hemoglobin Concent 34 32-36 G/DL Red Cell Distribution Width 13.7 10.0-14.5 % Platelet Count 477 H 130-400 10^3/uL Mean Platelet Volume 9.3 7.4-10.4 FL Neutrophils (%) (Auto) 37 L 42-75 % Lymphocytes (%) (Auto) 48 H 12-44 % Monocytes (%) (Auto) 9 0-12 % Eosinophils (%) (Auto) 6 0-10 % Basophils (%) (Auto) 1 0-10 % Neutrophils # (Auto) 3.6 1.8-7.8 X 10^3 Lymphocytes # (Auto) 4.7 H 1.0-4.0 X 10^3 Monocytes # (Auto) 0.9 0.0-1.0 X 10^3 Eosinophils # (Auto) 0.6 H 0.0-0.3 10^3/uL Basophils # (Auto) 0.1 0.0-0.1 10^3/uL Prothrombin Time 13.2 12.2-14.7 SEC INR Comment 1.0 0.8-1.4 Activated Partial Thromboplast Time 36 H 24-35 SEC Sodium Level 140 135-145 MMOL/L Potassium Level 3.7 3.6-5.0 MMOL/L Chloride Level 104 98-107 MMOL/L Carbon Dioxide Level 24 21-32 MMOL/L Anion Gap 12 5-14 MMOL/L Blood Urea Nitrogen 8 7-18 MG/DL Creatinine 0.74 0.60-1.30 MG/DL Estimat Glomerular Filtration Rate > 60 BUN/Creatinine Ratio 11 Glucose Level 96 70-105 MG/DL Calcium Level 9.1 8.5-10.1 MG/DL Corrected Calcium 9.3 8.5-10.1 MG/DL Total Bilirubin 0.2 0.1-1.0 MG/DL Aspartate Amino Transf (AST/SGOT) 14 5-34 U/L Alanine Aminotransferase (ALT/SGPT) 12 0-55 U/L Alkaline Phosphatase 76 40-136 U/L Total Protein 6.6 6.4-8.2 GM/DL Albumin 3.8 3.2-4.5 GM/DL My Orders Orders - OTILIA CLEMENTS Ua Culture If Indicated (09/24/18 00:24) Cbc With Automated Diff (09/24/18 01:41) Comprehensive Metabolic Panel (09/24/18 01:41) Ct Abdomen/Pelvis W (09/24/18 01:41) Ketorolac Injection (Toradol Injection) (09/24/18 01:45) Iohexol Injection (Omnipaque 350 Mg/Ml 1 (09/24/18 02:00) Contrast Received (Contrast Received) (09/24/18 02:00) Ns (Ivpb) (Sodium Chloride 0.9% Ivpb Bag (09/24/18 02:00) Blood Culture (09/24/18 03:23) Urine Culture (09/24/18 03:23) Protime With Inr (09/24/18 03:23) Partial Thromboplastin Time (09/24/18 03:23) Saline Lock/Iv-Start (09/24/18 03:23) Saline Lock/Iv-Start (09/24/18 03:23) Vital Signs Adult Sepsis Patie Q15M (09/24/18 03:23) O2 (09/24/18 03:23) Remove Rings In Anticipation O (09/24/18 03:23) Lactic Acid Analyzer (09/24/18 03:23) Ns Iv 1000 Ml (Sodium Chloride 0.9%) (09/24/18 03:30) Cefepime Injection (Maxipime Injection) (09/24/18 03:30) Fentanyl Injection (Sublimaze Injection (09/24/18 03:45) Medications Given in ED Current Medications Medications Dose Ordered Sig/Maryse Route Start Time Stop Time Status Last Admin Dose Admin Iohexol 100 ml ONCE ONCE IV 09/24/18 02:00 09/24/18 02:01 DC 09/24/18 03:30 100 ML Ketorolac Tromethamine 30 mg ONCE ONCE IVP 09/24/18 01:45 09/24/18 01:46 DC 09/24/18 02:01 30 MG Sodium Chloride 100 ml ONCE ONCE IV 09/24/18 02:00 09/24/18 02:01 DC 09/24/18 03:30 80 ML Vital Signs/I&O 09/24/18 01:07 Temp 97.1 Pulse 96 Resp 17 B/P (MAP) 128/69 (88) Progress Progress Note : Time: 01:50 Progress Note 2 weeks postop pain. Could be scar formation from adhesions. Her trauma was about 8 or 10 days ago from the dog. She's having quite a high reading of pain so we'll obtain a CT of her abdomen pelvis to look for acute pathology as well as some laboratory and urinalysis. A bladder infection not typically present as periumbilical and left lower quadrant abdomen pain. Toradol for pain. She says she's not having any nausea right now. Diagnostic Imaging Diagonstic Imaging: CT (with contrast) Plain Films/CT/US/NM/MRI: abdomen, pelvis Comments 3.1 x 3.1 x 2.2 cm abscess with inflammatory changes adjacent to the vaginal cuff. Reviewed: Reviewed [place] Study, Reviewed by Me Departure Communication (Admissions) Time/Spoke to Admitting Phy: 03:45 Discussed the case lab imaging findings with Dr. Delacruz and he agrees to admit the patient and agrees with cefepime at this time. Impression Primary Impression: Abscess Additional Impression: Sepsis Qualified Codes: A41.9 - Sepsis, unspecified organism Disposition: ADMITTED INPATIENT Condition: Stable Admissions Decision to Admit Reason: Admit from ER (General) Decision to Admit/Date: Sep 24, 2018 Time/Decision to Admit Time: 03:41 Departure-Patient Inst. Referrals: [facility] (PCP/Family) Primary Care Physician OTILIA CLEMENTS Sep 24, 2018 01:51
[2018-09-24] MEDS ORDERED: RECEIVED CONTRAST (Hold Metformin) IV SCH (02:00)
[2018-09-24] MEDS ORDERED: NS 100 ML (IVPB) BAG IV ONE (02:00)
[2018-09-24] MEDS ORDERED: IOHEXOL 350 MG/ML 100 ML (OMNIPAQUE 350) VIAL IV ONE (02:00)
[2018-09-24 02:01] LABS: BASOPHILS # (AUTO) 0.1 10^3/uL (0.0-0.1); BASOPHILS % (AUTO) 1 % (0-10); EOSINOPHILS # (AUTO) 0.6 10^3/uL (0.0-0.3); EOSINOPHILS % (AUTO) 6 % (0-10); HEMATOCRIT 39 % (35-52); HEMOGLOBIN 13.2 G/DL (11.5-16.0); LYMPHOCYTES # (AUTO) 4.7 X 10^3 (1.0-4.0); LYMPHOCYTES % (AUTO) 48 % (12-44); MEAN CORPUSCULAR HEMOGLOBIN 30 PG (25-34); MEAN CORPUSCULAR HGB CONC 34 G/DL (32-36); MEAN CORPUSCULAR VOLUME 89 FL (80-99); MEAN PLATELET VOLUME 9.3 FL (7.4-10.4); MONOCYTES # (AUTO) 0.9 X 10^3 (0.0-1.0); MONOCYTES % (AUTO) 9 % (0-12); NEUTROPHILS # (AUTO) 3.6 X 10^3 (1.8-7.8); NEUTROPHILS % (AUTO) 37 % (42-75); PLATELET COUNT 477 10^3/uL (130-400); RED CELL DISTRIBUTION WIDTH 13.7 % (10.0-14.5); WHITE BLOOD COUNT 9.9 10^3/uL (4.3-11.0)
[2018-09-24 02:23] LABS: ALANINE AMINOTRANSFERASE 12 U/L (0-55); ALBUMIN 3.8 GM/DL (3.2-4.5); ALKALINE PHOSPHATASE 76 U/L (40-136); BILIRUBIN,TOTAL 0.2 MG/DL (0.1-1.0); BUN/CREATININE RATIO 11; CALCIUM 9.1 MG/DL (8.5-10.1); CARBON DIOXIDE 24 MMOL/L (21-32); CHLORIDE 104 MMOL/L (98-107); CREATININE SERUM 0.74 MG/DL (0.60-1.30); GFR ESTIMATED > 60; GLUCOSE 96 MG/DL (70-105); POTASSIUM 3.7 MMOL/L (3.6-5.0); SODIUM 140 MMOL/L (135-145); TOTAL PROTEIN 6.6 GM/DL (6.4-8.2)
[2018-09-24] MEDS ORDERED: NS IV 1000 ML 2,000 ML IV ONE (03:30)
[2018-09-24] MEDS ORDERED: CEFEPIME INJECTION 2,000 MG in NS (IVPB) 50 ML IV ONE (03:30)
[2018-09-24 03:36] LABS: PROTHROMBIN TIME PATIENT 13.2 SEC (12.2-14.7)
[2018-09-24] MEDS ORDERED: fentaNYL INJECTION 100 MCG/2 ML AMP IVP ONE (03:45)
[2018-09-24 04:45] VITALS: BP 142/73
--- NOTE | 2018-09-24 04:45 | NUR ---
GEORGE FERNANDES presented to unit via from ED,, with c/o PELVIC ABSCESS,SEPSIS. GEORGE FERNANDES weighed, gowned, voided, and to bed. EFHM and TOCO applied, VS taken. GEORGE FERNANDES oriented to bed controls, call light, TV, heat, and A/C controls.
--- NOTE | 2018-09-24 04:50 | NUR ---
Pt orientated to room. assessment completed. pt c/o abdominal pain. states pain has been going on since 10/17 with an increase in pain tonight. denies any nausea/vomiting.
--- NOTE | 2018-09-24 05:00 | NUR ---
called with pt's assessment. new orders received.
[2018-09-24] MEDS ORDERED: HYDROcodone/APAP 5 MG/325 MG (LORTAB) TAB ONE (05:13)
[2018-09-24] MEDS: HYDROcodone/APAP 5 MG/325 MG (LORTAB) TAB PO PRN ×2 (05:36→09:33)
[2018-09-24] MEDS ORDERED: IBUPROFEN 800 MG (MOTRIN) TAB PO SCH (06:00)
--- NOTE | 2018-09-24 07:15 | NUR ---
here. new orders received.
--- NOTE | 2018-09-24 07:36 | Diagnostic Imaging Report ---
PROCEDURE: CT abdomen and pelvis with contrast. TECHNIQUE: Multiple contiguous axial images were obtained through the abdomen and pelvis after administration of intravenous contrast. INDICATION: Left lower quadrant and mid abdominal pain. Dysuria. COMPARISON: Multiple priors, most recent performed on 07/04/2018. FINDINGS: LOWER THORAX: Mild basilar subsegmental atelectasis. Visualized heart is normal in size. LIVER: Normal. GALLBLADDER: Gallbladder is contracted. BILE DUCTS: No biliary ductal dilatation. SPLEEN: Normal. PANCREAS: Normal. No pancreatic ductal dilatation. ADRENAL GLANDS: No nodules. RIGHT KIDNEY AND URETER: No hydronephrosis. Normal renal enhancement. No suspicious mass. The ureter is normal. LEFT KIDNEY AND URETER: No hydronephrosis. Normal renal enhancement. No suspicious mass. The ureter is normal. STOMACH AND BOWEL: Stomach is physiologically-distended. No bowel obstruction. No inflammatory changes. APPENDIX: Normal. PELVIC ORGANS/BLADDER: Bladder is normal. The uterus is surgically absent. Just superior to the vaginal cuff, there is a rim-enhancing collection which measures approximately 3.3 x 3.3 x 2.1 cm (transverse x AP x superior-inferior). PERITONEUM AND RETROPERITONEUM: No pneumoperitoneum. Rim-enhancing collection in the region of the vaginal cuff, as detailed above. There are mild inflammatory changes surrounding the collection. LYMPH NODES: No lymphadenopathy. VESSELS: Mild atherosclerotic calcification noted at the aortic bifurcation. Abdominal aorta is nonaneurysmal. No venous thrombosis. ABDOMINAL WALL: Unremarkable. BONES: No acute abnormality. IMPRESSION: Rim-enhancing collection above the vaginal cuff measuring up to 3.3 cm, concerning for abscess. There are mild surrounding inflammatory changes. Findings are in agreement with initial teleradiology report. Dictated by: Dictated on workstation # [id number]
--- NOTE | 2018-09-24 07:49 | Progress Note-Standard ---
Standard Progress Note Progress Notes/Assess & Plan Date Seen by a Provider: Sep 24, 2018 Time Seen by a Provider: 07:44 Progress/Assessment & Plan This patient is 2 weeks status post hysterectomy by Dr. Anguiano. Recovery was complicated by trauma to the abdomen caused by her Dog. She felt as though she were having more pain in her abdomen and pelvis and sought attention in the emergency department. Emergency department was concerned with the possibility of sepsis. Patient is without complaint this morning. She states that her pain has improved. She denies nausea vomiting. Denies diarrhea or constipation denies chest pain or shortness of breath. This patient was admitted via the emergency department with the diagnosis of borderline sepsis. She has remained afebrile, her white blood cell count is normal, her pulse is normal, she is alert and oriented 4, is tolerating oral intake, and has good pain control, A CT of the pelvis was performed report per the emergency department was consistent with a 2 x 3 cm pelvic abscess. Laboratory Tests Test 09/24/18 01:05 09/24/18 01:55 09/24/18 03:25 Range/Units Urine Color YELLOW Urine Clarity CLEAR Urine pH 7 5-9 Urine Specific [place] 1.015 L 1.016-1.022 Urine Protein NEGATIVE NEGATIVE Urine Glucose (UA) NEGATIVE NEGATIVE Urine Ketones NEGATIVE NEGATIVE Urine Nitrite NEGATIVE NEGATIVE Urine Bilirubin NEGATIVE NEGATIVE Urine Urobilinogen NORMAL NORMAL MG/DL Urine Leukocyte Esterase 1+ H NEGATIVE Urine RBC (Auto) NEGATIVE NEGATIVE Urine RBC NONE /HPF Urine WBC RARE /HPF Urine Squamous Epithelial Cells RARE /HPF Urine Crystals NONE /LPF Urine Bacteria FEW H /HPF Urine Casts NONE /LPF Urine Mucus NEGATIVE /LPF Urine Culture Indicated NO White Blood Count 9.9 4.3-11.0 10^3/uL Red Blood Count 4.36 4.35-5.85 10^6/uL Hemoglobin 13.2 11.5-16.0 G/DL Hematocrit 39 35-52 % Mean Corpuscular Volume 89 80-99 FL Mean Corpuscular Hemoglobin 30 25-34 PG Mean Corpuscular Hemoglobin Concent 34 32-36 G/DL Red Cell Distribution Width 13.7 10.0-14.5 % Platelet Count 477 H 130-400 10^3/uL Mean Platelet Volume 9.3 7.4-10.4 FL Neutrophils (%) (Auto) 37 L 42-75 % Lymphocytes (%) (Auto) 48 H 12-44 % Monocytes (%) (Auto) 9 0-12 % Eosinophils (%) (Auto) 6 0-10 % Basophils (%) (Auto) 1 0-10 % Neutrophils # (Auto) 3.6 1.8-7.8 X 10^3 Lymphocytes # (Auto) 4.7 H 1.0-4.0 X 10^3 Monocytes # (Auto) 0.9 0.0-1.0 X 10^3 Eosinophils # (Auto) 0.6 H 0.0-0.3 10^3/uL Basophils # (Auto) 0.1 0.0-0.1 10^3/uL Prothrombin Time 13.2 12.2-14.7 SEC INR Comment 1.0 0.8-1.4 Activated Partial Thromboplast Time 36 H 24-35 SEC Sodium Level 140 135-145 MMOL/L Potassium Level 3.7 3.6-5.0 MMOL/L Chloride Level 104 98-107 MMOL/L Carbon Dioxide Level 24 21-32 MMOL/L Anion Gap 12 5-14 MMOL/L Blood Urea Nitrogen 8 7-18 MG/DL Creatinine 0.74 0.60-1.30 MG/DL Estimat Glomerular Filtration Rate > 60 BUN/Creatinine Ratio 11 Glucose Level 96 70-105 MG/DL Calcium Level 9.1 8.5-10.1 MG/DL Corrected Calcium 9.3 8.5-10.1 MG/DL Total Bilirubin 0.2 0.1-1.0 MG/DL Aspartate Amino Transf (AST/SGOT) 14 5-34 U/L Alanine Aminotransferase (ALT/SGPT) 12 0-55 U/L Alkaline Phosphatase 76 40-136 U/L Total Protein 6.6 6.4-8.2 GM/DL Albumin 3.8 3.2-4.5 GM/DL Lactic Acid Level 0.91 0.50-2.00 MMOL/L Lab work is reviewed and is normal Vital Signs Date Time Temp Pulse Resp B/P (MAP) Pulse Ox O2 Delivery O2 Flow Rate FiO2 09/24/18 04:45 97.2 73 18 142/73 (96) Room Air 09/24/18 04:43 97.1 72 17 124/76 (92) 98 09/24/18 03:30 09/24/18 01:07 97.1 96 17 128/69 (88) I & O 09/24/18 07:00 Intake Total 50 ml Balance 50 ml Vital signs are stable. Patient is afebrile. The abdomen is benign. Extremities show no clubbing or cyanosis. There is no Homans sign. Assessment and plan 2 weeks status post hysterectomy. Per the emergency physician there was a 2 x 3 cm abscess at the left vaginal apex. We will consult radiology for drainage of the abscess and We will convert to oral antibiotics for broad coverage and allow discharge home with follow-up in clinic with Dr. Anguiano Final Diagnosis Possible Postop infection Focused Exam Lactate Level 09/24/18 03:25: Lactic Acid Level 0.91 BROOKE SY MD Sep 24, 2018 07:49
[2018-09-24] MEDS ORDERED: METR-145 PO (07:54)
[2018-09-24] MEDS ORDERED: CIPR500T4 PO (07:54)
[2018-09-24] MEDS ORDERED: ACHD5005 PO (07:54)
--- NOTE | 2018-09-24 07:56 | Discharge Instructions ---
Discharge Instructions Discharge Medications New, Converted or Re-Newed RX: RX on Chart Patient Instructions Patient Instructions: As directed Return to The Hospital For: As directed Activity & Diet Discharge Diet: No Restrictions Activity as Tolerated: No Orders-Post D/C & Referrals Follow-up with Dr. Anguiano as scheduled and when necessary BROOKE SY MD Sep 24, 2018 07:56
--- NOTE | 2018-09-24 08:02 | NUR ---
CT was called r/t received order for CT guided drainage of pelvic abscess. consult placed for .
[2018-09-24 08:58] VITALS: BP 92/55
--- NOTE | 2018-09-24 08:58 | NUR ---
initial shift assessment completed, see interventions for further.
[2018-09-24] MEDS ORDERED: CIPROFLOXACIN 500 MG (CIPRO) TABLET PO SCH (09:00)
[2018-09-24] MEDS ORDERED: metroNIDAZOLE 500 MG (FLAGYL) TAB PO SCH (09:00)
--- NOTE | 2018-09-24 11:49 | NUR ---
CT was called. unable to drain abscess r/t size.
--- NOTE | 2018-09-24 11:52 | NUR ---
called. ok to dismiss to home.
--- NOTE | 2018-09-24 11:56 | NUR ---
Jasper and Cyn Rx's called into [facility] per pt's request.
--- NOTE | 2018-09-24 12:07 | NUR ---
dismissal instruction given, verbalizes understanding. reviewed Rx's and administration schedule. instructed pt to follow up with as scheduled or prn. signature page singed, placed on chart.
--- NOTE | 2018-09-24 12:12 | NUR ---
pt ambulated to private vehicle with this RN and s/o @ side. pt stable with no sx'x of distress noted.
--- NOTE | 2018-10-02 15:14 | Physician Query-Final Dx ---
MARISOL ROMO 10/02/18 1514: Final Diagnosis Give Final Diagnosis Please give Final Diagnosis BROOKE SY MD 10/03/18 0801: Final Diagnosis Give Final Diagnosis Postoperative pain/vaginal cuff hematoma MARISOL ROMO Oct 02, 2018 15:14 BROOKE SY MD Oct 03, 2018 08:01
== END 2018-09-24 12:07 | disposition home or self-care (01) ==
LOC: EDUNIT# 00:17 → ER 00:21 → WS 03:45 → UNDOADMIN 03:45 → WS 04:45 → UNDODISIN 12:12
PROVIDERS: ADMIT Obstetrics & Gynecology; ATTEND Obstetrics & Gynecology
DX: G89.18 Other acute postprocedural pain (principal); N99.820 Postprocedural hemorrhage of a genitourinary system organ or structure following a genitourinary system procedure; T81.49XA Infection following a procedure, other surgical site, initial encounter; N73.0 Acute parametritis and pelvic cellulitis; E11.9 Type 2 diabetes mellitus without complications; J45.909 Unspecified asthma, uncomplicated; E78.00 Pure hypercholesterolemia, unspecified; K21.9 Gastro-esophageal reflux disease without esophagitis; F17.210 Nicotine dependence, cigarettes, uncomplicated
CPT/HCPCS: 36415; 74177; 80053; 81000; 83605; 85025; 85610; 85730; 87040; 87088; 96365; 96375; G0378

== ENCOUNTER 2018-10-12 19:35 | Emergency (ER) | payer MEDICAID ==
[~2018-10-12] VITALS: Ht 160 cm; Wt 88.6 kg
[2018-10-12] MEDS ORDERED: CYCL5TAB PO (20:01)
[2018-10-12 20:12] LABS: BILIRUBIN,URINE NEGATIVE (NEGATIVE); CLARITY,URINE VERY CLOUDY; COLOR,URINE YELLOW; GLUCOSE, URINE (UA) NEGATIVE (NEGATIVE); KETONES,URINE NEGATIVE (NEGATIVE); LEUKOCYTE ESTERASE ,URINE 2+ (NEGATIVE); NITRITE,URINE NEGATIVE (NEGATIVE); PH,URINE 8 (5-9); PROTEIN,URINE NEGATIVE (NEGATIVE); UROBILINOGEN,URINE NORMAL (NORMAL)
[2018-10-12 20:19] LABS: AMORPHOUS SEDIMENT,UR MOD AMOR PHOSPHATE /LPF; BACTERIA,URINE TRACE /HPF; WBC,URINE 0-2 /HPF
[2018-10-12 20:28] LABS: BASOPHILS # (AUTO) 0.1 10^3/uL (0.0-0.1); BASOPHILS % (AUTO) 1 % (0-10); EOSINOPHILS # (AUTO) 0.9 10^3/uL (0.0-0.3); EOSINOPHILS % (AUTO) 9 % (0-10); HEMATOCRIT 40 % (35-52); HEMOGLOBIN 13.5 G/DL (11.5-16.0); LYMPHOCYTES # (AUTO) 5.3 X 10^3 (1.0-4.0); LYMPHOCYTES % (AUTO) 49 % (12-44); MEAN CORPUSCULAR HEMOGLOBIN 30 PG (25-34); MEAN CORPUSCULAR HGB CONC 34 G/DL (32-36); MEAN CORPUSCULAR VOLUME 90 FL (80-99); MEAN PLATELET VOLUME 9.5 FL (7.4-10.4); MONOCYTES # (AUTO) 1.1 X 10^3 (0.0-1.0); MONOCYTES % (AUTO) 10 % (0-12); NEUTROPHILS # (AUTO) 3.5 X 10^3 (1.8-7.8); NEUTROPHILS % (AUTO) 32 % (42-75); PLATELET COUNT 316 10^3/uL (130-400); RED CELL DISTRIBUTION WIDTH 14.2 % (10.0-14.5); WHITE BLOOD COUNT 10.9 10^3/uL (4.3-11.0)
[2018-10-12] MEDS ORDERED: fentaNYL INJECTION 100 MCG/2 ML AMP IVP ONE (20:30)
[2018-10-12 20:43] LABS: ALANINE AMINOTRANSFERASE 16 U/L (0-55); ALBUMIN 4.2 GM/DL (3.2-4.5); ALKALINE PHOSPHATASE 76 U/L (40-136); AMYLASE 60 U/L (25-125); BILIRUBIN,TOTAL 0.1 MG/DL (0.1-1.0); BUN/CREATININE RATIO 8; CALCIUM 9.3 MG/DL (8.5-10.1); CARBON DIOXIDE 25 MMOL/L (21-32); CHLORIDE 107 MMOL/L (98-107); CREATININE SERUM 0.83 MG/DL (0.60-1.30); GFR ESTIMATED > 60; GLUCOSE 116 MG/DL (70-105); LIPASE 112 U/L (8-78); POTASSIUM 3.7 MMOL/L (3.6-5.0); SODIUM 140 MMOL/L (135-145); TOTAL PROTEIN 6.8 GM/DL (6.4-8.2)
[2018-10-12] MEDS ORDERED: NS 100 ML (IVPB) BAG IV ONE (21:15)
[2018-10-12] MEDS ORDERED: IOHEXOL 350 MG/ML 100 ML (OMNIPAQUE 350) VIAL IV ONE (21:15)
[2018-10-12] MEDS ORDERED: CATHETER FLUSH 10 ML SYR IV PRN (21:15)
[2018-10-12] MEDS ORDERED: RECEIVED CONTRAST (Hold Metformin) IV SCH (21:15)
[2018-10-12] MEDS ORDERED: ONDANSETRON 4 MG/2 ML (SDV) Z0FRAN IVP ONE (21:30)
--- NOTE | 2018-10-12 21:40 | Diagnostic Imaging Report ---
PROCEDURE: CT abdomen and pelvis with contrast. TECHNIQUE: Multiple contiguous axial images were obtained through the abdomen and pelvis after administration of intravenous contrast. INDICATION: Lower pelvic pain with nausea and vomiting COMPARISON: 09/24/2018 FINDINGS: Included portions of the lung bases are clear. CT abdomen: Normal appendix is identified. Small bowel loops are nondistended. The kidneys, adrenal glands, spleen, pancreas, and liver have a normal CT appearance. Gallbladder is decompressed. There is no loculated fluid collection, free fluid, nor free air within the abdomen. A few scattered prominent appearing, yet subcentimeter mesenteric and retroperitoneal lymph nodes are noted. Appearance is stable compared to 09/24/2018. Bony structures show no acute abnormalities. CT pelvis: Urinary bladder is grossly unremarkable. Again identified is suspicious focal fluid collection superior to the vaginal cuff. It measures 2 x 1.7 cm. This is decreased in size compared to 3.4 x 2.1 cm previously. There is no free fluid or free air within the pelvis. Bony structures show no acute abnormalities. IMPRESSION: 1. Stable multiple mildly prominent mesenteric and retroperitoneal lymph nodes of uncertain clinical significance or etiology. 2. Interval decrease in focal fluid collection within the pelvis superior to the vaginal cuff suspicious for abscess. Dictated by: Dictated on workstation # [id number]
[2018-10-12] MEDS ORDERED: cefTRIAXone FOR IV USE 1,000 MG in WATER (STERILE) FOR INJECTION 10 ML IV ONE (22:00)
[2018-10-12] MEDS ORDERED: ACHD5005 PO (22:04)
[2018-10-12] MEDS ORDERED: METR500T PO (22:04)
[2018-10-12] MEDS ORDERED: CIPR-225 PO (22:04)
--- NOTE | 2018-10-12 22:04 | ED Abdominal Pain ---
General Chief Complaint: -Female Stated Complaint: PELVIC PAIN Nursing Triage Note: PATIENT AMBULATORY TO ER WITH COMPLAINT OF PAIN TO LOWER ABDOMEN/PELVIS AREA. PATIENT STATES SHE HAS PAIN WITH STRAINING TO URINATE AND ALSO FEELING OF NEEDING TO URINATE BUT CAN'T. SHE WAS SEEN ON Sep IN ER AND HOSPITALIZED WITH ABSCESS TO PELVIS. PATIENT DENIES ANY DISCHARGE OR BLEEDING. Sepsis Screen: No Definite Risk Source of Information: Patient Exam Limitations: No Limitations History of Present Illness Date Seen by Provider: Oct 12, 2018 Time Seen by Provider: 19:50 Allergies and Home Medications Allergies Coded Allergies: tramadol (Verified Allergy, Severe, TACHYCARDIA, 10/12/18) Penicillins (Verified Allergy, Mild, SWELLING, 10/12/18) prednisone (Verified Allergy, Mild, REDNESS/SWELLING, 10/12/18) Home Medications Ciprofloxacin HCl 500 Mg Tablet, 500 MG PO BID Prescribed by: JEREMIAH FELIZ on 10/12/182203 Hydrocodone Bit/Acetaminophen 1 Tab Tab, 1-2 EACH PO Q6H PRN for PAIN-MODERATE Prescribed by: JEREMIAH FELIZ on 10/12/18 220 Ibuprofen 600 Mg Tablet, 600 MG PO Q6H PRN for PAIN-MODERATE Prescribed by: JOSE E GILMORE on 09/06/18 1145 Metronidazole 500 Mg Tablet, 500 MG PO BID Prescribed by: JEREMIAH FELIZ on 10/12/182203 Past Lvhhldx-Ezqztz-Lfmbzj Hx Patient Social History Alcohol Use: Denies Use Recreational Drug Use: No Smoking Status: Current Everyday Smoker Type Used: Cigarettes 2nd Hand Smoke Exposure: Yes Recent Foreign Travel: No Contact w/Someone Who Travel: No Recent Infectious Disease Expo: No Recent Hopitalizations: Yes (Sep FOR PELVIC ABSCESS) Physical Abuse: No Sexual Abuse: No Immunizations Up To Date Tetanus Booster (TDap): More than 5yrs PED Vaccines UTD: Yes Date of Pneumonia Vaccine: Jun 21, 2017 Date of Influenza Vaccine: May 21, 2018 Seasonal Allergies Seasonal Allergies: No Past Medical History Surgeries: Yes (BILAT CTR, BRAIN SURGERY-AVM) Bowel Surgery, Hysterectomy, Neurological, Rectal, Tubal Ligation Respiratory: Yes (CHILDHOOD ASTHMA) Asthma Currently Using CPAP: No Currently Using BIPAP: No Cardiac: Yes High Cholesterol Neurological: Yes (SURGICAL REPAIR OF BRAIN AV MALFORMATION) Headaches /Migraines 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 (CERVICAL DYSPLASIA--S/P LEEP X 3) Female 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 Disorders: 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 Sexually Transmitted Disease: No HIV/AIDS: No Genitourinary: No Gastrointestinal: Yes (ANAL CONDYLOMA--"PRECANCEROUS TUMORS" ; PERIRECTAL ABSCESSES/FISTULAS) Gastroesophageal Reflux Musculoskeletal: No Endocrine: No Diabetes, Non-Insulin dep HEENT: Yes (GLASSES) Loss of Vision: Bilateral Hearing Impairment: Denies Cancer: Yes (cervical dysplasia) Colon, Ovarian Did You Recieve Any Treatments: Yes What Type of Treatment Did You: Surgical Intervention Psychosocial: No Integumentary: No Blood Disorders: No Adverse Reaction/Blood Tranf: No (N/A) Family Medical History Arthritis 19 FATHER 19 MOTHER Asthma 19 FATHER G8 BROTHER Cataracts 19 MOTHER Diabetes mellitus 19 FATHER Headache disorder 19 MOTHER Hypercholesterolemia 19 MOTHER Seizure disorder 19 FATHER G8 BROTHER Physical Exam Vital Signs Vital Signs - First Documented 10/12/18 19:50 Temp 98.3 Pulse 85 Resp 16 B/P (MAP) 143/72 (95) Capillary Refill : Less Than 3 Seconds Height/Weight/BMI Height: 5'3.00" Weight: 195lbs. 6.0oz. [id number]; 34.6 BMI Method:Stated Progress/Results/Core Measures Results/Orders Lab Results Laboratory Tests Test 10/12/18 20:00 10/12/18 20:05 Range/Units Urine Color YELLOW Urine Clarity VERY CLOUDY H Urine pH 8 5-9 Urine Specific [place] 1.015 L 1.016-1.022 Urine Protein NEGATIVE NEGATIVE Urine Glucose (UA) NEGATIVE NEGATIVE Urine Ketones NEGATIVE NEGATIVE Urine Nitrite NEGATIVE NEGATIVE Urine Bilirubin NEGATIVE NEGATIVE Urine Urobilinogen NORMAL NORMAL MG/DL Urine Leukocyte Esterase 2+ H NEGATIVE Urine RBC (Auto) NEGATIVE NEGATIVE Urine RBC NONE /HPF Urine WBC 0-2 /HPF Urine Squamous Epithelial Cells 2-5 /HPF Urine Crystals PRESENT H /LPF Urine Amorphous Sediment MOD DAVIDSON PHOSPHATE H /LPF Urine Bacteria TRACE /HPF Urine Casts NONE /LPF Urine Mucus NEGATIVE /LPF Urine Culture Indicated NO White Blood Count 10.9 4.3-11.0 10^3/uL Red Blood Count 4.46 4.35-5.85 10^6/uL Hemoglobin 13.5 11.5-16.0 G/DL Hematocrit 40 35-52 % Mean Corpuscular Volume 90 80-99 FL Mean Corpuscular Hemoglobin 30 25-34 PG Mean Corpuscular Hemoglobin Concent 34 32-36 G/DL Red Cell Distribution Width 14.2 10.0-14.5 % Platelet Count 316 130-400 10^3/uL Mean Platelet Volume 9.5 7.4-10.4 FL Neutrophils (%) (Auto) 32 L 42-75 % Lymphocytes (%) (Auto) 49 H 12-44 % Monocytes (%) (Auto) 10 0-12 % Eosinophils (%) (Auto) 9 0-10 % Basophils (%) (Auto) 1 0-10 % Neutrophils # (Auto) 3.5 1.8-7.8 X 10^3 Lymphocytes # (Auto) 5.3 H 1.0-4.0 X 10^3 Monocytes # (Auto) 1.1 H 0.0-1.0 X 10^3 Eosinophils # (Auto) 0.9 H 0.0-0.3 10^3/uL Basophils # (Auto) 0.1 0.0-0.1 10^3/uL Sodium Level 140 135-145 MMOL/L Potassium Level 3.7 3.6-5.0 MMOL/L Chloride Level 107 98-107 MMOL/L Carbon Dioxide Level 25 21-32 MMOL/L Anion Gap 8 5-14 MMOL/L Blood Urea Nitrogen 7 7-18 MG/DL Creatinine 0.83 0.60-1.30 MG/DL Estimat Glomerular Filtration Rate > 60 BUN/Creatinine Ratio 8 Glucose Level 116 H 70-105 MG/DL Calcium Level 9.3 8.5-10.1 MG/DL Corrected Calcium 9.1 8.5-10.1 MG/DL Total Bilirubin 0.1 0.1-1.0 MG/DL Aspartate Amino Transf (AST/SGOT) 18 5-34 U/L Alanine Aminotransferase (ALT/SGPT) 16 0-55 U/L Alkaline Phosphatase 76 40-136 U/L Total Protein 6.8 6.4-8.2 GM/DL Albumin 4.2 3.2-4.5 GM/DL Amylase Level 60 25-125 U/L Lipase 112 H 8-78 U/L My Orders Orders - BERNOT,JEREMIAH Ua Culture If Indicated (10/12/18 19:59) Comprehensive Metabolic Panel (10/12/18 20:21) Lipase (10/12/18 20:21) Amylase (10/12/18 20:21) Saline Lock/Iv-Start (10/12/18 20:21) Cbc With Automated Diff (10/12/18 20:21) Fentanyl Injection (Sublimaze Injection (10/12/18 20:30) Ct Abdomen/Pelvis W (10/12/18 20:34) Iohexol Injection (Omnipaque 350 Mg/Ml 1 (10/12/18 21:15) Contrast Received (Contrast Received) (10/12/18 21:15) Sodium Chloride Flush (Catheter Flush Sy (10/12/18 21:15) Ns (Ivpb) (Sodium Chloride 0.9% Ivpb Bag (10/12/18 21:15) Ondansetron Injection (Zofran Injectio (10/12/18 21:30) Ceftriaxone For Iv Use (Rocephin For I (10/12/18 22:00) Rx-Hydrocodone/Apap 5-325 Mg (Rx-Vicodin (10/12/18 22:15) Medications Given in ED Current Medications Medications Dose Ordered Sig/Maryse Route Start Time Stop Time Status Last Admin Dose Admin Ceftriaxone Sodium 1000 mg/ Sterile Water 10 ml @ 200 mls/hr ONCE ONCE IV 10/12/18 22:00 10/12/18 22:02 DC 10/12/18 22:00 200 MLS/HR Fentanyl Citrate 50 mcg ONCE ONCE IVP 10/12/18 20:30 10/12/18 20:31 DC 10/12/18 20:35 50 MCG Iohexol 100 ml ONCE ONCE IV 10/12/18 21:15 10/12/18 21:16 DC 10/12/18 21:20 100 ML Ondansetron HCl 8 mg ONCE ONCE IVP 10/12/18 21:30 10/12/18 21:31 DC 10/12/18 21:37 8 MG Sodium Chloride 10 ml NEEDED PRN IV 10/12/18 21:15 10/12/18 21:20 10 ML Sodium Chloride 100 ml ONCE ONCE IV 10/12/18 21:15 10/12/18 21:16 DC 10/12/18 21:20 100 ML Vital Signs/I&O 10/12/18 19:50 Temp 98.3 Pulse 85 Resp 16 B/P (MAP) 143/72 (95) Blood Pressure Mean: 95 Progress Progress Note : Time: 22:00 Progress Note I have seen and evaluated the patient. I have informed her of her imaging studies. I did discuss the case with Dr. Moise the SAMPLE PREP TECHNICIAN on-call. He recommends placing the patient back on Cipro and Flagyl combination for antibiotic coverage and having her follow up with Dr. GILMORE within 1 week for recheck. She agrees with plan of care, plans for discharge, return precautions were given. Departure Impression Primary Impression: Pelvic abscess Disposition: HOME, SELF-CARE Condition: Stable/Unchanged Departure-Patient Inst. Decision time for Depature: 22:02 Referrals: [facility] [place] (PCP/Family) Primary Care Physician Patient Instructions: ABSCESS Add. Discharge Instructions: Take medications as directed. You may use Tylenol and ibuprofen in addition to your pain medication. Call Dr. Gilmore's office first thing Monday for an appointment time. Return back to the emergency room should you develop fever , worsening pain, or any other concerns as needed. All discharge instructions reviewed with patient and/or family. Voiced understanding. Scripts Hydrocodone Bit/Acetaminophen (Hydrocodone/Acetaminophen 5/325mg Tablet) 1 Tab Tab 1-2 EACH PO Q6H PRN for PAIN-MODERATE MDD 10, #14 TAB Prov: JEREMIAH FELIZ 10/12/18 Metronidazole (Flagyl) 500 Mg Tablet 500 MG PO BID for 7 Days, #14 TAB Prov: JEREMIAH FELIZ 10/12/18 Ciprofloxacin HCl (Cipro) 500 Mg Tablet 500 MG PO BID for 7 Days, #14 TAB Prov: JEREMIAH FELIZ 10/12/18 JEREMIAH FELIZ Oct 12, 2018 22:04
[2018-10-12] MEDS ORDERED: RX-HYDROCODONE/APAP 5/325 MG #4 TAB PK PO PRN (22:15)
[2018-10-12 22:19] VITALS: BP 143/72
== END 2018-10-12 22:20 | disposition home or self-care (01) ==
LOC: EDUNIT# 19:35 → ER 19:36
DX: K65.1 Peritoneal abscess (principal); J45.909 Unspecified asthma, uncomplicated; E78.00 Pure hypercholesterolemia, unspecified; G43.909 Migraine, unspecified, not intractable, without status migrainosus; K21.9 Gastro-esophageal reflux disease without esophagitis; E11.9 Type 2 diabetes mellitus without complications; Z85.038 Personal history of other malignant neoplasm of large intestine; Z85.43 Personal history of malignant neoplasm of ovary; Z82.49 Family history of ischemic heart disease and other diseases of the circulatory system; Z87.448 Personal history of other diseases of urinary system; Z88.6 Allergy status to analgesic agent; Z88.0 Allergy status to penicillin; Z88.8 Allergy status to other drugs, medicaments and biological substances; Z98.890 Other specified postprocedural states; Z90.710 Acquired absence of both cervix and uterus; Z98.51 Tubal ligation status
CPT/HCPCS: 36415; 74177; 80053; 81000; 82150; 83690; 85025; 96374; 96375

== ENCOUNTER 2018-10-31 20:28 | Emergency (ER) | payer MEDICAID ==
[~2018-10-31] VITALS: Ht 160 cm; Wt 88.6 kg
[~2018-10-31 20:28] MED LIST changes: +CYCL5TAB PO
[2018-10-31] MEDS ORDERED: LACTATED RINGERS 1,000 ML IV ONE ×2 (21:18)
--- NOTE | 2018-10-31 21:27 | ED Abdominal Pain ---
General Chief Complaint: Skin/Wound Problems Stated Complaint: PELVIC PAIN Nursing Triage Note: ABCESS PAIN. Sepsis Screen: No Definite Risk Source of Information: Patient, Family Exam Limitations: No Limitations History of Present Illness Date Seen by Provider: Oct 31, 2018 Time Seen by Provider: 21:14 Initial Comments The patient presents to ER by private conveyance with chief complaint of continuing suprapubic abdominal pain. She says it's intermittent, sharp, stabbing. She says the nothing in particular makes it worse. She was using Tylenol to control it but that was not helping. She had a hysterectomy done by Dr. GILMORE approximately one to 2 months ago. She's been in twice since then had some free fluid in the pelvis but normal labs so she was put on antibiotic sent outpatient she followed up within it and he said continue this and she has not seen him since. She's been having nausea and nausea medicines take care of that she's not right now. Eating and drinking normally. She said she had a fever this morning of 100.3F. She took some Tylenol which helped with her fever but not with her pain. She's not had any Tylenol or Motrin since this morning. Allergies and Home Medications Allergies Coded Allergies: tramadol (Verified Allergy, Severe, TACHYCARDIA, 10/12/18) Penicillins (Verified Allergy, Mild, SWELLING, 10/12/18) prednisone (Verified Allergy, Mild, REDNESS/SWELLING, 10/12/18) Home Medications Ibuprofen 600 Mg Tablet, 600 MG PO Q6H PRN for PAIN-MODERATE Prescribed by: JOSE E GILMORE on 09/06/18 1145 Patient Home Medication List Home Medication List Reviewed: Yes Review of Systems Review of Systems Constitutional: chills, fever, malaise EENTM: No Blurred Vision, No Double Vision Respiratory: Denies Cough, Denies Shortness of Air, Denies SOA With Exertion, Denies Wheezing Cardiovascular: Denies Chest Pain, Denies Edema Gastrointestinal: See HPI; Denies Abdomen Distended; Abdominal Pain; Denies Blood Streaked Stools, Denies Constipated, Denies Diarrhea; Nausea; Denies Poor Fluid Intake; Vomiting Genitourinary: Burning; Denies Discharge Musculoskeletal: No back pain, No joint pain Skin: No pruritus, No rash Psychiatric/Neurological: Denies Headache, Denies Numbness Past Kesfeqh-Orujth-Lavpdq Hx Patient Social History Alcohol Use: Denies Use Recreational Drug Use: No Smoking Status: Current Everyday Smoker Type Used: Cigarettes 2nd Hand Smoke Exposure: Yes Recent Foreign Travel: No Contact w/Someone Who Travel: No Recent Infectious Disease Expo: No Recent Hopitalizations: Yes (PELVIC ABSCESS) Immunizations Up To Date Tetanus Booster (TDap): More than 5yrs PED Vaccines UTD: Yes Date of Pneumonia Vaccine: Jun 21, 2017 Date of Influenza Vaccine: May 21, 2018 Seasonal Allergies Seasonal Allergies: No Past Medical History Surgeries: Yes (BILAT CTR, BRAIN SURGERY-AVM) Bowel Surgery, Hysterectomy, Neurological, Rectal, Tubal Ligation Respiratory: Yes (CHILDHOOD ASTHMA) Asthma Currently Using CPAP: No Currently Using BIPAP: No Cardiac: Yes High Cholesterol Neurological: Yes (SURGICAL REPAIR OF BRAIN AV MALFORMATION) Headaches /Migraines : No 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 (CERVICAL DYSPLASIA--S/P LEEP X 3) Female 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 Sexually Transmitted Disease: No HIV/AIDS: No Genitourinary: No Gastrointestinal: Yes (PERIRECTAL ABSCESSES/FISTULAS) Gastroesophageal Reflux Musculoskeletal: No Endocrine: No Diabetes, Non-Insulin dep HEENT: No Loss of Vision: Bilateral Hearing Impairment: Denies Cancer: Yes (cervical dysplasia) Colon, Ovarian Did You Recieve Any Treatments: Yes What Type of Treatment Did You: Surgical Intervention Psychosocial: No Integumentary: No Blood Disorders: No Adverse Reaction/Blood Tranf: No (N/A) Family Medical History Arthritis 19 FATHER 19 MOTHER Asthma 19 FATHER G8 BROTHER Cataracts 19 MOTHER Diabetes mellitus 19 FATHER Headache disorder 19 MOTHER Hypercholesterolemia 19 MOTHER Seizure disorder 19 FATHER G8 BROTHER Physical Exam Vital Signs Vital Signs - First Documented 10/31/18 20:46 Temp 98.1 Pulse 100 Resp 18 B/P (MAP) 131/79 (96) Pulse Ox 98 O2 Delivery Room Air Capillary Refill : Less Than 3 Seconds Height/Weight/BMI Height: 5'3.00" Weight: 195lbs. 6.0oz. 88.627457oi; 34.6 BMI Method:Stated General Appearance: WD/WN, no apparent distress HEENT: PERRL/EOMI, pharynx normal Respiratory: no respiratory distress, no accessory muscle use Cardiovascular: normal peripheral pulses, regular rate, rhythm, no edema Peripheral Pulses: 2+ Dorsalis Pedis (R), 2+ Left Dors-Pedis (L) Gastrointestinal: normal bowel sounds, soft; No rebound; tenderness ( Suprapubic region), other (. Negative for pain over McBurney's point or mesenteric signs.) Focused Exam Lactate Level 10/31/18 21:30: Lactic Acid Level 1.18 Lactic Acid Level Laboratory Tests Test 10/31/18 21:30 Lactic Acid Level 1.18 MMOL/L (0.50-2.00) Progress/Results/Core Measures Results/Orders Lab Results Laboratory Tests Test 10/31/18 21:20 10/31/18 21:30 Range/Units Urine Color YELLOW Urine Clarity SLIGHTLY CLOUDY Urine pH 6 5-9 Urine Specific [place] 1.015 L 1.016-1.022 Urine Protein NEGATIVE NEGATIVE Urine Glucose (UA) NEGATIVE NEGATIVE Urine Ketones NEGATIVE NEGATIVE Urine Nitrite NEGATIVE NEGATIVE Urine Bilirubin NEGATIVE NEGATIVE Urine Urobilinogen NORMAL NORMAL MG/DL Urine Leukocyte Esterase 1+ H NEGATIVE Urine RBC (Auto) 1+ H NEGATIVE Urine RBC RARE /HPF Urine WBC 0-2 /HPF Urine Squamous Epithelial Cells 0-2 /HPF Urine Crystals NONE /LPF Urine Bacteria TRACE /HPF Urine Casts NONE /LPF Urine Mucus NEGATIVE /LPF Urine Culture Indicated NO White Blood Count 15.8 H 4.3-11.0 10^3/uL Red Blood Count 4.69 4.35-5.85 10^6/uL Hemoglobin 14.2 11.5-16.0 G/DL Hematocrit 41 35-52 % Mean Corpuscular Volume 87 80-99 FL Mean Corpuscular Hemoglobin 30 25-34 PG Mean Corpuscular Hemoglobin Concent 35 32-36 G/DL Red Cell Distribution Width 14.1 10.0-14.5 % Platelet Count 356 130-400 10^3/uL Mean Platelet Volume 9.3 7.4-10.4 FL Neutrophils (%) (Auto) 62 42-75 % Lymphocytes (%) (Auto) 27 12-44 % Monocytes (%) (Auto) 8 0-12 % Eosinophils (%) (Auto) 2 0-10 % Basophils (%) (Auto) 1 0-10 % Neutrophils # (Auto) 9.8 H 1.8-7.8 X 10^3 Lymphocytes # (Auto) 4.3 H 1.0-4.0 X 10^3 Monocytes # (Auto) 1.3 H 0.0-1.0 X 10^3 Eosinophils # (Auto) 0.3 0.0-0.3 10^3/uL Basophils # (Auto) 0.1 0.0-0.1 10^3/uL Neutrophils % (Manual) 62 % Lymphocytes % (Manual) 33 % Monocytes % (Manual) 1 % Eosinophils % (Manual) 4 % Basophils % (Manual) 0 % Band Neutrophils 0 % Blood Morphology Comment NORMAL Prothrombin Time 13.1 12.2-14.7 SEC INR Comment 1.0 0.8-1.4 Activated Partial Thromboplast Time 35 24-35 SEC Sodium Level 140 135-145 MMOL/L Potassium Level 3.6 3.6-5.0 MMOL/L Chloride Level 105 98-107 MMOL/L Carbon Dioxide Level 23 21-32 MMOL/L Anion Gap 12 5-14 MMOL/L Blood Urea Nitrogen 8 7-18 MG/DL Creatinine 0.78 0.60-1.30 MG/DL Estimat Glomerular Filtration Rate > 60 BUN/Creatinine Ratio 10 Glucose Level 116 H 70-105 MG/DL Lactic Acid Level 1.18 0.50-2.00 MMOL/L Calcium Level 8.8 8.5-10.1 MG/DL Corrected Calcium 8.6 8.5-10.1 MG/DL Total Bilirubin 0.2 0.1-1.0 MG/DL Aspartate Amino Transf (AST/SGOT) 19 5-34 U/L Alanine Aminotransferase (ALT/SGPT) 20 0-55 U/L Alkaline Phosphatase 78 40-136 U/L Total Protein 7.3 6.4-8.2 GM/DL Albumin 4.3 3.2-4.5 GM/DL Lipase 61 8-78 U/L My Orders Orders - OTILIA CLEMENTS Cbc With Automated Diff (10/31/18 21:18) Comprehensive Metabolic Panel (10/31/18 21:18) Blood Culture (10/31/18 21:18) Urinalysis (10/31/18 21:18) Urine Culture (10/31/18 21:18) Protime With Inr (10/31/18 21:18) Partial Thromboplastin Time (10/31/18 21:18) Saline Lock/Iv-Start (10/31/18 21:18) Saline Lock/Iv-Start (10/31/18 21:18) Lactic Acid Analyzer (10/31/18 21:18) Lactated Ringers (Lr 1000 Ml Iv Solution (10/31/18 21:18) Ceftriaxone For Iv Use (Rocephin For I (10/31/18 21:30) Lipase (10/31/18 21:18) Metronidazole 500mg/100ml Ivpb (Flagyl 5 (10/31/18 21:30) Ketorolac Injection (Toradol Injection) (10/31/18 21:30) Saline Lock/Iv-Start (10/31/18 21:18) Lactated Ringers (Lr 1000 Ml Iv Solution (10/31/18 21:18) Neis Glenn Dna Urine Test (10/31/18 21:27) Chlam Dna Probe (10/31/18 21:27) Manual Differential (10/31/18 21:30) Medications Given in ED Current Medications Medications Dose Ordered Sig/Maryse Route Start Time Stop Time Status Last Admin Dose Admin Ceftriaxone Sodium 1000 mg/ Sterile Water 10 ml @ 200 mls/hr ONCE ONCE IV 10/31/18 21:30 10/31/18 21:32 DC 10/31/18 21:54 200 MLS/HR Ketorolac Tromethamine 30 mg ONCE ONCE IVP 10/31/18 21:30 10/31/18 21:31 DC 10/31/18 21:32 30 MG Lactated Ringer's 1,000 ml @ 0 mls/hr Q0M ONCE IV 10/31/18 21:18 10/31/18 21:22 DC 10/31/18 21:31 0 MLS/HR Lactated Ringer's 1,000 ml @ 0 mls/hr Q0M ONCE IV 10/31/18 21:18 10/31/18 21:22 DC 10/31/18 21:32 0 MLS/HR Metronidazole 100 ml @ 100 mls/hr ONCE ONCE IV 10/31/18 21:30 10/31/18 22:29 DC 10/31/18 21:54 100 MLS/HR Vital Signs/I&O 10/31/18 20:46 Temp 98.1 Pulse 100 Resp 18 B/P (MAP) 131/79 (96) Pulse Ox 98 O2 Delivery Room Air 11/01/18 00:00 Intake Total 2110 ml Balance 2110 ml Blood Pressure Mean: 96 Progress Progress Note #1: Time: 21:26 Progress Note PID Versus abscess versus ovarian cyst versus other. Obtain urine, labs, blood cultures and lactate. Her heart rate elevated she has a reported history of fever but she is afebrile now she's been off Tylenol for over 12 hours. Toradol for her pain. She's not having any nausea right now. 20 mL/kg would be about 1800 cc we'll give her 2 L of LR. Start with Rocephin and Flagyl which would treat abscess versus pelvic inflammatory disease. Month with complaints of dysuria but the urine was unremarkable. Interstitial cystitis or other inflammatory changes or possible and might be ruled out outpatient by urology. CT of the abdomen and pelvis from October 12, 2018 demonstrated interval decrease in fluid collection the vaginal cuff suspicious for abscess. 2 x 1.7 cm versus 3.4 x 2.1 cm previously on September 24, 2018. Progress Note #2: Time: 01:07 Progress Note Patient received only modest relief from Toradol. We've instructed her that we' re not going to put her on antibiotics or any opiates as we are trying not to cause side effects which would make her workup and diagnosis more compensated. She is comfortable with that. She can use Tylenol and ibuprofen heating pads tepid baths etc. I suspect that she may have a hemorrhagic cyst causing her symptoms or there may be something with the bladder. Either way are plan moving forward is to get an ultrasound outpatient follow-up with Dr. GILMORE next Monday at her scheduled appointment and if they cannot come up with a reason for her abdominal discomfort then she should talk to her primary care doctor about her referral to urology since she's having consistent symptoms of dysuria without evidence of urinary tract infection. Her white count is modestly elevated at 15,000 however she does not have a left shift and we have not found a source for infection yet. Diagnostic Imaging Diagonstic Imaging: CT Plain Films/CT/US/NM/MRI: abdomen, pelvis Comments Thick-walled cystic mass right adnexa measuring 4.2 cm x 4.6 cm x 4 cm. This may represent hemorrhagic cyst. Recommend pelvic ultrasound with attention to the right ovary. The patient is post hysterectomy. Prior imaging demonstrated a small encapsulated Fluid Collection in the [place] Which Is No Longer Evident Today. Reviewed: Reviewed [place] Study, Reviewed by Me Departure Impression Primary Impression: Adnexal cyst Disposition: 01 HOME, SELF-CARE Condition: Stable Departure-Patient Inst. Decision time for Depature: 01:06 Referrals: [facility] (PCP/Family) Primary Care Physician JOSE E GILMORE DO Patient Instructions: Ovarian Cyst (DC) Add. Discharge Instructions: Tomorrow morning call and set up your ultrasound of the pelvis. Results will be faxed to Dr. GILMORE and he will follow-up next week at your scheduled appointment. Take Tylenol thousand milligrams every 8 hours in addition to ibuprofen 800 mg every 8 hours and use heat and rest. If your pain becomes intractable or you start to have a fever or other worrisome symptoms you should return to the ER for further evaluation. All discharge instructions reviewed with patient and/or family. Voiced understanding. Copy Copies To 1: JOSE E GILMORE TITUS J Oct 31, 2018 21:27
[2018-10-31] MEDS ORDERED: cefTRIAXone FOR IV USE 1,000 MG in WATER (STERILE) FOR INJECTION 10 ML IV ONE (21:30)
[2018-10-31] MEDS ORDERED: KETOROLAC 30 MG/ML VIAL IVP ONE (21:30)
[2018-10-31] MEDS ORDERED: metroNIDAZOLE 500MG/100ML IVPB 100 ML IV ONE (21:30)
[2018-10-31 21:43] LABS: BILIRUBIN,URINE NEGATIVE (NEGATIVE); CLARITY,URINE SLIGHTLY CLOUDY; COLOR,URINE YELLOW; GLUCOSE, URINE (UA) NEGATIVE (NEGATIVE); KETONES,URINE NEGATIVE (NEGATIVE); LEUKOCYTE ESTERASE ,URINE 1+ (NEGATIVE); NITRITE,URINE NEGATIVE (NEGATIVE); PH,URINE 6 (5-9); PROTEIN,URINE NEGATIVE (NEGATIVE); UROBILINOGEN,URINE NORMAL (NORMAL)
[2018-10-31 21:44] LABS: BASOPHILS # (AUTO) 0.1 10^3/uL (0.0-0.1); BASOPHILS % (AUTO) 1 % (0-10); EOSINOPHILS # (AUTO) 0.3 10^3/uL (0.0-0.3); EOSINOPHILS % (AUTO) 2 % (0-10); HEMATOCRIT 41 % (35-52); HEMOGLOBIN 14.2 G/DL (11.5-16.0); LYMPHOCYTES # (AUTO) 4.3 X 10^3 (1.0-4.0); LYMPHOCYTES % (AUTO) 27 % (12-44); MEAN CORPUSCULAR HEMOGLOBIN 30 PG (25-34); MEAN CORPUSCULAR HGB CONC 35 G/DL (32-36); MEAN CORPUSCULAR VOLUME 87 FL (80-99); MEAN PLATELET VOLUME 9.3 FL (7.4-10.4); MONOCYTES # (AUTO) 1.3 X 10^3 (0.0-1.0); MONOCYTES % (AUTO) 8 % (0-12); NEUTROPHILS # (AUTO) 9.8 X 10^3 (1.8-7.8); NEUTROPHILS % (AUTO) 62 % (42-75); PLATELET COUNT 356 10^3/uL (130-400); RED CELL DISTRIBUTION WIDTH 14.1 % (10.0-14.5); WHITE BLOOD COUNT 15.8 10^3/uL (4.3-11.0)
[2018-10-31 21:49] LABS: BACTERIA,URINE TRACE /HPF; RBC,URINE RARE /HPF; SQUAMOUS EPITHELIAL CELL,UR 0-2 /HPF; WBC,URINE 0-2 /HPF
[2018-10-31 21:54] LABS: PROTHROMBIN TIME PATIENT 13.1 SEC (12.2-14.7)
[2018-10-31 22:01] LABS: BAND NEUTROPHILS 0 %; BASOPHILS % (MANUAL) 0 %; EOSINOPHILS % (MANUAL) 4 %; LYMPHOCYTES % (MANUAL) 33 %; MONOCYTES % (MANUAL) 1 %; NEUTROPHILS % (MANUAL) 62 %
[2018-10-31 22:02] LABS: RBC MORPH NORMAL
[2018-10-31 22:04] LABS: ALANINE AMINOTRANSFERASE 20 U/L (0-55); ALBUMIN 4.3 GM/DL (3.2-4.5); ALKALINE PHOSPHATASE 78 U/L (40-136); BILIRUBIN,TOTAL 0.2 MG/DL (0.1-1.0); BUN/CREATININE RATIO 10; CALCIUM 8.8 MG/DL (8.5-10.1); CARBON DIOXIDE 23 MMOL/L (21-32); CHLORIDE 105 MMOL/L (98-107); CREATININE SERUM 0.78 MG/DL (0.60-1.30); GFR ESTIMATED > 60; GLUCOSE 116 MG/DL (70-105); LIPASE 61 U/L (8-78); POTASSIUM 3.6 MMOL/L (3.6-5.0); SODIUM 140 MMOL/L (135-145); TOTAL PROTEIN 7.3 GM/DL (6.4-8.2)
[2018-11-01 01:20] VITALS: BP 99/51
--- NOTE | 2018-11-01 08:23 | Diagnostic Imaging Report ---
PROCEDURE: CT abdomen and pelvis with contrast. TECHNIQUE: Multiple contiguous axial images were obtained through the abdomen and pelvis after administration of intravenous contrast. INDICATION: Pelvic pain. History of abscess. CORRELATION STUDY: 10/12/2018 FINDINGS: LOWER THORAX: Groundglass opacities at the lung bases are present. No focal lobar consolidation. No significant effusion. LIVER: Mild diffuse low-attenuation suggestive of a least mild severity hepatic steatosis. No focal lesion. GALLBLADDER: Present and unremarkable. No bile duct dilatation. SPLEEN: Unremarkable. PANCREAS: Unremarkable. ADRENAL GLANDS: Unremarkable. KIDNEYS: Normal configuration. No calcification or obstruction. ABDOMINAL AORTA: Unremarkable, nonaneurysmal. GASTROINTESTINAL TRACT: No obstruction or inflammation. Normal appendix. URINARY BLADDER: Unremarkable. REPRODUCTIVE: There is a thickwalled, predominantly cystic mass within the right adnexa. This measured approximately 4.0 x 4.6 x 4.0 cm. There is some asymmetric increased dependent density present. This finding is changed from prior study. Post hysterectomy changes are present. A previously demonstrated small fluid collection in the pelvic cul-de-sac on prior study is not demonstrated, follow up. OSSEOUS STRUCTURES: No acute abnormality. OTHER: None. IMPRESSION: 1. Approximately 4.6 cm thickwalled cystic mass with suspect hematocrit level developed of the right adnexa. This may reflect a hemorrhagic right ovarian cyst. Pelvic ultrasound with attention to the right ovary is recommended. 2. Patient is post hysterectomy. Previously noted small amount of pelvic fluid has resolved. A preliminary report was provided by [employer]. Dictated by: Dictated on workstation # [id number]
== END 2018-11-01 01:21 | disposition home or self-care (01) ==
LOC: EDUNIT# 20:28 → ER 20:29
DX: N83.8 Other noninflammatory disorders of ovary, fallopian tube and broad ligament (principal); J45.909 Unspecified asthma, uncomplicated; K21.9 Gastro-esophageal reflux disease without esophagitis; E78.00 Pure hypercholesterolemia, unspecified; E11.9 Type 2 diabetes mellitus without complications; G43.909 Migraine, unspecified, not intractable, without status migrainosus; F17.210 Nicotine dependence, cigarettes, uncomplicated; Z88.6 Allergy status to analgesic agent; Z88.0 Allergy status to penicillin; Z88.8 Allergy status to other drugs, medicaments and biological substances; Z90.710 Acquired absence of both cervix and uterus; Z85.038 Personal history of other malignant neoplasm of large intestine; Z85.43 Personal history of malignant neoplasm of ovary; Z82.49 Family history of ischemic heart disease and other diseases of the circulatory system; Z98.51 Tubal ligation status; Z98.890 Other specified postprocedural states
CPT/HCPCS: 36415; 74177; 80053; 81000; 83605; 83690; 85007; 85027; 85610; 85730; 87040; 87088

== ENCOUNTER → 2018-11-13 | Outpatient (CLI) | payer MEDICAID ==
--- NOTE | 2018-11-13 14:05 | Diagnostic Imaging Report ---
PROCEDURE: US Non-ob pelvis comp/trans. TECHNIQUE: Multiple real-time grayscale images were obtained of the pelvis in various projections endovaginally. Transabdominal imaging was also performed. INDICATION: Ovarian cyst. Correlation is made with prior CT abdomen and pelvis study from 10/31/2018. FINDINGS: Uterus is surgically absent. Ovaries are not well visualized due to overlying bowel gas. There is a cystic mass in the right adnexa measuring 2.2 x 2.5 x 1.8 cm, perhaps accounting for the cystic mass noted on recent CT. However, this does appear to be decreased in size. Cyst on prior CT measured approximately 4.4 cm. Small amount of free fluid is identified in the cul-de-sac. IMPRESSION: Status post hysterectomy. There is a right adnexal cyst which has decreased in size since prior CT from 10/31/2018. Dictated by: Dictated on workstation # [id number]
== END ==
LOC: RAD 10:55
PROVIDERS: ATTEND Obstetrics & Gynecology
DX: N83.291 Other ovarian cyst, right side (principal); Z90.710 Acquired absence of both cervix and uterus
CPT/HCPCS: 76830; 76856

== ENCOUNTER 2019-01-04 14:01 | Emergency (ER) | payer SELFPAY ==
[~2019-01-04] VITALS: Ht 160 cm; Wt 85.7 kg
[2019-01-04] MEDS ORDERED: CYCLOBENZAPRINE 10 MG (FLEXERIL) TAB PO SCH (15:00)
[2019-01-04] MEDS ORDERED: KETOROLAC 60 MG/2 ML VIAL IM ONE (15:00)
[2019-01-04] MEDS ORDERED: HYDROcodone/APAP 10 MG/325 MG (LORTAB) TAB PO ONE (15:15)
--- NOTE | 2019-01-04 15:17 | ED Back Pain ---
General Chief Complaint: Back Problems Stated Complaint: BACK PAIN Nursing Triage Note: Ambulatory to triage. Pt c/o back pain between shoulder blades and L flank pain that radiates to the abdomen. Pt reports symptoms began yesterday and denies any injury. Pt reports using mother in law's persrciption pain patch with no relief. Pt unsure of medication. Pt reports taking "back and body" for pain today with no relief. Nursing Sepsis Screen: No Definite Risk Source of Information: Patient Exam Limitations: No Limitations History of Present Illness Date Seen by Provider: January 04, 2019 Time Seen by Provider: 15:00 Location: T-Spine Timing/Duration: 1 Day Associated Symptoms: denies symptoms Allergies and Home Medications Allergies Coded Allergies: tramadol (Verified Allergy, Severe, TACHYCARDIA, 10/12/18) Penicillins (Verified Allergy, Mild, SWELLING, 10/12/18) prednisone (Verified Allergy, Mild, REDNESS/SWELLING, 10/12/18) Home Medications Ibuprofen 600 Mg Tablet, 600 MG PO Q6H PRN for PAIN-MODERATE Prescribed by: JOSE E GILMORE on 09/06/18 1145 Patient Home Medication List Home Medication List Reviewed: Yes Review of Systems Constitutional: see HPI; No chills, No fever Musculoskeletal: see HPI, back pain All Other Systems Reviewed Negative Unless Noted: Yes Past Qiccgxr-Zagzlb-Tbbimv Hx Past Med/Social Hx: Reviewed Nursing Past Med/Soc Hx Patient Social History Alcohol Use: Denies Use Recreational Drug Use: No Smoking Status: Current Everyday Smoker Type Used: Cigarettes 2nd Hand Smoke Exposure: Yes Recent Foreign Travel: No Contact w/Someone Who Travel: No Recent Infectious Disease Expo: No Recent Hopitalizations: No Immunizations Up To Date Tetanus Booster (TDap): More than 5yrs PED Vaccines UTD: Yes Date of Pneumonia Vaccine: Jun 21, 2017 Date of Influenza Vaccine: May 21, 2018 Seasonal Allergies Seasonal Allergies: No Past Medical History Surgeries: Yes (BILAT CTR, BRAIN SURGERY-AVM) Bowel Surgery, Hysterectomy, Neurological, Rectal, Tubal Ligation Respiratory: Yes (CHILDHOOD ASTHMA) Asthma Currently Using CPAP: No Currently Using BIPAP: No Cardiac: Yes High Cholesterol Neurological: Yes (SURGICAL REPAIR OF BRAIN AV MALFORMATION) Headaches /Migraines 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 (CERVICAL DYSPLASIA--S/P LEEP X 3) Female 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 Sexually Transmitted Disease: No HIV/AIDS: No Genitourinary: No Gastrointestinal: Yes (PERIRECTAL ABSCESSES/FISTULAS) Gastroesophageal Reflux Musculoskeletal: No Endocrine: No Diabetes, Non-Insulin dep HEENT: No Loss of Vision: Bilateral Hearing Impairment: Denies Cancer: Yes (cervical dysplasia) Colon, Ovarian Did You Recieve Any Treatments: Yes What Type of Treatment Did You: Surgical Intervention Psychosocial: No Integumentary: No Blood Disorders: No Adverse Reaction/Blood Tranf: No (N/A) Family Medical History Reviewed Nursing Family Hx Arthritis 19 FATHER 19 MOTHER Asthma 19 FATHER G8 BROTHER Cataracts 19 MOTHER Diabetes mellitus 19 FATHER Headache disorder 19 MOTHER Hypercholesterolemia 19 MOTHER Seizure disorder 19 FATHER G8 BROTHER Physical Exam Vital Signs Vital Signs - First Documented 01/04/19 14:04 Temp 98.1 Pulse 83 Resp 14 Pulse Ox 98 O2 Delivery Room Air Capillary Refill : Less Than 3 Seconds Height, Weight, BMI Height: 5'3.00" Weight: 189lbs. 6.0oz. 85.435105jn; 34.6 BMI Method:Stated General Appearance: No Apparent Distress, WD/WN Cardiovascular: Regular Rate, Rhythm, No Edema, No Gallop, No JVD, No Murmur, Normal Peripheral Pulses Respiratory: Chest Non Tender, Lungs Clear, Normal Breath Sounds, No Accessory Muscle Use, No Respiratory Distress, Accessory Muscle Use Back: Normal Inspection, No CVA Tenderness, Vertebral Tenderness (thoracic) Neurologic/Psychiatric: Alert, Oriented x3, Normal Mood/Affect Skin: Normal Color, Warm/Dry Progress/Results/Core Measures Results/Orders My Orders Orders - JEREMIAH FELIZ Ketorolac Injection (Toradol Injection) (01/04/19 15:00) Cyclobenzaprine Tablet (Flexeril Tablet) (01/04/19 15:00) Hydrocodone/Apap 10/325 Tablet (Lortab 1 (01/04/19 15:15) Medications Given in ED Current Medications Medications Dose Ordered Sig/Maryse Route Start Time Stop Time Status Last Admin Dose Admin Acetaminophen/ Hydrocodone Bitart 1 ea ONCE ONCE PO 01/04/19 15:15 01/04/19 15:16 DC 01/04/19 15:53 1 EA Ketorolac Tromethamine 60 mg ONCE ONCE IM 01/04/19 15:00 01/04/19 15:01 DC 01/04/19 14:52 60 MG Vital Signs/I&O 01/04/19 14:04 Temp 98.1 Pulse 83 Resp 14 B/P (MAP) Pulse Ox 98 O2 Delivery Room Air Departure Impression Primary Impression: Back strain Disposition: HOME, SELF-CARE Condition: Stable/Unchanged Departure-Patient Inst. Decision time for Depature: 16:39 Referrals: [facility] (PCP/Family) Primary Care Physician Patient Instructions: Muscle Strain (DC) Add. Discharge Instructions: You may alternate ice and heat to the sore areas at 20 minute intervals. Take medications as directed. Follow-up with your primary care provider within 1 week for recheck. Tylenol and Motrin as directed by the bottle for pain relief. All discharge instructions reviewed with patient and/or family. Voiced understanding. Scripts Hydrocodone Bit/Acetaminophen (Hydrocodone/Acetaminophen 5/325mg Tablet) 1 Tab Tab 1 EACH PO Q4-6HR PRN for PAIN-MODERATE MDD 10 for 3 Days, #10 TAB Prov: JEREMIAH FELIZ 01/04/19 JEREMIAH FELIZ January 04, 2019 15:17
[2019-01-04] MEDS ORDERED: ACHD5005 PO (16:40)
[2019-01-04 16:45] VITALS: BP 147/90
== END 2019-01-04 17:10 | disposition home or self-care (01) ==
LOC: ER 14:01
DX: S29.012A Strain of muscle and tendon of back wall of thorax, initial encounter (principal); G56.03 Carpal tunnel syndrome, bilateral upper limbs; J45.909 Unspecified asthma, uncomplicated; E78.00 Pure hypercholesterolemia, unspecified; G43.909 Migraine, unspecified, not intractable, without status migrainosus; K21.9 Gastro-esophageal reflux disease without esophagitis; E11.9 Type 2 diabetes mellitus without complications; Z88.6 Allergy status to analgesic agent; Z88.0 Allergy status to penicillin; Z88.8 Allergy status to other drugs, medicaments and biological substances; Z85.038 Personal history of other malignant neoplasm of large intestine; Z85.43 Personal history of malignant neoplasm of ovary; Z87.448 Personal history of other diseases of urinary system; Z98.51 Tubal ligation status; Z90.710 Acquired absence of both cervix and uterus; Z98.890 Other specified postprocedural states; Z82.49 Family history of ischemic heart disease and other diseases of the circulatory system; X58.XXXA Exposure to other specified factors, initial encounter
CPT/HCPCS: 99284

== ENCOUNTER 2019-02-18 09:54 | Emergency (ER) | payer SELFPAY ==
[~2019-02-18] VITALS: Ht 160 cm; Wt 83.9 kg
--- NOTE | 2019-02-18 10:11 | NUR ---
DR ANA M BLACKMON
[2019-02-18] MEDS ORDERED: RT-ALBUTEROL/IPRATROPIUM 3 ML (DUONEB) VIAL INH ONE (10:30)
--- NOTE | 2019-02-18 11:01 | Diagnostic Imaging Report ---
INDICATION: Cough. PA and lateral views of the chest were obtained. Comparison is made with prior examination from 12/02/2016. FINDINGS: The heart size is normal. The mediastinum is unremarkable. There is no pleural effusion, pneumothorax or pneumonia. IMPRESSION: No acute cardiopulmonary abnormality Dictated by: Dictated on workstation # [id number]
[2019-02-18] MEDS ORDERED: RT-ALBUINH IH (11:25)
[2019-02-18] MEDS ORDERED: PRD20T PO (11:25)
--- NOTE | 2019-02-18 11:26 | ED Respiratory ---
General Chief Complaint: Cough/Cold/Flu Symptoms Stated Complaint: SOA Nursing Triage Note: AMB TO ROOM REPORTS HAS HAD COUGH CONGESTION WITH FEVER AND FEELING SOA FOR 1 WEEK. COUGHING UP GREEN YELLOW PHELGM AND GETTING SAME DRAINAGE FROM NOSE. Source: patient Exam Limitations: no limitations History of Present Illness Date Seen by Provider: Feb 18, 2019 Time Seen by Provider: 10:10 Initial Comments This 38-year-old woman presents to the emergency room with complaints of cough and congestion 1 week. She states her temperature last night was 102.7. She has had some sore throat secondary to vomiting. She had vomiting last night but none today. She has had some sweats and some dyspnea on exertion as well. She reports thick "discussing" nasal drainage. She tried TheraFlu and an ccmt-mnd-igojiyn Vicks stick. She is afebrile right now. Allergies and Home Medications Allergies Coded Allergies: tramadol (Verified Allergy, Severe, TACHYCARDIA, 10/12/18) Penicillins (Verified Allergy, Mild, SWELLING, 10/12/18) prednisone (Verified Allergy, Mild, REDNESS/SWELLING, 10/12/18) oxycodone (Verified Allergy, Unknown, 02/18/19) Home Medications Albuterol Sulfate 1 Puff Puff, 2 PUFF IH Q4H 1 PUFF = 90 MCG Prescribed by: TESSA HERNANDEZ on 02/18/19 1125 Ibuprofen 600 Mg Tablet, 600 MG PO Q6H PRN for PAIN-MODERATE Prescribed by: JOSE E GILMORE on 09/06/18 1145 Prednisone 20 Mg Tab, 40 MG PO DAILY Prescribed by: TESSA HERNANDEZ on 02/18/19 1125 Patient Home Medication List Home Medication List Reviewed: Yes Review of Systems Review of Systems Constitutional: see HPI EENTM: see HPI Respiratory: see HPI Cardiovascular: no symptoms reported Gastrointestinal: see HPI Genitourinary: no symptoms reported : No Musculoskeletal: no symptoms reported Skin: no symptoms reported Psychiatric/Neurological: No Symptoms Reported Hematologic/Lymphatic: No Symptoms Reported Immunological/Allergic: no symptoms reported Past Yztwshg-Zeepzr-Hifikk Hx Past Med/Social Hx: Reviewed and Corrections made Patient Social History Alcohol Use: Denies Use Recreational Drug Use: No Smoking Status: Current Everyday Smoker Type Used: Cigarettes 2nd Hand Smoke Exposure: Yes Recent Foreign Travel: No Contact w/Someone Who Travel: No Recent Infectious Disease Expo: No Recent Hopitalizations: No Immunizations Up To Date Tetanus Booster (TDap): More than 5yrs PED Vaccines UTD: Yes Date of Pneumonia Vaccine: Jun 21, 2017 Date of Influenza Vaccine: May 21, 2018 Seasonal Allergies Seasonal Allergies: No Past Medical History Surgeries: Yes (BILAT CTR, BRAIN SURGERY-AVM) Bowel Surgery, Hysterectomy, Neurological, Rectal, Tubal Ligation Respiratory: Yes (CHILDHOOD ASTHMA) Asthma Currently Using CPAP: No Currently Using BIPAP: No Cardiac: Yes High Cholesterol Neurological: Yes (SURGICAL REPAIR OF BRAIN AV MALFORMATION) Headaches /Migraines 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 (CERVICAL DYSPLASIA--S/P LEEP X 3) Female 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 Disorders: Menstrual Problems [employer]RE[employer]AL History: Hysterectomy Sexually Transmitted Disease: No HIV/AIDS: No Genitourinary: No Gastrointestinal: Yes (PERIRECTAL ABSCESSES/FISTULAS) Gastroesophageal Reflux, Polyps Musculoskeletal: No Endocrine: No Diabetes, Non-Insulin dep HEENT: No Loss of Vision: Bilateral Hearing Impairment: Denies Cancer: Yes (cervical dysplasia) Colon, Ovarian Did You Recieve Any Treatments: Yes What Type of Treatment Did You: Surgical Intervention Psychosocial: No Integumentary: No Blood Disorders: No Adverse Reaction/Blood Tranf: No (N/A) Family Medical History Reviewed Nursing Family Hx Arthritis 19 FATHER 19 MOTHER Asthma 19 FATHER G8 BROTHER Cataracts 19 MOTHER Diabetes mellitus 19 FATHER Headache disorder 19 MOTHER Hypercholesterolemia 19 MOTHER Seizure disorder 19 FATHER G8 BROTHER Physical Exam Vital Signs - First Documented 02/18/19 09:54 Temp 98.2 Pulse 98 Resp 18 B/P (MAP) 134/76 (95) Pulse Ox 98 O2 Delivery Room Air Capillary Refill : Less Than 3 Seconds Height: 5'3.00" Weight: 185lbs. 6.0oz. 83.327111rj; 34.6 BMI Method:Stated General Appearance: WD/WN, mild distress (tachypnea) HEENT: PERRL/EOMI, normal ENT inspection, TMs normal, pharyngeal erythema; No tonsillar exudate Neck: normal inspection Respiratory: no respiratory distress, no accessory muscle use; No crackles, No rhonchi; wheezing, other (tachypnea) Cardiovascular: regular rate, rhythm, no edema, no murmur Gastrointestinal: non tender, soft Extremities: normal inspection, no pedal edema Neurologic/Psychiatric: cardiac cath lab technologist II-XII nml as tested, no motor/sensory deficits, alert, normal mood/affect, oriented x 3 Skin: normal color, warm/dry Progress/Results/Core Measures Suspected Sepsis Recent Fever Within 48 Hours: No Infection Criteria Present: Suspected New Infection New/Unexplained Altered Menta: No Sepsis Screen: No Definite Risk SIRS Temperature:98.2 Pulse: 98 Respiratory Rate: 18 Blood Pressure 134 /76 Mean: 95 Results/Orders My Orders Orders - TESSA WALTON MD Albuterol/Ipra Inhalation Soln (Duoneb I (02/18/19 10:30) Svn Small Volume Nebulizer (02/18/19 10:20) Chest Pa/Lat (2 View) (02/18/19 10:20) Medications Given in ED Vital Signs/I&O 02/18/19 02/18/19 02/18/19 09:54 10:27 11:32 Temp 98.2 Pulse 98 97 Resp 18 18 B/P (MAP) 134/76 (95) 127/67 (87) Pulse Ox 98 94 96 O2 Delivery Room Air Room Air Room Air Capillary Refill : Less Than 3 Seconds Blood Pressure Mean: 95 Progress Note : Time: 11:25 Progress Note Patient had significant improvement after DuoNeb treatment. Tachypnea and wheezing resolved. She was feeling better. Chest x-ray showed no evidence of pneumonia. She is afebrile here. I believe she would benefit from some prednisone. Patient states she had a reaction to prednisone 15 years ago causing her face to swell and causing facial erythema. She would like to try the prednisone again. She will have Benadryl on hand at home to take if she has a reaction again. Diagnostic Imaging Diagonstic Imaging: Xray Plain Films/CT/US/NM/MRI: chest Comments Chest x-ray viewed by me and report reviewed. See report below: NAME: GEORGE FERNANDES MED REC#: [id number] PT STATUS: REG ER : 1980 PHYSICIAN: TESSA WALTON MD ADMIT DATE: 02/18/19/ER Draft Date of Exam:02/18/19 CHEST PA/LAT (2 VIEW) INDICATION: Cough. PA and lateral views of the chest were obtained. Comparison is made with prior examination from 12/02/2016. FINDINGS: The heart size is normal. The mediastinum is unremarkable. There is no pleural effusion, pneumothorax or pneumonia. IMPRESSION: No acute cardiopulmonary abnormality Dictated on workstation # [id number] Dict: 02/18/19 1057 Trans: 02/18/19 Celia JIMENEZ [phone] Interpreted by: ALEJO LUNA MD Departure Impression Primary Impression: Asthma exacerbation Qualified Codes: J45.901 - Unspecified asthma with (acute) exacerbation Disposition: HOME, SELF-CARE Condition: Improved Departure-Patient Inst. Decision time for Depature: 11:20 Referrals: [facility] [place] (PCP/Family) Primary Care Physician Patient Instructions: Asthma, Adult (DC) Add. Discharge Instructions: Use your prednisone steroids as prescribed. Keep Benadryl (diphenhydramine) on hand when you take your first dose of prednisone and take 50 mg if you have any reaction. Use your inhaler as prescribed. Return to the emergency room if you have worsening condition or if you develop new severe symptoms. Follow-up at your primary care clinic as soon as possible. Work toward quitting smoking completely and as soon as possible. Seek help from your primary care office if you are not able to quit on your own. All discharge instructions reviewed with patient and/or family. Voiced understanding. Scripts Albuterol Sulfate (PROAIR HFA) 1 Puff Puff 2 PUFF IH Q4H, #1 EA 1 PUFF = 90 MCG Prov: TESSA WALTON MD 02/18/19 Prednisone (Prednisone) 20 Mg Tab 40 MG PO DAILY, #8 TAB 0 Refills Prov: TESSA WALTON MD 02/18/19 Work/School Note: Work Release Form Date Seen in the Emergency Department: Feb 18, 2019 Return to Work: Feb 19, 2019 Restrictions: No Restrictions Copy Copies To 1: SANDY NESBITT JOSHUA T MD Feb 18, 2019 11:26
[2019-02-18 11:32] VITALS: BP 127/67
== END 2019-02-18 11:33 | disposition home or self-care (01) ==
LOC: ER 09:54 → EDUNIT# 09:54 → ER 11:33
DX: J45.901 Unspecified asthma with (acute) exacerbation (principal); E78.00 Pure hypercholesterolemia, unspecified; G43.909 Migraine, unspecified, not intractable, without status migrainosus; K21.9 Gastro-esophageal reflux disease without esophagitis; E11.9 Type 2 diabetes mellitus without complications; F17.210 Nicotine dependence, cigarettes, uncomplicated; Z85.038 Personal history of other malignant neoplasm of large intestine; Z85.43 Personal history of malignant neoplasm of ovary; Z98.51 Tubal ligation status; Z90.710 Acquired absence of both cervix and uterus; Z88.5 Allergy status to narcotic agent; Z88.0 Allergy status to penicillin; Z88.8 Allergy status to other drugs, medicaments and biological substances
CPT/HCPCS: 71046; 94640; 99282

== ENCOUNTER 2019-04-01 14:00 | Emergency (ER) | payer SELFPAY ==
[~2019-04-01] VITALS: Ht 160 cm; Wt 81.6 kg
[~2019-04-01 14:00] MED LIST changes: +PRD20T PO; +RT-ALBUINH IH
--- NOTE | 2019-04-01 14:13 | NUR ---
pt here by self. alert gcs 15. on exam pt with ? cyst behind right ear that is red and swollen and hard to touch. pt relates it makes her vision blurry out of right eye. denies eyes injury.
--- NOTE | 2019-04-01 14:54 | Diagnostic Imaging Report ---
PROCEDURE: CT head without contrast. TECHNIQUE: Multiple contiguous axial images were obtained through the brain without the use of intravenous contrast. Auto Exposure Controls were utilized during the CT exam to meet ALARA standards for radiation dose reduction. INDICATION: Severe head pain. Right eye pain. COMPARISON: CT head on 09/26/2016. FINDINGS: The ventricles and cortical sulci are age-appropriate. There is no midline shift or mass-effect. No acute intracranial hemorrhage is seen. There is no CT evidence of acute territorial ischemia. No focal masses or collections are present. Postsurgical changes of right occipital craniotomy are again seen. Mucosal thickening is seen in the sphenoid sinuses. The mastoid air cells are well pneumatized. IMPRESSION: No hemorrhage or focal intra-axial mass. No CT evidence of large acute territorial ischemia. Dictated by: Dictated on workstation # [id number]
[2019-04-01] MEDS ORDERED: SULF1TAB35 PO (15:17)
--- NOTE | 2019-04-01 15:18 | NUR ---
pt remains alert gcs 15 and here by self. pt still c/o pain located right head/ for head prox to right eye radiating to right ear. pt with facial grimace. denies dyspnea and no acute sighns of dyspnea noted. bp machine is 119/77 ausc hr 88 reg ausc resp 20 normal recheck temp 99.3 p ox r/a is 99.
--- NOTE | 2019-04-01 15:18 | ED Integumentary General ---
General Chief Complaint: Skin/Wound Problems Stated Complaint: EYE PAIN Nursing Triage Note: ? cyst behind right ear noticed yesterday making her right eye to be blurry. pt denies injury to eye. Source: patient Exam Limitations: no limitations History of Present Illness Date Seen by Provider: Apr 01, 2019 Time Seen by Provider: 14:50 Initial Comments 38-year-old female who presents to the emergency room with complaints of a sebaceous cyst behind her right ear that she noticed yesterday. She reports increased redness to the area. She reports she's had this cyst since she was a child and it comes back from time to time. She reports that it is causing her right eye to become blurry. Timing/Duration: yesterday Associated Symptoms: change in skin texture Allergies and Home Medications Allergies Coded Allergies: tramadol (Verified Allergy, Severe, TACHYCARDIA, 10/12/18) Penicillins (Verified Allergy, Mild, SWELLING, 10/12/18) prednisone (Verified Allergy, Mild, REDNESS/SWELLING, 10/12/18) oxycodone (Verified Allergy, Unknown, 02/18/19) Home Medications Albuterol Sulfate 1 Puff Puff, 2 PUFF IH Q4H 1 PUFF = 90 MCG Prescribed by: TESSA HERNANDEZ on 02/18/19 1125 Ibuprofen 600 Mg Tablet, 600 MG PO Q6H PRN for PAIN-MODERATE Prescribed by: JOSE E GILMORE on 09/06/18 1145 Prednisone 20 Mg Tab, 40 MG PO DAILY Prescribed by: TESSA HERNANDEZ on 02/18/19 1125 Past Fjcppov-Vofmcl-Ymatar Hx Patient Social History Alcohol Use: Denies Use Recreational Drug Use: No Smoking Status: Current Everyday Smoker Type Used: Cigarettes 2nd Hand Smoke Exposure: Yes Recent Foreign Travel: No Contact w/Someone Who Travel: No Recent Infectious Disease Expo: No Recent Hopitalizations: No Physical Abuse: No Sexual Abuse: No Immunizations Up To Date Tetanus Booster (TDap): More than 5yrs PED Vaccines UTD: Yes Date of Pneumonia Vaccine: Jun 21, 2017 Date of Influenza Vaccine: May 21, 2018 Seasonal Allergies Seasonal Allergies: No Past Medical History Surgeries: Yes (BILAT CTR, BRAIN SURGERY-AVM) Bowel Surgery, Hysterectomy, Neurological, Rectal, Tubal Ligation Respiratory: Yes (CHILDHOOD ASTHMA) Asthma Currently Using CPAP: No Currently Using BIPAP: No Cardiac: Yes High Cholesterol Neurological: Yes (SURGICAL REPAIR OF BRAIN AV MALFORMATION) Headaches /Migraines 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 (CERVICAL DYSPLASIA--S/P LEEP X 3) Female 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 Disorders: 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 Sexually Transmitted Disease: No HIV/AIDS: No Genitourinary: No Gastrointestinal: Yes (PERIRECTAL ABSCESSES/FISTULAS) Gastroesophageal Reflux, Polyps Musculoskeletal: No Endocrine: No Diabetes, Non-Insulin dep HEENT: No Loss of Vision: Bilateral Hearing Impairment: Denies Cancer: Yes (cervical dysplasia) Colon, Ovarian Did You Recieve Any Treatments: Yes What Type of Treatment Did You: Surgical Intervention Psychosocial: No Integumentary: No Blood Disorders: No Adverse Reaction/Blood Tranf: No (N/A) Family Medical History Arthritis 19 FATHER 19 MOTHER Asthma 19 FATHER G8 BROTHER Cataracts 19 MOTHER Diabetes mellitus 19 FATHER Headache disorder 19 MOTHER Hypercholesterolemia 19 MOTHER Seizure disorder 19 FATHER G8 BROTHER Physical Exam Vital Signs Vital Signs - First Documented 04/01/19 14:06 Temp 98.1 Pulse 80 Resp 24 B/P (MAP) 134/92 (106) Pulse Ox 98 O2 Delivery Room Air Capillary Refill : Less Than 3 Seconds Progress/Results/Core Measures Results/Orders My Orders Orders - JEREMIAH FELIZ Ct Head Wo (04/01/19 14:35) Vital Signs/I&O 04/01/19 14:06 Temp 98.1 Pulse 80 Resp 24 B/P (MAP) 134/92 (106) Pulse Ox 98 O2 Delivery Room Air Blood Pressure Mean: 106 Departure Impression Primary Impression: Infected sebaceous cyst of skin Disposition: 01 HOME, SELF-CARE Condition: Stable/Unchanged Departure-Patient Inst. Decision time for Depature: 15:16 Referrals: [facility] (PCP/Family) Primary Care Physician Patient Instructions: Epidermal Cyst (DC) Add. Discharge Instructions: Take antibiotics as directed. Follow-up with your primary care provider within 1 week for recheck. Return back to the emergency room for worsening symptoms or concerns as needed. You may use ibuprofen and Tylenol as directed by the bottle for pain relief. All discharge instructions reviewed with patient and/or family. Voiced understanding. Scripts Sulfamethoxazole/Trimethoprim (Bactrim Ds Tablet) 1 Each Tablet 1 EACH PO BID for 7 Days, #14 TAB Prov: JEREMIAH FELIZ 04/01/19 JEREMIAH FELIZ Apr 01, 2019 15:18
[2019-04-01 15:24] VITALS: BP 119/77
--- NOTE | 2019-04-01 15:24 | NUR ---
d/c instructions to pt. told to read all papers. scripts faxed. pt left ambulatory with self. pt knows f/u. i went over the handtyped by information on the chart. pt had no iv.
== END 2019-04-01 15:24 | disposition home or self-care (01) ==
LOC: EDUNIT# 14:00 → ER 14:01
DX: L72.3 Sebaceous cyst (principal); J45.909 Unspecified asthma, uncomplicated; E78.00 Pure hypercholesterolemia, unspecified; G43.909 Migraine, unspecified, not intractable, without status migrainosus; K21.9 Gastro-esophageal reflux disease without esophagitis; E11.9 Type 2 diabetes mellitus without complications; F17.210 Nicotine dependence, cigarettes, uncomplicated; Z85.038 Personal history of other malignant neoplasm of large intestine; Z85.43 Personal history of malignant neoplasm of ovary; Z86.010 Personal history of colon polyps; Z90.710 Acquired absence of both cervix and uterus; Z98.51 Tubal ligation status; Z88.5 Allergy status to narcotic agent; Z88.0 Allergy status to penicillin; Z88.8 Allergy status to other drugs, medicaments and biological substances
CPT/HCPCS: 70450

== ENCOUNTER 2019-05-17 18:17 | Emergency (ER) | payer SELFPAY ==
[~2019-05-17] VITALS: Ht 165 cm; Wt 84.0 kg
[2019-05-17] MEDS ORDERED: KETOROLAC 30 MG/ML VIAL IVP ONE (19:15)
[2019-05-17] MEDS ORDERED: ORPHENADRINE 60 MG/2 ML (NORFLEX) AMP IV ONE (19:15)
[2019-05-17] MEDS ORDERED: NS IV 1000 ML 1,000 ML IV SCH (19:15)
--- NOTE | 2019-05-17 19:15 | ED General ---
General Stated Complaint: LOWER BACK PAIN Source of Information: Patient Exam Limitations: No Limitations History of Present Illness Date Seen by Provider: May 17, 2019 Time Seen by Provider: 19:13 Initial Comments To ER with left low back pain, sensation of needing to urinate but inability to do so since this morning. No nausea no fevers. Timing/Duration: 12-24 Hours Severity: Moderate Allergies and Home Medications Allergies Coded Allergies: tramadol (Verified Allergy, Severe, TACHYCARDIA, 10/12/18) Penicillins (Verified Allergy, Mild, SWELLING, 10/12/18) prednisone (Verified Allergy, Mild, REDNESS/SWELLING, 10/12/18) oxycodone (Verified Allergy, Unknown, 02/18/19) Home Medications Albuterol Sulfate 1 Puff Puff, 2 PUFF IH Q4H 1 PUFF = 90 MCG Prescribed by: TESSA HERNANDEZ on 02/18/19 1125 Ibuprofen 600 Mg Tablet, 600 MG PO Q6H PRN for PAIN-MODERATE Prescribed by: JOSE E GILMORE on 09/06/18 1145 Prednisone 20 Mg Tab, 40 MG PO DAILY Prescribed by: TESSA HERNANDEZ on 02/18/19 1125 Sulfamethoxazole/Trimethoprim 1 Each Tablet, 1 EACH PO BID Prescribed by: JEREMIAH FELIZ on 04/01/19 1517 Patient Home Medication List Home Medication List Reviewed: Yes Review of Systems Review of Systems Constitutional: see HPI EENTM: see HPI Respiratory: no symptoms reported Genitourinary: see HPI, decreased output Musculoskeletal: see HPI, back pain Skin: no symptoms reported Psychiatric/Neurological: No Symptoms Reported Hematologic/Lymphatic: No Symptoms Reported Immunological/Allergic: no symptoms reported Past Udkzfvb-Rehcpm-Flanyu Hx Patient Social History Type Used: Cigarettes 2nd Hand Smoke Exposure: Yes Recent Foreign Travel: No Contact w/Someone Who Travel: No Recent Hopitalizations: No Immunizations Up To Date Tetanus Booster (TDap): More than 5yrs PED Vaccines UTD: Yes Date of Pneumonia Vaccine: Jun 21, 2017 Date of Influenza Vaccine: May 21, 2018 Seasonal Allergies Seasonal Allergies: No Past Medical History Surgeries: Yes (BILAT CTR, BRAIN SURGERY-AVM) Bowel Surgery, Hysterectomy, Neurological, Rectal, Tubal Ligation Respiratory: Yes (CHILDHOOD ASTHMA) Asthma Currently Using CPAP: No Currently Using BIPAP: No Cardiac: Yes High Cholesterol Neurological: Yes (SURGICAL REPAIR OF BRAIN AV MALFORMATION) Headaches /Migraines 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 (CERVICAL DYSPLASIA--S/P LEEP X 3) Female 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 Sexually Transmitted Disease: No HIV/AIDS: No Genitourinary: No Gastrointestinal: Yes (PERIRECTAL ABSCESSES/FISTULAS) Gastroesophageal Reflux, Polyps Musculoskeletal: No Endocrine: No Diabetes, Non-Insulin dep HEENT: No Loss of Vision: Bilateral Hearing Impairment: Denies Cancer: Yes (cervical dysplasia) Colon, Ovarian Did You Recieve Any Treatments: Yes What Type of Treatment Did You: Surgical Intervention Psychosocial: No Integumentary: No Blood Disorders: No Adverse Reaction/Blood Tranf: No (N/A) Family Medical History Arthritis 19 FATHER 19 MOTHER Asthma 19 FATHER G8 BROTHER Cataracts 19 MOTHER Diabetes mellitus 19 FATHER Headache disorder 19 MOTHER Hypercholesterolemia 19 MOTHER Seizure disorder 19 FATHER G8 BROTHER Physical Exam Vital Signs Vital Signs - First Documented 05/17/19 19:30 Temp 37.2 Pulse 90 Resp 18 B/P (MAP) 142/72 (95) Pulse Ox 90 Capillary Refill : Height, Weight, BMI Height: 5'3.00" Weight: 180lbs. 6.0oz. 81.625953vu; 34.6 BMI Method:Stated General Appearance: No Apparent Distress, WD/WN, Other (crying on arrival) Eyes: Bilateral Eye Normal Inspection, Bilateral Eye PERRL, Bilateral Eye EOMI HEENT: PERRL/EOMI, TMs Normal Neck: Full Range of Motion, Normal Inspection Respiratory: Normal Breath Sounds, No Accessory Muscle Use, No Respiratory Distress Cardiovascular: Regular Rate, Rhythm, Normal Peripheral Pulses Gastrointestinal: Non Tender, Soft Extremity: Normal Capillary Refill, Normal Inspection Neurologic/Psychiatric: Alert, Oriented x3 Skin: Normal Color, Warm/Dry Progress/Results/Core Measures Suspected Sepsis SIRS Temperature: Pulse: Respiratory Rate: Laboratory Tests 05/17/19 19:11: White Blood Count 10.0 Blood Pressure / Mean: Laboratory Tests 05/17/19 19:11: Creatinine 0.84, Platelet Count 281, Total Bilirubin 0.2 Results/Orders Lab Results Laboratory Tests Test 05/17/19 19:11 05/17/19 19:15 Range/Units White Blood Count 10.0 4.3-11.0 10^3/uL Red Blood Count 4.58 4.35-5.85 10^6/uL Hemoglobin 14.0 11.5-16.0 G/DL Hematocrit 41 35-52 % Mean Corpuscular Volume 89 80-99 FL Mean Corpuscular Hemoglobin 31 25-34 PG Mean Corpuscular Hemoglobin Concent 34 32-36 G/DL Red Cell Distribution Width 14.5 10.0-14.5 % Platelet Count 281 130-400 10^3/uL Mean Platelet Volume 9.5 7.4-10.4 FL Neutrophils (%) (Auto) 38 L 42-75 % Lymphocytes (%) (Auto) 47 H 12-44 % Monocytes (%) (Auto) 10 0-12 % Eosinophils (%) (Auto) 4 0-10 % Basophils (%) (Auto) 1 0-10 % Neutrophils # (Auto) 3.8 1.8-7.8 X 10^3 Lymphocytes # (Auto) 4.7 H 1.0-4.0 X 10^3 Monocytes # (Auto) 1.0 0.0-1.0 X 10^3 Eosinophils # (Auto) 0.4 H 0.0-0.3 10^3/uL Basophils # (Auto) 0.1 0.0-0.1 10^3/uL Sodium Level 138 135-145 MMOL/L Potassium Level 4.0 3.6-5.0 MMOL/L Chloride Level 105 98-107 MMOL/L Carbon Dioxide Level 25 21-32 MMOL/L Anion Gap 8 5-14 MMOL/L Blood Urea Nitrogen 7 7-18 MG/DL Creatinine 0.84 0.60-1.30 MG/DL Estimat Glomerular Filtration Rate > 60 BUN/Creatinine Ratio 8 Glucose Level 110 H 70-105 MG/DL Calcium Level 8.9 8.5-10.1 MG/DL Corrected Calcium 8.7 8.5-10.1 MG/DL Total Bilirubin 0.2 0.1-1.0 MG/DL Aspartate Amino Transf (AST/SGOT) 22 5-34 U/L Alanine Aminotransferase (ALT/SGPT) 19 0-55 U/L Alkaline Phosphatase 69 40-136 U/L Total Protein 7.0 6.4-8.2 GM/DL Albumin 4.2 3.2-4.5 GM/DL Urine Color YELLOW Urine Clarity CLEAR Urine pH 6.5 5-9 Urine Specific [place] 1.015 L 1.016-1.022 Urine Protein NEGATIVE NEGATIVE Urine Glucose (UA) NEGATIVE NEGATIVE Urine Ketones NEGATIVE NEGATIVE Urine Nitrite NEGATIVE NEGATIVE Urine Bilirubin NEGATIVE NEGATIVE Urine Urobilinogen NORMAL NORMAL MG/DL Urine Leukocyte Esterase NEGATIVE NEGATIVE Urine RBC (Auto) NEGATIVE NEGATIVE Urine RBC NONE /HPF Urine WBC NONE /HPF Urine Squamous Epithelial Cells 5-10 /HPF Urine Crystals NONE /LPF Urine Bacteria TRACE /HPF Urine Casts NONE /LPF Urine Mucus NEGATIVE /LPF Urine Culture Indicated NO Urine Opiates Screen POSITIVE H NEGATIVE Urine Oxycodone Screen POSITIVE H NEGATIVE Urine Methadone Screen NEGATIVE NEGATIVE Urine Propoxyphene Screen NEGATIVE NEGATIVE Urine Barbiturates Screen NEGATIVE NEGATIVE Ur Tricyclic Antidepressants Screen NEGATIVE NEGATIVE Urine Phencyclidine Screen NEGATIVE NEGATIVE Urine Amphetamines Screen NEGATIVE NEGATIVE Urine Methamphetamines Screen NEGATIVE NEGATIVE Urine Benzodiazepines Screen NEGATIVE NEGATIVE Urine Cocaine Screen NEGATIVE NEGATIVE Urine Cannabinoids Screen NEGATIVE NEGATIVE My Orders Orders - EDGARDO ROBBINS MOP MAKER Ua Culture If Indicated (05/17/19 18:43) Drug Screen Stat (Urine) (05/17/19 18:43) Cbc With Automated Diff (05/17/19 19:12) Comprehensive Metabolic Panel (05/17/19 19:12) Ed Iv/Invasive Line Start (05/17/19 19:12) Ct Abd/Pelvis Wo(Kidney Stone) (05/17/19 19:12) Ketorolac Injection (Toradol Injection) (05/17/19 19:15) Orphenadrine Injection (Norflex Injectio (05/17/19 19:15) Ns Iv 1000 Ml (Sodium Chloride 0.9%) (05/17/19 19:15) Medications Given in ED Current Medications Medications Dose Ordered Sig/Maryse Route Start Time Stop Time Status Last Admin Dose Admin Ketorolac Tromethamine 30 mg ONCE ONCE IVP 05/17/19 19:15 05/17/19 19:16 DC 05/17/19 19:19 30 MG Orphenadrine Citrate 60 mg ONCE ONCE IV 05/17/19 19:15 05/17/19 19:16 DC 05/17/19 19:21 60 MG Vital Signs/I&O 05/17/19 19:30 Temp 37.2 Pulse 90 Resp 18 B/P (MAP) 142/72 (95) Pulse Ox 90 Capillary Refill : Departure Communication (Admissions) I specifically question the patient about any opiate use and gave her the example of hydrocodone or Percocet and she denied use of any of these Impression Primary Impression: Back pain Qualified Codes: M54.5 - Low back pain Disposition: 01 HOME, SELF-CARE Condition: Stable Departure-Patient Inst. Decision time for Depature: 20:29 Referrals: [facility] (PCP/Family) Primary Care Physician Patient Instructions: Low Back Pain (DC) Add. Discharge Instructions: 1. return to er for any concerns 2. Medication as directed Scripts Methocarbamol (Robaxin-750) 750 Mg Tablet 750 MG PO Q4H PRN for PAIN-SEVERE, #30 TAB Prov: EDGARDO ROBBINS APRN 05/17/19 EDGARDO ROBBINS APRN May 17, 2019 19:15
[2019-05-17 19:17] LABS: BASOPHILS # (AUTO) 0.1 10^3/uL (0.0-0.1); BASOPHILS % (AUTO) 1 % (0-10); EOSINOPHILS # (AUTO) 0.4 10^3/uL (0.0-0.3); EOSINOPHILS % (AUTO) 4 % (0-10); HEMATOCRIT 41 % (35-52); LYMPHOCYTES # (AUTO) 4.7 X 10^3 (1.0-4.0); LYMPHOCYTES % (AUTO) 47 % (12-44); MEAN CORPUSCULAR HEMOGLOBIN 31 PG (25-34); MEAN CORPUSCULAR HGB CONC 34 G/DL (32-36); MEAN CORPUSCULAR VOLUME 89 FL (80-99); MEAN PLATELET VOLUME 9.5 FL (7.4-10.4); MONOCYTES % (AUTO) 10 % (0-12); NEUTROPHILS # (AUTO) 3.8 X 10^3 (1.8-7.8); NEUTROPHILS % (AUTO) 38 % (42-75); PLATELET COUNT 281 10^3/uL (130-400); RED CELL DISTRIBUTION WIDTH 14.5 % (10.0-14.5)
[2019-05-17 19:32] LABS: BILIRUBIN,URINE NEGATIVE (NEGATIVE); COLOR,URINE YELLOW; GLUCOSE, URINE (UA) NEGATIVE (NEGATIVE); KETONES,URINE NEGATIVE (NEGATIVE); LEUKOCYTE ESTERASE ,URINE NEGATIVE (NEGATIVE); NITRITE,URINE NEGATIVE (NEGATIVE); PH,URINE 6.5 (5-9); PROTEIN,URINE NEGATIVE (NEGATIVE); UROBILINOGEN,URINE NORMAL (NORMAL)
[2019-05-17 19:38] LABS: ALANINE AMINOTRANSFERASE 19 U/L (0-55); ALBUMIN 4.2 GM/DL (3.2-4.5); ALKALINE PHOSPHATASE 69 U/L (40-136); BILIRUBIN,TOTAL 0.2 MG/DL (0.1-1.0); BUN/CREATININE RATIO 8; CALCIUM 8.9 MG/DL (8.5-10.1); CARBON DIOXIDE 25 MMOL/L (21-32); CHLORIDE 105 MMOL/L (98-107); CREATININE SERUM 0.84 MG/DL (0.60-1.30); GFR ESTIMATED > 60; GLUCOSE 110 MG/DL (70-105); SODIUM 138 MMOL/L (135-145)
[2019-05-17 19:38] LABS: BACTERIA,URINE TRACE /HPF; CLARITY,URINE CLEAR
[2019-05-17 19:43] LABS: AMPHETAMINE SCREEN, URINE NEGATIVE (NEGATIVE); BARBITURATE SCREEN URINE NEGATIVE (NEGATIVE); BENZODIAZEPINES SCREEN URINE NEGATIVE (NEGATIVE); CANNABINOID SCREEN, URINE NEGATIVE (NEGATIVE); COCAINE SCREEN URINE NEGATIVE (NEGATIVE); METHADONE STAT NEGATIVE (NEGATIVE); METHAMPHETAMINE SCREEN URINE S NEGATIVE (NEGATIVE); OPIATE SCREEN URINE POSITIVE (NEGATIVE); OXYCODONE STAT POSITIVE (NEGATIVE); PROPOXYPHENE STAT NEGATIVE (NEGATIVE); TRICYCLIC ANTIDEPRESSANTS SCRE NEGATIVE (NEGATIVE)
--- NOTE | 2019-05-17 20:27 | Diagnostic Imaging Report ---
CT ABD/PELVIS WO(KIDNEY STONE) TECHNIQUE: Unenhanced CT imaging of the abdomen and pelvis was performed. 2-D reformats are created and submitted for interpretation. Automatic exposure controls were utilized to optimize patient dose. INDICATION: Left flank pain COMPARISON: CT abdomen and pelvis of 10/31/2018. FINDINGS: Evaluation of the abdominal viscera is mildly limited without contrast. Lower chest: Mild mosaic attenuation at the lung bases is likely due to physiologic air trapping. No pericardial or pleural effusion. Peritoneum: No free intraperitoneal air or fluid. Liver and biliary system: Unenhanced liver is normal. The gallbladder is normal. No biliary duct dilation. Spleen and Pancreas: Spleen is normal. Unenhanced pancreas is grossly normal. Adrenals: Normal. tract: Punctate nonobstructing 2 mm stone in the upper pole of the right kidney. No left renal stone. No ureteral stone on either side. Hysterectomy. No adnexal mass. GI tract: Stomach is partially filled with fluid and there is no wall thickening. No bowel obstruction. No pericolonic inflammatory changes. Normal appendix. Vasculature and Lymph nodes: Normal caliber aorta. No abdominal or pelvic lymphadenopathy. Musculoskeletal: No concerning osseous lesion. IMPRESSION: 1. No left-sided renal or ureteral calculi. No obstructive uropathy. 2. Punctate nonobstructing 2 mm stone in the upper pole of the right kidney. Dictated by: Dictated on workstation # [id number]
[2019-05-17] MEDS ORDERED: METH-313 PO (20:31)
[2019-05-17 20:41] VITALS: BP 108/64
== END 2019-05-17 20:42 | disposition home or self-care (01) ==
LOC: EDUNIT# 18:17 → ER 18:18
DX: M54.5 Low back pain (principal); E11.9 Type 2 diabetes mellitus without complications; J45.909 Unspecified asthma, uncomplicated; E78.00 Pure hypercholesterolemia, unspecified; G43.909 Migraine, unspecified, not intractable, without status migrainosus; K21.9 Gastro-esophageal reflux disease without esophagitis; Z85.038 Personal history of other malignant neoplasm of large intestine; Z85.43 Personal history of malignant neoplasm of ovary; Z90.710 Acquired absence of both cervix and uterus; Z98.51 Tubal ligation status; Z88.5 Allergy status to narcotic agent; Z88.0 Allergy status to penicillin; Z88.8 Allergy status to other drugs, medicaments and biological substances; Z79.52 Long term (current) use of systemic steroids; Z77.22 Contact with and (suspected) exposure to environmental tobacco smoke (acute) (chronic)
CPT/HCPCS: 36415; 74176; 80053; 80306; 81000; 85025

== ENCOUNTER 2019-06-05 00:07 | Emergency (ER) | payer SELFPAY ==
[~2019-06-05] VITALS: Ht 160 cm; Wt 85.0 kg
[~2019-06-05 00:07] MED LIST changes: +METH-313 PO
--- NOTE | 2019-06-05 01:21 | ED Lower Extremity ---
General Chief Complaint: Lower Extremity Stated Complaint: RT FOOT PAIN Source: patient Exam Limitations: no limitations (LESLY BOBBY STUDENT) History of Present Illness Date Seen by Provider: Jun 05, 2019 Time Seen by Provider: 01:00 Initial Comments Patient presents today with complaints of extreme right foot pain after kicking her dog 2 days ago. The pain is primarily in her first two toes and radiates into her metatarsals and the plantar side of her food. The patient took Tylenol but did not have much relief. She denies any other associated symptoms. Location Injury Occurred: home Onset: other (2 days ago) Severity: severe Pain/Injury Location: right foot, right 1st toe, right 2nd toe Method of Injury: direct blow Modifying Factors: Improves With Rest Associated Symptoms: None (LESLY BOBBY STUDENT) Onset: other (2 days ago) Severity: moderate Method of Injury: direct blow Modifying Factors: Improves With Immobilization; Worse With Movement; Improves With Rest (LEOPOLDO TORO MD) Allergies and Home Medications Allergies Coded Allergies: tramadol (Verified Allergy, Severe, TACHYCARDIA, 10/12/18) Penicillins (Verified Allergy, Mild, SWELLING, 10/12/18) prednisone (Verified Allergy, Mild, REDNESS/SWELLING, 10/12/18) oxycodone (Verified Allergy, Unknown, 02/18/19) Home Medications Albuterol Sulfate 1 Puff Puff, 2 PUFF IH Q4H 1 PUFF = 90 MCG Prescribed by: TESSA HERNANDEZ on 02/18/19 1125 Ibuprofen 600 Mg Tablet, 600 MG PO Q6H PRN for PAIN-MODERATE Prescribed by: JOSE E GILMORE on 09/06/18 1145 Methocarbamol 750 Mg Tablet, 750 MG PO Q4H PRN for PAIN-SEVERE Prescribed by: EDGARDO ROBBINS on 05/17/19 203 Prednisone 20 Mg Tab, 40 MG PO DAILY Prescribed by: TESSA HERNANDEZ on 02/18/19 1125 Sulfamethoxazole/Trimethoprim 1 Each Tablet, 1 EACH PO BID Prescribed by: JEREMIAH FELIZ on 04/01/19 1517 Patient Home Medication List Home Medication List Reviewed: Yes (LEOPOLDO TORO MD) Review of Systems Constitutional: no symptoms reported EENTM: no symptoms reported Respiratory: no symptoms reported Cardiovascular: no symptoms reported Gastrointestinal: no symptoms reported Genitourinary: no symptoms reported : No Musculoskeletal: see HPI Skin: no symptoms reported Psychiatric/Neurological: No Symptoms Reported (LESLY BOBBY) Respiratory: no symptoms reported Cardiovascular: no symptoms reported Musculoskeletal: joint pain, joint swelling Skin: change in color; No lesions (LEOPOLDO TORO MD) Past Qokfgww-Sosxyp-Achast Hx Past Med/Social Hx: Reviewed Nursing Past Med/Soc Hx (LEOPOLDO TORO MD) Patient Social History Type Used: Cigarettes 2nd Hand Smoke Exposure: Yes Recent Foreign Travel: No Contact w/Someone Who Travel: No Recent Hopitalizations: No (LESLY BOBBY) Immunizations Up To Date Tetanus Booster (TDap): More than 5yrs PED Vaccines UTD: Yes Date of Pneumonia Vaccine: Jun 21, 2017 Date of Influenza Vaccine: May 21, 2018 (LESLY BOBBY) Seasonal Allergies Seasonal Allergies: No (LESLY BOBBY) Past Medical History Surgeries: No Bowel Surgery, Hysterectomy, Neurological, Rectal, Tubal Ligation Respiratory: Yes (CHILDHOOD ASTHMA) Asthma Currently Using CPAP: No Currently Using BIPAP: No Cardiac: Yes High Cholesterol Neurological: Yes (SURGICAL REPAIR OF BRAIN AV MALFORMATION) Headaches /Migraines 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 (CERVICAL DYSPLASIA--S/P LEEP X 3) Female 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 Disorders: Menstrual 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 Sexually Transmitted Disease: No HIV/AIDS: No Genitourinary: No Gastrointestinal: Yes (PERIRECTAL ABSCESSES/FISTULAS) Gastroesophageal Reflux, Polyps Musculoskeletal: No Endocrine: No Diabetes, Non-Insulin dep HEENT: No Loss of Vision: Bilateral Hearing Impairment: Denies Cancer: Yes (cervical dysplasia) Colon, Ovarian Did You Recieve Any Treatments: Yes What Type of Treatment Did You: Surgical Intervention Psychosocial: No Integumentary: No Blood Disorders: No Adverse Reaction/Blood Tranf: No (N/A) (LESLY BOBBY) Family Medical History Reviewed Nursing Family Hx (LEOPOLDO TORO MD) Arthritis 19 FATHER 19 MOTHER Asthma 19 FATHER G8 BROTHER Cataracts 19 MOTHER Diabetes mellitus 19 FATHER Headache disorder 19 MOTHER Hypercholesterolemia 19 MOTHER Seizure disorder 19 FATHER G8 BROTHER Physical Exam Vital Signs Capillary Refill : (LESLY BOBBY) Height, Weight, BMI Height: 5'3.00" Weight: 180lbs. 6.0oz. 81.278726ih; 30.00 BMI Method:Stated General Appearance: moderate distress HEENT: PERRL/EOMI, pharynx normal Cardiovascular: regular rate, rhythm, no edema, no gallop, no JVD, no murmur Respiratory: chest non-tender, lungs clear, normal breath sounds, no respira tory distress, no accessory muscle use Gastrointestinal: normal bowel sounds, non tender, soft, no organomegaly, no pulsatile mass Ankles: bilateral ankle non-tender, bilateral ankle normal inspection, bilateral ankle normal range of motion, bilateral ankle no evidence of injury Feet: right foot bone tenderness, right foot limited range of motion, right foot pain, right foot soft tissue tenderness Neurologic/Tendon: normal sensation Neurologic/Psychiatric: alert, normal mood/affect, oriented x 3 Skin: normal color, warm/dry Lymphatic: no adenopathy (LESLY BOBBY STUDENT) Feet: right foot bone tenderness, right foot limited range of motion, right foot pain, right foot soft tissue tenderness, right foot other (pain, swelling and ecchymosis noted to the first and second MTP of the right foot. Tenderness extends from toe to mid foot through the first and second metatarsal region.) Neurologic/Tendon: normal sensation, normal motor functions Skin: warm/dry, ecchymosis (right distal foot as described above) (LEOPOLDO TORO MD) Progress/Results/Core Measures Results/Orders My Orders Orders - LEOPOLDO TORO MD Foot, Right, 3 View (06/05/19 01:15) Ketorolac Injection (Toradol Injection) (06/05/19 01:57) (LEOPOLDO TORO MD) Progress Progress Note : Progress Note I have Seen and evaluated the patient and agree with above except as indicated. I Have directed the plan of care. Here with right foot pain after kicking her dog 2 days ago. Reports swelling and bruising at the person second MTP area of the right foot. Denies other injury. X-ray right foot ordered. Toradol 60 mg IM. Ice pack and postop shoe initiated. Discharged home with return precautions. Patient verbalize understanding instructions and agreement with plan. (LEOPOLDO TORO MD) Diagnostic Imaging Diagonstic Imaging: Xray Plain Films/CT/US/NM/MRI: other Comments No acute fracture noted pending radiologist review. Reviewed: Reviewed by Me (LEOPOLDO TORO MD) Departure Impression Primary Impression: Contusion of right foot including toes Qualified Codes: S90.31XA - Contusion of right foot, initial encounter; S90.121A - Contusion of right lesser toe(s) without damage to nail, initial encounter Additional Impression: Right foot strain Qualified Codes: S96.911A - Strain of unspecified muscle and tendon at ankle and foot level, right foot, initial encounter Disposition: 01 HOME, SELF-CARE Condition: Stable Departure-Patient Inst. Decision time for Depature: 02:06 (LEOPOLDO TORO MD) Referrals: [facility] [place] (PCP/Family) Primary Care Physician Patient Instructions: Contusion (DC), Foot Sprain (DC) Add. Discharge Instructions: All discharge instructions reviewed with patient and/or family. Voiced understanding. You may take ibuprofen 600 mg every 8 hours as needed for pain. You may also take Tylenol/acetaminophen 1000 mg every 6-8 hours as needed for pain. You may use ice packs to area concern 20 minutes per hour as needed. Use postop shoe for the next 4-7 days as needed. Elevate foot to reduce swelling over the next few days. Follow-up with your Dr. in a few days for recheck if not improving. Return for worse pain, swelling, weakness or other concerns as needed. Copy Copies To 1: SANDY NESBITT BRODIE PA STUDENT Jun 05, 2019 01:21 LEOPOLDO TORO MD Jun 05, 2019 02:07
[2019-06-05] MEDS ORDERED: KETOROLAC 60 MG/2 ML VIAL IM STA (01:57)
[2019-06-05 02:30] VITALS: BP 131/90
--- NOTE | 2019-06-05 06:53 | Diagnostic Imaging Report ---
EXAMINATION: Right foot 3 views INDICATION: Right foot pain. No comparison available. FINDINGS: Alignment is normal. No fracture is seen. Joint spaces are normal. IMPRESSION: 1. No fracture. Dictated by: Dictated on workstation # [id number]
== END 2019-06-05 02:31 | disposition home or self-care (01) ==
LOC: EDUNIT# 00:07 → ER 00:09
DX: S96.911A Strain of unspecified muscle and tendon at ankle and foot level, right foot, initial encounter (principal); S90.31XA Contusion of right foot, initial encounter; S90.121A Contusion of right lesser toe(s) without damage to nail, initial encounter; J45.909 Unspecified asthma, uncomplicated; E11.9 Type 2 diabetes mellitus without complications; E78.00 Pure hypercholesterolemia, unspecified; G43.909 Migraine, unspecified, not intractable, without status migrainosus; K21.9 Gastro-esophageal reflux disease without esophagitis; Z85.038 Personal history of other malignant neoplasm of large intestine; Z85.43 Personal history of malignant neoplasm of ovary; Z88.8 Allergy status to other drugs, medicaments and biological substances; Z88.5 Allergy status to narcotic agent; Z88.0 Allergy status to penicillin; Z79.52 Long term (current) use of systemic steroids; Z77.22 Contact with and (suspected) exposure to environmental tobacco smoke (acute) (chronic); Z90.710 Acquired absence of both cervix and uterus; Z98.51 Tubal ligation status; W54.1XXA Struck by dog, initial encounter
CPT/HCPCS: 73630

== ENCOUNTER 2019-07-02 21:53 | Emergency (ER) | payer SELFPAY ==
[~2019-07-02] VITALS: Ht 157.4 cm; Wt 92.2 kg
--- NOTE | 2019-07-02 22:07 | ED Integumentary General ---
General Stated Complaint: BOIL ON STOMACH Source: patient Exam Limitations: no limitations History of Present Illness Date Seen by Provider: Jul 02, 2019 Time Seen by Provider: 22:04 Initial Comments To ER per private vehicle from home with reports of an abscess to the waistline anteriorly present for about a week getting worse. Timing/Duration: week, getting worse Severity: mild Associated Symptoms: denies symptoms Allergies and Home Medications Allergies Coded Allergies: tramadol (Verified Allergy, Severe, TACHYCARDIA, 10/12/18) Penicillins (Verified Allergy, Mild, SWELLING, 10/12/18) prednisone (Verified Allergy, Mild, REDNESS/SWELLING, 10/12/18) oxycodone (Verified Allergy, Unknown, 02/18/19) Home Medications Albuterol Sulfate 1 Puff Puff, 2 PUFF IH Q4H 1 PUFF = 90 MCG Prescribed by: TESSA HERNANDEZ on 02/18/19 1125 Ibuprofen 600 Mg Tablet, 600 MG PO Q6H PRN for PAIN-MODERATE Prescribed by: JOSE E GILMORE on 09/06/18 1145 Methocarbamol 750 Mg Tablet, 750 MG PO Q4H PRN for PAIN-SEVERE Prescribed by: EDGARDO ROBBINS on 05/17/19 203 Prednisone 20 Mg Tab, 40 MG PO DAILY Prescribed by: TESSA HERNANDEZ on 02/18/19 1125 Sulfamethoxazole/Trimethoprim 1 Each Tablet, 1 EACH PO BID Prescribed by: JEREMIAH FELIZ on 04/01/19 1517 Patient Home Medication List Home Medication List Reviewed: Yes Review of Systems Review of Systems Constitutional: see HPI EENTM: see HPI Respiratory: no symptoms reported Genitourinary: no symptoms reported Musculoskeletal: no symptoms reported Skin: see HPI Psychiatric/Neurological: No Symptoms Reported Past Otxqckv-Ttnhlu-Vkgdrr Hx Patient Social History Type Used: Cigarettes 2nd Hand Smoke Exposure: Yes Recent Foreign Travel: No Contact w/Someone Who Travel: No Recent Hopitalizations: No Immunizations Up To Date Tetanus Booster (TDap): More than 5yrs PED Vaccines UTD: Yes Date of Pneumonia Vaccine: Jun 21, 2017 Date of Influenza Vaccine: May 21, 2018 Seasonal Allergies Seasonal Allergies: No Past Medical History Surgeries: No Bowel Surgery, Hysterectomy, Neurological, Rectal, Tubal Ligation Respiratory: Yes (CHILDHOOD ASTHMA) Asthma Currently Using CPAP: No Currently Using BIPAP: No Cardiac: Yes High Cholesterol Neurological: Yes (SURGICAL REPAIR OF BRAIN AV MALFORMATION) Headaches /Migraines 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 (CERVICAL DYSPLASIA--S/P LEEP X 3) Female 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 Disorders: 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 Sexually Transmitted Disease: No HIV/AIDS: No Genitourinary: No Gastrointestinal: Yes (PERIRECTAL ABSCESSES/FISTULAS) Gastroesophageal Reflux, Polyps Musculoskeletal: No Endocrine: No Diabetes, Non-Insulin dep HEENT: No Loss of Vision: Bilateral Hearing Impairment: Denies Cancer: Yes (cervical dysplasia) Colon, Ovarian Did You Recieve Any Treatments: Yes What Type of Treatment Did You: Surgical Intervention Psychosocial: No Integumentary: No Blood Disorders: No Adverse Reaction/Blood Tranf: No (N/A) Family Medical History Arthritis 19 FATHER 19 MOTHER Asthma 19 FATHER G8 BROTHER Cataracts 19 MOTHER Diabetes mellitus 19 FATHER Headache disorder 19 MOTHER Hypercholesterolemia 19 MOTHER Seizure disorder 19 FATHER G8 BROTHER Physical Exam Vital Signs Capillary Refill : General Appearance: WD/WN, no apparent distress HEENT: PERRL/EOMI, normal ENT inspection Respiratory: no respiratory distress, no accessory muscle use Neurologic/Psychiatric: alert, normal mood/affect, oriented x 3 Skin: normal color, warm/dry Skin Problem Location: other (anterior waistline is a dime-sized fluctuant area of erythema/abscess without drainage.) Skin Problem Character: abscess Departure Communication (Admissions) 0.5 mL bupivacaine without epinephrine was used to anesthetize the skin. Incision made with an 11 blade scalpel. Moderate amount of brown material expressed. Culture collected and sent to lab. Covered with gauze. Impression Primary Impression: Abscess Disposition: 01 HOME, SELF-CARE Condition: Stable Departure-Patient Inst. Decision time for Depature: 22:06 Referrals: [facility] (PCP/Family) Primary Care Physician Patient Instructions: Skin Abscess Add. Discharge Instructions: 1. Since there is no surrounding cellulitis there is no indication for antibiotics at this time. Return to ER for any redness that increases around the edges of this wound. Follow-up with your doctor later this week for recheck. Images Torso/Trunk 1 - Tenderness EDGARDO ROBBINS APRN Jul 02, 2019 22:07 POS
[2019-07-02 22:14] VITALS: BP 124/79
== END 2019-07-02 22:29 | disposition home or self-care (01) ==
LOC: EDUNIT# 21:53 → ER 21:53
DX: L02.214 Cutaneous abscess of groin (principal); J45.909 Unspecified asthma, uncomplicated; E11.9 Type 2 diabetes mellitus without complications; E78.00 Pure hypercholesterolemia, unspecified; G43.909 Migraine, unspecified, not intractable, without status migrainosus; K21.9 Gastro-esophageal reflux disease without esophagitis; Z85.43 Personal history of malignant neoplasm of ovary; Z85.038 Personal history of other malignant neoplasm of large intestine; Z90.710 Acquired absence of both cervix and uterus; Z98.51 Tubal ligation status; Z77.22 Contact with and (suspected) exposure to environmental tobacco smoke (acute) (chronic); Z88.5 Allergy status to narcotic agent; Z88.0 Allergy status to penicillin; Z88.8 Allergy status to other drugs, medicaments and biological substances; Z79.52 Long term (current) use of systemic steroids
CPT/HCPCS: 99282

== ENCOUNTER 2019-07-22 21:38 | Emergency (ER) | payer SELFPAY ==
[~2019-07-22] VITALS: Ht 160 cm; Wt 86.0 kg
--- NOTE | 2019-07-22 21:58 | ED Upper Extremity ---
General Chief Complaint: Upper Extremity Stated Complaint: L SHOULDER PAIN History of Present Illness Date Seen by Provider: Jul 22, 2019 Time Seen by Provider: 21:50 Initial Comments 38-year-old female reports for left anterior shoulder pain. She states approximately 8 days ago she was lifting a heavy box above her head, it caused her to hyperextend her left shoulder. She denies any previous histories of injuries to her left shoulder. She has been taking Tylenol, ibuprofen and Midol with no improvement in her symptoms. She has not seen her primary care provider. She denies any previous history of injuries to her left shoulder. She reports some mild paresthesias in the left upper extremity in the morning however these resolve as the day goes on. Onset: other (Jul 14, 2019) Pain/Injury Location: right shoulder Method of Injury: other Modifying Factors: Improves With Rest Allergies and Home Medications Allergies Coded Allergies: tramadol (Verified Allergy, Severe, TACHYCARDIA, 10/12/18) Penicillins (Verified Allergy, Mild, SWELLING, 10/12/18) prednisone (Verified Allergy, Mild, REDNESS/SWELLING, 10/12/18) oxycodone (Verified Allergy, Unknown, 02/18/19) Home Medications Ibuprofen 600 Mg Tablet, 600 MG PO Q6H PRN for PAIN-MODERATE Prescribed by: JOSE E GILMORE on 09/06/18 1145 Patient Home Medication List Home Medication List Reviewed: Yes Review of Systems Constitutional: no symptoms reported, see HPI : No (hysterectomy) Musculoskeletal: see HPI, joint pain (left shoulder) All Other Systems Reviewed Negative Unless Noted: Yes Past Zzsxhxf-Muajwl-Pwdkqj Hx Past Med/Social Hx: Reviewed Nursing Past Med/Soc Hx Patient Social History Type Used: Cigarettes 2nd Hand Smoke Exposure: Yes Recent Foreign Travel: No Contact w/Someone Who Travel: No Recent Hopitalizations: No Immunizations Up To Date Tetanus Booster (TDap): More than 5yrs PED Vaccines UTD: Yes Date of Pneumonia Vaccine: Jun 21, 2017 Date of Influenza Vaccine: May 21, 2018 Seasonal Allergies Seasonal Allergies: No Past Medical History Surgeries: No Bowel Surgery, Hysterectomy, Neurological, Rectal, Tubal Ligation Respiratory: Yes (CHILDHOOD ASTHMA) Asthma Currently Using CPAP: No Currently Using BIPAP: No Cardiac: Yes High Cholesterol Neurological: Yes (SURGICAL REPAIR OF BRAIN AV MALFORMATION) Headaches /Migraines 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 (CERVICAL DYSPLASIA--S/P LEEP X 3) Female 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 Disorders: 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 Sexually Transmitted Disease: No HIV/AIDS: No Genitourinary: No Gastrointestinal: Yes (PERIRECTAL ABSCESSES/FISTULAS) Gastroesophageal Reflux, Polyps Musculoskeletal: No Endocrine: No Diabetes, Non-Insulin dep HEENT: No Loss of Vision: Bilateral Hearing Impairment: Denies Cancer: Yes (cervical dysplasia) Colon, Ovarian Did You Recieve Any Treatments: Yes What Type of Treatment Did You: Surgical Intervention Psychosocial: No Integumentary: No Blood Disorders: No Adverse Reaction/Blood Tranf: No (N/A) Family Medical History Arthritis 19 FATHER 19 MOTHER Asthma 19 FATHER G8 BROTHER Cataracts 19 MOTHER Diabetes mellitus 19 FATHER Headache disorder 19 MOTHER Hypercholesterolemia 19 MOTHER Seizure disorder 19 FATHER G8 BROTHER Physical Exam Vital Signs Vital Signs - First Documented 07/22/19 21:46 Temp 36.7 Pulse 87 Resp 18 B/P (MAP) 143/83 (103) Pulse Ox 98 O2 Delivery Room Air Capillary Refill : Height, Weight, BMI Height: 5'3.00" Weight: 180lbs. 6.0oz. 81.601585nb; 37.00 BMI Method:Stated General Appearance: WD/WN, no apparent distress Neck: non-tender, full range of motion, supple, normal inspection Cardiovascular: normal peripheral pulses, regular rate, rhythm Respiratory: chest non-tender, lungs clear, normal breath sounds Shoulder: normal inspection, bone tenderness (before meals joint and anterior left shoulder), limited ROM (secondary to pain), pain (left shoulder), soft tissue tenderness Neurologic/Psychiatric: no motor/sensory deficits, alert, normal mood/affect, oriented x 3 Skin: normal color, warm/dry Lymphatic: no adenopathy Left shoulder pain with apprehension maneuver but no instability. External rotators, Biceps and triceps resisted muscle testing V/V. Progress/Results/Core Measures Results/Orders My Orders Orders - HERNANDEZ MEDLEY Shoulder, Left, 3 Views (07/22/19 21:53) Vital Signs/I&O 07/22/19 21:46 Temp 36.7 Pulse 87 Resp 18 B/P (MAP) 143/83 (103) Pulse Ox 98 O2 Delivery Room Air Diagnostic Imaging Diagonstic Imaging: Xray Plain Films/CT/US/NM/MRI: other (left shoulder) Comments No fractures or dislocations noted. No acute abnormalities. Will be over read by radiology tomorrow. Departure Impression Primary Impression: Left shoulder pain Qualified Codes: M25.512 - Pain in left shoulder Additional Impression: Left shoulder strain Qualified Codes: S46.912A - Strain of unspecified muscle, fascia and tendon at shoulder and upper arm level, left arm, initial encounter Disposition: HOME, SELF-CARE Condition: Improved Departure-Patient Inst. Referrals: [facility] [place] (PCP/Family) Primary Care Physician Add. Discharge Instructions: Ice to left shoulder 20 minutes every 2 hours while awake. Use sling as needed for pain, remove every 2 hours for gentle range of motion to the left shoulder. Alternate between ibuprofen 600 mg and Tylenol 650 mg every 4 hours for pain. Follow-up with your primary care provider if symptoms are not improving or worsen, you may need referral to orthopedics by them. Return to the emergency department for new, urgent health care needs. All discharge instructions reviewed with patient and/or family. Voiced understa [email or web address]. HERNANDEZ MEDLEY Jul 22, 2019 21:58 POS
[2019-07-22 22:16] VITALS: BP 143/83
--- NOTE | 2019-07-23 07:31 | Diagnostic Imaging Report ---
EXAM: SHOULDER, LEFT, 3 VIEWS INDICATION: Left shoulder pain after lifting box. COMPARISON: None. FINDINGS: No fracture or malalignment. No suspicious osteoblastic or lytic lesions. Soft tissue shadows are negative. IMPRESSION: Negative left shoulder radiographs. Dictated by: Dictated on workstation # [id number]
== END 2019-07-22 22:16 | disposition home or self-care (01) ==
LOC: EDUNIT# 21:38 → ER 21:40
DX: S46.912A Strain of unspecified muscle, fascia and tendon at shoulder and upper arm level, left arm, initial encounter (principal); J45.909 Unspecified asthma, uncomplicated; E78.00 Pure hypercholesterolemia, unspecified; G43.909 Migraine, unspecified, not intractable, without status migrainosus; K21.9 Gastro-esophageal reflux disease without esophagitis; E11.9 Type 2 diabetes mellitus without complications; Z85.43 Personal history of malignant neoplasm of ovary; Z85.038 Personal history of other malignant neoplasm of large intestine; Z86.010 Personal history of colon polyps; Z98.51 Tubal ligation status; Z90.710 Acquired absence of both cervix and uterus; Z77.22 Contact with and (suspected) exposure to environmental tobacco smoke (acute) (chronic); Z88.5 Allergy status to narcotic agent; Z88.0 Allergy status to penicillin; Z88.8 Allergy status to other drugs, medicaments and biological substances; X50.0XXA Overexertion from strenuous movement or load, initial encounter
CPT/HCPCS: 73030

== ENCOUNTER 2019-10-31 22:20 | Emergency (ER) | payer SELFPAY ==
[~2019-10-31] VITALS: Ht 160 cm; Wt 86.0 kg
[~2019-10-31 22:20] MED LIST changes: +ACHYD1T PO; -HYDR-3820 PO; -LIDO15SO2 MM; +LIDO20SO23 MM; -TRAM50TA2 PO; +TRM50T PO
[2019-10-31] MEDS ORDERED: GUAI-365 PO (23:51)
[2019-10-31] MEDS ORDERED: OSLT75C PO (23:51)
[2019-10-31] MEDS ORDERED: BENZ100C18 PO (23:51)
[2019-10-31] MEDS ORDERED: GUAI1TBM19 PO (23:52)
--- NOTE | 2019-10-31 23:53 | ED Cough/URI ---
General Chief Complaint: Cough/Cold/Flu Symptoms Stated Complaint: FEVER, COUGH Source: patient History of Present Illness Date Seen by Provider: Oct 31, 2019 Time Seen by Provider: 23:25 Initial Comments PT ARRIVES VIA POV FROM HOME C/O FEVER-UP TO 100.7 COUGH, CONGESTION, SORE THROAT, BODY ACHES, CLEAR RUNNY NOSE--SYMPTOMS BEGAN YESTERDAY AFTERNOON NO CHEST PAIN NO SHORTNESS OF BREATH TOOK 2 TYLENOL AT 2130. HAS NOT TAKEN ANYTHING ELSE FOR SYMPTOMS NO KNOWN SICK CONTACTS, OR KNOWN EXPOSURE TO INFLUENZA OR CORONAVIRUS. 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 PT DID RECEIVE FLU VACCINE THIS SEASON. PT HAS HAD A MULTITUDE OF VISITS FOR VARIOUS PAIN COMPLAINTS--LAST VISIT 07/22/19 PT IS KNOWN TO SEE MULTIPLE PROVIDERS AT MULTIPLE FACILITIES--WELL KNOWN TO OTHER LOCAL ER'S PCP: [facility] [place] Allergies and Home Medications Allergies Coded Allergies: tramadol (Verified Allergy, Severe, TACHYCARDIA, 10/12/18) Penicillins (Verified Allergy, Mild, SWELLING, 10/12/18) prednisone (Verified Allergy, Mild, REDNESS/SWELLING, 10/12/18) oxycodone (Verified Allergy, Unknown, 02/18/19) Home Medications Benzonatate 100 Mg Capsule, 100 MG PO TID Prescribed by: SAVANNAH TY on 10/31/19 235 Guaifenesin/Dextromethorphan 1 Each Tbmp.12hr, 1 EACH PO BID Prescribed by: SAVANNAH TY on 10/31/19 235 Ibuprofen 600 Mg Tablet, 600 MG PO Q6H PRN for PAIN-MODERATE Prescribed by: JOSE E GILMORE on 09/06/18 1145 Oseltamivir Phosphate 75 Mg Cap, 75 MG PO BID Prescribed by: SAVANNAH TY on 10/31/19 235 Patient Home Medication List Home Medication List Reviewed: Yes Review of Systems Review of Systems Constitutional: see HPI, fever EENTM: see HPI, nose congestion, throat pain Respiratory: see HPI, cough; No short of breath, No wheezing Cardiovascular: no symptoms reported; No chest pain Gastrointestinal: no symptoms reported; No nausea, No vomiting Genitourinary: no symptoms reported Musculoskeletal: see HPI (BODY ACHES) Skin: no symptoms reported; No rash Psychiatric/Neurological: No Symptoms Reported; Denies Headache Hematologic/Lymphatic: No Symptoms Reported Immunological/Allergic: no symptoms reported Past Kjanpms-Wxjasu-Vgyaas Hx Past Med/Social Hx: Reviewed and Corrections made Patient Social History Alcohol Use: Denies Use Recreational Drug Use: No Smoking Status: Current Everyday Smoker Type Used: Cigarettes 2nd Hand Smoke Exposure: Yes Recent Foreign Travel: No Contact w/Someone Who Travel: No Recent Hopitalizations: No Immunizations Up To Date Tetanus Booster (TDap): More than 5yrs PED Vaccines UTD: Yes Date of Pneumonia Vaccine: Jun 21, 2017 Date of Influenza Vaccine: May 21, 2018 Seasonal Allergies Seasonal Allergies: No Past Medical History Surgeries: Yes (SEE BELOW) Bowel Surgery, Hysterectomy, Neurological, Rectal, Tubal Ligation Respiratory: No Asthma Currently Using CPAP: No Currently Using BIPAP: No Cardiac: Yes High Cholesterol Neurological: Yes (SURGICAL REPAIR OF BRAIN AV MALFORMATION) Headaches /Migraines 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 (CERVICAL DYSPLASIA--S/P LEEP X 3) Female 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 Disorders: Menstrual Problems AGENT History: Hysterectomy Sexually Transmitted Disease: No HIV/AIDS: No Genitourinary: No Gastrointestinal: Yes (PERIRECTAL ABSCESSES/FISTULAS) Gastroesophageal Reflux, Polyps Musculoskeletal: No Endocrine: Yes Diabetes, Non-Insulin dep HEENT: No Loss of Vision: Bilateral Hearing Impairment: Denies Cancer: Yes (CERVICAL DYSPLASIA;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) Cervical, Colon Did You Recieve Any Treatments: Yes (CERVICAL--TX WITH LEEP X3; REMOVAL OF ANAL CONDYLOMA) What Type of Treatment Did You: Surgical Intervention Psychosocial: No Integumentary: Yes (ANAL CONDYLOMA; PERIANAL/PERIRECTAL ABSCESSES AND FISTULAS) Blood Disorders: No Adverse Reaction/Blood Tranf: No (N/A) Family Medical History Arthritis 19 FATHER 19 MOTHER Asthma 19 FATHER G8 BROTHER Cataracts 19 MOTHER Diabetes mellitus 19 FATHER Headache disorder 19 MOTHER Hypercholesterolemia 19 MOTHER Seizure disorder 19 FATHER G8 BROTHER PSH: -MULTIPLE SURGERIES/PROCEDURES FOR PERIANAL / PERIRECTAL ABSCESSES AND FISTULAS--I&D'S, DEBRIDEMENTS, SETON BANDINGS -MULTPLE "PRECANCEROUS TUMORS" REMOVED FROM PERIANAL AREA DUE TO LARGE ANAL CONDYLOMA; -LEEP SURGERY X 3 FOR CERVICAL DYSPLASIA -REPAIR OF BRAIN AV MALFORMATION -BILATERAL CARPAL TUNNEL SURGERY -BTL Physical Exam Vital Signs - First Documented 10/31/19 11/01/19 23:05 00:03 Temp 37.0 Pulse 79 Resp 20 B/P (MAP) 96/68 (77) Pulse Ox 97 O2 Delivery Room Air O2 Flow Rate 99.00 Capillary Refill : Height: 5'3.00" Weight: 180lbs. 6.0oz. 81.629725ax; 33.00 BMI Method:Stated General Appearance: WD/WN, no apparent distress, other (DOES NOT APPEAR ILL, DOES NOT APPEAR TO BE IN ANY DISCOMFORT OR DISTRESS. NO COUGH NOTED AT ANY TIME) HEENT: PERRL/EOMI, TMs normal, pharynx normal, other (VERY MILD, CLEAR POST NASAL DRAINAGE. NO SINUS TENDERNESS. 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, no motor/sensory deficits, alert, normal mood/affect, oriented x 3 Skin: normal color, warm/dry; No rash Progress/Results/Core Measures Suspected Sepsis SIRS Temperature: Pulse: Respiratory Rate: Blood Pressure / Mean: Results/Orders Lab Results Laboratory Tests Test 10/31/19 23:15 Range/Units Group A Streptococcus Screen NEGATIVE NEGATIVE Micro Results Microbiology 10/31/19 Throat Culture - Final, Complete No Beta Strep isolated 10/31/19 Influenza Types A,B Antigen ([facility]) - Final, Complete My Orders Orders - SAVANNAH TY DO Rapid Strep A Screen (10/31/19 23:25) Oseltamivir 75 Mg Capsule (Tamiflu 75 (11/01/19 00:00) Benzonatate Capsule (Tessalon Perles) (11/01/19 00:00) Vital Signs/I&O 10/31/19 10/31/19 11/01/19 23:05 23:05 00:03 Temp 37.0 37.0 Pulse 79 75 Resp 20 18 B/P (MAP) 96/68 (77) 105/72 Pulse Ox 97 99 O2 Delivery Room Air Room Air O2 Flow Rate 99.00 Capillary Refill : Departure Impression Primary Impression: Influenza-like syndrome Disposition: HOME, SELF-CARE Condition: Stable Departure-Patient Inst. Referrals: [facility] (PCP/Family) Primary Care Physician Patient Instructions: Flu, Adult (DC) Add. Discharge Instructions: LOTS OF CLEAR LIQUIDS TYLENOL 1 GRAM / MOTRIN 800 MG 4 TIMES A DAY NEEDED FOR PAIN OR FEVER FOLLOW UP WITH YOUR DR IN 4-5 DAYS IF NO BETTER, RETURN TO ER IF WORSE All discharge instructions reviewed with patient and/or family. Voiced understanding. Scripts Guaifenesin/Dextromethorphan (Mucinex Dm ER 1,200-60 mg Tab) 1 Each Tbmp.12hr 1 EACH PO BID, #20 EA Prov: SAVANNAH TY DO 10/31/19 Benzonatate (TESSALON PERLES) 100 Mg Capsule 100 MG PO TID, #30 CAP Prov: SAVANNAH TY DO 10/31/19 Oseltamivir Phosphate (Tamiflu) 75 Mg Cap 75 MG PO BID for 5 Days, #10 CAP Prov: SAVANNAH TY DO 10/31/19 SAVANNAH TY DO Oct 31, 2019 23:53
[2019-11-01] MEDS ORDERED: OSELTAMIVIR 75 MG (TAMIFLU) CAPSULE PO ONE
[2019-11-01] MEDS ORDERED: BENZONATATE 100 MG (TESSALON) CAPSULE PO SCH
[2019-11-01 00:03] VITALS: BP 105/72
== END 2019-11-01 00:04 | disposition home or self-care (01) ==
LOC: EDUNIT# 22:20 → ER 22:22
DX: R09.89 Other specified symptoms and signs involving the circulatory and respiratory systems (principal); F17.210 Nicotine dependence, cigarettes, uncomplicated; Z88.5 Allergy status to narcotic agent; Z88.0 Allergy status to penicillin; Z88.8 Allergy status to other drugs, medicaments and biological substances; Z85.038 Personal history of other malignant neoplasm of large intestine
CPT/HCPCS: 87430; 87804

== ENCOUNTER 2019-11-29 16:24 | Emergency (ER) | payer SELFPAY ==
[~2019-11-29] VITALS: Ht 160 cm; Wt 88.0 kg
[~2019-11-29 16:24] MED LIST changes: +GUAI-365 PO; +GUAI1TBM19 PO
[2019-11-29] MEDS ORDERED: PROCHLORPERAZINE 10 MG/2ML INJ (COMPAZINE) IV ONE (17:45)
[2019-11-29] MEDS ORDERED: NS IV 1000 ML 1,000 ML IV SCH (17:45)
[2019-11-29] MEDS ORDERED: KETOROLAC 30 MG/ML VIAL IVP ONE (17:45)
[2019-11-29] MEDS ORDERED: diphenhydrAMINE 50 MG/ML INJ (BENADRYL) IVP ONE (17:45)
--- NOTE | 2019-11-29 18:15 | ED Headache ---
General Chief Complaint: Head/Cervical Problems Stated Complaint: HEAD PAIN Nursing Triage Note: Pt reports having hx of two brain AVM. Pt reports having brain surgery in the past. Pt c/o headache for the past five days that feels the same as when tumors were found in the past. Pt describes pain as "labor pains in the head and feels as if someone is smashing my head." Pt reports pain is in the temples and behind eyes. Pt also reports the pain has caused several boughts of vomiting. Nursing Sepsis Screen: No Definite Risk Source: patient Exam Limitations: no limitations History of Present Illness Date Seen by Provider: Nov 29, 2019 Time Seen by Provider: 17:30 Initial Comments To ER with headache. History of arteriovenous malformation. No other signs such as paresthesias speech difficulty or motor deficits that she has noticed. Timing/Duration: other (5 days) Severity/Quality: other (intermittent) Prior Headaches/Recent Trauma: occasional headaches Allergies and Home Medications Allergies Coded Allergies: tramadol (Verified Allergy, Severe, TACHYCARDIA, 10/12/18) Penicillins (Verified Allergy, Mild, SWELLING, 10/12/18) prednisone (Verified Allergy, Mild, REDNESS/SWELLING, 10/12/18) oxycodone (Verified Allergy, Unknown, 02/18/19) Home Medications Benzonatate 100 Mg Capsule, 100 MG PO TID Prescribed by: SAVANNAH TY on 10/31/19 235 Guaifenesin/Dextromethorphan 1 Each Tbmp.12hr, 1 EACH PO BID Prescribed by: SAVANNAH TY on 10/31/19 235 Ibuprofen 600 Mg Tablet, 600 MG PO Q6H PRN for PAIN-MODERATE Prescribed by: JOSE E GILMORE on 09/06/18 1145 Oseltamivir Phosphate 75 Mg Cap, 75 MG PO BID Prescribed by: SAVANNAH TY on 10/31/19 2351 Patient Home Medication List Home Medication List Reviewed: Yes Review of Systems Review of Systems Constitutional: see HPI; No chills, No fever Eyes: No Symptoms Reported Ears, Nose, Mouth, Throat: no symptoms reported Respiratory: no symptoms reported Cardiovascular: no symptoms reported Genitourinary: no symptoms reported Musculoskeletal: no symptoms reported Skin: no symptoms reported Psychiatric/Neurological: No Symptoms Reported Past Ppbzltk-Unyjce-Cnsyge Hx Patient Social History Alcohol Use: Denies Use Recreational Drug Use: No Smoking Status: Current Everyday Smoker Type Used: Cigarettes 2nd Hand Smoke Exposure: Yes Recent Foreign Travel: No Contact w/Someone Who Travel: No Recent Infectious Disease Expo: No Recent Hopitalizations: No Immunizations Up To Date Tetanus Booster (TDap): More than 5yrs PED Vaccines UTD: Yes Date of Pneumonia Vaccine: Jun 21, 2017 Date of Influenza Vaccine: Apr 21, 2019 Seasonal Allergies Seasonal Allergies: No Past Medical History Surgeries: Yes (SEE BELOW) Bowel Surgery, Hysterectomy, Neurological, Rectal, Tubal Ligation Respiratory: No Asthma Currently Using CPAP: No Currently Using BIPAP: No Cardiac: Yes High Cholesterol Neurological: Yes (SURGICAL REPAIR OF BRAIN AV MALFORMATION) Headaches /Migraines 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 (CERVICAL DYSPLASIA--S/P LEEP X 3) Female 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 Disorders: Menstrual Problems 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 Sexually Transmitted Disease: No HIV/AIDS: No Genitourinary: No Gastrointestinal: Yes (PERIRECTAL ABSCESSES/FISTULAS) Gastroesophageal Reflux, Polyps Musculoskeletal: No Endocrine: Yes Diabetes, Non-Insulin dep HEENT: No Loss of Vision: Bilateral Hearing Impairment: Denies Cancer: Yes (CERVICAL DYSPLASIA;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) Cervical, Colon Did You Recieve Any Treatments: Yes What Type of Treatment Did You: Surgical Intervention Psychosocial: No Integumentary: Yes (ANAL CONDYLOMA; PERIANAL/PERIRECTAL ABSCESSES AND FISTULAS) Blood Disorders: No Adverse Reaction/Blood Tranf: No (N/A) Family Medical History Arthritis 19 FATHER 19 MOTHER Asthma 19 FATHER G8 BROTHER Cataracts 19 MOTHER Diabetes mellitus 19 FATHER Headache disorder 19 MOTHER Hypercholesterolemia 19 MOTHER Seizure disorder 19 FATHER G8 BROTHER PSH: -MULTIPLE SURGERIES/PROCEDURES FOR PERIANAL / PERIRECTAL ABSCESSES AND FISTULAS--I&D'S, DEBRIDEMENTS, SETON BANDINGS -MULTPLE "PRECANCEROUS TUMORS" REMOVED FROM PERIANAL AREA DUE TO LARGE ANAL CONDYLOMA; -LEEP SURGERY X 3 FOR CERVICAL DYSPLASIA -REPAIR OF BRAIN AV MALFORMATION -BILATERAL CARPAL TUNNEL SURGERY -BTL Physical Exam Vital Signs Vital Signs - First Documented 11/29/19 16:34 Temp 36.8 Pulse 86 Resp 16 B/P (MAP) 125/69 (87) Pulse Ox 97 O2 Delivery Room Air Capillary Refill : Less Than 3 Seconds Height, Weight, BMI Height: 5'3.00" Weight: 180lbs. 6.0oz. 81.903336pm; 34.00 BMI Method:Stated General Appearance: WD/WN, no apparent distress HEENT: PERRL/EOMI, normal ENT inspection, TMs normal Neck: non-tender, full range of motion Respiratory: no respiratory distress, no accessory muscle use Gastrointestinal: normal bowel sounds, non tender Extremities: normal range of motion, non-tender Psychiatric: alert, oriented x 3 Crainal Nerves: normal hearing, normal speech Skin: normal color, warm/dry Progress/Results/Core Measures Results/Orders My Orders Orders - EDGARDO ROBBINS APRN Ct Head Wo (11/29/19 17:25) Ketorolac Injection (Toradol Injection) (11/29/19 17:45) Prochlorperazine Injection (Compazine In (11/29/19 17:45) Diphenhydramine Injection (Benadryl Inje (11/29/19 17:45) Ns Iv 1000 Ml (Sodium Chloride 0.9%) (11/29/19 17:45) Medications Given in ED Vital Signs/I&O 11/29/19 11/29/19 16:34 18:37 Temp 36.8 36.8 Pulse 86 82 Resp 16 16 B/P (MAP) 125/69 (87) 115/71 (87) Pulse Ox 97 97 O2 Delivery Room Air Room Air Blood Pressure Mean: 87 Departure Impression Primary Impression: Headache Qualified Codes: R51 - Headache Disposition: 01 HOME, SELF-CARE Condition: Improved Departure-Patient Inst. Decision time for Depature: 18:15 Referrals: [facility] [place] (PCP/Family) Primary Care Physician Patient Instructions: Headache, Adult (DC) EDGARDO ROBBINS APRN Nov 29, 2019 18:15
--- NOTE | 2019-11-29 18:18 | Diagnostic Imaging Report ---
INDICATION: Severe headaches. History of prior brain surgery due to AVM. EXAMINATION: CT brain without contrast, 11/29/2019. COMPARISON: 09/26/2016. FINDINGS: Right suboccipital craniotomy change is again seen with underlying encephalomalacia stable. No superimposed acute hemorrhage or infarct is appreciated. No mass, mass effect or midline shift. No hydrocephalus. The calvarium is intact other than the postoperative changes. No acute sinus disease appreciated. IMPRESSION: Diffuse chronic change.. No acute process appreciated. If symptoms persist MRI may provide further characterization. Dictated by: Dictated on workstation # [id number]
[2019-11-29 18:37] VITALS: BP 115/71
== END 2019-11-29 18:37 | disposition home or self-care (01) ==
LOC: EDUNIT# 16:24 → ER 16:26
DX: R51 Headache (principal); F17.210 Nicotine dependence, cigarettes, uncomplicated; Z88.5 Allergy status to narcotic agent; Z88.0 Allergy status to penicillin; Z88.8 Allergy status to other drugs, medicaments and biological substances; Z86.69 Personal history of other diseases of the nervous system and sense organs; Z85.038 Personal history of other malignant neoplasm of large intestine; Z85.41 Personal history of malignant neoplasm of cervix uteri
CPT/HCPCS: 70450

== ENCOUNTER 2019-12-13 14:41 | Emergency (ER) | payer SELFPAY ==
[~2019-12-13] VITALS: Ht 160 cm; Wt 92.0 kg
[2019-12-13 15:00] VITALS: BP 114/72
[2019-12-13] MEDS ORDERED: DOXY100T2 PO (15:02)
[2019-12-13] MEDS ORDERED: NAPR-915 PO (15:03)
--- NOTE | 2019-12-13 15:06 | ED Integumentary General ---
General Stated Complaint: POSS SPIDER BITE Source: patient Exam Limitations: no limitations History of Present Illness Date Seen by Provider: Dec 13, 2019 Time Seen by Provider: 14:59 Initial Comments To Er with a bite (suspected spider) x2 weeks. Was initially red, now has had a darkened post anesthesia nurse. No nausea no vomiting no fever or chills Timing/Duration: constant Severity: moderate Location: extremities Possible Cause: insect bite Associated Symptoms: denies symptoms Allergies and Home Medications Allergies Coded Allergies: tramadol (Verified Allergy, Severe, TACHYCARDIA, 10/12/18) Penicillins (Verified Allergy, Mild, SWELLING, 10/12/18) prednisone (Verified Allergy, Mild, REDNESS/SWELLING, 10/12/18) oxycodone (Verified Allergy, Unknown, 02/18/19) Home Medications Benzonatate 100 Mg Capsule, 100 MG PO TID Prescribed by: SAVANNAH TY on 10/31/19 2351 Guaifenesin/Dextromethorphan 1 Each Tbmp.12hr, 1 EACH PO BID Prescribed by: SAVANNAH TY on 10/31/19 2352 Ibuprofen 600 Mg Tablet, 600 MG PO Q6H PRN for PAIN-MODERATE Prescribed by: JOSE E GILMORE on 09/06/18 1145 Oseltamivir Phosphate 75 Mg Cap, 75 MG PO BID Prescribed by: SAVANNAH TY on 10/31/19 2351 Patient Home Medication List Home Medication List Reviewed: Yes Review of Systems Review of Systems Constitutional: see HPI EENTM: see HPI Respiratory: no symptoms reported Cardiovascular: no symptoms reported Genitourinary: no symptoms reported Musculoskeletal: no symptoms reported Skin: see HPI Psychiatric/Neurological: No Symptoms Reported Endocrine: No Symptoms Reported Past Uplflfk-Gctfpb-Zommci Hx Patient Social History Type Used: Cigarettes 2nd Hand Smoke Exposure: Yes Recent Foreign Travel: No Contact w/Someone Who Travel: No Recent Hopitalizations: No Immunizations Up To Date Tetanus Booster (TDap): More than 5yrs PED Vaccines UTD: Yes Date of Pneumonia Vaccine: Jun 21, 2017 Date of Influenza Vaccine: Apr 21, 2019 Seasonal Allergies Seasonal Allergies: No Past Medical History Surgeries: Yes (SEE BELOW) Bowel Surgery, Hysterectomy, Neurological, Rectal, Tubal Ligation Respiratory: No Asthma Currently Using CPAP: No Currently Using BIPAP: No Cardiac: Yes High Cholesterol Neurological: Yes (SURGICAL REPAIR OF BRAIN AV MALFORMATION) Headaches /Migraines 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 (CERVICAL DYSPLASIA--S/P LEEP X 3) Female 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 Disorders: Menstrual Problems 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 Sexually Transmitted Disease: No HIV/AIDS: No Genitourinary: No Gastrointestinal: Yes (PERIRECTAL ABSCESSES/FISTULAS) Gastroesophageal Reflux, Polyps Musculoskeletal: No Endocrine: Yes Diabetes, Non-Insulin dep HEENT: No Loss of Vision: Bilateral Hearing Impairment: Denies Cancer: Yes (CERVICAL DYSPLASIA;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) Cervical, Colon Did You Recieve Any Treatments: Yes What Type of Treatment Did You: Surgical Intervention Psychosocial: No Integumentary: Yes (ANAL CONDYLOMA; PERIANAL/PERIRECTAL ABSCESSES AND FISTULAS) Blood Disorders: No Adverse Reaction/Blood Tranf: No (N/A) Family Medical History Arthritis 19 FATHER 19 MOTHER Asthma 19 FATHER G8 BROTHER Cataracts 19 MOTHER Diabetes mellitus 19 FATHER Headache disorder 19 MOTHER Hypercholesterolemia 19 MOTHER Seizure disorder 19 FATHER G8 BROTHER PSH: -MULTIPLE SURGERIES/PROCEDURES FOR PERIANAL / PERIRECTAL ABSCESSES AND FISTULAS--I&D'S, DEBRIDEMENTS, SETON BANDINGS -MULTPLE "PRECANCEROUS TUMORS" REMOVED FROM PERIANAL AREA DUE TO LARGE ANAL CONDYLOMA; -LEEP SURGERY X 3 FOR CERVICAL DYSPLASIA -REPAIR OF BRAIN AV MALFORMATION -BILATERAL CARPAL TUNNEL SURGERY -BTL Physical Exam Vital Signs Capillary Refill : General Appearance: WD/WN, no apparent distress Respiratory: no respiratory distress, no accessory muscle use Neurologic/Psychiatric: alert, normal mood/affect, oriented x 3 Skin: normal color, warm/dry Skin Problem Character: other (were sized area of slight erythema with central necrosis about 5 mm in width. Shallow. ) Departure Impression Primary Impression: Brown recluse spider bite Qualified Codes: T63.334A - Toxic effect of venom of brown recluse spider, undetermined, initial encounter Disposition: HOME, SELF-CARE Condition: Stable Departure-Patient Inst. Decision time for Depature: 15:01 Referrals: [facility] (PCP/Family) Primary Care Physician Patient Instructions: Wound Care, Spider Bites Add. Discharge Instructions: 1. Unfortunately these tend to take several weeks to heal. You can keep a Band- Aid over this to keep it from rubbing on your clothes. Anti-inflammatory and antibiotic as directed. Scripts Naproxen (Naproxen) 500 Mg Tablet 500 MG PO Q12H PRN for PAIN-MODERATE (5-7) for 3 Days, #14 TAB Prov: EDGARDO ROBBINS APRN 12/13/19 Doxycycline Hyclate (Doxycycline Hyclate) 100 Mg Tablet 100 MG PO BID, #20 TAB 0 Refills Prov: EDGARDO ROBBINS APRN 12/13/19 EDGARDO ROBBINS APRN Dec 13, 2019 15:05
== END 2019-12-13 15:20 | disposition home or self-care (01) ==
LOC: EDUNIT# 14:41 → ER 14:42
DX: T63.334A Toxic effect of venom of brown recluse spider, undetermined, initial encounter (principal); Z88.0 Allergy status to penicillin; Z88.8 Allergy status to other drugs, medicaments and biological substances; Z88.5 Allergy status to narcotic agent; Z77.22 Contact with and (suspected) exposure to environmental tobacco smoke (acute) (chronic); Z85.038 Personal history of other malignant neoplasm of large intestine; Z85.41 Personal history of malignant neoplasm of cervix uteri
CPT/HCPCS: 99282

== ENCOUNTER 2020-01-04 17:37 | Emergency (ER) | payer SELFPAY ==
[~2020-01-04] VITALS: Ht 160 cm; Wt 93.7 kg
[2020-01-04] MEDS ORDERED: DICL100G18 TP (18:12)
--- NOTE | 2020-01-04 18:12 | ED Upper Extremity ---
General Chief Complaint: Upper Extremity Stated Complaint: R SHOULDER PAIN Nursing Triage Note: Pt c/o R shoulder pain. Pt reports pulling brush approximately one month ago and felt a pop in shoulder. Pt reports pain has been worsening. Pt reports pain radiates to back of arm and down to elbow. Pt reports taking tylenol for pain. Pt has not sought care for pain until now. Nursing Sepsis Screen: No Definite Risk Source: patient Exam Limitations: no limitations History of Present Illness Date Seen by Provider: January 04, 2020 Time Seen by Provider: 18:08 Initial Comments To ER with reports of right shoulder pain. This began about a month ago while she was helping her pulled brush. She's had some persistent pain in the right shoulder since then. No direct injury or falls. Onset: just prior to arrival Pain/Injury Location: right shoulder Modifying Factors: Improves With Movement Allergies and Home Medications Allergies Coded Allergies: tramadol (Verified Allergy, Severe, TACHYCARDIA, 10/12/18) Penicillins (Verified Allergy, Mild, SWELLING, 10/12/18) prednisone (Verified Allergy, Mild, REDNESS/SWELLING, 10/12/18) Home Medications Benzonatate 100 Mg Capsule, 100 MG PO TID Prescribed by: SAVANNAH TY on 10/31/192350 Doxycycline Hyclate 100 Mg Tablet, 100 MG PO BID Prescribed by: EDGARDO ROBBINS on 12/13/19 150 Guaifenesin/Dextromethorphan 1 Each Tbmp.12hr, 1 EACH PO BID Prescribed by: SAVANNAH TY on 10/31/19 235 Ibuprofen 600 Mg Tablet, 600 MG PO Q6H PRN for PAIN-MODERATE Prescribed by: JOSE E GILMORE on 09/06/18 1145 Naproxen 500 Mg Tablet, 500 MG PO Q12H PRN for PAIN-MODERATE (5-7) Prescribed by: EGDARDO ROBBINS on 12/13/19 1503 Oseltamivir Phosphate 75 Mg Cap, 75 MG PO BID Prescribed by: SAVANNAH TY on 10/31/19 235 Patient Home Medication List Home Medication List Reviewed: Yes Review of Systems Constitutional: see HPI EENTM: see HPI Respiratory: no symptoms reported Cardiovascular: no symptoms reported Musculoskeletal: see HPI, joint pain Skin: no symptoms reported Psychiatric/Neurological: No Symptoms Reported Past Vufqsdy-Sawzqy-Ozwleu Hx Patient Social History Alcohol Use: Denies Use Recreational Drug Use: No Smoking Status: Current Everyday Smoker Type Used: Cigarettes 2nd Hand Smoke Exposure: Yes Recent Foreign Travel: No Contact w/Someone Who Travel: No Recent Infectious Disease Expo: No Recent Hopitalizations: No Immunizations Up To Date Tetanus Booster (TDap): More than 5yrs PED Vaccines UTD: Yes Date of Pneumonia Vaccine: Jun 21, 2017 Date of Influenza Vaccine: Apr 21, 2019 Seasonal Allergies Seasonal Allergies: No Past Medical History Surgeries: Yes (SEE BELOW) Bowel Surgery, Hysterectomy, Neurological, Rectal, Tubal Ligation Respiratory: No Asthma Currently Using CPAP: No Currently Using BIPAP: No Cardiac: Yes High Cholesterol Neurological: Yes (SURGICAL REPAIR OF BRAIN AV MALFORMATION) Headaches /Migraines 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 (CERVICAL DYSPLASIA--S/P LEEP X 3) Female 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 Disorders: 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 Sexually Transmitted Disease: No HIV/AIDS: No Genitourinary: No Gastrointestinal: Yes (PERIRECTAL ABSCESSES/FISTULAS) Gastroesophageal Reflux, Polyps Musculoskeletal: No Endocrine: Yes Diabetes, Non-Insulin dep HEENT: No Loss of Vision: Bilateral Hearing Impairment: Denies Cancer: Yes (CERVICAL DYSPLASIA;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) Cervical, Colon Did You Recieve Any Treatments: Yes What Type of Treatment Did You: Surgical Intervention Psychosocial: No Integumentary: Yes (ANAL CONDYLOMA; PERIANAL/PERIRECTAL ABSCESSES AND FISTULAS) Blood Disorders: No Adverse Reaction/Blood Tranf: No (N/A) Family Medical History Arthritis 19 FATHER 19 MOTHER Asthma 19 FATHER G8 BROTHER Cataracts 19 MOTHER Diabetes mellitus 19 FATHER Headache disorder 19 MOTHER Hypercholesterolemia 19 MOTHER Seizure disorder 19 FATHER G8 BROTHER PSH: -MULTIPLE SURGERIES/PROCEDURES FOR PERIANAL / PERIRECTAL ABSCESSES AND FISTULAS--I&D'S, DEBRIDEMENTS, SETON BANDINGS -MULTPLE "PRECANCEROUS TUMORS" REMOVED FROM PERIANAL AREA DUE TO LARGE ANAL CONDYLOMA; -LEEP SURGERY X 3 FOR CERVICAL DYSPLASIA -REPAIR OF BRAIN AV MALFORMATION -BILATERAL CARPAL TUNNEL SURGERY -BTL Physical Exam Vital Signs Vital Signs - First Documented 01/04/20 17:54 Temp 37.1 Pulse 94 Resp 18 B/P (MAP) 114/79 (91) Pulse Ox 98 O2 Delivery Room Air Capillary Refill : Less Than 3 Seconds Height, Weight, BMI Height: 5'3.00" Weight: 180lbs. 6.0oz. 81.555486ds; 36.00 BMI Method:Stated General Appearance: WD/WN, no apparent distress HEENT: PERRL/EOMI, normal ENT inspection Neck: full range of motion Respiratory: no respiratory distress, no accessory muscle use Shoulder: normal inspection; No deformity, No ecchymosis; limited ROM, pain, soft tissue tenderness; No swelling Elbow/Forearm: normal inspection, non-tender Hand: normal inspection, non-tender Neurologic/Psychiatric: alert, normal mood/affect, oriented x 3 Skin: normal color, warm/dry Progress/Results/Core Measures Results/Orders Vital Signs/I&O 01/04/20 17:54 Temp 37.1 Pulse 94 Resp 18 B/P (MAP) 114/79 (91) Pulse Ox 98 O2 Delivery Room Air Blood Pressure Mean: 91 Departure Impression Primary Impression: Internal derangement of right shoulder Disposition: 01 HOME, SELF-CARE Condition: Stable Departure-Patient Inst. Decision time for Depature: 18:09 Referrals: NO,LOCAL PHYSICIAN (PCP/Family) Primary Care Physician Patient Instructions: Tendonitis (DC) Add. Discharge Instructions: sling as directed to help allow this to rest[facility] to be seen she discuss obtaining an MRI all All discharge instructions reviewed with patient and/or family. Voiced understanding. Scripts Diclofenac Sodium (Voltaren) 100 Gm Gel..gram. 100 GM TP QID, #2 TUBE Prov: EDGARDO ROBBINS APRN 01/04/20 EDGARDO ROBBINS APRN January 04, 2020 18:12
[2020-01-04 18:19] VITALS: BP 114/79
== END 2020-01-04 18:19 | disposition home or self-care (01) ==
LOC: EDUNIT# 17:37 → ER 17:38
DX: M24.111 Other articular cartilage disorders, right shoulder (principal); J45.909 Unspecified asthma, uncomplicated; F17.210 Nicotine dependence, cigarettes, uncomplicated; Z86.010 Personal history of colon polyps; Z88.5 Allergy status to narcotic agent; Z88.0 Allergy status to penicillin; Z88.8 Allergy status to other drugs, medicaments and biological substances; Z98.51 Tubal ligation status; Z85.41 Personal history of malignant neoplasm of cervix uteri; Z85.038 Personal history of other malignant neoplasm of large intestine; X50.1XXA Overexertion from prolonged static or awkward postures, initial encounter
CPT/HCPCS: 99282

== ENCOUNTER 2022-06-20 17:39 | Emergency (ER) | payer SELFPAY ==
[~2022-06-20] VITALS: Ht 158 cm; Wt 78.0 kg
[~2022-06-20 17:39] MED LIST changes: +ALBU8.5H6 IH; -CIPR500T4 PO; +CIPR500T5 PO; +DICL100G18 TP; -FLUC150T2 PO; +FLUC150T41 PO; -RT-ALBUINH IH; -SULF1TAB35 PO; +SULF1TAB38 PO
[2022-06-20 17:50] VITALS: BP 146/88
--- NOTE | 2022-06-20 18:03 | ED GI ---
General Stated Complaint: VAG PAIN/BLEEDING/PRESSURE Source of Information: Patient Exam Limitations: No Limitations History of Present Illness Date Seen by Provider: Jun 20, 2022 Time Seen by Provider: 17:50 Initial Comments Patient is a 41-year-old female who presents to the emergency department with 2 days of vaginal spotting and lower abdominal pain. Patient states the pain worsened today. She states the spotting was worse yesterday but it seems resolved today. Patient had a hysterectomy several years ago. She does endorse a history of ovarian cyst. She denies any nausea/vomiting. She has not seen an SEATING CAPTAIN in over 2 years since her hysterectomy. Denies any other abnormal vaginal discharge. She has been taking Tylenol for the symptoms. Denies any urinary pain/frequency. Allergies and Home Medications Allergies Coded Allergies: tramadol (Verified Allergy, Severe, TACHYCARDIA, 10/12/18) Penicillins (Verified Allergy, Mild, SWELLING, 10/12/18) prednisone (Verified Allergy, Mild, REDNESS/SWELLING, 10/12/18) Patient Home Medication List Home Medication List Reviewed: Yes Benzonatate (Tessalon Perles) 100 Mg Capsule, 100 MG PO TID Prescribed by: SAVANNAH TY on 10/31/19 235 Diclofenac Sodium (Voltaren) 100 Gm Gel..gram., 100 GM TP QID Prescribed by: EDGARDO ROBBINS on 01/04/20 181 Doxycycline Hyclate (Doxycycline Hyclate) 100 Mg Tablet, 100 MG PO BID Prescribed by: EDGARDO ROBBINS on 12/13/19 1502 Guaifenesin/Dextromethorphan (Mucinex Dm ER 1,200-60 mg Tab) 1 Each Tbmp.12hr, 1 EACH PO BID Prescribed by: SAVANNAH TY on 10/31/19 235 Hyoscyamine Sulfate (Levsin-Sl) 0.125 Mg Tab.subl, 0.125 MG SL TID PRN for PAIN-SEE DOSE INSTRUCTIONS Prescribed by: Andrés Garcia on 06/20/22 192 Ibuprofen (Ibu) 600 Mg Tablet, 600 MG PO Q6H PRN for PAIN-MODERATE Prescribed by: JOSE E GILMORE on 09/06/18 1145 Naproxen (Naproxen) 500 Mg Tablet, 500 MG PO Q12H PRN for PAIN-MODERATE (5-7) Prescribed by: EDGARDO ROBBINS on 12/13/19 1503 Oseltamivir Phosphate (Tamiflu) 75 Mg Cap, 75 MG PO BID Prescribed by: SAVANNAH TY on 10/31/19 2351 Review of Systems Review of Systems Constitutional: no symptoms reported EENTM: No Symptoms Reported Respiratory: No Symptoms Reported Cardiovascular: No Symptoms Reported Gastrointestinal: See HPI Genitourinary: See HPI Skin: no symptoms reported Past Ikkwloa-Qjrnwi-Ppwtiw Hx Immunizations Up To Date Tetanus Booster (TDap): More than 5yrs PED Vaccines UTD: Yes Seasonal Allergies Seasonal Allergies: No Past Medical History Surgeries: Yes (SEE BELOW) Bowel Surgery, Hysterectomy, Neurological, Rectal, Tubal Ligation Respiratory: No Asthma Currently Using CPAP: No Currently Using BIPAP: No Cardiac: Yes High Cholesterol Neurological: Yes (SURGICAL REPAIR OF BRAIN AV MALFORMATION) Headaches /Migraines 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 (CERVICAL DYSPLASIA--S/P LEEP X 3) Female 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 Disorders: 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 Transmitted Disease: No HIV/AIDS: No Genitourinary: No Gastrointestinal: Yes (PERIRECTAL ABSCESSES/FISTULAS) Gastroesophageal Reflux, Polyps Musculoskeletal: No Endocrine: Yes Diabetes, Non-Insulin dep HEENT: No Loss of Vision: Bilateral Hearing Impairment: Denies Cancer: Yes (CERVICAL DYSPLASIA;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) Cervical, Colon Did You Recieve Any Treatments: Yes What Type of Treatment Did You: Surgical Intervention Psychosocial: No Integumentary: Yes (ANAL CONDYLOMA; PERIANAL/PERIRECTAL ABSCESSES AND FISTULAS) Blood Disorders: No Adverse Reaction/Blood Tranf: No (N/A) Family Medical History Arthritis 19 FATHER 19 MOTHER Asthma 19 FATHER G8 BROTHER Cataracts 19 MOTHER Diabetes mellitus 19 FATHER Headache disorder 19 MOTHER Hypercholesterolemia 19 MOTHER Seizure disorder 19 FATHER G8 BROTHER PSH: -MULTIPLE SURGERIES/PROCEDURES FOR PERIANAL / PERIRECTAL ABSCESSES AND FISTULAS--I&D'S, DEBRIDEMENTS, SETON BANDINGS -MULTPLE "PRECANCEROUS TUMORS" REMOVED FROM PERIANAL AREA DUE TO LARGE ANAL CONDYLOMA; -LEEP SURGERY X 3 FOR CERVICAL DYSPLASIA -REPAIR OF BRAIN AV MALFORMATION -BILATERAL CARPAL TUNNEL SURGERY -BTL Physical Exam Vital Signs Vital Signs - First Documented 06/20/22 17:50 Temp 36.7 Pulse 88 Resp 18 B/P (MAP) 146/88 (107) Capillary Refill : Height/Weight/BMI Height: 5'3.00" Weight: 180lbs. 6.0oz. 81.918759rb; 36.00 BMI Method:Stated General Appearance: WD/WN, no apparent distress HEENT: PERRL/EOMI, normal ENT inspection, TMs normal, pharynx normal Neck: non-tender, full range of motion, supple, normal inspection Respiratory: chest non-tender, lungs clear, normal breath sounds, no respiratory distress, no accessory muscle use Cardiovascular: regular rate, rhythm Gastrointestinal: normal bowel sounds, soft, no organomegaly, no pulsatile mass, tenderness (lower abdomen) Extremities: normal range of motion, non-tender, normal inspection, no pedal edema, no calf tenderness Neurologic/Psychiatric: coat baster II-XII nml as tested, no motor/sensory deficits, alert, normal mood/affect, oriented x 3 Skin: normal color, warm/dry Progress/Results/Core Measures Results/Orders Lab Results Laboratory Tests Test 06/20/22 18:02 Range/Units White Blood Count 11.4 H 4.3-11.0 10^3/uL Red Blood Count 4.63 3.80-5.11 10^6/uL Hemoglobin 14.3 11.5-16.0 g/dL Hematocrit 42 35-52 % Mean Corpuscular Volume 90 80-99 fL Mean Corpuscular Hemoglobin 31 25-34 pg Mean Corpuscular Hemoglobin Concent 34 32-36 g/dL Red Cell Distribution Width 13.3 10.0-14.5 % Platelet Count 322 130-400 10^3/uL Mean Platelet Volume 9.5 9.0-12.2 fL Immature Granulocyte % (Auto) 0 % Neutrophils (%) (Auto) 42 42-75 % Lymphocytes (%) (Auto) 48 H 12-44 % Monocytes (%) (Auto) 6 0-12 % Eosinophils (%) (Auto) 2 0-10 % Basophils (%) (Auto) 1 0-10 % Neutrophils # (Auto) 4.8 1.8-7.8 10^3/uL Lymphocytes # (Auto) 5.5 H 1.0-4.0 10^3/uL Monocytes # (Auto) 0.7 0.0-1.0 10^3/uL Eosinophils # (Auto) 0.2 0.0-0.3 10^3/uL Basophils # (Auto) 0.1 0.0-0.1 10^3/uL Immature Granulocyte # (Auto) 0.0 0.0-0.1 10^3/uL Urine Color YELLOW Urine Clarity CLEAR Urine pH 6.5 5-9 Urine Specific [place] <=1.005 1.016-1.022 Urine Protein NEGATIVE NEGATIVE Urine Glucose (UA) NEGATIVE NEGATIVE Urine Ketones NEGATIVE NEGATIVE Urine Nitrite NEGATIVE NEGATIVE Urine Bilirubin NEGATIVE NEGATIVE Urine Urobilinogen 0.2 < = 1.0 MG/DL Urine Leukocyte Esterase NEGATIVE NEGATIVE Urine RBC (Auto) NEGATIVE NEGATIVE Urine RBC NONE /HPF Urine WBC NONE /HPF Urine Squamous Epithelial Cells 10-25 H /HPF Urine Crystals PRESENT H /LPF Urine Amorphous Sediment RARE DAVIDSON URATES H /LPF Urine Bacteria TRACE /HPF Urine Casts NONE /LPF Urine Mucus NEGATIVE /LPF Urine Culture Indicated NO Sodium Level 139 135-145 MMOL/L Potassium Level 3.2 L 3.6-5.0 MMOL/L Chloride Level 104 98-107 MMOL/L Carbon Dioxide Level 26 21-32 MMOL/L Anion Gap 9 5-14 MMOL/L Blood Urea Nitrogen 5 L 7-18 MG/DL Creatinine 0.80 0.60-1.30 MG/DL Estimat Glomerular Filtration Rate 94 BUN/Creatinine Ratio 6 Glucose Level 86 70-105 MG/DL Calcium Level 9.0 8.5-10.1 MG/DL Corrected Calcium 8.9 8.5-10.1 MG/DL Total Bilirubin 0.2 0.1-1.0 MG/DL Aspartate Amino Transf (AST/SGOT) 18 5-34 U/L Alanine Aminotransferase (ALT/SGPT) 20 0-55 U/L Alkaline Phosphatase 67 40-136 U/L Total Protein 7.2 6.4-8.2 GM/DL Albumin 4.1 3.2-4.5 GM/DL Smear Scan YES My Orders Orders - ANDRÉS GARCIA APRN Cbc With Automated Diff (06/20/22 17:59) Comprehensive Metabolic Panel (06/20/22 17:59) Iv/Invasive Line Insertion .IV INSERT (06/20/22 17:59) Ua Culture If Indicated (06/20/22 17:59) Ct Abdomen/Pelvis W (06/20/22 17:59) Iohexol Injection (Omnipaque 350 Mg/Ml 1 (06/20/22 18:15) Received Contrast (Hold Metformin- Contr (06/20/22 18:15) Sodium Chloride Flush (Catheter Flush Sy (06/20/22 18:15) Ns (Ivpb) (Sodium Chloride 0.9% Ivpb Bag (06/20/22 18:15) Ketorolac Injection (Toradol Injection) (06/20/22 18:30) Hydrocodone/Apap 5/325 Tablet (Lortab 5 (06/20/22 19:30) Medications Given in ED Current Medications Medications Dose Ordered Sig/Maryse Route Start Time Stop Time Status Last Admin Dose Admin Acetaminophen/ Hydrocodone Bitart 1 ea ONCE ONCE PO 06/20/22 19:30 06/20/22 19:31 DC 06/20/22 19:31 1 EA Iohexol 100 ml ONCE ONCE IV 06/20/22 18:15 06/20/22 18:16 DC 06/20/22 18:57 80 ML Ketorolac Tromethamine 15 mg ONCE ONCE IVP 06/20/22 18:30 06/20/22 18:31 DC 06/20/22 18:45 15 MG Sodium Chloride 10 ml NEEDED PRN IV 06/20/22 18:15 06/20/22 19:40 DC 06/20/22 18:57 10 ML Sodium Chloride 100 ml ONCE ONCE IV 06/20/22 18:15 06/20/22 18:16 DC 06/20/22 18:57 80 ML Vital Signs/I&O 06/20/22 17:50 Temp 36.7 Pulse 88 Resp 18 B/P (MAP) 146/88 (107) Progress Progress Note : Progress Note Patient is nontoxic and well-hydrated on exam. Vital signs are reassuring. Abdominal exam is notable for diffuse lower abdominal tenderness to palpation. Abdomen is not distended or rigid. Laboratory evaluation is unremarkable. CT of the abdomen/pelvis with contrast notable for left ovarian cyst. No other acute findings noted. Will discharge home with recommendations for supportive care and close follow-up with PCP. Return precautions for symptomology discussed. Patient verbalized understanding. Departure Impression Primary Impression: Lower abdominal pain Additional Impression: Left ovarian cyst Disposition: 01 HOME, SELF-CARE Condition: Stable Departure-Patient Inst. Decision time for Depature: 19:25 Referrals: [facility] (PCP/Family) Primary Care Physician Patient Instructions: Ovarian Cysts Scripts Hyoscyamine Sulfate (Levsin-Sl) 0.125 Mg Tab.subl 0.125 MG SL TID PRN for PAIN-SEE DOSE INSTRUCTIONS for 5 Days, #15 TAB Prov: ANDRÉS GARCIA APRN 06/20/22 ANDRÉS GARCIA APRN Jun 20, 2022 18:03
[2022-06-20 18:13] LABS: BASOPHILS # (AUTO) 0.1 10^3/uL (0.0-0.1); BASOPHILS % (AUTO) 1 % (0-10); BILIRUBIN,URINE NEGATIVE (NEGATIVE); CLARITY,URINE CLEAR; COLOR,URINE YELLOW; EOSINOPHILS # (AUTO) 0.2 10^3/uL (0.0-0.3); EOSINOPHILS % (AUTO) 2 % (0-10); GLUCOSE, URINE (UA) NEGATIVE (NEGATIVE); HEMATOCRIT 42 % (35-52); HEMOGLOBIN 14.3 g/dL (11.5-16.0); KETONES,URINE NEGATIVE (NEGATIVE); LEUKOCYTE ESTERASE ,URINE NEGATIVE (NEGATIVE); LYMPHOCYTES # (AUTO) 5.5 10^3/uL (1.0-4.0); LYMPHOCYTES % (AUTO) 48 % (12-44); MEAN CORPUSCULAR HEMOGLOBIN 31 pg (25-34); MEAN CORPUSCULAR HGB CONC 34 g/dL (32-36); MEAN CORPUSCULAR VOLUME 90 fL (80-99); MEAN PLATELET VOLUME 9.5 fL (9.0-12.2); MONOCYTES # (AUTO) 0.7 10^3/uL (0.0-1.0); MONOCYTES % (AUTO) 6 % (0-12); NEUTROPHILS # (AUTO) 4.8 10^3/uL (1.8-7.8); NEUTROPHILS % (AUTO) 42 % (42-75); NITRITE,URINE NEGATIVE (NEGATIVE); PH,URINE 6.5 (5-9); PLATELET COUNT 322 10^3/uL (130-400); PROTEIN,URINE NEGATIVE (NEGATIVE); WHITE BLOOD COUNT 11.4 10^3/uL (4.3-11.0)
[2022-06-20] MEDS ORDERED: CATHETER FLUSH 10 ML SYR IV PRN (18:15)
[2022-06-20] MEDS ORDERED: IOHEXOL 350 MG/ML 100 ML (OMNIPAQUE 350) VIAL IV ONE (18:15)
[2022-06-20] MEDS ORDERED: NS 100 ML (IVPB) BAG IV ONE (18:15)
[2022-06-20] MEDS ORDERED: HOLD METFORMIN - RECEIVED CONTRAST 20 ML VIAL IV SCH (18:15)
[2022-06-20 18:21] LABS: AMORPHOUS SEDIMENT,UR RARE AMOR URATES /LPF; BACTERIA,URINE TRACE /HPF
[2022-06-20 18:30] LABS: ALBUMIN 4.1 GM/DL (3.2-4.5); POTASSIUM 3.2 MMOL/L (3.6-5.0)
[2022-06-20] MEDS ORDERED: KETOROLAC 30 MG/ML VIAL IVP ONE (18:30)
[2022-06-20 18:33] LABS: TOTAL PROTEIN 7.2 GM/DL (6.4-8.2)
[2022-06-20 18:35] LABS: BILIRUBIN,TOTAL 0.2 MG/DL (0.1-1.0)
[2022-06-20 18:36] LABS: CREATININE SERUM 0.8 MG/DL (0.60-1.30)
[2022-06-20 18:46] LABS: SMEAR SCAN COMMENT YES
--- NOTE | 2022-06-20 19:13 | Diagnostic Imaging Report ---
PROCEDURE: CT abdomen and pelvis with contrast. TECHNIQUE: Multiple contiguous axial images were obtained through the abdomen and pelvis after administration of intravenous contrast. Auto Exposure Controls were utilized during the CT exam to meet ALARA standards for radiation dose reduction. All CT scans use one or more of the following dose optimizing techniques: automated exposure control, MA and/or KvP adjustment based on patient size and exam type or iterative reconstruction. INDICATION: [id number]-mc-[id number] abdominal pain COMPARISON: 05/17/2019 FINDINGS: There is mild groundglass opacity and mosaic attenuation in the lung bases. The heart is normal in size. The liver demonstrates no focal lesions. The gallbladder is contracted. The liver is mildly large measuring 19 cm. The spleen appears normal. The pancreas is normal. The adrenal glands appear normal. The kidneys demonstrate no hydronephrosis and no enhancing lesions. The bowel loops are nondistended without obstruction. There is a small amount of free fluid in the pelvis. The appendix appears normal. The aorta is normal in caliber. No lymphadenopathy is seen. Hysterectomy changes are noted. There appears to be an involuting or hemorrhagic cyst in the left ovary which is bilobed, measuring about 2.1 cm in diameter. No acute osseous abnormality is seen. IMPRESSION: 1. Small involuting or hemorrhagic cyst in the left ovary. Minimal free fluid in the pelvis 2. Mild hepatomegaly. 3. Mosaic groundglass opacity in the lung bases, most likely due to hypoinflation and atelectasis. Also in the differential are small airway disease, edema or infection. Dictated by: Dictated on workstation # [id number]
[2022-06-20] MEDS ORDERED: HYOS0.1283 SL (19:26)
[2022-06-20] MEDS ORDERED: HYDROcodone/APAP 5 MG/325 MG (LORTAB) TAB PO ONE (19:30)
== END 2022-06-20 19:35 | disposition home or self-care (01) ==
LOC: EDUNIT# 17:39 → ER 17:42
DX: N83.202 Unspecified ovarian cyst, left side (principal); Z90.710 Acquired absence of both cervix and uterus; Z88.5 Allergy status to narcotic agent
CPT/HCPCS: 36415; 74177; 80053; 81000; 85025

== ENCOUNTER 2023-01-26 16:30 | Emergency (ER) | payer SELFPAY ==
[~2023-01-26] VITALS: Ht 160 cm; Wt 77.0 kg
[~2023-01-26 16:30] MED LIST changes: +LIDO15SO3 MM; -LIDO20SO23 MM
[2023-01-26 17:12] LABS: BASOPHILS # (AUTO) 0.1 10^3/uL (0.0-0.1); BASOPHILS % (AUTO) 1 % (0-10); EOSINOPHILS % (AUTO) 0 % (0-10); HEMATOCRIT 43 % (35-52); HEMOGLOBIN 15.5 g/dL (11.5-16.0); LYMPHOCYTES # (AUTO) 3.4 10^3/uL (1.0-4.0); LYMPHOCYTES % (AUTO) 27 % (12-44); MEAN CORPUSCULAR HEMOGLOBIN 31 pg (25-34); MEAN CORPUSCULAR HGB CONC 36 g/dL (32-36); MEAN CORPUSCULAR VOLUME 87 fL (80-99); MONOCYTES # (AUTO) 0.4 10^3/uL (0.0-1.0); MONOCYTES % (AUTO) 3 % (0-12); NEUTROPHILS # (AUTO) 8.8 10^3/uL (1.8-7.8); NEUTROPHILS % (AUTO) 69 % (42-75); PLATELET COUNT 368 10^3/uL (130-400); WHITE BLOOD COUNT 12.8 10^3/uL (4.3-11.0)
--- NOTE | 2023-01-26 17:13 | ED Abdominal Pain ---
General Chief Complaint: Abdominal/GI Problems Stated Complaint: ABD PAIN Nursing Triage Note: PT CO OF R UPPER ABD PAIN, AT 1249 THIS AM, PT HAS HAD N/V/D. RATE 05/30. PT TEARFUL. PT STATES HAS TAKEN ZOFRAN WITHOUT RELIEF Source of Information: Patient Exam Limitations: No Limitations (LITZY PENA APRN) History of Present Illness Date Seen by Provider: Jan 26, 2023 Time Seen by Provider: 16:58 Initial Comments 42-year-old female presents the ER with complaints of mid epigastric pain starting at 12:49 this morning. She describes the pain as a sharp pain. She states the pain does not radiate anywhere else. She states she has had multiple episodes of vomiting and diarrhea. Denies blood in her diarrhea or vomit. Denies any known sick contacts. Only abdominal surgery is a hysterectomy. She reports problems with feet swelling, was told that this is related to her heart, she does not know the diagnosis, states that she is going to follow-up with her primary on the and then see a industrial coffee grinder. Denies any other past medical history, does not take any medications regularly. She denies any drug or alcohol use. (LITZY PENA APRN) Allergies and Home Medications Allergies Coded Allergies: tramadol (Verified Allergy, Severe, TACHYCARDIA, 10/12/18) Penicillins (Verified Allergy, Mild, SWELLING, 10/12/18) prednisone (Verified Allergy, Mild, REDNESS/SWELLING, 10/12/18) Patient Home Medication List Home Medication List Reviewed: Yes (LITZY PENA APRN) Benzonatate (Tessalon Perles) 100 Mg Capsule, 100 MG PO TID Prescribed by: SAVANNAH TY on 10/31/19 235 Diclofenac Sodium (Voltaren) 100 Gm Gel..gram., 100 GM TP QID Prescribed by: EDGARDO ROBBINS on 01/04/20 181 Doxycycline Hyclate (Doxycycline Hyclate) 100 Mg Tablet, 100 MG PO BID Prescribed by: EDGARDO ROBBINS on 12/13/19 1502 Guaifenesin/Dextromethorphan (Mucinex Dm ER 1,200-60 mg Tab) 1 Each Tbmp.12hr, 1 EACH PO BID Prescribed by: SAVANNAH TY on 10/31/19 2352 Hyoscyamine Sulfate (Levsin-Sl) 0.125 Mg Tab.subl, 0.125 MG SL TID PRN for PAIN- SEE DOSE INSTRUCTIONS Prescribed by: Andrés Garcia on 06/20/22 1926 Ibuprofen (Ibu) 600 Mg Tablet, 600 MG PO Q6H PRN for PAIN-MODERATE Prescribed by: JOSE E GILMORE on 09/06/18 1145 Naproxen (Naproxen) 500 Mg Tablet, 500 MG PO Q12H PRN for PAIN-MODERATE (5-7) Prescribed by: EDGARDO ROBBINS on 12/13/19 1503 Ondansetron (Ondansetron Odt) 4 Mg Tab.rapdis, 4 MG SL Q4H PRN for NAUSEA/VOMITING Prescribed by: Litzy Pena on 01/26/232026 Oseltamivir Phosphate (Tamiflu) 75 Mg Cap, 75 MG PO BID Prescribed by: SAVANNAH TY on 10/31/19 2351 Review of Systems Review of Systems Constitutional: see HPI (LITZY PENA APRN) Past Rvojxev-Hruhca-Dyrxen Hx Patient Social History Tobacco Use?: Yes Tobacco type used: Cigarettes Smoking Status: Current Everyday Smoker Substance use?: No Alcohol Use?: No Pt feels they are or have been: No (LITZY PNEA APRN) Immunizations Up To Date Tetanus Booster (TDap): More than 5yrs PED Vaccines UTD: Yes First/Initial COVID19 Vaccinat: YES (LITZY PENA APRN) Seasonal Allergies Seasonal Allergies: No (LITZY PENA APRN) Past Medical History Surgery/Hospitalization HX: HYST, SHOULDER REPAIR ROTATOR CUFF, ABD SURG,TUBAL, CARPAL TUNNEL BILAT Surgeries: Yes (SEE BELOW) Bowel Surgery, Hysterectomy, Neurological, Rectal, Tubal Ligation Respiratory: No Asthma Currently Using CPAP: No Currently Using BIPAP: No Cardiac: Yes High Cholesterol Neurological: Yes (SURGICAL REPAIR OF BRAIN AV MALFORMATION) Headaches /Migraines 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 (CERVICAL DYSPLASIA--S/P LEEP X 3) Female 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 Disorders: 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 Sexually Transmitted Disease: No HIV/AIDS: No Genitourinary: No Gastrointestinal: Yes (PERIRECTAL ABSCESSES/FISTULAS) Gastroesophageal Reflux, Polyps Musculoskeletal: No Endocrine: Yes Diabetes, Non-Insulin dep HEENT: No Loss of Vision: Bilateral Hearing Impairment: Denies Cancer: Yes (CERVICAL DYSPLASIA;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) Cervical, Colon Did You Recieve Any Treatments: Yes What Type of Treatment Did You: Surgical Intervention Psychosocial: No Integumentary: Yes (ANAL CONDYLOMA; PERIANAL/PERIRECTAL ABSCESSES AND FISTULAS) Blood Disorders: No Adverse Reaction/Blood Tranf: No (N/A) (LITZY PENA APRN) Family Medical History Arthritis 19 FATHER 19 MOTHER Asthma 19 FATHER G8 BROTHER Cataracts 19 MOTHER Diabetes mellitus 19 FATHER Headache disorder 19 MOTHER Hypercholesterolemia 19 MOTHER Seizure disorder 19 FATHER G8 BROTHER PSH: -MULTIPLE SURGERIES/PROCEDURES FOR PERIANAL / PERIRECTAL ABSCESSES AND FISTULAS--I&D'S, DEBRIDEMENTS, SETON BANDINGS -MULTPLE "PRECANCEROUS TUMORS" REMOVED FROM PERIANAL AREA DUE TO LARGE ANAL CONDYLOMA; -LEEP SURGERY X 3 FOR CERVICAL DYSPLASIA -REPAIR OF BRAIN AV MALFORMATION -BILATERAL CARPAL TUNNEL SURGERY -BTL (LITZY PENA APRN) Physical Exam Vital Signs Vital Signs - First Documented 01/26/23 01/26/23 16:30 20:48 Pulse 64 Resp 24 B/P (MAP) 134/99 (111) Pulse Ox 97 O2 Delivery Room Air (TESSA WALTON MD) Vital Signs Capillary Refill : Less Than 3 Seconds (LITZY PENA APRN) Height/Weight/BMI Height: 5'3.00" Weight: 180lbs. 6.0oz. 81.016775so; 30.00 BMI Method:Stated General Appearance: WD/WN, moderate distress Neck: supple, normal inspection Respiratory: lungs clear, normal breath sounds, no respiratory distress, no accessory muscle use Cardiovascular: regular rate, rhythm Gastrointestinal: normal bowel sounds, soft, tenderness (Mild generalized tenderness, severe tenderness epigastric region) Extremities: normal range of motion, normal inspection Neurologic/Psychiatric: alert, normal mood/affect Skin: normal color, warm/dry (LITZY PENA APRN) Progress/Results/Core Measures Results/Orders Lab Results Laboratory Tests Test 01/26/23 16:38 01/26/23 17:50 Range/Units White Blood Count 12.8 H 4.3-11.0 10^3/uL Red Blood Count 5.02 3.80-5.11 10^6/uL Hemoglobin 15.5 11.5-16.0 g/dL Hematocrit 43 35-52 % Mean Corpuscular Volume 87 80-99 fL Mean Corpuscular Hemoglobin 31 25-34 pg Mean Corpuscular Hemoglobin Concent 36 32-36 g/dL Red Cell Distribution Width 14.6 H 10.0-14.5 % Platelet Count 368 130-400 10^3/uL Mean Platelet Volume 10.0 9.0-12.2 fL Immature Granulocyte % (Auto) 0 % Neutrophils (%) (Auto) 69 42-75 % Lymphocytes (%) (Auto) 27 12-44 % Monocytes (%) (Auto) 3 0-12 % Eosinophils (%) (Auto) 0 0-10 % Basophils (%) (Auto) 1 0-10 % Neutrophils # (Auto) 8.8 H 1.8-7.8 10^3/uL Lymphocytes # (Auto) 3.4 1.0-4.0 10^3/uL Monocytes # (Auto) 0.4 0.0-1.0 10^3/uL Eosinophils # (Auto) 0.0 0.0-0.3 10^3/uL Basophils # (Auto) 0.1 0.0-0.1 10^3/uL Immature Granulocyte # (Auto) 0.1 0.0-0.1 10^3/uL Sodium Level 140 135-145 MMOL/L Potassium Level 3.2 L 3.6-5.0 MMOL/L Chloride Level 106 98-107 MMOL/L Carbon Dioxide Level 27 21-32 MMOL/L Anion Gap 7 5-14 MMOL/L Blood Urea Nitrogen 5 L 7-18 MG/DL Creatinine 0.79 0.60-1.30 MG/DL Estimat Glomerular Filtration Rate 95 BUN/Creatinine Ratio 6 Glucose Level 134 H 70-105 MG/DL Calcium Level 9.3 8.5-10.1 MG/DL Corrected Calcium 9.2 8.5-10.1 MG/DL Total Bilirubin 0.4 0.1-1.0 MG/DL Aspartate Amino Transf (AST/SGOT) 16 5-34 U/L Alanine Aminotransferase (ALT/SGPT) 17 0-55 U/L Alkaline Phosphatase 65 40-136 U/L C-Reactive Protein High Sensitivity 0.04 0.00-0.50 MG/DL Total Protein 7.1 6.4-8.2 GM/DL Albumin 4.1 3.2-4.5 GM/DL Amylase Level 51 25-125 U/L Lipase 71 8-78 U/L Urine Color DARK YELLOW Urine Clarity SL CLOUDY Urine pH 8.0 5-9 Urine Specific [place] 1.010 L 1.016-1.022 Urine Protein 2+ H NEGATIVE Urine Glucose (UA) NEGATIVE NEGATIVE Urine Ketones NEGATIVE NEGATIVE Urine Nitrite NEGATIVE NEGATIVE Urine Bilirubin NEGATIVE NEGATIVE Urine Urobilinogen 1.0 < = 1.0 MG/DL Urine Leukocyte Esterase NEGATIVE NEGATIVE Urine RBC (Auto) NEGATIVE NEGATIVE Urine RBC NONE /HPF Urine WBC 0-2 /HPF Urine Squamous Epithelial Cells >50 H /HPF Urine Crystals PRESENT H /LPF Urine Amorphous Sediment MOD DAVIDSON URATES H /LPF Urine Bacteria MODERATE H /HPF Urine Casts NONE /LPF Urine Mucus MODERATE H /LPF Urine Culture Indicated NO (TESSA WALTON MD) Vital Signs/I&O 01/26/23 01/26/23 16:30 20:48 Pulse 64 72 Resp 24 20 B/P (MAP) 134/99 (111) 121/66 Pulse Ox 97 98 O2 Delivery Room Air (TESSA WALTON MD) Blood Pressure Mean: 111 Progress Progress Note : Progress Note Patient seen and evaluated, sitting on edge of bed, moderate distress. Based on exam and symptoms, work-up initiated including CBC, CMP, amylase, lipase, UA, and CT abdomen pelvis. IV fluids, Zofran, fentanyl ordered. [address] reviewed. CBC does show slightly elevated WBCs 12.8. CMP shows decreased potassium 3.2 slightly elevated glucose 134. Amylase lipase normal. Urinalysis negative for nitrites, leukocytes, 0-2 WBCs, greater than 50 squamous epithelial cells, moderate bacteria. This is likely a contaminated specimen. Patient denies any UTI symptoms. CT shows abnormal diffuse colonic wall thickening likely related to inflammatory or infectious enterocolitis. There is also small amount of free fluid within the pelvis. Patient reevaluated. Patient continues to vomit. Phenergan and morphine fentanyl ordered. CRP added. Will replace potassium when nausea improves. 2021 CRP normal. Patient reports she is feeling better. Reports nausea is gone. Reports she still has mild pain. I offered a GI cocktail. Patient states that she would rather leave and get Tums or Maalox [id number]. Oral potassium ordered. Will discharge with take-home Zofran and prescription for Zofran. Discharge instructions and return precautions provided. (LITZY PENA APRN) Departure Impression Primary Impression: Gastroenteritis Disposition: 01 HOME, SELF-CARE Condition: Stable Departure-Patient Inst. Decision time for Depature: 20:23 (LITZY PENA APRN) Referrals: [facility] [place] [facility] (PCP/Family) Primary Care Physician Patient Instructions: Viral gastroenteritis in adults Add. Discharge Instructions: Take Zofran as needed for nausea and vomiting. Try to drink plenty of water, stay away from caffeinated or high sugar beverages. You can try Gatorade or liquid IV to get some electrolytes in. Stay on a liquid diet for the next 24 hours, continue a liquid diet until symptoms start to improve. Once symptoms improved start with the BRAT diet: Bananas, rice, applesauce, toast. You can try Maalox or Tums [id number] to help with your abdominal pain. Return for severe pain, recurrent vomiting, recurrent diarrhea, fever, blood in stool, or any other new, concerning, or worsening symptoms. All discharge instructions reviewed with patient and/or family. Voiced understanding. Scripts Ondansetron (Ondansetron Odt) 4 Mg Tab.rapdis 4 MG SL Q4H PRN for NAUSEA/VOMITING, #15 TAB 0 Refills Prov: LITZY PENA APRN 01/26/23 ATTENDING PHYSICIAN NOTE: I was physically present as attending physician in the emergency department during the care of this patient, but I was not directly involved in the decision making or delivery of care for this patient. (TESSA WALTON MD) LITZY PENA APRN Jan 26, 2023 17:13 TESSA WALTON MD Jan 30, 2023 13:38
[2023-01-26] MEDS ORDERED: ONDANSETRON 4 MG/2 ML (SDV) Z0FRAN IVP ONE (17:15)
[2023-01-26] MEDS ORDERED: NS IV 1000 ML 1,000 ML IV SCH (17:15)
[2023-01-26] MEDS ORDERED: fentaNYL INJ 100 MCG/2 ML AMP IVP ONE ×2 (17:15→19:00)
[2023-01-26 17:17] LABS: ALBUMIN 4.1 GM/DL (3.2-4.5)
[2023-01-26 17:18] LABS: POTASSIUM 3.2 MMOL/L (3.6-5.0)
[2023-01-26 17:19] LABS: CALCIUM 9.3 MG/DL (8.5-10.1)
[2023-01-26 17:20] LABS: TOTAL PROTEIN 7.1 GM/DL (6.4-8.2)
[2023-01-26 17:22] LABS: BILIRUBIN,TOTAL 0.4 MG/DL (0.1-1.0)
[2023-01-26 17:24] LABS: CREATININE SERUM 0.79 MG/DL (0.60-1.30)
[2023-01-26] MEDS ORDERED: NS 100 ML (IVPB) BAG IV ONE (18:00)
[2023-01-26] MEDS ORDERED: IOHEXOL 350 MG/ML 100 ML (OMNIPAQUE 350) VIAL IV ONE (18:00)
[2023-01-26 18:02] LABS: BILIRUBIN,URINE NEGATIVE (NEGATIVE); CLARITY,URINE SL CLOUDY; COLOR,URINE DARK YELLOW; GLUCOSE, URINE (UA) NEGATIVE (NEGATIVE); KETONES,URINE NEGATIVE (NEGATIVE); LEUKOCYTE ESTERASE ,URINE NEGATIVE (NEGATIVE); NITRITE,URINE NEGATIVE (NEGATIVE); PROTEIN,URINE 2+ (NEGATIVE)
--- NOTE | 2023-01-26 18:31 | Diagnostic Imaging Report ---
PROCEDURE: CT abdomen and pelvis with contrast. TECHNIQUE: Multiple contiguous axial images were obtained through the abdomen and pelvis after administration of intravenous contrast. Auto Exposure Controls were utilized during the CT exam to meet ALARA standards for radiation dose reduction. All CT scans use one or more of the following dose optimizing techniques: Automated exposure control, MA and/or KvP adjustment based on patient size and exam type or iterative reconstruction. INDICATION: Generalized abdominal pain. Nausea, vomiting, and diarrhea. COMPARISON: 06/20/2022. FINDINGS: Included portions of the lung bases are clear. CT ABDOMEN: There is abnormal proximal small bowel wall thickening and mucosal enhancement. There is also abnormal diffuse colonic wall thickening. This may be exaggerated by lipomatosis of the colonic wall. Large and small bowel loops show no abnormal dilatation. There is no pneumatosis, pneumoperitoneum, nor portal venous gas. There is trace free fluid within the pelvis, but no loculated air-fluid collection is identified. Normal appendix is present. The kidneys, adrenal glands, spleen, pancreas, and liver have a normal CT appearance. No abnormal mesenteric or retroperitoneal adenopathy is seen. Osseous structures show no acute abnormalities. CT PELVIS: Urinary bladder is unopacified and nondistended. No calculi are seen within the urinary bladder. Again, there is a small amount of free fluid. There is no loculated fluid collection or free air. No abnormal adenopathy is seen. Osseous structures show no acute abnormalities. IMPRESSION: 1. Abnormal diffuse colonic wall thickening. Additionally, there is abnormal proximal small bowel wall thickening with mucosal hyperenhancement. Findings are nonspecific, but may be seen with underlying infectious or inflammatory enterocolitis. Clinical correlation is advised. 2. Small amount of free fluid within the pelvis, but no loculated air-fluid collection, pneumatosis, pneumoperitoneum, nor portal venous gas. Dictated by: Dictated on workstation # [id number]
[2023-01-26 18:32] LABS: BACTERIA,URINE MODERATE /HPF; SQUAMOUS EPITHELIAL CELL,UR >50 /HPF; WBC,URINE 0-2 /HPF
[2023-01-26 18:33] LABS: AMORPHOUS SEDIMENT,UR MOD AMOR URATES /LPF
[2023-01-26] MEDS ORDERED: PROMETHAZINE INJ 25 MG/ML (PHENERGAN) AMP IVP ONE (19:00)
[2023-01-26] MEDS ORDERED: RX-ONDANSETRON 4 MG ODT (ZOFRAN) PPK #4 PO STA (20:22)
[2023-01-26] MEDS ORDERED: ONDA4TAB11 SL (20:27)
[2023-01-26] MEDS ORDERED: KCL 20 MEQ TAB (K-DUR) PO ONE (20:30)
[2023-01-26 20:48] VITALS: BP 121/66
== END 2023-01-26 20:49 | disposition home or self-care (01) ==
LOC: EDUNIT# 16:31 → ER 16:32
DX: K52.9 Noninfective gastroenteritis and colitis, unspecified (principal); K63.89 Other specified diseases of intestine; F17.210 Nicotine dependence, cigarettes, uncomplicated; Z88.5 Allergy status to narcotic agent; Z28.311 Partially vaccinated for COVID-19
CPT/HCPCS: 36415; 74177; 80053; 81000; 82150; 83690; 85025; 86141

== ENCOUNTER 2023-04-10 22:17 | Emergency (ER) | payer SELFPAY ==
[~2023-04-10] VITALS: Ht 157.4 cm; Wt 84.2 kg
[~2023-04-10 22:17] MED LIST changes: +ONDA4TAB11 SL
[2023-04-10 23:35] LABS: BILIRUBIN,URINE NEGATIVE (NEGATIVE); CLARITY,URINE CLEAR; COLOR,URINE YELLOW; GLUCOSE, URINE (UA) NEGATIVE (NEGATIVE); KETONES,URINE NEGATIVE (NEGATIVE); LEUKOCYTE ESTERASE ,URINE NEGATIVE (NEGATIVE); NITRITE,URINE NEGATIVE (NEGATIVE); PROTEIN,URINE NEGATIVE (NEGATIVE)
[2023-04-10 23:37] LABS: BACTERIA,URINE TRACE /HPF; RBC,URINE 0-2 /HPF
[2023-04-11] MEDS ORDERED: ACYCLOVIR 400 MG CAPSULE/TABLET PO STA (00:55)
[2023-04-11] MEDS ORDERED: L.E.T. SOLUTION 3 ML SYR ONE (00:57)
[2023-04-11] MEDS ORDERED: HYDROcodone/ACETAMINOPHEN 5 MG/325 MG TABLET PO ONE (01:00)
[2023-04-11] MEDS ORDERED: L.E.T. SOLUTION 3 ML SYR TOP ONE (01:00)
[2023-04-11] MEDS ORDERED: TRIM/SULFAMETH 160/800 (SEPTRA DS) TAB PO ONE (01:00)
--- NOTE | 2023-04-11 02:22 | ED GU-Female ---
General Chief Complaint: - 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 Stated Complaint: ABD PAIN Nursing Triage Note: PATIENT STATES THAT SHE IS HAVING PAIN ON HER LABIA THAT BEGAN TODAY. SHE STATES THAT SHE BELIEVES IT IS RELATED TO HER HISTORY OF GENITAL WARTS. Source: patient Exam Limitations: no limitations History of Present Illness Date Seen by Provider: Apr 11, 2023 Allergies and Home Medications Allergies Coded Allergies: tramadol (Verified Allergy, Severe, TACHYCARDIA, 10/12/18) Penicillins (Verified Allergy, Mild, SWELLING, 10/12/18) prednisone (Verified Allergy, Mild, REDNESS/SWELLING, 10/12/18) Patient Home Medication List Benzonatate (Tessalon Perles) 100 Mg Capsule, 100 MG PO TID Prescribed by: SAVANNAH TY on 10/31/192350 Diclofenac Sodium (Voltaren) 100 Gm Gel..gram., 100 GM TP QID Prescribed by: EDGARDO ROBBINS on 01/04/20 181 Doxycycline Hyclate (Doxycycline Hyclate) 100 Mg Tablet, 100 MG PO BID Prescribed by: EDGARDO ROBBINS on 12/13/19 150 Guaifenesin/Dextromethorphan (Mucinex Dm ER 1,200-60 mg Tab) 1 Each Tbmp.12hr, 1 EACH PO BID Prescribed by: SAVANNAH TY on 10/31/192351 Hyoscyamine Sulfate (Levsin-Sl) 0.125 Mg Tab.subl, 0.125 MG SL TID PRN for PAIN- SEE DOSE INSTRUCTIONS Prescribed by: Andrés Garcia on 06/20/22 192 Ibuprofen (Ibu) 600 Mg Tablet, 600 MG PO Q6H PRN for PAIN-MODERATE Prescribed by: JOSE E GILMORE on 09/06/18 1145 Naproxen (Naproxen) 500 Mg Tablet, 500 MG PO Q12H PRN for PAIN-MODERATE (5-7) Prescribed by: EDGARDO ROBBINS on 12/13/19 150 Ondansetron (Ondansetron Odt) 4 Mg Tab.rapdis, 4 MG SL Q4H PRN for NAUSEA/VOMITING Prescribed by: Litzy Schaeffer on 01/26/232026 Oseltamivir Phosphate (Tamiflu) 75 Mg Cap, 75 MG PO BID Prescribed by: SAVANNAH TY on 10/31/19 235 Past Blmocnc-Nurzav-Xddcqo Hx Patient Social History Tobacco Use?: Yes Tobacco type used: Cigarettes Smoking Status: Current Everyday Smoker Smokeless Tobacco Frequency: Never a User Use of E-Cig and/or Vaping dev: No Use of E-Cig and/or Vaping Ed: Never a User Substance use?: No Alcohol Use?: No Pt feels they are or have been: No Immunizations Up To Date Tetanus Booster (TDap): More than 5yrs PED Vaccines UTD: Yes First/Initial COVID19 Vaccinat: UNK COVID19 Vaccine [employer]: [employer] X1 Seasonal Allergies Seasonal Allergies: No Past Medical History Surgery/Hospitalization HX: HYST, SHOULDER REPAIR ROTATOR CUFF, ABD SURG,TUBAL, CARPAL TUNNEL BILAT Surgeries: Yes (SEE BELOW) Bowel Surgery, Hysterectomy, Neurological, Rectal, Tubal Ligation Respiratory: No Asthma Currently Using CPAP: No Currently Using BIPAP: No Cardiac: Yes High Cholesterol Neurological: Yes (SURGICAL REPAIR OF BRAIN AV MALFORMATION) Headaches /Migraines 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 (CERVICAL DYSPLASIA--S/P LEEP X 3) Female 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 Disorders: 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 Sexually Transmitted Disease: No HIV/AIDS: No Genitourinary: No Gastrointestinal: Yes (PERIRECTAL ABSCESSES/FISTULAS) Gastroesophageal Reflux, Polyps Musculoskeletal: No Endocrine: Yes Diabetes, Non-Insulin dep HEENT: No Loss of Vision: Bilateral Hearing Impairment: Denies Cancer: Yes (CERVICAL DYSPLASIA;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) Cervical, Colon Did You Recieve Any Treatments: Yes What Type of Treatment Did You: Surgical Intervention Psychosocial: No Integumentary: Yes (ANAL CONDYLOMA; PERIANAL/PERIRECTAL ABSCESSES AND FISTULAS) Blood Disorders: No Adverse Reaction/Blood Tranf: No (N/A) Family Medical History Arthritis 19 FATHER 19 MOTHER Asthma 19 FATHER G8 BROTHER Cataracts 19 MOTHER Diabetes mellitus 19 FATHER Headache disorder 19 MOTHER Hypercholesterolemia 19 MOTHER Seizure disorder 19 FATHER G8 BROTHER PSH: -MULTIPLE SURGERIES/PROCEDURES FOR PERIANAL / PERIRECTAL ABSCESSES AND FISTULAS--I&D'S, DEBRIDEMENTS, SETON BANDINGS -MULTPLE "PRECANCEROUS TUMORS" REMOVED FROM PERIANAL AREA DUE TO LARGE ANAL CONDYLOMA; -LEEP SURGERY X 3 FOR CERVICAL DYSPLASIA -REPAIR OF BRAIN AV MALFORMATION -BILATERAL CARPAL TUNNEL SURGERY -BTL Physical Exam Vital Signs Vital Signs - First Documented 04/10/23 23:18 Temp 36.2 Pulse 84 Resp 20 B/P (MAP) 140/87 (104) Pulse Ox 99 O2 Delivery Room Air Capillary Refill : Less Than 3 Seconds Height, Weight, BMI Height: 5'3.00" Weight: 180lbs. 6.0oz. 81.492973nj; 33.00 BMI Method:Stated Progress/Results/Core Measures Suspected Sepsis SIRS Temperature: Pulse: 84 Respiratory Rate: 20 Blood Pressure 140 /87 Mean: 104 Results/Orders Lab Results Laboratory Tests Test 04/10/23 23:21 Range/Units Urine Color YELLOW Urine Clarity CLEAR Urine pH 7.0 5-9 Urine Specific [place] 1.020 1.016-1.022 Urine Protein NEGATIVE NEGATIVE Urine Glucose (UA) NEGATIVE NEGATIVE Urine Ketones NEGATIVE NEGATIVE Urine Nitrite NEGATIVE NEGATIVE Urine Bilirubin NEGATIVE NEGATIVE Urine Urobilinogen 0.2 < = 1.0 MG/DL Urine Leukocyte Esterase NEGATIVE NEGATIVE Urine RBC (Auto) TRACE H NEGATIVE Urine RBC 0-2 /HPF Urine WBC NONE /HPF Urine Squamous Epithelial Cells 10-25 H /HPF Urine Crystals NONE /LPF Urine Bacteria TRACE /HPF Urine Casts NONE /LPF Urine Mucus NEGATIVE /LPF Urine Culture Indicated NO My Orders Orders - TESSA WALTON MD Ua Culture If Indicated (04/10/23 22:53) Let Solution (Let Solution) (04/11/23 01:00) Acyclovir Capsule/Tablet (Acyclovir Ca (04/11/23 00:55) Sulfamethoxazole/Trimet Ds Tab (Bactrim (04/11/23 01:00) Hydrocodone/Apap 5/325 Tablet (Hydrocod (04/11/23 01:00) Wound Culture (04/11/23 00:57) Let Solution (Let Solution) (04/11/23 00:57) Ketorolac Injection (Ketorolac Injection (04/11/23 02:30) Rx-Hydrocodone/Apap 5-325 Mg (Rx-Vicodin (04/11/23 02:30) Medications Given in ED Current Medications Medications Dose Ordered Sig/Maryse Route Start Time Stop Time Status Last Admin Dose Admin Acetaminophen/ Hydrocodone Bitart 1 ea ONCE ONCE PO 04/11/23 01:00 04/11/23 01:01 DC 04/11/23 01:08 1 EA Tetracaine/ Epinephrine/ Lidocaine 3 ml ONCE ONCE TOP 04/11/23 01:00 04/11/23 01:01 DC 04/11/23 00:59 3 ML Trimethoprim/ Sulfamethoxazole 1 ea ONCE ONCE PO 04/11/23 01:00 04/11/23 01:01 DC 04/11/23 01:08 1 EA Vital Signs/I&O 04/10/23 23:18 Temp 36.2 Pulse 84 Resp 20 B/P (MAP) 140/87 (104) Pulse Ox 99 O2 Delivery Room Air Capillary Refill : Less Than 3 Seconds Blood Pressure Mean: 104 Departure Impression Primary Impression: Abscess of female genitalia Additional Impressions: Cellulitis of pubic region Encounter for incision and drainage procedure Disposition: HOME, SELF-CARE Condition: Improved Departure-Patient Inst. Decision time for Depature: 02:25 Referrals: RAZ ROMAN APRN (PCP) Primary Care Physician [facility] (Family) Primary Care Physician Patient Instructions: Abscess Incision and Drainage ED, Cellulitis (Skin Infection), Adult ED Add. Discharge Instructions: Take ibuprofen up to 600 mg every 6 hours as needed for primary pain control. Add hydrocodone as prescribed for pain not controlled by ibuprofen. Use sitz bath's for 15 to 30 minutes 3-4 times a day to encourage the abscess to continue draining. Put a few squirts of chlorhexidine soap in the water when you do the sitz baths. Cover with absorbent dressing such as gauze pads while abscess is draining. Continue antibiotics until complete. Follow-up with your primary care provider in 48 hours to review culture results to ensure you are taking the most appropriate antibiotic for your infection. You likely have abscess and cellulitis related to bacterial infection. However, herpes cannot be completely ruled out so acyclovir has also been prescribed. Avoid intercourse until follow-up with your primary care provider or women's health provider and you have a clearance to resume sexual activity. Return to care if you have worsening symptoms despite following these instructions. All discharge instructions reviewed with patient and/or family. Voiced understanding. Scripts Hydrocodone/Acetaminophen (Hydrocodone-Acetamin 5-325 mg) 5 Mg-325 Mg Tablet 1 TAB PO Q4H PRN for PAIN BREAKTROUGH, #10 TAB Prov: TESSA WALTON MD 04/11/23 Acyclovir (Acyclovir) 400 Mg Tablet 400 MG PO TID, #20 TAB Prov: TESSA WALTON MD 04/11/23 Sulfamethoxazole/Trimethoprim (Bactrim Ds Tablet) 1 Each Tablet 1 EACH PO BID, #20 TAB Prov: TESSA WALTON MD 04/11/23 TESSA WALTON MD Apr 11, 2023 02:22
[2023-04-11] MEDS ORDERED: SULF1TAB38 PO (02:29)
[2023-04-11] MEDS ORDERED: ACHD5005 PO (02:29)
[2023-04-11] MEDS ORDERED: ACYC400T21 PO (02:29)
[2023-04-11] MEDS ORDERED: KETOROLAC INJ 30 MG/ML VIAL IM ONE (02:30)
[2023-04-11 02:40] VITALS: BP 141/83
== END 2023-04-11 02:45 | disposition home or self-care (01) ==
LOC: EDUNIT# 22:17 → ER 22:18
DX: N76.4 Abscess of vulva (principal); L03.314 Cellulitis of groin; F17.210 Nicotine dependence, cigarettes, uncomplicated; Z48.00 Encounter for change or removal of nonsurgical wound dressing
CPT/HCPCS: 81000; 87070; 87205; 99284

== ENCOUNTER 2023-06-28 18:58 | Emergency (ER) | payer OTHER ==
[~2023-06-28] VITALS: Ht 160 cm; Wt 76.6 kg
[~2023-06-28 18:58] MED LIST changes: +ACYC400T21 PO
--- NOTE | 2023-06-28 19:13 | ED GU-Female ---
General Chief Complaint: - 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 Stated Complaint: VAG PAIN Nursing Triage Note: PT AMB TO RM 9 WITH CC OF VAGINAL PAIN. PT STATES THAT SHE IS HAVING PAIN WITH URINATION. LAST DOSE OF TYLENOL WAS AT 1630. Source: patient Exam Limitations: no limitations History of Present Illness Date Seen by Provider: Jun 28, 2023 Time Seen by Provider: 19:00 Initial Comments 42-year-old female presents to the ER with complaint of vaginal pain. She states that she thinks she has a UTI. She reports that it is a burning sensation, states that if she does not go to the bathroom right away that is when the pain occurs. Denies burning with urination. She states that the pain started yesterday, she has been taking Tylenol. She reports that she had a fever of 101.7 last night. Reports lower abdominal cramping. She reports 1 episode of vomiting due to pain. She reports a yellow to clear vaginal discharge. She reports that she has genital warts. She reports that she was last sexually active 3 to 4 months ago, states that she is not sexually active because of the pain that the warts cause. She is uncertain if this pain is from the genital warts or something else. She has had a partial hysterectomy. Allergies and Home Medications Allergies Coded Allergies: tramadol (Verified Allergy, Severe, TACHYCARDIA, 10/12/18) Penicillins (Verified Allergy, Mild, SWELLING, 10/12/18) prednisone (Verified Allergy, Mild, REDNESS/SWELLING, 10/12/18) Patient Home Medication List Home Medication List Reviewed: Yes Acyclovir (Acyclovir) 400 Mg Tablet, 400 MG PO TID Prescribed by: TESSA HERNANDEZ on 04/11/23 0229 Benzonatate (Tessalon Perles) 100 Mg Capsule, 100 MG PO TID Prescribed by: SAVANNAH TY on 10/31/19 2351 Diclofenac Sodium (Voltaren) 100 Gm Gel..gram., 100 GM TP QID Prescribed by: EDGARDO ROBBINS on 01/04/20 181 Doxycycline Hyclate (Doxycycline Hyclate) 100 Mg Tablet, 100 MG PO BID Prescribed by: EDGARDO ROBBINS on 12/13/19 1502 Guaifenesin/Dextromethorphan (Mucinex Dm ER 1,200-60 mg Tab) 1 Each Tbmp.12hr, 1 EACH PO BID Prescribed by: SAVANNAH TY on 10/31/192351 Hydrocodone/Acetaminophen (Hydrocodone-Acetamin 5-325 mg) 5 Mg-325 Mg Tablet, 1 TAB PO Q4H PRN for PAIN BREAKTROUGH Prescribed by: TESSA HERNANDEZ on 04/11/23228 Hyoscyamine Sulfate (Levsin-Sl) 0.125 Mg Tab.subl, 0.125 MG SL TID PRN for PAIN- SEE DOSE INSTRUCTIONS Prescribed by: Andrés Garcia on 06/20/22 192 Ibuprofen (Ibu) 600 Mg Tablet, 600 MG PO Q6H PRN for PAIN-MODERATE Prescribed by: JOSE E GILMORE on 09/06/18 1145 Metronidazole (Metronidazole) 500 Mg Tablet, 500 MG PO BID Prescribed by: Litzy Schaeffer on 06/28/231943 Naproxen (Naproxen) 500 Mg Tablet, 500 MG PO Q12H PRN for PAIN-MODERATE (5-7) Prescribed by: EDGARDO ROBBINS on 12/13/19 1503 Ondansetron (Ondansetron Odt) 4 Mg Tab.rapdis, 4 MG SL Q4H PRN for NAUSEA/VOMITING Prescribed by: Litzy Schaeffer on 01/26/232026 Oseltamivir Phosphate (Tamiflu) 75 Mg Cap, 75 MG PO BID Prescribed by: SAVANNAH TY on 10/31/192350 Podofilox (Podofilox) 0.5 % Solution, 3.5 ML TP BID Prescribed by: Litzy Schaeffer on 06/28/231943 Sulfamethoxazole/Trimethoprim (Bactrim Ds Tablet) 1 Each Tablet, 1 EACH PO BID Prescribed by: TESSA HERNANDEZ on 04/11/23228 Review of Systems Review of Systems Constitutional: see HPI Past Ifpgjpu-Tqzqer-Rjswsc Hx Patient Social History Tobacco Use?: Yes Tobacco type used: Cigarettes Substance use?: No Alcohol Use?: No Immunizations Up To Date Tetanus Booster (TDap): More than 5yrs PED Vaccines UTD: Yes First/Initial COVID19 Vaccinat: UNK Second COVID19 Vaccination Marcelo: UNK Third COVID19 Vaccination Date: UNK Seasonal Allergies Seasonal Allergies: No Past Medical History Surgery/Hospitalization HX: HYST, SHOULDER REPAIR ROTATOR CUFF, ABD SURG,TUBAL, CARPAL TUNNEL BILAT Surgeries: Yes (SEE BELOW) Bowel Surgery, Hysterectomy, Neurological, Orthopedic, Rectal, Tubal Ligation, Vascular Surgery Respiratory: No Asthma Currently Using CPAP: No Currently Using BIPAP: No Cardiac: Yes High Cholesterol Neurological: Yes (SURGICAL REPAIR OF BRAIN AV MALFORMATION) Headaches /Migraines 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 (CERVICAL DYSPLASIA--S/P LEEP X 3) Female 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 Disorders: 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 Sexually Transmitted Disease: Yes (Genital warts) HIV/AIDS: No Genitourinary: No Gastrointestinal: Yes (PERIRECTAL ABSCESSES/FISTULAS) Gastroesophageal Reflux, Polyps Musculoskeletal: No Endocrine: Yes Diabetes, Non-Insulin dep HEENT: No Loss of Vision: Bilateral Hearing Impairment: Denies Cancer: Yes (CERVICAL DYSPLASIA;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) Cervical, Colon Did You Recieve Any Treatments: Yes What Type of Treatment Did You: Surgical Intervention Psychosocial: No Integumentary: Yes (ANAL CONDYLOMA; PERIANAL/PERIRECTAL ABSCESSES AND FISTULAS) Blood Disorders: No Adverse Reaction/Blood Tranf: No (N/A) Family Medical History Arthritis 19 FATHER 19 MOTHER Asthma 19 FATHER G8 BROTHER Cataracts 19 MOTHER Diabetes mellitus 19 FATHER Headache disorder 19 MOTHER Hypercholesterolemia 19 MOTHER Seizure disorder 19 FATHER G8 BROTHER PSH: -MULTIPLE SURGERIES/PROCEDURES FOR PERIANAL / PERIRECTAL ABSCESSES AND FISTULAS--I&D'S, DEBRIDEMENTS, SETON BANDINGS -MULTPLE "PRECANCEROUS TUMORS" REMOVED FROM PERIANAL AREA DUE TO LARGE ANAL CONDYLOMA; -LEEP SURGERY X 3 FOR CERVICAL DYSPLASIA -REPAIR OF BRAIN AV MALFORMATION -BILATERAL CARPAL TUNNEL SURGERY -BTL Physical Exam Vital Signs Vital Signs - First Documented 06/28/23 19:05 Pulse 106 B/P (MAP) 143/85 (104) Pulse Ox 98 O2 Delivery Room Air Capillary Refill : Height, Weight, BMI Height: 5'3.00" Weight: 180lbs. 6.0oz. 81.373125vd; 29.00 BMI Method:Stated General Appearance: WD/WN, no apparent distress Neck: supple, normal inspection Cardiovascular: regular rate, rhythm Respiratory: lungs clear, normal breath sounds, no respiratory distress, no accessory muscle use Gastrointestinal: normal bowel sounds, non tender, soft Extremities: normal range of motion, normal inspection Neurologic/Psychiatric: alert, normal mood/affect Skin: normal color, warm/dry Progress/Results/Core Measures Suspected Sepsis SIRS Temperature: Pulse: 106 Respiratory Rate: Blood Pressure 143 /85 Mean: 104 Results/Orders Lab Results Laboratory Tests Test 06/28/23 19:11 06/28/23 19:24 Range/Units Urine Color YELLOW Urine Clarity CLEAR Urine pH 6.0 5-9 Urine Specific Blanket <=1.005 1.016-1.022 Urine Protein NEGATIVE NEGATIVE Urine Glucose (UA) NEGATIVE NEGATIVE Urine Ketones NEGATIVE NEGATIVE Urine Nitrite NEGATIVE NEGATIVE Urine Bilirubin NEGATIVE NEGATIVE Urine Urobilinogen 0.2 < = 1.0 MG/DL Urine Leukocyte Esterase NEGATIVE NEGATIVE Urine RBC (Auto) TRACE H NEGATIVE Urine RBC 0-2 /HPF Urine WBC NONE /HPF Urine Squamous Epithelial Cells 0-2 /HPF Urine Crystals NONE /LPF Urine Bacteria TRACE /HPF Urine Casts NONE /LPF Urine Mucus NEGATIVE /LPF Urine Culture Indicated NO My Orders Orders - LITZY HULL APRN Ua Culture If Indicated (06/28/23 19:00) Urine Bedside (06/28/23 19:00) Wet Prep (06/28/23 19:25) Neisseria Gonorrhea Swab (06/28/23 19:25) Chlamydia Trachomatis Swab (06/28/23 19:25) Metronidazole Tablet (Metronidazole Tabl (06/28/23 19:45) Vital Signs/I&O 06/28/23 19:05 Pulse 106 B/P (MAP) 143/85 (104) Pulse Ox 98 O2 Delivery Room Air Capillary Refill : Blood Pressure Mean: 104 Progress Note : Progress Note Patient seen and evaluated, resting comfortably in bed, no acute distress. Based on exam and symptoms, will obtain a urinalysis and urine . Will also perform a pelvic exam. 1940 pelvic exam performed. Several genital warts identified. White-colored discharge in vaginal canal. No signs of inflammation. Wet prep showed clue cells, negative for yeast and trichomonas. Will treat for bacterial vaginosis. Urinalysis negative for infection. Will also provide patient podofilox for her genital warts. Patient structured to follow-up with an NURSING SUPPORT WORKER regarding her genital warts. Patient is stable for discharge. Discharge instructions and return precautions provided. Departure Impression Primary Impression: Bacterial vaginosis Additional Impression: Genital warts Disposition: HOME, SELF-CARE Condition: Stable Departure-Patient Inst. Decision time for Depature: 19:41 Referrals: RAZ ROMAN APRN (PCP) Primary Care Physician VINCENT GORE DO Patient Instructions: Bacterial Vaginosis ED Add. Discharge Instructions: Complete full course of the Flagyl as prescribed. You will take it twice a day for 7 days. Use the podofilox cream. Use a Q-tip to apply it. You will use it twice a day for 3 days, and then go 4 days without treatment. You may repeat this up to 4 times. Follow-up with an NURSING SUPPORT WORKER for treatment of your genital warts. I have attached Dr. Gore's contact information. You may also try to find a NURSING SUPPORT WORKER at [facility]. Return for any new, concerning, or worsening symptoms. All discharge instructions reviewed with patient and/or family. Voiced under standing. Scripts Podofilox (Podofilox) 0.5 % Solution 3.5 ML TP BID for 3 Days, #1 EA 0 Refills Use twice a day for 3 days, then go 4 days without treatment. You may repeat this up to 4 times. Prov: LITZY HULL APRN 06/28/23 Metronidazole (Metronidazole) 500 Mg Tablet 500 MG PO BID for 7 Days, #13 TAB 0 Refills Prov: LITZY HULL APRN 06/28/23 LITZY HULL APRN Jun 28, 2023 19:13
[2023-06-28 19:29] LABS: BILIRUBIN,URINE NEGATIVE (NEGATIVE); CLARITY,URINE CLEAR; COLOR,URINE YELLOW; GLUCOSE, URINE (UA) NEGATIVE (NEGATIVE); KETONES,URINE NEGATIVE (NEGATIVE); LEUKOCYTE ESTERASE ,URINE NEGATIVE (NEGATIVE); NITRITE,URINE NEGATIVE (NEGATIVE); PROTEIN,URINE NEGATIVE (NEGATIVE)
[2023-06-28 19:34] LABS: BACTERIA,URINE TRACE /HPF; RBC,URINE 0-2 /HPF; SQUAMOUS EPITHELIAL CELL,UR 0-2 /HPF
[2023-06-28] MEDS ORDERED: METR-145 PO (19:44)
[2023-06-28] MEDS ORDERED: PODO3.5S TP (19:44)
[2023-06-28] MEDS ORDERED: metroNIDAZOLE 500 MG TABLET PO ONE (19:45)
[2023-06-28 19:54] VITALS: BP 135/81
== END 2023-06-28 19:55 | disposition home or self-care (01) ==
LOC: EDUNIT# 18:58 → ER 19:00
DX: N76.0 Acute vaginitis (principal); A63.0 Anogenital (venereal) warts; F17.210 Nicotine dependence, cigarettes, uncomplicated
CPT/HCPCS: 36415; 81000; 84703; 87210; 87491; 87591; 99284